=== PATIENT | male | born 1985 | race Caucasian/White ===

== ENCOUNTER 2016-09-05 17:16 | Emergency (ER) | payer BC, OTHER ==
--- NOTE | 2016-09-05 17:22 | EDM.PDOC ---
ED HISTORY OF PRESENT ILLNESS - General Chief Complaint: Chest Pain Stated Complaint: CHEST PAIN Time Seen by Provider: 09/05/16 17:22 - History of Present Illness INITIAL COMMENTS - FREE TEXT/NARRATIVE: 30-year-old male presents emergency room with chest pain and abdominal pain. Patient is highly intoxicated at this point he admits to drinking a sixpack of beer. Patient used to have a lot of problems with heartburn and dyspepsia symptoms he' s no longer taking any medication for this. The patient is a habitual alcohol user. He denies any other illicit drugs at this point. The patient dates his discomfort back about 3 weeks when he had a right tooth pulled. He states he still taken an antibiotic for this but he has not been using the ibuprofen, Aleve or naproxen. Patient has significant abdominal discomfort often times is goes into his chest in the substernal area he has a hard time describing this pain. The patient has not been using any of his gastrointestinal medications for several months. - Related Data Allergies/ADRs: Allergies Allergy/AdvReac Type Severity Reaction Status Date / Time No Known Allergies Allergy Verified 09/05/16 17:29 Home Meds: Home Meds Calcium Carbonate [Tums] 0 mg PO ASDIRECTED PRN 08/16/13 [History] Omeprazole 40 mg PO BEDTIME #30 cap.sr 08/16/13 [Rx] Omeprazole [priLOSEC OTC] 20 mg PO DAILY 08/16/13 [History] Ondansetron [Zofran ODT] 4 mg PO Q6H PRN #10 tab.dis 08/16/13 [Rx] Pantoprazole Sodium [Protonix] 40 mg PO Q24H #30 tablet. 09/05/16 [Rx] Sucralfate [Carafate] 0.1 gm PO ONETIME #1 ml #1 Samples 09/05/16 [Rx] Sucralfate [Carafate] 1 gm PO QIDACANDBED #28 tablet 09/05/16 [Rx] Social & Family History - Tobacco Use Years of Tobacco use: 9 - Alcohol Use Days Per Week of Alcohol Use: 2 Number of Drinks Per Day: 2 Total Drinks Per Week: 4 - Recreational Drug Use Recreational Drug Use: No ED ROS GENERAL - Review of Systems Review Of Systems: See Below Constitutional: Reports: no symptoms, weight gain Respiratory: Reports: Pleuritic Chest Pain. Denies: Shortness of Breath, Cough , Sputum Cardiovascular: Reports: Chest pain. Denies: Dyspnea on exertion, Palpitations Endocrine: Reports: no symptoms GI/Abdominal: Reports: Abdominal pain. Denies: Black stool, Bloody stool, Constipation, Diarrhea, Difficulty swallowing, Hematemesis, Hematochezia, Melena , Nausea, Vomiting : Reports: no symptoms Musculoskeletal: Reports: no symptoms Neurological: Reports: No Symptoms ED EXAM, GENERAL - Physical Exam Exam: See Below Exam Limited By: Intoxication General Appearance: alert, no apparent distress Eye Exam: bilateral eye: conjunctival injection, EOMI, normal inspection, PERRL Ears: normal external exam, normal canal, hearing grossly normal, normal TMs Nose: normal inspection, normal mucosa, no blood Throat/Mouth: Normal inspection, Normal lips, Normal gums, Normal oropharynx, Normal voice, No airway compromise, Other (Socket examined right lower jaw rear tooth prior molar site no significant erythema.) Head: atraumatic, normocephalic Neck: normal inspection, supple, non-tender, full range of motion. No: lymphadenopathy (L), lymphadenopathy (R) Respiratory/Chest: no respiratory distress, lungs clear, normal breath sounds Cardiovascular: normal peripheral pulses, regular rate, rhythm, no edema GI/Abdominal: normal bowel sounds, soft, other (Significant epigastric discomfort no rebound or guarding noted no rigidity) Back Exam: normal inspection. No: CVA tenderness (L), CVA tenderness (R) Neurological: CN II-XII intact, no motor/sensory deficits Psychiatric: other (Intoxicated) Course - Vital Signs Last Recorded V/S: Last Vital Signs Temp 36.5 C 09/05/16 17:20 Pulse 126 H 09/05/16 17:20 Resp 22 H 09/05/16 17:20 BP 162/106 H 09/05/16 17:20 Pulse Ox 96 09/05/16 17:20 - Orders/Labs/Meds Orders: Active Orders 24 hr Category Date Time Status EKG 12 Lead [EKG Documentation Completion] [RC] STAT Care 09/05/16 17:15 Active Chest 1V Frontal [CR] Stat Exams 09/05/16 17:31 Taken Labs: Laboratory Tests 09/05/16 09/05/16 09/05/16 Range/Units 17:20 17:20 17:20 WBC 11.98 H (4.23-9.07) K/mm3 RBC 5.45 (4.63-6.08) M/mm3 Hgb 16.6 (13.7-17.5) gm/L Hct 48.5 (40.1-51.0) % MCV 89.0 (79.0-92.2) fl MCH 30.5 (25.7-32.2) pg MCHC 34.2 (32.2-35.5) g/dl RDW Std Deviation 51.4 H (35.1-43.9) fL Plt Count 292 (163-337) K/mm3 MPV 10.6 (9.4-12.3) fl Neutrophils % (Manual) 61 H (40-60) % Band Neutrophils % 0 (0-10) % Lymphocytes % (Manual) 21 (20-40) % Atypical Lymphs % 6 % Monocytes % (Manual) 10 (2-10) % Eosinophils % (Manual) 2 (0.8-7.0) % Basophils % (Manual) 0 L (0.2-1.2) Platelet Estimate Adequate Plt Morphology Comment See note RBC Morph Comment Normal Sodium 149 H (136-145) mEq/L Potassium 3.7 (3.5-5.1) mEq/L Chloride 110 H (98-107) mEq/L Carbon Dioxide 24 (21-32) mEq/L Anion Gap 18.7 H (5-15) BUN 7 (7-18) mg/dL Creatinine 1.0 (0.7-1.3) mg/dL Est Cr Clr Drug Dosing 103.00 mL/min Estimated GFR (MDRD) > 60 (>60) mL/min BUN/Creatinine Ratio 7.0 L (14-18) Glucose 137 H (74-106) mg/dL Calcium 8.5 (8.5-10.1) mg/dL Total Bilirubin 0.5 (0.2-1.0) mg/dL AST 31 (15-37) U/L ALT 27 (16-63) U/L Alkaline Phosphatase 68 (46-116) U/L Troponin I < 0.017 (0.00-0.056) ng/mL Total Protein 7.4 (6.4-8.2) g/dl Albumin 4.3 (3.4-5.0) g/dl Globulin 3.1 gm/dL Albumin/Globulin Ratio 1.4 (1-2) Lipase 352 (73-393) U/L Ethyl Alcohol 0.38 (0.00) gm% Meds: Medications Discontinued Medications Generic Name Dose Route Start Last Admin Trade Name Erica PRN Reason Stop Dose Admin Al Hydroxide/Mg Hydroxide 30 0 ml 09/05/16 17:34 09/05/16 17:48 ml/ Lidocaine HCl 15 ml PO 09/05/16 17:35 45 ml ONETIME ONE Administration Lactated Ringer's 1,000 mls @ 999 mls/hr 09/05/16 17:33 09/05/16 17:47 Ringers, Lactated IV 09/05/16 18:33 999 mls/hr .BOLUS ONE Administration Ondansetron HCl 4 mg 09/05/16 17:34 09/05/16 17:47 Zofran IVPUSH 09/05/16 17:35 4 mg ONETIME ONE Administration Pantoprazole Sodium 40 mg 09/05/16 18:42 09/05/16 18:58 Protonix Iv IVPUSH 09/05/16 18:43 40 mg ONETIME ONE Administration Sucralfate 1 gm 09/05/16 18:41 09/05/16 18:58 Carafate PO 09/05/16 18:42 1 gm ONETIME ONE Administration - Re-Assessments/Exams Free Text/Narrative Re-Assessment/Exam: 09/05/16 18:45 As his labs came back lipase is at the upper normal but still normal block all 0.38 the patient is resting more comfortable he says he still has pain getting him to quantify this is somewhat difficult. We will give him Carafate and start PPI therapy with IV Protonix anticipate discharge on Carafate and oral PPI therapy. 09/05/16 19:24 The patient's brother has arrived and is willing to care for the patient this evening the patient's brother is sober and seems responsible. He understands the patient's discharge instructions. The patient will be given a dose of Carafate to take between 10:00 and midnight this evening. Patient's brother gives a history the patient drinking heavily for the last month and a half, patient said he was drinking for last week and a half. The brother also agrees the patient has not been taking any medication for her stomach lately. Departure - Departure Time of Disposition: 19:38 Disposition: Home, Self-Care 01 Clinical Impression: Gastritis, Alcoholic gastritis, Dyspepsia Prescriptions: Pantoprazole Sodium [Protonix] 40 mg PO Q24H #30 tablet. Sucralfate [Carafate] 0.1 gm PO ONETIME #1 ml #1 Samples Sucralfate [Carafate] 1 gm PO QIDACANDBED #28 tablet Forms: ED Department Discharge Additional Instructions: Return to the emergency room with any questions or problems. Followup in the clinic this next week for recheck. [phone]. He then started on 2 new medications the first was Protonix take this one daily. Take this 60 minutes before your evening meal. And take this 60 minutes before your Carafate while you're taking the Carafate. You will be started on Carafate one tablet 4 times daily. Take this just before breakfast lunch and supper and at bed time. Stop or decrease your alcohol intake. - My Orders Last 24 Hours: My Active Orders 09/05/16 17:15 EKG 12 Lead [EKG Documentation Completion] [RC] STAT 09/05/16 17:31 Chest 1V Frontal [CR] Stat - Assessment/Plan Last 24 Hours: My Active Orders 09/05/16 17:15 EKG 12 Lead [EKG Documentation Completion] [RC] STAT 09/05/16 17:31 Chest 1V Frontal [CR] Stat
[2016-09-05] MEDS ORDERED: Lactated Ringers 1,000 ML IV ONE (17:33)
[2016-09-05] MEDS ORDERED: Alum Hydrox/Mag Hydrox/Simeth 30 ML, Lidocaine 2% 15 ML PO ONE ×2 (17:34)
[2016-09-05] MEDS ORDERED: Ondansetron 4 MG/2 ML SDV IVPUSH ONE (17:34)
[2016-09-05] MEDS ORDERED: Sucralfate Suspension 1 GM/10 ML Cup PO ONE (18:41)
[2016-09-05] MEDS ORDERED: Pantoprazole 40 MG Vial IVPUSH ONE (18:42)
[2016-09-05] MEDS ORDERED: Sucralfate Suspension 1 GM/10 ML Cup ONE (20:06)
[2016-09-05 20:22] VITALS: BP 129/88
--- NOTE | 2016-09-06 10:34 | CR ---
Chest: Frontal view of the chest was obtained utilizing portable technique. Comparison: Previous chest x-ray of 11/12/12. Heart size and mediastinum are within normal limits for portable technique. Lungs are clear. Bony structures are grossly intact. Impression: 1. Nothing acute is identified on portable chest x-ray. Diagnostic code #1
== END 2016-09-05 20:20 | disposition home or self-care (01) ==
LOC: JD.ED 17:16
DX: K29.20 Alcoholic gastritis without bleeding (principal); Z79.899 Other long term (current) drug therapy
CPT/HCPCS: 36415; 71010; 80053; 83690; 84484; 85025; 93005; 96361; 96374; 96375; 99285; A9270; C9113; G0480; J2405; J7120; 99284

== ENCOUNTER 2016-09-23 21:46 | Emergency (ER) | payer BC, OTHER ==
[2016-09-23 21:52] VITALS: BP 152/90
[2016-09-23] MEDS ORDERED: Sodium Chloride 0.9% 1,000 ML IV SCH (23:00)
[2016-09-23 23:44] LABS: ACETAMINOPHEN 0 ug/mL (10-30)
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
--- NOTE | 2016-09-24 07:09 | CR ---
Chest: Portable view of the chest was obtained. Comparison: Previous chest x-ray of 09/05/16. Heart size and mediastinum are normal. Lungs are clear. Bony structures are grossly intact. Impression: 1. Nothing acute is identified on portable chest x-ray. Diagnostic code #1
== END 2016-09-24 06:02 | disposition home or self-care (01) ==
LOC: JD.ED 21:46
DX: R07.89 Other chest pain (principal); F10.129 Alcohol abuse with intoxication, unspecified; F17.210 Nicotine dependence, cigarettes, uncomplicated
CPT/HCPCS: 36415; 71010; 80053; 83605; 83690; 83735; 84484; 85025; 85379; 85610; 85730; 93005; 96360; 96361; 99285; G0480; J7040; 99283

== ENCOUNTER 2016-09-25 14:46 | Emergency (ER) | payer BC, OTHER ==
[2016-09-25] MEDS ORDERED: Promethazine 25 MG/ML SDV IM ONE (15:42)
[2016-09-25] MEDS ORDERED: Sodium Chloride 0.9% 10 ML Syringe FLUSH PRN (15:42)
[2016-09-25] MEDS ORDERED: Ketorolac 15 MG/ML SDV IVPUSH ONE (15:42)
[2016-09-25] MEDS ORDERED: Sodium Chloride 0.9% 1,000 ML IV ONE (15:43)
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
[2016-09-25 20:57] VITALS: BP 132/70
--- NOTE | 2016-09-26 15:46 | CR ---
Chest: Portable view of the chest was obtained. Comparison: Previous chest x-ray of 09/23/16. Heart size and mediastinum are normal. Lungs are clear. Bony structures are grossly intact. Impression: 1. Nothing acute is identified on portable chest x-ray. No significant change is appreciated from prior chest x-ray. Diagnostic code #1
== END 2016-09-25 19:49 | disposition home or self-care (01) ==
LOC: SUPCPDRO 14:46 → JD.ED 14:46
DX: F10.929 Alcohol use, unspecified with intoxication, unspecified (principal); R10.9 Unspecified abdominal pain; F17.210 Nicotine dependence, cigarettes, uncomplicated; Y90.8 Blood alcohol level of 240 mg/100 ml or more
CPT/HCPCS: 36415; 71010; 80053; 80306; 83690; 84484; 85025; 86140; 93005; 96361; 96372; 96374; 99284; G0480; J1885; J2550; J7040; J7050

== ENCOUNTER 2016-12-07 20:34 | Emergency (ER) | payer BC, MEDICAID, OTHER ==
[2016-12-07] MEDS ORDERED: Famotidine 20 MG/2 ML SDV IVPUSH ONE (20:53)
[2016-12-07] MEDS ORDERED: Sodium Chloride 0.9% 10 ML Syringe FLUSH PRN (20:53)
[2016-12-07] MEDS ORDERED: Sodium Chloride 0.9% 1,000 ML IV SCH (21:00)
[2016-12-07] MEDS ORDERED: Ondansetron 4 MG/2 ML SDV IVPUSH ONE (21:11)
[2016-12-07] MEDS ORDERED: Pantoprazole 40 MG Vial IVPUSH ONE ×2 (21:12→22:21)
--- NOTE | 2016-12-07 21:20 | EDM.PDOC ---
ED HPI GENERAL MEDICAL PROBLEM - General Chief Complaint: Abdominal Pain Stated Complaint: ABDOMINAL PAIN Time Seen by Provider: 12/07/16 20:46 Source of Information: Reports: Patient, RN Notes Reviewed - History of Present Illness INITIAL COMMENTS - FREE TEXT/NARRATIVE: 31-year-old male comes in with abdominal pain, nausea vomiting and also bloody stools. He does have history of quite severe alcohol abuse and dependency. He states he has had previous colonoscopy and endoscopy about 4 yrs ago, . Was on antacid medication for his stomach but apparently ran out about a month ago. He states he did quit drinking for a few weeks and was doing somewhat better but still taking a lot of Tums. Now he reportedly has been drinking quite heavily again for the past 5 days although he claims today he has had only 2 beers today. The friend that is with him indicates that he has had much more than 2 beers. He states he has been vomiting intermittently. States that when he wipes there is blood on the toilet paper. Have known history of hemorrhoids. However he states his stools also have been intermittently somewhat black and tarry and at times gross red blood on the stool. Abdominal Pain Score (Numeric/FACES): 10 - Related Data Allergies Allergy/AdvReac Type Severity Reaction Status Date / Time No Known Allergies Allergy Verified 12/07/16 20:48 Home Meds: Home Meds Omeprazole 40 mg PO DAILY #30 cap.cr 12/07/16 [Rx] Past Medical History HEENT History: Reports: Other (See Below) Other HEENT History: dental procedures Cardiovascular History: Reports: Other (See Below) Other Cardiovascular History: seen for chest pains. Gastrointestinal History: Reports: Gastritis Psychiatric History: Reports: Addiction - Infectious Disease History Infectious Disease History: Reports: Chicken Pox Social & Family History - Family History Family Medical History: Noncontributory - Tobacco Use Smoking Status *Q: Current Every Day Smoker Years of Tobacco use: 15 Packs/Tins Daily: 1 - Caffeine Use Caffeine Use: Reports: Energy Drinks, Soda - Alcohol Use Days Per Week of Alcohol Use: 7 Number of Drinks Per Day: 6 Total Drinks Per Week: 42 - Recreational Drug Use Recreational Drug Use: No - Living Situation & Occupation Living situation: Reports: , Alone 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) ED ROS GENERAL - Review of Systems Review Of Systems: See Below HEENT: Denies: Throat Pain Respiratory: Denies: Shortness of Breath Cardiovascular: Denies: Chest Pain GI/Abdominal: Reports: Abdominal Pain (Upper and midabdominal), Bloody Stool, Nausea, Vomiting Musculoskeletal: Reports: No Symptoms Skin: Reports: No Symptoms Neurological: Reports: No Symptoms ED EXAM, GI/ABD - Physical Exam Exam: See Below General Appearance: Alert, Anxious (Mild) Eyes: Bilateral: Normal Appearance Throat/Mouth: Other (Oral mucosa is quite dry) Head: No: Facial Swelling Neck: Supple, Full Range of Motion Respiratory/Chest: No Respiratory Distress, Lungs Clear, Normal Breath Sounds Cardiovascular: Tachycardia GI/Abdominal Exam: Tender (Moderate diffuse tenderness upper abdomen and periumbilical). No: Guarding Rectal (Males) Exam: Normal Exam, Other (Very small amount of brown stool, heme- negative, no mass palpable, very small external hemorrhoid not inflamed or bleeding at this time) Back Exam: No: CVA Tenderness (L), CVA Tenderness (R) Extremities: Normal Inspection. No: Pedal Edema, Leg Pain Neurological: Alert, No Motor/Sensory Deficits Skin Exam: Warm, Dry, Erythema (Faces quite flushed) Course - Vital Signs Last Recorded V/S: Last Vital Signs Temp 97.5 F 12/07/16 20:41 Pulse 125 H 12/07/16 20:41 Resp 18 12/07/16 20:41 BP 165/106 H 12/07/16 20:41 Pulse Ox 96 12/07/16 20:41 - Orders/Labs/Meds Orders: Active Orders 24 hr Category Date Time Status Peripheral IV Care [RC] . DIRECTED Care 12/07/16 20:53 Active Sodium Chloride 0.9% [Normal Saline] 1,000 ml Med 12/07/16 21:00 Active IV ONETIME Sodium Chloride 0.9% [Saline Flush] Med 12/07/16 20:53 Active 10 ml FLUSH ASDIRECTED PRN Peripheral IV Insertion Adult [OM.PC] Stat Oth 12/07/16 20:53 Ordered Medication Orders Sodium Chloride (Normal Saline) 1,000 mls @ 999 mls/hr IV ONETIME MARCELA Last Admin: 12/07/16 21:33 Dose: 999 mls/hr Sodium Chloride (Saline Flush) 10 ml FLUSH ASDIRECTED PRN PRN Reason: Keep Vein Open Last Admin: 12/07/16 21:21 Dose: 10 ml Labs: Laboratory Tests 12/07/16 12/07/16 12/07/16 Range/Units 21:11 21:11 21:11 WBC 12.71 H (4.23-9.07) K/mm3 RBC 5.56 (4.63-6.08) M/mm3 Hgb 17.2 (13.7-17.5) gm/L Hct 48.6 (40.1-51.0) % MCV 87.4 (79.0-92.2) fl MCH 30.9 (25.7-32.2) pg MCHC 35.4 (32.2-35.5) g/dl RDW Std Deviation 41.5 (35.1-43.9) fL Plt Count 266 (163-337) K/mm3 MPV 10.7 (9.4-12.3) fl Neut % (Auto) 47.2 (34.0-67.9) % Lymph % (Auto) 41.8 (21.8-53.1) % [place] % (Auto) 7.9 (5.3-12.2) % Eos % (Auto) 2.3 (0.8-7.0) Baso % (Auto) 0.6 (0.1-1.2) % Neut # (Auto) 6.00 H (1.78-5.38) K/mm3 Lymph # (Auto) 5.31 H (1.32-3.57) K/mm3 [place] # (Auto) 1.01 H (0.30-0.82) K/mm3 Eos # (Auto) 0.29 (0.04-0.54) K/mm3 Baso # (Auto) 0.07 (0.01-0.08) K/mm3 Manual Slide Review Normal smear Sodium 146 H (136-145) mEq/L Potassium 3.5 (3.5-5.1) mEq/L Chloride 108 H (98-107) mEq/L Carbon Dioxide 26 (21-32) mEq/L Anion Gap 15.5 H (5-15) BUN 12 (7-18) mg/dL Creatinine 1.3 (0.7-1.3) mg/dL Est Cr Clr Drug Dosing TNP Estimated GFR (MDRD) > 60 (>60) mL/min BUN/Creatinine Ratio 9.2 L (14-18) Glucose 87 (74-106) mg/dL Calcium 9.0 (8.5-10.1) mg/dL Total Bilirubin 0.4 (0.2-1.0) mg/dL AST 28 (15-37) U/L ALT 23 (16-63) U/L Alkaline Phosphatase 48 (46-116) U/L Total Protein 7.3 (6.4-8.2) g/dl Albumin 4.4 (3.4-5.0) g/dl Globulin 2.9 gm/dL Albumin/Globulin Ratio 1.5 (1-2) Lipase 259 (73-393) U/L Ethyl Alcohol 0.24 (0.00) gm% Meds: Medications Generic Name Dose Route Start Last Admin Trade Name Freq PRN Reason Stop Dose Admin Sodium Chloride 1,000 mls @ 999 mls/hr 12/07/16 21:00 12/07/16 21:33 Normal Saline IV 999 mls/hr ONETIME MARCELA Administration Sodium Chloride 10 ml 12/07/16 20:53 12/07/16 21:21 Saline Flush FLUSH 10 ml ASDIRECTED PRN Administration Keep Vein Open Discontinued Medications Generic Name Dose Route Start Last Admin Trade Name Freq PRN Reason Stop Dose Admin Famotidine 20 mg 12/07/16 20:53 12/07/16 21:22 Pepcid IVPUSH 12/07/16 20:54 20 mg ONETIME ONE Administration Ondansetron HCl 4 mg 12/07/16 21:11 12/07/16 21:21 Zofran IVPUSH 12/07/16 21:12 4 mg ONETIME ONE Administration Pantoprazole Sodium 40 mg 12/07/16 21:12 12/07/16 21:20 Protonix Iv IVPUSH 12/07/16 21:13 40 mg ONETIME ONE Administration Pantoprazole Sodium 40 mg 12/07/16 22:21 Protonix Iv IVPUSH 12/07/16 22:22 ONETIME ONE Departure - Departure Time of Disposition: 22:22 Disposition: Home, Self-Care 01 Condition: Fair Clinical Impression: Gastritis Qualifiers: Gastritis type: unspecified gastritis Chronicity: chronic Gastritis bleeding: without bleeding Qualified Code(s): K29.50 - Unspecified chronic gastritis without bleeding - Discharge Information Prescriptions: Omeprazole 40 mg PO DAILY #30 cap.cr Referrals: PCP,None [Primary Care Provider] - Forms: ED Department Discharge Additional Instructions: Start back on the omeprazole as prescribed, be sure to take that every day, drink plenty of water to maintain hydration. Avoid alcohol, as you are aware and has been discussed that will increase the difficulty you have with chronic stomach inflammation, there is no evidence for rectal bleeding tonight. Labs are all relatively normal with above normal hemoglobin or blood level. Follow-up with Dr. Tabares, general surgeon with our [facility] as needed. Call [phone] as needed for appointment. - My Orders Last 24 Hours: My Active Orders 12/07/16 20:53 Peripheral IV Care [RC] . DIRECTED Sodium Chloride 0.9% [Saline Flush] 10 ml FLUSH ASDIRECTED PRN Peripheral IV Insertion Adult [OM.PC] Stat 12/07/16 21:00 Sodium Chloride 0.9% [Normal Saline] 1,000 ml IV ONETIME - Assessment/Plan Last 24 Hours: My Active Orders 12/07/16 20:53 Peripheral IV Care [RC] . DIRECTED Sodium Chloride 0.9% [Saline Flush] 10 ml FLUSH ASDIRECTED PRN Peripheral IV Insertion Adult [OM.PC] Stat 12/07/16 21:00 Sodium Chloride 0.9% [Normal Saline] 1,000 ml IV ONETIME
[2016-12-07 22:49] VITALS: BP 106/95
== END 2016-12-07 22:39 | disposition home or self-care (01) ==
LOC: JD.ED 20:34
DX: K29.50 Unspecified chronic gastritis without bleeding (principal); F17.210 Nicotine dependence, cigarettes, uncomplicated; Z79.899 Other long term (current) drug therapy
CPT/HCPCS: 36415; 80053; 83690; 85025; 96361; 96374; 96375; 96376; 99284; C9113; G0480; J2405; J7040; J7050

== ENCOUNTER 2016-12-15 11:44 | Emergency (ER) | payer MEDICAID, OTHER ==
[2016-12-15 11:58] VITALS: BP 123/105
[2016-12-15] MEDS ORDERED: Sodium Chloride 0.9% 2,000 ML IV ONE (12:22)
[2016-12-15] MEDS ORDERED: Sucralfate Suspension 1 GM/10 ML Cup PO ONE (12:22)
[2016-12-15] MEDS ORDERED: Sodium Chloride 0.9% 10 ML Syringe FLUSH PRN (12:22)
[2016-12-15] MEDS ORDERED: Ondansetron 4 MG/2 ML SDV IVPUSH ONE (12:23)
[2016-12-15] MEDS ORDERED: Pantoprazole 40 MG Vial IVPUSH ONE (12:23)
[2016-12-15] MEDS ORDERED: Alum Hydrox/Mag Hydrox/Simeth 30 ML, Lidocaine 2% 15 ML PO ONE ×2 (12:23)
--- NOTE | 2016-12-15 12:30 | EDM.PDOC ---
ED HPI GENERAL MEDICAL PROBLEM - General Chief Complaint: Abdominal Pain Stated Complaint: ABDOMINAL PAIN Time Seen by Provider: 12/15/16 12:20 Source of Information: Reports: Patient History Limitations: Reports: Intoxication - History of Present Illness INITIAL COMMENTS - FREE TEXT/NARRATIVE: Patient is a 31-year-old male with a history of alcoholism and IV drug use presents to the ED complaining of severe epigastric and left upper/lower quadrant abdominal pain. Patient was recently evaluated in the ED for similar complaints. He was supposed to follow-up with Dr. Tabares on-call surgeon for reevaluation. He's been taking Tums with little relief. Continues to drink alcohol. States he drank approximately 4 beers this morning. He is intoxicated. Denies any IV drug use or any other form or recreational drugs. Currently mildly nauseated. Denies any fever/chills, vomiting, diarrhea, blood in stool, constipation, chest pain, shortness of breath, or any additional complaints. Abdominal Pain Score (Numeric/FACES): 10 - Related Data Allergies Allergy/AdvReac Type Severity Reaction Status Date / Time No Known Allergies Allergy Verified 12/15/16 11:53 Home Meds: Home Meds Omeprazole 40 mg PO DAILY #30 cap.cr 12/07/16 [Rx] Past Medical History HEENT History: Reports: Other (See Below) Other HEENT History: dental procedures Cardiovascular History: Reports: Other (See Below) Other Cardiovascular History: seen for chest pains. Gastrointestinal History: Reports: Gastritis Psychiatric History: Reports: Addiction - Infectious Disease History Infectious Disease History: Reports: Chicken Pox Social & Family History - Family History Family Medical History: Noncontributory - Tobacco Use Smoking Status *Q: Current Every Day Smoker Years of Tobacco use: 15 Packs/Tins Daily: 1 - Caffeine Use Caffeine Use: Reports: Energy Drinks, Soda - Alcohol Use Days Per Week of Alcohol Use: 7 Number of Drinks Per Day: 6 Total Drinks Per Week: 42 - Recreational Drug Use Recreational Drug Use: No - Living Situation & Occupation Living situation: Reports: , Alone 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 Denies: Black Stool, Bloody Stool, Constipation, Diarrhea, Decreased Appetite, Difficulty Swallowing, Distension, Flatus, Hematemesis, Hematochezia, Melena, Vomiting : Reports: No Symptoms ED EXAM, GI/ABD - Physical Exam Exam: See Below Exam Limited By: Intoxication General Appearance: Alert, WD/WN, Mild Distress Ears: Hearing Grossly Normal Nose: Normal Inspection Throat/Mouth: Normal Voice, No Airway Compromise Neck: Normal Inspection, Supple Respiratory/Chest: No Respiratory Distress, Lungs Clear, Normal Breath Sounds, No Accessory Muscle Use Cardiovascular: Normal Peripheral Pulses, Regular Rate, Rhythm GI/Abdominal Exam: Normal Bowel Sounds, Soft, No Organomegaly, No Distention, Tender (epigastric region and left upper/lower quadrant. ) (Male) Exam: Deferred Back Exam: Normal Inspection Extremities: Normal Inspection, Normal Range of Motion, No Pedal Edema Neurological: Alert, Oriented, CN II-XII Intact, Normal Cognition, No Motor/ Sensory Deficits Psychiatric: Normal Affect Skin Exam: Warm, Dry, Intact, Normal Color Course - Vital Signs Last Recorded V/S: Last Vital Signs Temp 98.3 F 12/15/16 11:54 Pulse 120 H 12/15/16 11:54 Resp 23 H 12/15/16 11:54 BP 123/105 H 12/15/16 11:54 Pulse Ox 96 12/15/16 11:54 - Orders/Labs/Meds Orders: Active Orders 24 hr Category Date Time Status Peripheral IV Care [RC] . DIRECTED Care 12/15/16 12:22 Active Abdomen 2V AP Flat Upright [CR] Stat Exams 12/15/16 12:22 Taken Abdomen Pelvis w Cont [CT] Stat Exams 12/15/16 13:22 Taken Peripheral IV Insertion Adult [OM.PC] Stat Oth 12/15/16 12:22 Ordered Labs: Laboratory Tests 12/15/16 12/15/16 12/15/16 Range/Units 11:45 11:45 11:45 WBC 12.56 H (4.23-9.07) K/mm3 RBC 5.47 (4.63-6.08) M/mm3 Hgb 16.8 (13.7-17.5) gm/L Hct 46.7 (40.1-51.0) % MCV 85.4 (79.0-92.2) fl MCH 30.7 (25.7-32.2) pg MCHC 36.0 H (32.2-35.5) g/dl RDW Std Deviation 39.7 (35.1-43.9) fL Plt Count 208 (163-337) K/mm3 MPV 10.9 (9.4-12.3) fl Neut % (Auto) 54.5 (34.0-67.9) % Lymph % (Auto) 32.7 (21.8-53.1) % Ogle % (Auto) 10.5 (5.3-12.2) % Eos % (Auto) 1.7 (0.8-7.0) Baso % (Auto) 0.4 (0.1-1.2) % Neut # (Auto) 6.84 H (1.78-5.38) K/mm3 Lymph # (Auto) 4.11 H (1.32-3.57) K/mm3 Ogle # (Auto) 1.32 H (0.30-0.82) K/mm3 Eos # (Auto) 0.21 (0.04-0.54) K/mm3 Baso # (Auto) 0.05 (0.01-0.08) K/mm3 Sodium 142 (136-145) mEq/L Potassium 3.3 L (3.5-5.1) mEq/L Chloride 105 (98-107) mEq/L Carbon Dioxide 26 (21-32) mEq/L Anion Gap 14.3 (5-15) BUN 8 (7-18) mg/dL Creatinine 0.9 (0.7-1.3) mg/dL Est Cr Clr Drug Dosing TNP Estimated GFR (MDRD) > 60 (>60) mL/min BUN/Creatinine Ratio 8.9 L (14-18) Glucose 85 (74-106) mg/dL Calcium 8.8 (8.5-10.1) mg/dL Magnesium 2.0 (1.8-2.4) mg/dl Total Bilirubin 0.9 (0.2-1.0) mg/dL AST 47 H (15-37) U/L ALT 25 (16-63) U/L Alkaline Phosphatase 45 L (46-116) U/L C-Reactive Protein < 0.2 (<1.0) mg/dL Total Protein 7.1 (6.4-8.2) g/dl Albumin 4.2 (3.4-5.0) g/dl Globulin 2.9 gm/dL Albumin/Globulin Ratio 1.5 (1-2) Lipase 330 (73-393) U/L Urine Color (Yellow) Urine Appearance (Clear) Urine pH (5.0-8.0) Ur Specific Lockhart (1.005-1.030) Urine Protein (Negative) Urine Glucose (UA) (Negative) Urine Ketones (Negative) Urine Occult Blood (Negative) Urine Nitrite (Negative) Urine Bilirubin (Negative) Urine Urobilinogen (0.2-1.0) Ur Leukocyte Esterase (Negative) Urine RBC (0-5) /hpf Urine WBC (0-5) /hpf Ur Epithelial Cells (0-5) /hpf Urine Bacteria (FEW) /hpf Urine Mucus (FEW) /hpf Urine Opiates Screen (NEGATIVE) Ur Buprenorphine Scrn (NEGATIVE) Ur Oxycodone Screen (NEGATIVE) Urine Methadone Screen (NEGATIVE) Ur Propoxyphene Screen (NEGATIVE) Ur Barbiturates Screen (NEGATIVE) Ur Tricyclics Screen (NEGATIVE) Ur Phencyclidine Scrn (NEGATIVE) Ur Amphetamine Screen (NEGATIVE) U Methamphetamines Scrn (NEGATIVE) U Benzodiazepines Scrn (NEGATIVE) U Cocaine Metab Screen (NEGATIVE) U Marijuana (THC) Screen (NEGATIVE) Ethyl Alcohol 0.40 (0.00) gm% 12/15/16 12/15/16 Range/Units 15:14 15:14 WBC (4.23-9.07) K/mm3 RBC (4.63-6.08) M/mm3 Hgb (13.7-17.5) gm/L Hct (40.1-51.0) % MCV (79.0-92.2) fl MCH (25.7-32.2) pg MCHC (32.2-35.5) g/dl RDW Std Deviation (35.1-43.9) fL Plt Count (163-337) K/mm3 MPV (9.4-12.3) fl Neut % (Auto) (34.0-67.9) % Lymph % (Auto) (21.8-53.1) % Ogle % (Auto) (5.3-12.2) % Eos % (Auto) (0.8-7.0) Baso % (Auto) (0.1-1.2) % Neut # (Auto) (1.78-5.38) K/mm3 Lymph # (Auto) (1.32-3.57) K/mm3 Ogle # (Auto) (0.30-0.82) K/mm3 Eos # (Auto) (0.04-0.54) K/mm3 Baso # (Auto) (0.01-0.08) K/mm3 Sodium (136-145) mEq/L Potassium (3.5-5.1) mEq/L Chloride (98-107) mEq/L Carbon Dioxide (21-32) mEq/L Anion Gap (5-15) BUN (7-18) mg/dL Creatinine (0.7-1.3) mg/dL Est Cr Clr Drug Dosing Estimated GFR (MDRD) (>60) mL/min BUN/Creatinine Ratio (14-18) Glucose (74-106) mg/dL Calcium (8.5-10.1) mg/dL Magnesium (1.8-2.4) mg/dl Total Bilirubin (0.2-1.0) mg/dL AST (15-37) U/L ALT (16-63) U/L Alkaline Phosphatase (46-116) U/L C-Reactive Protein (<1.0) mg/dL Total Protein (6.4-8.2) g/dl Albumin (3.4-5.0) g/dl Globulin gm/dL Albumin/Globulin Ratio (1-2) Lipase (73-393) U/L Urine Color Yellow (Yellow) Urine Appearance Clear (Clear) Urine pH 6.5 (5.0-8.0) Ur Specific Lockhart 1.010 (1.005-1.030) Urine Protein Negative (Negative) Urine Glucose (UA) Negative (Negative) Urine Ketones Negative (Negative) Urine Occult Blood Trace-intact H (Negative) Urine Nitrite Negative (Negative) Urine Bilirubin Negative (Negative) Urine Urobilinogen 0.2 (0.2-1.0) Ur Leukocyte Esterase Negative (Negative) Urine RBC 0-5 (0-5) /hpf Urine WBC 0-5 (0-5) /hpf Ur Epithelial Cells 0-5 (0-5) /hpf Urine Bacteria Rare (FEW) /hpf Urine Mucus Not seen (FEW) /hpf Urine Opiates Screen Negative (NEGATIVE) Ur Buprenorphine Scrn Negative (NEGATIVE) Ur Oxycodone Screen Negative (NEGATIVE) Urine Methadone Screen Negative (NEGATIVE) Ur Propoxyphene Screen Negative (NEGATIVE) Ur Barbiturates Screen Negative (NEGATIVE) Ur Tricyclics Screen Negative (NEGATIVE) Ur Phencyclidine Scrn Negative (NEGATIVE) Ur Amphetamine Screen Presumptive positive H (NEGATIVE) U Methamphetamines Scrn Presumptive positive H (NEGATIVE) U Benzodiazepines Scrn Negative (NEGATIVE) U Cocaine Metab Screen Negative (NEGATIVE) U Marijuana (THC) Screen Negative (NEGATIVE) Ethyl Alcohol (0.00) gm% Meds: Medications Discontinued Medications Generic Name Dose Route Start Last Admin Trade Name Freq PRN Reason Stop Dose Admin Al Hydroxide/Mg Hydroxide 30 0 ml 12/15/16 12:23 12/15/16 12:56 ml/ Lidocaine HCl 15 ml PO 12/15/16 12:24 45 ml ONETIME ONE Administration Diatrizoate Meglum/Diatrizoate Sod 90 ml 12/15/16 14:33 12/15/16 14:46 Gastrografin 37% PO 12/15/16 14:34 90 ml ONETIME ONE Administration Sodium Chloride 2,000 mls @ 999 mls/hr 12/15/16 12:22 12/15/16 12:56 Normal Saline IV 12/15/16 14:22 999 mls/hr ONETIME ONE Administration Sodium Chloride Confirm 12/15/16 13:10 12/15/16 16:37 Normal Saline Administered 12/15/16 13:11 Not Given Dose 1,000 mls @ as directed .ROUTE .STK-MED ONE Iopamidol 125 ml 12/15/16 14:33 12/15/16 14:46 Isovue-300 (61%) IVPUSH 12/15/16 14:34 125 ml ONETIME ONE Administration Ondansetron HCl 4 mg 12/15/16 12:23 12/15/16 12:58 Zofran IVPUSH 12/15/16 12:24 4 mg ONETIME ONE Administration Pantoprazole Sodium 40 mg 12/15/16 12:23 12/15/16 13:00 Protonix Iv IVPUSH 12/15/16 12:24 40 mg ONETIME ONE Administration Sodium Chloride 10 ml 12/15/16 12:22 08/16/17 12:58 Saline Flush FLUSH 10 ml ASDIRECTED PRN Administration Keep Vein Open Sodium Chloride 10 ml 12/15/16 14:33 12/15/16 14:46 Saline Flush FLUSH 12/15/16 14:34 10 ml ONETIME ONE Administration Sucralfate 1 gm 12/15/16 12:22 12/15/16 12:59 Carafate PO 12/15/16 12:23 1 gm ONETIME ONE Administration - Re-Assessments/Exams Free Text/Narrative Re-Assessment/Exam: Patient is intoxicated from alcohol. He has a history of IV drug use. Denies any IV drug use as of today. Has pain to his epigastric region that has progressively worsened over the course of the past few days. Pain is also located to his left side of his abdomen. He's been taking Tums with no relief. Continues to drink alcohol. Ordered peripheral IV with normal saline 2000 mL, GI cocktail, Protonix 40 mg Ivp, Zofran 4 mg IVP, Carafate 1 g by mouth. Initial labs and studies include CBC, chem 14, 6 CRP, lipase, EtOH, urine drug tox, UA, and 2 view of the abdomen. 12/15/16 13:23 Labs reviewed: White blood cell count 12.56, hemoglobin 16.8, platelet count 208, neutrophil #6.84, lymphocyte #4.11, monocyte numbers 1.32, sodium 142, potassium 3.3, creatinine 0.9, glucose 85, AST 47, AST 25, alk phosphatase 45, CRP less than 0.2, lipase 3:30, and serum EtOH 0.40. No urine sample provided yet. Patient was urinated in the garbage can in the room. Awaiting UA and urine drug tox test Abdominal x-ray reviewed: nonspecific air and stool patterns. Final interpretation pending. Mg levels ordered. Ordered CT of the abdomen and pelvis ordered with IV and oral contrast. 12/15/16 15:53 UA negative for infectious concerns. Trace occult blood present. Urine drug tox positive for amphetamines and methamphetamines. Serum EtOH is 0.40. Mg WNL. 1553 CT the abdomen and pelvis with IV contrast impression: Nonobstructive left urolithiasis, mild hepatic steatosis, small hiatal hernia. 12/15/16 15:59 Discussed results with patient. Vital signs are stable. He is unaware how drug test was positive. He is ready to be discharged home. Will arrange a ride. Discharge instructions as documented. Departure - Departure Time of Disposition: 16:00 Disposition: Home, Self-Care 01 Condition: Fair Clinical Impression: Dyspepsia Abdominal pain Qualifiers: Abdominal location: epigastric Qualified Code(s): R10.13 - Epigastric pain Alcohol intoxication Qualifiers: Complication of substance-induced condition: uncomplicated Qualified Code(s): F10.920 - Alcohol use, unspecified with intoxication, uncomplicated Alcoholic gastritis Qualifiers: Chronicity: acute Gastritis bleeding: presence of bleeding unspecified Qualified Code(s): K29.20 - Alcoholic gastritis without bleeding Urolithiasis Qualifiers: Urinary calculus location: kidney Qualified Code(s): N20.0 - Calculus of kidney Hematuria Qualifiers: Hematuria type: unspecified type Qualified Code(s): R31.9 - Hematuria, unspecified - Discharge Information Instructions: Gastritis, Adult, [id number], Alcohol Intoxication, Easy-to- Read, Abdominal Pain, Adult, [id number] Referrals: PCP,None [Primary Care Provider] - Forms: ED Department Discharge Additional Instructions: As discussed this most likely related to alcohol-induced gastritis. Take omeprazole 40 mg half hour prior to eating the morning for next 2 weeks. Thereafter take 1 tab every day. Can also utilize Maalox for discomfort as well. Avoid alcohol or recreational drug use. Chronic alcohol use causes stomach inflammation and increases your risk of developing peptic ulcer and GI bleed. In addition CT of the abdomen and pelvis do show kidney stone to the left kidney. No signs of hydronephrosis or stone that has passed. He did have some blood in her urine most likely related to this.Follow-up with Dr. Tabares general surgeon at [facility] as needed for EGD. Call [phone] as needed for appointment. Follow-up with her PCP in the next week for reevaluation. If you determine alcohol treatment is desired please see your PCP. - My Orders Last 24 Hours: My Active Orders 12/15/16 12:22 Peripheral IV Care [RC] . DIRECTED Abdomen 2V AP Flat Upright [CR] Stat Peripheral IV Insertion Adult [OM.PC] Stat 12/15/16 13:22 Abdomen Pelvis w Cont [CT] Stat - Assessment/Plan Last 24 Hours: My Active Orders 12/15/16 12:22 Peripheral IV Care [RC] . DIRECTED Abdomen 2V AP Flat Upright [CR] Stat Peripheral IV Insertion Adult [OM.PC] Stat 12/15/16 13:22 Abdomen Pelvis w Cont [CT] Stat
[2016-12-15] MEDS ORDERED: Sodium Chloride 0.9% 1,000 ML ONE (13:10)
[2016-12-15] MEDS ORDERED: Iopamidol 612 MG/ML 150 ML Bottle IVPUSH ONE (14:33)
[2016-12-15] MEDS ORDERED: Sodium Chloride 0.9% 10 ML Syringe FLUSH ONE (14:33)
[2016-12-15] MEDS ORDERED: Diatrizoate Meglumine/Diatrizoate Sodium 37% 120 ML Bottle PO ONE (14:33)
--- NOTE | 2016-12-16 09:31 | CR ---
Abdomen: Supine and upright views of the abdomen were obtained. Comparison: Previous abdominal series of 05/01/10. Slight scoliosis present within the spine felt to be positional. Bowel gas pattern is normal. Small calcification is seen overlying the lower pole of left kidney compatible with nonobstructing calculus. No free air is seen. Impression: 1. Small nonobstructing stone felt to be present within the lower pole of left kidney. 2. Two-view abdominal study is otherwise unremarkable. Diagnostic code #2
--- NOTE | 2016-12-16 12:17 | CT ---
CT abdomen and pelvis Technique: Multiple axial sections were obtained from above the dome of the diaphragm inferiorly through the pubic symphysis. Intravenous and oral contrast was utilized. Delayed images were obtained through the bladder. Comparison: No previous CT abdomen or pelvis exam. Findings: Visualized lung bases show nothing acute. Diffuse fatty infiltration noted throughout the liver. Spleen appears normal. Adrenal glands show no nodule. Very small calcification noted within the left kidney compatible with nonobstructing calculus. Kidneys otherwise appear within normal limits. Pancreas appears within normal limits. Aorta shows no aneurysmal dilatation. Gallbladder shows no calcified gallstones. Minimal hiatal hernia is noted. No retroperitoneal adenopathy or mesenteric abnormalities are seen. No pelvic mass or adenopathy is seen. Delayed images show contrast within the distal ureters and within the bladder. Appendix is seen which appears normal. No inflammatory change or free fluid is seen. No bowel dilatation is identified. 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 Impression: 1. Fatty infiltration within the liver. 2. Other incidental findings as noted above. Diagnostic code #2 Agree with preliminary report issued by [email or web address] ([facility] preliminary report dictated on 12/15/16, 4:01 PM Central Time)
== END 2016-12-15 16:25 | disposition home or self-care (01) ==
LOC: JD.ED 11:44
DX: K29.20 Alcoholic gastritis without bleeding (principal); N20.0 Calculus of kidney; F10.920 Alcohol use, unspecified with intoxication, uncomplicated; F17.210 Nicotine dependence, cigarettes, uncomplicated; Z79.899 Other long term (current) drug therapy; Y90.2 Blood alcohol level of 40-59 mg/100 ml
CPT/HCPCS: 36415; 74020; 74177; 80053; 80306; 81001; 83690; 83735; 85025; 86140; 96361; 96374; 96375; 99285; A9270; C9113; G0480; J2405; J7040; J7050; Q9963; Q9967; 99284

== ENCOUNTER 2016-12-17 20:47 | Emergency (ER) | payer BC, MEDICAID, OTHER ==
[2016-12-17 21:00] VITALS: BP 121/67
--- NOTE | 2016-12-17 21:18 | EDM.PDOC ---
ED HPI GENERAL MEDICAL PROBLEM - General Chief Complaint: Chest Pain Stated Complaint: [facility] Time Seen by Provider: 12/17/16 21:17 Source of Information: Reports: Patient History Limitations: Reports: No Limitations - History of Present Illness INITIAL COMMENTS - FREE TEXT/NARRATIVE: 31-year-old male arrives in the ED with complaints of severe retrosternal chest pain and epigastric abdominal pain. Reports recurrent vomiting over the last 20 hours with blood in the emesis. Stools have noted been black in color unclear if this is blood. Patient is severely intoxicated by alcohol and very uncooperative with nursing staff in terms of enhancing questions. He prefers to lie only in the left lateral decubitus position the position and this is aware had to examination. Onset: Today Onset Date: 12/17/16 Onset Time: 00:00 Duration: Hour(s): Location: Reports: Chest, Abdomen (See above.) Quality: Reports: Other (Intractable nausea and vomiting severe epigastric and retrosternal chest pain.) Severity: Severe Improves with: Reports: None (Rates his pain as 10 out of 10.) Worsens with: Reports: None Context: Denies: Activity, Exercise, Lifting, Sick Contact, Trauma, Other Associated Symptoms: Reports: Chest Pain (Central retrosternal chest pain radiating up into his throat. Worsened by vomiting.), Loss of Appetite, Malaise (K keep anything down), Nausea/Vomiting (Intractable for over 20 hours.), Other Treatments [employer]: Reports: Other (see below) Chest Pain Score (Numeric/FACES): 10 - Related Data Allergies Allergy/AdvReac Type Severity Reaction Status Date / Time No Known Allergies Allergy Verified 12/17/16 21:00 Home Meds: Home Meds Omeprazole 40 mg PO DAILY #30 cap.cr 12/07/16 [Rx] Past Medical History HEENT History: Reports: Other (See Below) Other HEENT History: dental procedures Cardiovascular History: Reports: Other (See Below) Other Cardiovascular History: seen for chest pains. Gastrointestinal History: Reports: Gastritis, GERD Psychiatric History: Reports: Addiction - Infectious Disease History Infectious Disease History: Reports: Chicken Pox Social & Family History - Family History Family Medical History: Noncontributory - Tobacco Use Smoking Status *Q: Current Every Day Smoker Years of Tobacco use: 15 Packs/Tins Daily: 1 - Caffeine Use Caffeine Use: Reports: Energy Drinks, Soda - Alcohol Use Days Per Week of Alcohol Use: 7 Number of Drinks Per Day: 6 Total Drinks Per Week: 42 - Recreational Drug Use Recreational Drug Use: No Drug Use in Last 12 Months: No - Living Situation & Occupation Living situation: Reports: , Alone 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 Denies: Fever HEENT: Reports: Throat Pain Respiratory: Reports: Shortness of Breath (From vomiting.). Denies: Wheezing, Pleuritic Chest Pain, Cough, Sputum, Hemoptysis Cardiovascular: Reports: Chest Pain (Central retrosternal chest pain which he rates 10 out of 10.), Lightheadedness. Denies: Blood Pressure Problem, Claudication, Dyspnea on Exertion, Edema, Orthopnea, Palpitations Endocrine: Reports: Fatigue GI/Abdominal: Reports: Abdominal Pain (Epigastric and left upper quadrant abdominal pain. Pain is constant. Worsens), Black Stool, Decreased Appetite ( before vomiting but feels a bit better after vomiting.), Hematemesis, Nausea, Vomiting. Denies: Difficulty Swallowing, Distension, Flatus, Hematochezia (He states he's noticed some flecks of blood in his emesis.), Melena, Stool Incontinence, Other : Reports: No Symptoms, Other (Not sure how may times she is going to the bathroom today.) Musculoskeletal: Reports: Back Pain Skin: Reports: No Symptoms Neurological: Reports: Dizziness, Difficulty Walking (Moderately intoxicated mildly ataxic), Other Psychiatric: Reports: Anxiety Hematologic/Lymphatic: Reports: No Symptoms Immunologic: Reports: No Symptoms ED EXAM, GENERAL - Physical Exam Exam: See Below Exam Limited By: Other (This smell of ketones on his breath slightly as well.) General Appearance: Moderate Distress, Other (Lakshmi signs are stable other than a mild tachypnea 25/m.) Eye Exam: Bilateral Eye: Normal Inspection Throat/Mouth: Other (Tongue is mildly dry and coated.) Head: Atraumatic ( Oropharynx is mildly erythematous.), Normocephalic Neck: Normal Inspection, Supple, Non-Tender, Full Range of Motion. No: Lymphadenopathy (L), Lymphadenopathy (R) Respiratory/Chest: Lungs Clear ( Can smell ketones on his breath.), Respiratory Distress (Mild tachypnea at rest.), Decreased Breath Sounds (Shallow breaths. Decreased breath sounds to both bases by 25%.), Splinting. No: No Accessory Muscle Use Cardiovascular: Normal Peripheral Pulses, Regular Rate, Rhythm, No Edema, No Gallop, No Murmur, No Rub Peripheral Pulses: 2+: Posterior Tibial (L), Posterior Tibial (R), Dorsalis Pedis (L), Dorsalis Pedis (R) GI/Abdominal: No Organomegaly, No Distention, Tender, Abnormal Bowel Sounds ( Normal bowel sounds). No: Rigid (Epigastrium and left upper quadrant of the abdomen with some guarding present.), Rebound (Male) Exam: No Hernia Back Exam: Normal Inspection, Full Range of Motion. No: CVA Tenderness (L), CVA Tenderness (R) Extremities: Normal Inspection, Normal Range of Motion, Non-Tender, No Pedal Edema Neurological: Alert, Oriented, CN II-XII Intact, Normal Cognition, No Motor/ Sensory Deficits. No: Normal Gait (Ataxic gait) Psychiatric: Anxious, Other Skin Exam: Dry, Intact, Normal Color, No Rash, Cool EKG INTERPRETATION EKG Date: 12/17/16 Time: 21:45 Rhythm: NSR Rate (Beats/Min): 98 [place]: Normal P-Wave: Present QRS: Other (Left ventricular hypertrophy pattern. Diffuse early repolarization pattern. Near Q-wave in aVL which is nonspecific.) ST-T: Other (Diffuse early repolarization pattern) QT: Normal EKG Interpretation Comments: Normal ECG Course - Vital Signs Last Recorded V/S: Last Vital Signs Temp 36.4 C 12/17/16 20:54 Pulse 97 12/17/16 20:54 Resp 25 H 12/17/16 20:54 BP 121/67 12/17/16 20:54 Pulse Ox 96 12/17/16 20:54 - Orders/Labs/Meds Labs: Laboratory Tests 12/17/16 12/17/16 12/17/16 Range/Units 21:50 21:50 21:50 WBC 7.93 (4.23-9.07) K/mm3 RBC 5.01 (4.63-6.08) M/mm3 Hgb 15.6 (13.7-17.5) gm/L Hct 43.6 (40.1-51.0) % MCV 87.0 (79.0-92.2) fl MCH 31.1 (25.7-32.2) pg MCHC 35.8 H (32.2-35.5) g/dl RDW Std Deviation 40.2 (35.1-43.9) fL Plt Count 151 L (163-337) K/mm3 MPV 10.7 (9.4-12.3) fl Neutrophils % (Manual) 50 (40-60) % Band Neutrophils % 0 (0-10) % Lymphocytes % (Manual) 37 (20-40) % Atypical Lymphs % 3 % Monocytes % (Manual) 6 (2-10) % Eosinophils % (Manual) 4 (0.8-7.0) % Basophils % (Manual) 0 L (0.2-1.2) Platelet Estimate Adequate Plt Morphology Comment Normal RBC Morph Comment Normal PT 10.3 (8.0-13.0) SECONDS INR 0.95 Sodium 145 (136-145) mEq/L Potassium 3.7 (3.5-5.1) mEq/L Chloride 108 H (98-107) mEq/L Carbon Dioxide 29 (21-32) mEq/L Anion Gap 11.7 (5-15) BUN 8 (7-18) mg/dL Creatinine 0.9 (0.7-1.3) mg/dL Est Cr Clr Drug Dosing TNP Estimated GFR (MDRD) > 60 (>60) mL/min BUN/Creatinine Ratio 8.9 L (14-18) Glucose 94 (74-106) mg/dL Calcium 8.3 L (8.5-10.1) mg/dL Magnesium 1.7 L (1.8-2.4) mg/dl Total Bilirubin 0.9 (0.2-1.0) mg/dL AST 73 H (15-37) U/L ALT 39 (16-63) U/L Alkaline Phosphatase 41 L (46-116) U/L CK-MB (CK-2) < 0.5 (0-3.6) ng/ml Troponin I < 0.017 (0.00-0.056) ng/mL Total Protein 6.4 (6.4-8.2) g/dl Albumin 3.8 (3.4-5.0) g/dl Globulin 2.6 gm/dL Albumin/Globulin Ratio 1.5 (1-2) Lipase 223 (73-393) U/L Ethyl Alcohol 0.33 (0.00) gm% Meds: Medications Discontinued Medications Generic Name Dose Route Start Last Admin Trade Name Freq PRN Reason Stop Dose Admin Hydromorphone HCl 1 mg 12/17/16 21:26 12/17/16 21:49 Dilaudid IVPUSH 12/17/16 21:27 1 mg ONETIME ONE Administration Sodium Chloride 1,000 mls @ 999 mls/hr 12/17/16 21:25 12/17/16 21:48 Normal Saline IV 12/17/16 22:25 999 mls/hr ONETIME ONE Administration Pantoprazole Sodium 40 mg/ 100 mls @ 200 mls/hr 12/17/16 21:30 12/17/16 21:49 Sodium Chloride IV 12/17/16 21:59 Not Given ONETIME ONE Metoclopramide HCl 10 mg 12/17/16 21:26 12/17/16 21:49 Reglan IVPUSH 12/17/16 21:27 10 mg ONETIME ONE Administration Pantoprazole Sodium 40 mg 12/17/16 21:38 12/17/16 21:49 Protonix Iv IVPUSH 12/17/16 21:39 40 mg ONETIME ONE Administration Pantoprazole Sodium Confirm 12/17/16 21:47 12/17/16 21:49 Protonix Iv Administered 12/17/16 21:48 Not Given Dose 40 mg .ROUTE .[facility] ONE - Radiology Interpretation Free Text/Narrative:: 31-year-old male presents to the ED per ambulance complaining of severe upper abdominal pain primarily epigastrium left upper quadrant radiating up into his mid retrosternal chest. It's hurts to breathe. Pain has been present for approximately 20 hours. He reports recurrent vomiting and states there was blood in his emesis. History is difficult to obtain and is taken with a "grain of salt "as the patient is severely intoxicated by alcohol. Lungs were clear with normal heart sounds. The abdomen was tender to palpation particularly in the epigastrium and the left upper quadrant. Difficult examination as he likes to lie in the position on the left side. He also states his stools are blackish in color. Patient has a history of chronic alcohol use .Usually drinks beer and not much for hard liquor. He is a smoker of a pack of cigarettes per day. Denies any other street drug use. Plan IV normal saline at 500 mils per hour. Given Protonix 40 mg IV bolus. Dilaudid 1 mg IV with Reglan 10 mg IV for pain relief. Routine labs to include serum lipase and magnesium and PT. One view chest x-ray one view abdomen to be done. - Re-Assessments/Exams Free Text/Narrative Re-Assessment/Exam: 12/17/16 22:50: Chest x-ray is normal. Abdominal film or KUB is also normal with no free air or signs of obstruction. Patient has been able to fall asleep after IV analgesia. 12/17/16 23:20: He is feeling improved with relief of his abdominal and chest pains. Labs reveal a normal white count at 7.93 with 50% neutral neutrophils and no bands. Hemoglobin is 15.6 hematocrit is 43.6 platelets on her and 51, 000. Coags are normal. Chemistry shows a sodium of 145 potassium 3.7 chloride 108 bicarbonate 29. Glucose was 94 magnesium is slightly low at 1.7. CK-MB fraction is less than 0.5 troponin was less than 0.017 lipase was 223. Blood alcohol was 0.33 gm percent--markedly intoxicated which accounts for his somewhat bizarre and uncooperative behavior.. Patient appears to be experiencing an acute alcohol-induced gastritis as a cause of his pain. He has received Protonix IV in the ED and is now feeling improved. He is requesting to go home. He's not had a bowel movement while here and he said no further emesis to suggest that he is actually having a GI bleed. Hemoglobin is stable at 15.6. He will be discharged home and advised to take Zantac 150 mg twice daily to protect his stomach lining from continued alcohol abuse. Departure - Departure Time of Disposition: 23:53 Disposition: Home, Self-Care 01 Condition: Fair Clinical Impression: Non-cardiac chest pain, Esophagitis, Acute alcohol intoxication Gastritis due to alcohol without hemorrhage Qualifiers: Chronicity: unspecified Qualified Code(s): K29.20 - Alcoholic gastritis without bleeding Instructions: Esophagitis Referrals: PCP,None [Primary Care Provider] - Forms: ED Department Discharge Additional Instructions: Evaluation in the emergency room today in regards to severe upper abdominal pain radiating up into the central chest. History of chronic alcohol use. All of the investigations done in the emergency room revealed no sign of heart related illness. Also no findings of pancreatitis. Pain appears to be due to's alcohol-induced inflammation of the food pipe or esophagus which we call esophagitis and similarly acute severe alcohol-induced gastritis. You're treated with pain medication and tonics IV to protect the stomach lining. Blood alcohol was found to be markedly elevated at 0.33 g percent with the legal limit to draw operate a motor vehicle it's 0.08 g percent. Strongly urge you to use Zantac 150 mg every night at bedtime or ideally twice daily to protect her stomach lining from the effects of alcohol. May use Maalox or Mylanta 30 mils up to 4 times daily if needed to relieve pain and the esophagus. Once her on the Zantac for proximally a week then the food pipe and stomach lining will have a chance to start to heal which usually takes 10-14 days. Strongly urge you to abstain or at least cut back on your alcohol use as it is continuing to cause problems with her stomach food pipe pancreas and liver.
[2016-12-17] MEDS ORDERED: Sodium Chloride 0.9% 1,000 ML IV ONE (21:25)
[2016-12-17] MEDS ORDERED: Metoclopramide 10 MG/2 ML SDV IVPUSH ONE (21:26)
[2016-12-17] MEDS ORDERED: HYDROmorphone 1 MG/ML Syringe IVPUSH ONE (21:26)
[2016-12-17] MEDS ORDERED: Pantoprazole 40 MG in Sodium Chloride 0.9% 100 ML IV ONE (21:30)
[2016-12-17] MEDS ORDERED: Pantoprazole 40 MG Vial IVPUSH ONE (21:38)
[2016-12-17] MEDS ORDERED: Pantoprazole 40 MG Vial ONE (21:47)
--- NOTE | 2016-12-21 10:32 | CR ---
Chest: Frontal view of the chest was obtained. Comparison: Previous chest x-ray of 09/25/16. Heart size and mediastinum are normal. Lungs are clear. Bony structures are grossly intact. Impression: 1. Nothing acute is identified on frontal chest x-ray. Diagnostic code #1
--- NOTE | 2016-12-21 10:32 | CR ---
Abdomen: Supine view of the abdomen was obtained. Comparison: Previous abdominal x-ray of 12/15/16. Findings: Slight scoliosis is noted. Bowel gas pattern appears normal. No abnormal calcifications or soft tissue abnormality is seen. Impression: 1. Unremarkable supine abdominal x-ray. Diagnostic code #2
== END 2016-12-18 00:12 | disposition home or self-care (01) ==
LOC: JD.ED 20:47
DX: R07.89 Other chest pain (principal); K20.9 Esophagitis, unspecified; K29.20 Alcoholic gastritis without bleeding; F10.129 Alcohol abuse with intoxication, unspecified; F17.210 Nicotine dependence, cigarettes, uncomplicated; Y90.8 Blood alcohol level of 240 mg/100 ml or more; Z79.899 Other long term (current) drug therapy
CPT/HCPCS: 36415; 71010; 74000; 80053; 82553; 83690; 83735; 84484; 85025; 85610; 93005; 96361; 96374; 96375; 99285; C9113; G0480; J1170; J2765; J7040; 99284

== ENCOUNTER 2016-12-29 13:05 | Emergency (ER) | payer MEDICAID, OTHER ==
[2016-12-29] MEDS ORDERED: Sodium Chloride 0.9% 1,000 ML IV ONE ×2 (13:40→15:13)
[2016-12-29] MEDS ORDERED: Pantoprazole 40 MG Vial IVPUSH ONE (13:44)
[2016-12-29] MEDS ORDERED: Ondansetron 4 MG/2 ML SDV IVPUSH ONE (13:44)
[2016-12-29] MEDS ORDERED: Ketorolac 30 MG/ML SDV IVPUSH ONE (13:44)
--- NOTE | 2016-12-29 14:43 | CR ---
Chest: Portable view of the chest was obtained. Comparison: Previous chest x-ray of 12/17/16. Heart size and mediastinum are normal. Lungs are clear. Bony structures are grossly intact. Impression: 1. Nothing acute is appreciated on portable chest x-ray. Diagnostic code #1
--- NOTE | 2016-12-29 15:41 | EDM.PDOC ---
ED HPI GENERAL MEDICAL PROBLEM - General Chief Complaint: Drug or Alcohol Abuse Stated Complaint: CHEST PAIN Time Seen by Provider: 12/29/16 13:30 Source of Information: Reports: Patient, Old Records History Limitations: Reports: No Limitations - History of Present Illness INITIAL COMMENTS - FREE TEXT/NARRATIVE: 31-year-old male presents for evaluation and treatment of abdominal pain and chest pain. Patient reports that he has been experiencing abdominal pain and chest pain for several years. Describes as a constant pain. Is complaining of pain to the left lower quadrant of the abdomen. Reports that eating makes the pain worse. Her sports associated symptoms of nausea vomiting. Patient is obviously intoxicated. He smells of alcohol and is slurring his speech. He states that he has only had one [place] and 2 shots of fireball today. Patient has been seen in the ER on multiple occasions for chest pain and abdominal pain. No etiology has been identified other than alcohol as of yet. He has been encouraged to follow-up but he has not done so. Today the patient was found kneeling in the waiting room of the hospital. He was brought over by hospital staff. Chest Pain Score (Numeric/FACES): 10 - Related Data Allergies Allergy/AdvReac Type Severity Reaction Status Date / Time No Known Allergies Allergy Verified 12/30/16 13:09 Home Meds: Home Meds Omeprazole 40 mg PO DAILY #30 cap.cr 12/07/16 [Rx] Past Medical History HEENT History: Reports: Other (See Below) Other HEENT History: dental procedures Cardiovascular History: Reports: Other (See Below) Other Cardiovascular History: seen for chest pains. Gastrointestinal History: Reports: Gastritis, GERD Psychiatric History: Reports: Addiction - Infectious Disease History Infectious Disease History: Reports: Chicken Pox Social & Family History - Family History Family Medical History: Noncontributory - Tobacco Use Smoking Status *Q: Current Every Day Smoker Years of Tobacco use: 12 Packs/Tins Daily: 1 - Caffeine Use Caffeine Use: Reports: Energy Drinks, Soda - Alcohol Use Days Per Week of Alcohol Use: 7 Number of Drinks Per Day: 2 Total Drinks Per Week: 14 - Recreational Drug Use Recreational Drug Use: No Drug Use in Last 12 Months: No - Living Situation & Occupation Living situation: Reports: , Alone 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) ED ROS GENERAL - Review of Systems Review Of Systems: See Below Cardiovascular: Reports: Chest Pain GI/Abdominal: Reports: Abdominal Pain (left lower quadrant), Nausea, Vomiting ED EXAM, GENERAL - Physical Exam Exam: See Below Exam Limited By: Intoxication General Appearance: Alert, WD/WN, No Apparent Distress, Other (smells of alcohol ; slurred speech) Ears: Normal External Exam Nose: Normal Inspection Throat/Mouth: Normal Inspection, No Airway Compromise, Other (slurred speech; dry mucus membranes) Neck: Normal Inspection Respiratory/Chest: No Respiratory Distress, Lungs Clear, Normal Breath Sounds, Other (reports pain to palpation of the entire chest) Cardiovascular: Normal Peripheral Pulses, Regular Rate, Rhythm, No Murmur GI/Abdominal: Normal Bowel Sounds, Soft, No Distention, Other (reports pain to palpation of the entire abdomen) Neurological: Alert Skin Exam: Warm, Dry, Normal Color EKG INTERPRETATION EKG Date: 12/29/16 Time: 13:20 Rhythm: NSR Rate (Beats/Min): 119 [place]: Normal P-Wave: Present QRS: Normal ST-T: Normal QT: Normal EKG Interpretation Comments: Sinus tachycardia at 119 bpm. RSR' in V1 and V2. T wave flattening in AVL. Likely LVH. Reviewed by myself and Dr. Aguilera. Course - Vital Signs Last Recorded V/S: Last Vital Signs Temp Pulse 107 H 12/29/16 18:00 Resp 22 H 12/29/16 18:00 BP 121/83 12/29/16 18:00 Pulse Ox 94 L 12/29/16 18:00 - Orders/Labs/Meds Labs: Laboratory Tests 12/29/16 12/29/16 12/29/16 Range/Units 13:15 13:15 13:15 WBC 16.90 H (4.23-9.07) K/mm3 RBC 5.09 (4.63-6.08) M/mm3 Hgb 15.5 (13.7-17.5) gm/L Hct 45.9 (40.1-51.0) % MCV 90.2 (79.0-92.2) fl MCH 30.5 (25.7-32.2) pg MCHC 33.8 (32.2-35.5) g/dl RDW Std Deviation 44.7 H (35.1-43.9) fL Plt Count 447 H (163-337) K/mm3 MPV 9.7 (9.4-12.3) fl Neutrophils % (Manual) 65 H (40-60) % Band Neutrophils % 0 (0-10) % Lymphocytes % (Manual) 25 (20-40) % Atypical Lymphs % 0 % Monocytes % (Manual) 5 (2-10) % Eosinophils % (Manual) 4 (0.8-7.0) % Basophils % (Manual) 1 (0.2-1.2) Platelet Estimate Adequate RBC Morph Comment Normal Sodium 148 H (136-145) mEq/L Potassium 3.9 (3.5-5.1) mEq/L Chloride 110 H (98-107) mEq/L Carbon Dioxide 27 (21-32) mEq/L Anion Gap 14.9 (5-15) BUN 10 (7-18) mg/dL Creatinine 0.9 (0.7-1.3) mg/dL Est Cr Clr Drug Dosing TNP Estimated GFR (MDRD) > 60 (>60) mL/min BUN/Creatinine Ratio 11.1 L (14-18) Glucose 98 (74-106) mg/dL Calcium 9.1 (8.5-10.1) mg/dL Total Bilirubin 0.3 (0.2-1.0) mg/dL AST 29 (15-37) U/L ALT 24 (16-63) U/L Alkaline Phosphatase 76 (46-116) U/L Troponin I (0.00-0.056) ng/mL C-Reactive Protein 2.7 H* (<1.0) mg/dL Total Protein 7.5 (6.4-8.2) g/dl Albumin 3.5 (3.4-5.0) g/dl Globulin 4.0 gm/dL Albumin/Globulin Ratio 0.9 L (1-2) Lipase 239 (73-393) U/L Urine Color (Yellow) Urine Appearance (Clear) Urine pH (5.0-8.0) Ur Specific [place] (1.005-1.030) Urine Protein (Negative) Urine Glucose (UA) (Negative) Urine Ketones (Negative) Urine Occult Blood (Negative) Urine Nitrite (Negative) Urine Bilirubin (Negative) Urine Urobilinogen (0.2-1.0) Ur Leukocyte Esterase (Negative) Urine RBC (0-5) /hpf Urine WBC (0-5) /hpf Ur Epithelial Cells (0-5) /hpf Urine Bacteria (FEW) /hpf Urine Mucus (FEW) /hpf Urine Opiates Screen Negative (NEGATIVE) Ur Buprenorphine Scrn Negative (NEGATIVE) Ur Oxycodone Screen Negative (NEGATIVE) Urine Methadone Screen Negative (NEGATIVE) Ur Propoxyphene Screen Negative (NEGATIVE) Ur Barbiturates Screen Negative (NEGATIVE) Ur Tricyclics Screen Negative (NEGATIVE) Ur Phencyclidine Scrn Negative (NEGATIVE) Ur Amphetamine Screen Negative (NEGATIVE) U Methamphetamines Scrn Negative (NEGATIVE) U Benzodiazepines Scrn Negative (NEGATIVE) U Cocaine Metab Screen Negative (NEGATIVE) U Marijuana (THC) Screen Negative (NEGATIVE) Ethyl Alcohol 0.40 (0.00) gm% 12/29/16 12/29/16 Range/Units 13:15 13:15 WBC (4.23-9.07) K/mm3 RBC (4.63-6.08) M/mm3 Hgb (13.7-17.5) gm/L Hct (40.1-51.0) % MCV (79.0-92.2) fl MCH (25.7-32.2) pg MCHC (32.2-35.5) g/dl RDW Std Deviation (35.1-43.9) fL Plt Count (163-337) K/mm3 MPV (9.4-12.3) fl Neutrophils % (Manual) (40-60) % Band Neutrophils % (0-10) % Lymphocytes % (Manual) (20-40) % Atypical Lymphs % % Monocytes % (Manual) (2-10) % Eosinophils % (Manual) (0.8-7.0) % Basophils % (Manual) (0.2-1.2) Platelet Estimate RBC Morph Comment Sodium (136-145) mEq/L Potassium (3.5-5.1) mEq/L Chloride (98-107) mEq/L Carbon Dioxide (21-32) mEq/L Anion Gap (5-15) BUN (7-18) mg/dL Creatinine (0.7-1.3) mg/dL Est Cr Clr Drug Dosing Estimated GFR (MDRD) (>60) mL/min BUN/Creatinine Ratio (14-18) Glucose (74-106) mg/dL Calcium (8.5-10.1) mg/dL Total Bilirubin (0.2-1.0) mg/dL AST (15-37) U/L ALT (16-63) U/L Alkaline Phosphatase (46-116) U/L Troponin I < 0.017 (0.00-0.056) ng/mL C-Reactive Protein (<1.0) mg/dL Total Protein (6.4-8.2) g/dl Albumin (3.4-5.0) g/dl Globulin gm/dL Albumin/Globulin Ratio (1-2) Lipase (73-393) U/L Urine Color Yellow (Yellow) Urine Appearance Clear (Clear) Urine pH 6.0 (5.0-8.0) Ur Specific [place] 1.010 (1.005-1.030) Urine Protein Negative (Negative) Urine Glucose (UA) Negative (Negative) Urine Ketones Negative (Negative) Urine Occult Blood Negative (Negative) Urine Nitrite Negative (Negative) Urine Bilirubin Negative (Negative) Urine Urobilinogen 0.2 (0.2-1.0) Ur Leukocyte Esterase Negative (Negative) Urine RBC Not seen (0-5) /hpf Urine WBC 0-5 (0-5) /hpf Ur Epithelial Cells Not seen (0-5) /hpf Urine Bacteria Not seen (FEW) /hpf Urine Mucus Not seen (FEW) /hpf Urine Opiates Screen (NEGATIVE) Ur Buprenorphine Scrn (NEGATIVE) Ur Oxycodone Screen (NEGATIVE) Urine Methadone Screen (NEGATIVE) Ur Propoxyphene Screen (NEGATIVE) Ur Barbiturates Screen (NEGATIVE) Ur Tricyclics Screen (NEGATIVE) Ur Phencyclidine Scrn (NEGATIVE) Ur Amphetamine Screen (NEGATIVE) U Methamphetamines Scrn (NEGATIVE) U Benzodiazepines Scrn (NEGATIVE) U Cocaine Metab Screen (NEGATIVE) U Marijuana (THC) Screen (NEGATIVE) Ethyl Alcohol (0.00) gm% Meds: Medications Discontinued Medications Generic Name Dose Route Start Last Admin Trade Name Freq PRN Reason Stop Dose Admin Sodium Chloride 1,000 mls @ 999 mls/hr 12/29/16 13:40 12/29/16 13:54 Normal Saline IV 12/29/16 14:40 999 mls/hr ONETIME ONE Administration Sodium Chloride 1,000 mls @ 999 mls/hr 12/29/16 15:13 12/29/16 15:21 Normal Saline IV 12/29/16 16:13 999 mls/hr ONETIME ONE Administration Ketorolac Tromethamine 30 mg 12/29/16 13:44 12/29/16 14:06 Toradol IVPUSH 12/29/16 13:45 30 mg ONETIME ONE Administration Ondansetron HCl 4 mg 12/29/16 13:44 12/29/16 14:04 Zofran IVPUSH 12/29/16 13:45 4 mg ONETIME ONE Administration Pantoprazole Sodium 40 mg 12/29/16 13:44 12/29/16 14:03 Protonix Iv IVPUSH 12/29/16 13:45 40 mg ONETIME ONE Administration - Radiology Interpretation Free Text/Narrative:: Chest xray [address] Phelps : 1. Nothing acute is appreciated on portable chest xray - Re-Assessments/Exams Free Text/Narrative Re-Assessment/Exam: 12/29/16 16:04 Patient is sleeping at this time. 12/29/16 17:55 Patient is now awake. He reports his pain has resolved. I Asked him how much he had to drink today. He states he only had 2 beers. I informed him that his alcohol was 0.4. He'd knowledge is that his chest pain and abdominal pain is likely from his alcohol consumption. He vows to stop drinking. Given that his symptoms have resolved we will discharge him home once he has a responsible alliance party to come and be with him. He will likely take 24-26 hours for him to become sober. 12/29/16 18:47 Patient was unable to find a responsible alliance party to take him home. He told nursing staff he would like to leave. I had him sign out AMA as it is my recommendation he be with someone who can monitor him and keep him safe. Departure - Departure Time of Disposition: 18:25 Disposition: DC/Tfer to Acute Hospital 02 Condition: Good Clinical Impression: Acute alcohol intoxication Alcoholic gastritis Qualifiers: Chronicity: acute Gastritis bleeding: presence of bleeding unspecified Qualified Code(s): K29.20 - Alcoholic gastritis without bleeding - Discharge Information Referrals: Vinay Feliz Jr, MD [Primary Care Provider] - Additional Instructions: I recommend you continue with your [id number] Prilosec. Follow up with your primary care provider in 1-2 weeks. I Recommend you stop drinking. Follow-up with [facility]. Please call [phone] to see them about you alcohol consumption. please return to the ER if your symptoms change or worsen.
[2016-12-29 18:10] VITALS: BP 121/83
== END 2016-12-29 18:04 ==
LOC: JD.ED 13:05
DX: K29.20 Alcoholic gastritis without bleeding (principal); F10.129 Alcohol abuse with intoxication, unspecified; K21.9 Gastro-esophageal reflux disease without esophagitis; F17.210 Nicotine dependence, cigarettes, uncomplicated; Z79.899 Other long term (current) drug therapy
CPT/HCPCS: 36415; 71010; 80053; 80306; 81001; 83690; 84484; 85025; 86140; 93005; 96361; 96374; 96375; 99285; C9113; G0480; J1885; J2405; J7040; 99284

== ENCOUNTER 2016-12-30 12:58 | Emergency (ER) | payer MEDICAID, OTHER ==
[2016-12-30 13:13] VITALS: BP 143/82
[2016-12-30] MEDS ORDERED: Famotidine 20 MG Tab PO ONE (13:45)
[2016-12-30] MEDS ORDERED: Ketorolac 60 MG/2 ML SDV IM ONE (13:45)
--- NOTE | 2016-12-30 14:17 | EDM.PDOC ---
ED HPI GENERAL MEDICAL PROBLEM - General Chief Complaint: Abdominal Pain Stated Complaint: Abdominal pain Time Seen by Provider: 12/30/16 13:35 Source of Information: Reports: Patient, RN Notes Reviewed History Limitations: Reports: Intoxication - History of Present Illness INITIAL COMMENTS - FREE TEXT/NARRATIVE: 31 year old male presents to the ED today for complaints of epigastric abdominal pain. This is a chronic problem for him. He was evaluated in the ED yesterday for this same complaint. He has an EGD scheduled for 01/05/17. He reports nausea, vomiting and diarrhea. He reports drinking 2 beers today. He denies fever or chills. He was brought in by law enforcement. He is not under arrest. This is the first time I've met Marilyn. He is intoxicated and smells of ETOH. I reviewed his chart. He has been to the ER several times with complaints of chest pain and abdominal pain. He's had several normal workups. He's generally treated with Pepcid and Toradol and has complete resolution of symptoms according to his chart. Symptoms have been attributed to his chronic alcohol use with no acute etiology identified during any previous visit. He had a full cardiac and GI workup yesterday. His WBC and CRP were elevated yesterday. No identifiable cause found during yesterday's workup. He also has a history of IV drug use and has had previous UDS screens positive for meth. Abdominal Pain Score (Numeric/FACES): 10 - Related Data Allergies Allergy/AdvReac Type Severity Reaction Status Date / Time No Known Allergies Allergy Verified 12/30/16 13:09 Home Meds: Home Meds Omeprazole 40 mg PO DAILY #30 cap.cr 12/07/16 [Rx] Past Medical History HEENT History: Reports: Other (See Below) Other HEENT History: dental procedures Cardiovascular History: Reports: Other (See Below) Other Cardiovascular History: seen for chest pains. Gastrointestinal History: Reports: Gastritis, GERD Psychiatric History: Reports: Addiction - Infectious Disease History Infectious Disease History: Reports: Chicken Pox Social & Family History - Family History Family Medical History: Noncontributory - Tobacco Use Smoking Status *Q: Current Every Day Smoker Years of Tobacco use: 15 Packs/Tins Daily: 1 - Caffeine Use Caffeine Use: Reports: Energy Drinks, Soda - Alcohol Use Days Per Week of Alcohol Use: 7 Number of Drinks Per Day: 2 Total Drinks Per Week: 14 - Recreational Drug Use Recreational Drug Use: Yes Drug Use in Last 12 Months: No - Living Situation & Occupation Living situation: Reports: , Alone 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 Denies: Fever, Chills Respiratory: Reports: No Symptoms. Denies: Shortness of Breath Cardiovascular: Reports: No Symptoms. Denies: Chest Pain GI/Abdominal: Reports: Abdominal Pain, Diarrhea, Nausea, Vomiting Neurological: Reports: No Symptoms. Denies: Headache ED EXAM, GENERAL - Physical Exam Exam: See Below Exam Limited By: Intoxication General Appearance: Alert, WD/WN, No Apparent Distress, Other (sleeping at time of exam. easily awakened ) Eye Exam: Bilateral Eye: EOMI, PERRL Respiratory/Chest: No Respiratory Distress, Lungs Clear, Normal Breath Sounds Cardiovascular: No Edema, Tachycardia GI/Abdominal: Normal Bowel Sounds, Soft, Non-Tender, No Distention Neurological: Alert, Normal Cognition, Normal Gait, No Motor/Sensory Deficits Skin Exam: Warm, Dry, Intact Course - Vital Signs Last Recorded V/S: Last Vital Signs Temp 98.4 F 12/30/16 13:10 Pulse 110 H 12/30/16 13:10 Resp BP 143/82 H 12/30/16 13:10 Pulse Ox 97 12/30/16 13:10 - Orders/Labs/Meds Orders: Active Orders 24 hr Category Date Time Status DRUG SCREEN, URINE [URCHEM] Stat Lab 12/30/16 13:45 Uncollected Labs: Laboratory Tests 12/30/16 12/30/16 Range/Units 14:05 14:05 WBC 11.01 H (4.23-9.07) K/mm3 RBC 4.49 L (4.63-6.08) M/mm3 Hgb 13.8 (13.7-17.5) gm/L Hct 40.7 (40.1-51.0) % MCV 90.6 (79.0-92.2) fl MCH 30.7 (25.7-32.2) pg MCHC 33.9 (32.2-35.5) g/dl RDW Std Deviation 43.6 (35.1-43.9) fL Plt Count 364 H (163-337) K/mm3 MPV 9.5 (9.4-12.3) fl Neutrophils % (Manual) 70 H (40-60) % Band Neutrophils % 1 (0-10) % Lymphocytes % (Manual) 14 L (20-40) % Atypical Lymphs % 4 % Monocytes % (Manual) 11 H (2-10) % Eosinophils % (Manual) 0 L (0.8-7.0) % Basophils % (Manual) 0 L (0.2-1.2) Platelet Estimate Adequate Plt Morphology Comment Normal RBC Morph Comment Normal Sodium 149 H (136-145) mEq/L Potassium 3.5 (3.5-5.1) mEq/L Chloride 109 H (98-107) mEq/L Carbon Dioxide 27 (21-32) mEq/L Anion Gap 16.5 H (5-15) BUN 7 (7-18) mg/dL Creatinine 0.7 (0.7-1.3) mg/dL Est Cr Clr Drug Dosing 151.50 mL/min Estimated GFR (MDRD) > 60 (>60) mL/min BUN/Creatinine Ratio 10.0 L (14-18) Glucose 110 H (74-106) mg/dL Calcium 8.3 L (8.5-10.1) mg/dL Total Bilirubin 0.3 (0.2-1.0) mg/dL AST 20 (15-37) U/L ALT 20 (16-63) U/L Alkaline Phosphatase 75 (46-116) U/L Total Protein 6.6 (6.4-8.2) g/dl Albumin 3.2 L (3.4-5.0) g/dl Globulin 3.4 gm/dL Albumin/Globulin Ratio 0.9 L (1-2) Ethyl Alcohol 0.37 (0.00) gm% Meds: Medications Discontinued Medications Generic Name Dose Route Start Last Admin Trade Name Freq PRN Reason Stop Dose Admin Famotidine 20 mg 12/30/16 13:45 12/30/16 14:04 Pepcid PO 12/30/16 13:46 20 mg ONETIME ONE Administration Ketorolac Tromethamine 60 mg 12/30/16 13:45 12/30/16 13:59 Toradol IM 12/30/16 13:46 60 mg ONETIME ONE Administration - Re-Assessments/Exams Free Text/Narrative Re-Assessment/Exam: 1445 Nursing staff notified me that the patient left the ED. He did not tell anyone he was leaving. They are unsure when he departed. His last vital signs per the vital signs monitor were at 1400. Labs today: CBC reveals a WBC of 11,000 with no bandemia. This has improved from yesterdays visit. CMP reveals sodium of 149, K 3.5, creatinine 0.7, BUN 7, anion gap of 16. ETOH 0.37. UDS was not obtained. Departure - Departure Time of Disposition: 14:54 Disposition: [facility] 07 Condition: Good Clinical Impression: Alcohol intoxication Qualifiers: Complication of substance-induced condition: uncomplicated Qualified Code(s): F10.920 - Alcohol use, unspecified with intoxication, uncomplicated Alcoholic gastritis Qualifiers: Chronicity: acute Gastritis bleeding: presence of bleeding unspecified Qualified Code(s): K29.20 - Alcoholic gastritis without bleeding - Discharge Information Forms: ED Department Discharge - My Orders Last 24 Hours: My Active Orders 12/30/16 13:45 DRUG SCREEN, URINE [URCHEM] Stat - Assessment/Plan Last 24 Hours: My Active Orders 12/30/16 13:45 DRUG SCREEN, URINE [URCHEM] Stat
== END 2016-12-30 14:40 | disposition left against medical advice (07) ==
LOC: JD.ED 12:58
DX: K29.20 Alcoholic gastritis without bleeding (principal); F10.120 Alcohol abuse with intoxication, uncomplicated; K21.9 Gastro-esophageal reflux disease without esophagitis; F17.210 Nicotine dependence, cigarettes, uncomplicated
CPT/HCPCS: 36415; 80053; 85025; 96372; 99285; A9270; G0480; J1885; 99284

== ENCOUNTER 2017-01-01 09:52 | Emergency (ER) | payer MEDICAID, OTHER ==
[2017-01-01 10:07] VITALS: BP 156/88
[2017-01-01] MEDS ORDERED: Sodium Chloride 0.9% 1,000 ML IV SCH (11:00)
--- NOTE | 2017-01-01 11:37 | EDM.PDOC ---
ED HPI GENERAL MEDICAL PROBLEM - General Chief Complaint: Abdominal Pain Stated Complaint: ABDOMINAL PAIN Time Seen by Provider: 01/01/17 10:06 Source of Information: Reports: Patient, Old Records, RN Notes Reviewed, Other ( Family friend) History Limitations: Reports: Intoxication - History of Present Illness INITIAL COMMENTS - FREE TEXT/NARRATIVE: The patient states that he has had abdominal pain for the past 5 years that he attempts to numb with alcohol and ibuprofen. He states that he takes acetaminophen 1000 mg BID and ibuprofen 600 mg TID to treat his abdominal pain. He also reports bright red blood per rectum for the past several months, along with nausea and vomiting that he is not sure is bloody. He denies recent fever. Medical records indicate that the patient was seen for the same complaint on , 12/07/2016, 12/15/2016, 12/17/2016, 12/29/2016, and 12/30/2016. This is now the patient's 7th visit for the same complaint. All prior workups have been negative, with the exception that he has been intoxicated on all prior visits. The patient is currently scheduled for an EGD with Dr. Tabares this coming 01/05/2017. The patient appears to be clinically intoxicated, and admits that he is currently drunk. He admits that he is an alcoholic and states that he does not want to stop drinking. He states that he has had 3 beers today, but that he ordinarily drinks about a fifth of a gallon of alcohol per day. The patient's friend states that he was scheduled to be admitted to [facility], an inpatient alcohol treatment facility in [place], and that they went there this past , 12/30/2016. The patient's friend states that the patient was sober at the time, however, the paperwork was not in order, therefore they did not admit him. They suggested that they may be able to admit him this coming 01/04/2017, however, in the meantime, the patient has resumed drinking. The patient's friend states that she spoke to Elsa at [facility], who recommended that he come here for medical clearance, and that once cleared, Elsa can come to the ED to evaluate the patient for placement there. Abdomen Pain Score (Numeric/FACES): 10 - Related Data Allergies Allergy/AdvReac Type Severity Reaction Status Date / Time No Known Allergies Allergy Verified 01/01/17 10:04 Home Meds: Home Meds Omeprazole 40 mg PO DAILY #30 cap.cr 12/07/16 [Rx] Past Medical History Gastrointestinal History: Reports: Gastritis (presumed) Psychiatric History: Reports: Addiction (alcohol) - Infectious Disease History Infectious Disease History: Reports: Chicken Pox - Past Surgical History Head Surgeries/Procedures: Reports: Other (See Below) (Maxillofacial surgery to repair right socket fracture) HEENT Surgical History: Reports: Tonsillectomy GI Surgical History: Reports: Hernia Repair/Other (umbilical) Social & Family History - Family History Family Medical History: Noncontributory - Tobacco Use Smoking Status *Q: Current Every Day Smoker Years of Tobacco use: 16 Packs/Tins Daily: 1 - Caffeine Use Caffeine Use: Reports: Energy Drinks, Soda - Alcohol Use Alcohol Use History: Yes Days Per Week of Alcohol Use: 7 Number of Drinks Per Day: 17 Total Drinks Per Week: 119 Alcohol Use Frequency: Daily - Recreational Drug Use Recreational Drug Use: Yes Drug Use in Last 12 Months: No - Living Situation & Occupation Living situation: Reports: , Alone Occupation: Unemployed ED ROS GENERAL - Review of Systems Review Of Systems: See Below Constitutional: Reports: No Symptoms HEENT: Reports: No Symptoms Respiratory: Reports: No Symptoms Cardiovascular: Reports: No Symptoms Endocrine: Reports: No Symptoms GI/Abdominal: Reports: Abdominal Pain (as per the HPI), Bloody Stool (as per the HPI), Nausea (as per the HPI), Vomiting (as per the HPI) : Reports: No Symptoms Musculoskeletal: Reports: No Symptoms Skin: Reports: No Symptoms Neurological: Reports: No Symptoms Psychiatric: Reports: No Symptoms Hematologic/Lymphatic: Reports: No Symptoms Immunologic: Reports: No Symptoms ED EXAM, GI/ABD - Physical Exam Exam: See Below Exam Limited By: Intoxication General Appearance: Alert, WD/WN, No Apparent Distress, Other (Strong smell of alcohol) Eyes: Bilateral: Normal Appearance, EOMI Ears: Normal External Exam, Hearing Grossly Normal Nose: Normal Inspection, No Blood Throat/Mouth: Normal Inspection, Normal Lips, Normal Voice, No Airway Compromise Head: Atraumatic, Normocephalic Neck: Normal Inspection, Full Range of Motion Respiratory/Chest: No Respiratory Distress, Lungs Clear, Normal Breath Sounds, No Accessory Muscle Use Cardiovascular: Normal Peripheral Pulses, Regular Rate, Rhythm, No Gallop, No JVD, No Murmur, No Rub GI/Abdominal Exam: Normal Bowel Sounds, Soft, No Organomegaly, No Distention, No Abnormal Bruit, No Mass, Tender (Generalized, non-focal) (Male) Exam: Deferred Rectal (Males) Exam: Deferred Back Exam: Normal Inspection, Full Range of Motion. No: CVA Tenderness (L), CVA Tenderness (R) Extremities: Normal Inspection, Normal Range of Motion, No Pedal Edema, Normal Capillary Refill Neurological: Alert, Oriented, Normal Gait, No Motor/Sensory Deficits, Other ( Slurred speech, difficulty paying attention) Psychiatric: Other (Unable to assess) Skin Exam: Warm, Dry, Intact, Normal Color, No Rash Lymphatic: No Adenopathy Course - Vital Signs Last Recorded V/S: Last Vital Signs Temp 35.9 C 01/01/17 10:05 Pulse 82 01/01/17 10:05 Resp 18 01/01/17 10:05 BP 156/88 H 01/01/17 10:05 Pulse Ox 99 01/01/17 10:05 - Orders/Labs/Meds Orders: Active Orders 24 hr Category Date Time Status Sodium Chloride 0.9% [Normal Saline] 1,000 ml Med 01/01/17 11:00 Active IV ASDIRECTED Medication Orders Sodium Chloride (Normal Saline) 1,000 mls @ 150 mls/hr IV ASDIRECTED MARCELA Last Admin: 01/01/17 11:14 Dose: 150 mls/hr Labs: Laboratory Tests 01/01/17 01/01/17 01/01/17 Range/Units 11:09 11:09 12:56 WBC 10.50 H (4.23-9.07) K/mm3 RBC 4.90 (4.63-6.08) M/mm3 Hgb 15.1 (13.7-17.5) gm/L Hct 43.9 (40.1-51.0) % MCV 89.6 (79.0-92.2) fl MCH 30.8 (25.7-32.2) pg MCHC 34.4 (32.2-35.5) g/dl RDW Std Deviation 45.1 H (35.1-43.9) fL Plt Count 422 H (163-337) K/mm3 MPV 9.7 (9.4-12.3) fl Neutrophils % (Manual) 61 H (40-60) % Band Neutrophils % 0 (0-10) % Lymphocytes % (Manual) 28 (20-40) % Atypical Lymphs % 0 % Monocytes % (Manual) 9 (2-10) % Eosinophils % (Manual) 1 (0.8-7.0) % Basophils % (Manual) 1 (0.2-1.2) Platelet Estimate Adequate RBC Morph Comment Normal Sodium 147 H (136-145) mEq/L Potassium 3.9 (3.5-5.1) mEq/L Chloride 109 H (98-107) mEq/L Carbon Dioxide 30 (21-32) mEq/L Anion Gap 11.9 (5-15) BUN 5 L (7-18) mg/dL Creatinine 0.9 (0.7-1.3) mg/dL Est Cr Clr Drug Dosing TNP Estimated GFR (MDRD) > 60 (>60) mL/min BUN/Creatinine Ratio 5.6 L (14-18) Glucose 92 (74-106) mg/dL Calcium 9.1 (8.5-10.1) mg/dL Total Bilirubin 0.4 (0.2-1.0) mg/dL AST 30 (15-37) U/L ALT 25 (16-63) U/L Alkaline Phosphatase 84 (46-116) U/L Total Protein 6.9 (6.4-8.2) g/dl Albumin 3.4 (3.4-5.0) g/dl Globulin 3.5 gm/dL Albumin/Globulin Ratio 1.0 (1-2) Lipase 209 (73-393) U/L Urine Color (Yellow) Urine Appearance (Clear) Urine pH (5.0-8.0) Ur Specific [place] (1.005-1.030) Urine Protein (Negative) Urine Glucose (UA) (Negative) Urine Ketones (Negative) Urine Occult Blood (Negative) Urine Nitrite (Negative) Urine Bilirubin (Negative) Urine Urobilinogen (0.2-1.0) Ur Leukocyte Esterase (Negative) Urine RBC (0-5) /hpf Urine WBC (0-5) /hpf Ur Epithelial Cells (0-5) /hpf Urine Bacteria (FEW) /hpf Urine Mucus (FEW) /hpf Urine Opiates Screen Negative (NEGATIVE) Ur Buprenorphine Scrn Negative (NEGATIVE) Ur Oxycodone Screen Negative (NEGATIVE) Urine Methadone Screen Negative (NEGATIVE) Ur Propoxyphene Screen Negative (NEGATIVE) Ur Barbiturates Screen Negative (NEGATIVE) Ur Tricyclics Screen Negative (NEGATIVE) Ur Phencyclidine Scrn Negative (NEGATIVE) Ur Amphetamine Screen Negative (NEGATIVE) U Methamphetamines Scrn Negative (NEGATIVE) U Benzodiazepines Scrn Negative (NEGATIVE) U Cocaine Metab Screen Negative (NEGATIVE) U Marijuana (THC) Screen Negative (NEGATIVE) Ethyl Alcohol 0.30 (0.00) gm% 01/01/17 Range/Units 12:56 WBC (4.23-9.07) K/mm3 RBC (4.63-6.08) M/mm3 Hgb (13.7-17.5) gm/L Hct (40.1-51.0) % MCV (79.0-92.2) fl MCH (25.7-32.2) pg MCHC (32.2-35.5) g/dl RDW Std Deviation (35.1-43.9) fL Plt Count (163-337) K/mm3 MPV (9.4-12.3) fl Neutrophils % (Manual) (40-60) % Band Neutrophils % (0-10) % Lymphocytes % (Manual) (20-40) % Atypical Lymphs % % Monocytes % (Manual) (2-10) % Eosinophils % (Manual) (0.8-7.0) % Basophils % (Manual) (0.2-1.2) Platelet Estimate RBC Morph Comment Sodium (136-145) mEq/L Potassium (3.5-5.1) mEq/L Chloride (98-107) mEq/L Carbon Dioxide (21-32) mEq/L Anion Gap (5-15) BUN (7-18) mg/dL Creatinine (0.7-1.3) mg/dL Est Cr Clr Drug Dosing Estimated GFR (MDRD) (>60) mL/min BUN/Creatinine Ratio (14-18) Glucose (74-106) mg/dL Calcium (8.5-10.1) mg/dL Total Bilirubin (0.2-1.0) mg/dL AST (15-37) U/L ALT (16-63) U/L Alkaline Phosphatase (46-116) U/L Total Protein (6.4-8.2) g/dl Albumin (3.4-5.0) g/dl Globulin gm/dL Albumin/Globulin Ratio (1-2) Lipase (73-393) U/L Urine Color Light yellow (Yellow) Urine Appearance Clear (Clear) Urine pH 7.0 (5.0-8.0) Ur Specific [place] 1.015 (1.005-1.030) Urine Protein Negative (Negative) Urine Glucose (UA) Negative (Negative) Urine Ketones Negative (Negative) Urine Occult Blood Negative (Negative) Urine Nitrite Negative (Negative) Urine Bilirubin Negative (Negative) Urine Urobilinogen 0.2 (0.2-1.0) Ur Leukocyte Esterase Negative (Negative) Urine RBC 0-5 (0-5) /hpf Urine WBC 0-5 (0-5) /hpf Ur Epithelial Cells 0-5 (0-5) /hpf Urine Bacteria Few (FEW) /hpf Urine Mucus Not seen (FEW) /hpf Urine Opiates Screen (NEGATIVE) Ur Buprenorphine Scrn (NEGATIVE) Ur Oxycodone Screen (NEGATIVE) Urine Methadone Screen (NEGATIVE) Ur Propoxyphene Screen (NEGATIVE) Ur Barbiturates Screen (NEGATIVE) Ur Tricyclics Screen (NEGATIVE) Ur Phencyclidine Scrn (NEGATIVE) Ur Amphetamine Screen (NEGATIVE) U Methamphetamines Scrn (NEGATIVE) U Benzodiazepines Scrn (NEGATIVE) U Cocaine Metab Screen (NEGATIVE) U Marijuana (THC) Screen (NEGATIVE) Ethyl Alcohol (0.00) gm% Meds: Medications Generic Name Dose Route Start Last Admin Trade Name Freq PRN Reason Stop Dose Admin Sodium Chloride 1,000 mls @ 150 mls/hr 01/01/17 11:00 01/01/17 11:14 Normal Saline IV 150 mls/hr ASDIRECTED [facility] Administration - Re-Assessments/Exams Free Text/Narrative Re-Assessment/Exam: 01/01/17 11:00 During the initial history, the patient decided that he did not want to be evaluated, got up, removed his ID badge, and left the ED. His friend went to retrieve him, and I told her that we would leave the chart open in case he returned. After about 15-20 minutes, he did return, and allowed examination. 01/01/17 13:57 When I evaluated the patient the second time, I explained to him that he cannot leave the ED, and if he did, that his chart would be closed. Despite this morning, about 15-20 minutes ago, the patient left the ED, ostensibly to smoke. He has not returned, and none of his belongings are in his room. I went outside to find him, and he is not within site of the ED. I will close his chart. Departure - Departure Time of Disposition: 13:58 Disposition: Eloped 07 Condition: Fair Clinical Impression: Alcoholism, Abdominal pain of unknown etiology Alcohol intoxication Qualifiers: Complication of substance-induced condition: uncomplicated Qualified Code(s): F10.920 - Alcohol use, unspecified with intoxication, uncomplicated - Discharge Information - My Orders Last 24 Hours: My Active Orders 01/01/17 11:00 Sodium Chloride 0.9% [Normal Saline] 1,000 ml IV ASDIRECTED - Assessment/Plan Last 24 Hours: My Active Orders 01/01/17 11:00 Sodium Chloride 0.9% [Normal Saline] 1,000 ml IV ASDIRECTED
== END 2017-01-01 14:00 | disposition left against medical advice (07) ==
LOC: JD.ED 09:52
DX: R10.9 Unspecified abdominal pain (principal); F10.229 Alcohol dependence with intoxication, unspecified; F17.210 Nicotine dependence, cigarettes, uncomplicated; Z98.890 Other specified postprocedural states; Z79.899 Other long term (current) drug therapy
CPT/HCPCS: 36415; 80053; 80306; 81001; 83690; 85025; 96360; 96361; 99285; G0480; J7040; 99284

== ENCOUNTER 2017-01-01 23:47 | Emergency (ER) | payer MEDICAID, OTHER ==
--- NOTE | 2017-01-02 00:32 | EDM.PDOC ---
ED HPI GENERAL MEDICAL PROBLEM - General Chief Complaint: Drug or Alcohol Abuse Stated Complaint: detox Time Seen by Provider: 01/01/17 23:58 Source of Information: Reports: Patient History Limitations: Reports: Intoxication - History of Present Illness INITIAL COMMENTS - FREE TEXT/NARRATIVE: This is a 31-year-old male. He is fairly well known to the ER. He is a self-proclaimed alcoholic and he has been drinking prior to coming to the ER. He was seen here at 10 AM yesterday on 01 January and he was being worked up for his abdominal pain and he was supposed to be admitted to the [facility] which is inpatient alcohol treatment facility in [place] this was on 30 December but due to paperwork problems they did not admit him and plan to admit him this coming January 04. Apparently [facility] was going to come to the ER once the patient was cleared medically and evaluate the patient for placement. However before this could be done the patient left without telling anyone. He did come back momentarily but then he left again around 2 PM and never came back. He comes back now complaining of abdominal pain mostly along the left side and left lower quadrant. He apparently has a history of chronic abdominal pain of unknown etiology he also has a history of gastritis and esophagitis. The patient states that for the last 5 months this belly pain is much worse even though he's been having belly pain for the last 5 years. He states he drinks the alcohol to numb the pain. He is scheduled to have an EGD by Dr. Tabares on 05 January. When I try to find out what this belly pain feels like and how it is different over the last 5 months the patient is not willing to describe it or explain to me. He wants me to take care of his pain but he is not willing to help me discover what maybe causing it. I would invite you to read and look at the H&P, lab work that he had yesterday when he was here in the ER Left Lower Abdominal Pain Score (Numeric/FACES): 8 - Related Data Allergies Allergy/AdvReac Type Severity Reaction Status Date / Time No Known Allergies Allergy Verified 01/01/17 23:58 Home Meds: Home Meds Omeprazole 40 mg PO DAILY #30 cap.cr 12/07/16 [Rx] Past Medical History HEENT History: Reports: Other (See Below) Other HEENT History: dental procedures Cardiovascular History: Reports: Other (See Below) Other Cardiovascular History: seen for chest pains. Gastrointestinal History: Reports: Gastritis Psychiatric History: Reports: Addiction - Infectious Disease History Infectious Disease History: Reports: Chicken Pox - Past Surgical History Head Surgeries/Procedures: Reports: Other (See Below) HEENT Surgical History: Reports: Tonsillectomy GI Surgical History: Reports: Hernia Repair/Other Social & Family History - Family History Family Medical History: Noncontributory - Tobacco Use Smoking Status *Q: Current Every Day Smoker Years of Tobacco use: 16 Packs/Tins Daily: 1 - Caffeine Use Caffeine Use: Reports: Energy Drinks, Soda - Alcohol Use Days Per Week of Alcohol Use: 7 Number of Drinks Per Day: 8 Total Drinks Per Week: 56 - Recreational Drug Use Recreational Drug Use: No Drug Use in Last 12 Months: No - Living Situation & Occupation Living situation: Reports: , Alone Occupation: Unemployed ED ROS GENERAL - Review of Systems Review Of Systems: See Below Constitutional: Denies: Fever, Chills HEENT: Reports: No Symptoms Respiratory: Reports: No Symptoms Cardiovascular: Reports: No Symptoms Endocrine: Reports: No Symptoms GI/Abdominal: Reports: Abdominal Pain, Bloody Stool, Nausea. Denies: Diarrhea, Vomiting : Reports: No Symptoms Musculoskeletal: Reports: No Symptoms Skin: Reports: No Symptoms Neurological: Reports: No Symptoms Psychiatric: Reports: Agitation, Other (The patient is a self proclaimed alcoholic) Hematologic/Lymphatic: Reports: No Symptoms ED EXAM, GI/ABD - Physical Exam Exam: See Below Exam Limited By: Intoxication General Appearance: Alert, WD/WN, Mild Distress Eyes: Bilateral: Normal Appearance Ears: Normal External Exam Nose: Normal Inspection Throat/Mouth: Normal Inspection Head: Normocephalic Neck: Supple Respiratory/Chest: No Respiratory Distress, Lungs Clear, Normal Breath Sounds Cardiovascular: Regular Rate, Rhythm, No Murmur GI/Abdominal Exam: Other (When I attempt to examine his abdomen appears to be soft and yet he will not allow me to push very deeply in his left abdomen and left lower quadrant, he does not appear to have rigidity and he is not distended , I don't believe he has rebound but I can't determine that due to his demeanor and not wanting me to push on his belly, the right side appears to be less tender, bowel sounds are present but they are decreased) Back Exam: Full Range of Motion Extremities: Normal Inspection, Normal Range of Motion Neurological: Alert Psychiatric: Anxious Skin Exam: Warm, Dry Course - Vital Signs Last Recorded V/S: Last Vital Signs Temp 96.7 F 01/01/17 23:54 Pulse 101 H 01/01/17 23:54 Resp 16 01/01/17 23:54 BP 157/97 H 01/01/17 23:54 Pulse Ox 95 01/01/17 23:54 - Orders/Labs/Meds Orders: Active Orders 24 hr Category Date Time Status Abdomen Pelvis w Cont [CT] Stat Exams 01/02/17 00:14 Taken Sodium Chloride 0.9% [Saline Flush] Med 01/02/17 01:04 Active 10 ml FLUSH ONETIME PRN Medication Orders Sodium Chloride (Saline Flush) 10 ml FLUSH ONETIME PRN PRN Reason: IV FLUSH Last Admin: 01/02/17 02:58 Dose: 10 ml Labs: Laboratory Tests 01/02/17 01/02/17 01/02/17 Range/Units 00:05 00:05 00:10 WBC 11.60 H (4.23-9.07) K/mm3 RBC 4.65 (4.63-6.08) M/mm3 Hgb 14.5 (13.7-17.5) gm/L Hct 42.0 (40.1-51.0) % MCV 90.3 (79.0-92.2) fl MCH 31.2 (25.7-32.2) pg MCHC 34.5 (32.2-35.5) g/dl RDW Std Deviation 45.5 H (35.1-43.9) fL Plt Count 435 H (163-337) K/mm3 MPV 9.4 (9.4-12.3) fl Neut % (Auto) 49.8 (34.0-67.9) % Lymph % (Auto) 32.9 (21.8-53.1) % [place] % (Auto) 14.3 H (5.3-12.2) % Eos % (Auto) 1.5 (0.8-7.0) Baso % (Auto) 0.5 (0.1-1.2) % Neut # (Auto) 5.77 H (1.78-5.38) K/mm3 Lymph # (Auto) 3.82 H (1.32-3.57) K/mm3 [place] # (Auto) 1.66 H (0.30-0.82) K/mm3 Eos # (Auto) 0.17 (0.04-0.54) K/mm3 Baso # (Auto) 0.06 (0.01-0.08) K/mm3 Manual Slide Review Normal smear Sodium (136-145) mEq/L Potassium (3.5-5.1) mEq/L Chloride (98-107) mEq/L Carbon Dioxide (21-32) mEq/L Anion Gap (5-15) BUN (7-18) mg/dL Creatinine (0.7-1.3) mg/dL Est Cr Clr Drug Dosing Estimated GFR (MDRD) (>60) mL/min BUN/Creatinine Ratio (14-18) Glucose (74-106) mg/dL Calcium (8.5-10.1) mg/dL Total Bilirubin (0.2-1.0) mg/dL AST (15-37) U/L ALT (16-63) U/L Alkaline Phosphatase (46-116) U/L Total Protein (6.4-8.2) g/dl Albumin (3.4-5.0) g/dl Globulin gm/dL Albumin/Globulin Ratio (1-2) Lipase (73-393) U/L Urine Color Light yellow (Yellow) Urine Appearance Clear (Clear) Urine pH 7.0 (5.0-8.0) Ur Specific [place] 1.010 (1.005-1.030) Urine Protein Negative (Negative) Urine Glucose (UA) Negative (Negative) Urine Ketones Negative (Negative) Urine Occult Blood Negative (Negative) Urine Nitrite Negative (Negative) Urine Bilirubin Negative (Negative) Urine Urobilinogen 0.2 (0.2-1.0) Ur Leukocyte Esterase Negative (Negative) Urine RBC Not seen (0-5) /hpf Urine WBC 0-5 (0-5) /hpf Ur Epithelial Cells 0-5 (0-5) /hpf Urine Bacteria Not seen (FEW) /hpf Urine Mucus Not seen (FEW) /hpf Urine Opiates Screen Negative (NEGATIVE) Ur Buprenorphine Scrn Negative (NEGATIVE) Ur Oxycodone Screen Negative (NEGATIVE) Urine Methadone Screen Negative (NEGATIVE) Ur Propoxyphene Screen Negative (NEGATIVE) Ur Barbiturates Screen Negative (NEGATIVE) Ur Tricyclics Screen Negative (NEGATIVE) Ur Phencyclidine Scrn Negative (NEGATIVE) Ur Amphetamine Screen Negative (NEGATIVE) U Methamphetamines Scrn Negative (NEGATIVE) U Benzodiazepines Scrn Negative (NEGATIVE) U Cocaine Metab Screen Negative (NEGATIVE) U Marijuana (THC) Screen Negative (NEGATIVE) 01/02/17 Range/Units 00:10 WBC (4.23-9.07) K/mm3 RBC (4.63-6.08) M/mm3 Hgb (13.7-17.5) gm/L Hct (40.1-51.0) % MCV (79.0-92.2) fl MCH (25.7-32.2) pg MCHC (32.2-35.5) g/dl RDW Std Deviation (35.1-43.9) fL Plt Count (163-337) K/mm3 MPV (9.4-12.3) fl Neut % (Auto) (34.0-67.9) % Lymph % (Auto) (21.8-53.1) % [place] % (Auto) (5.3-12.2) % Eos % (Auto) (0.8-7.0) Baso % (Auto) (0.1-1.2) % Neut # (Auto) (1.78-5.38) K/mm3 Lymph # (Auto) (1.32-3.57) K/mm3 [place] # (Auto) (0.30-0.82) K/mm3 Eos # (Auto) (0.04-0.54) K/mm3 Baso # (Auto) (0.01-0.08) K/mm3 Manual Slide Review Sodium 147 H (136-145) mEq/L Potassium 3.4 L (3.5-5.1) mEq/L Chloride 109 H (98-107) mEq/L Carbon Dioxide 28 (21-32) mEq/L Anion Gap 13.4 (5-15) BUN 6 L (7-18) mg/dL Creatinine 0.9 (0.7-1.3) mg/dL Est Cr Clr Drug Dosing TNP Estimated GFR (MDRD) > 60 (>60) mL/min BUN/Creatinine Ratio 6.7 L (14-18) Glucose 112 H (74-106) mg/dL Calcium 9.4 (8.5-10.1) mg/dL Total Bilirubin 0.3 (0.2-1.0) mg/dL AST 30 (15-37) U/L ALT 25 (16-63) U/L Alkaline Phosphatase 84 (46-116) U/L Total Protein 6.8 (6.4-8.2) g/dl Albumin 3.3 L (3.4-5.0) g/dl Globulin 3.5 gm/dL Albumin/Globulin Ratio 0.9 L (1-2) Lipase 278 (73-393) U/L Urine Color (Yellow) Urine Appearance (Clear) Urine pH (5.0-8.0) Ur Specific [place] (1.005-1.030) Urine Protein (Negative) Urine Glucose (UA) (Negative) Urine Ketones (Negative) Urine Occult Blood (Negative) Urine Nitrite (Negative) Urine Bilirubin (Negative) Urine Urobilinogen (0.2-1.0) Ur Leukocyte Esterase (Negative) Urine RBC (0-5) /hpf Urine WBC (0-5) /hpf Ur Epithelial Cells (0-5) /hpf Urine Bacteria (FEW) /hpf Urine Mucus (FEW) /hpf Urine Opiates Screen (NEGATIVE) Ur Buprenorphine Scrn (NEGATIVE) Ur Oxycodone Screen (NEGATIVE) Urine Methadone Screen (NEGATIVE) Ur Propoxyphene Screen (NEGATIVE) Ur Barbiturates Screen (NEGATIVE) Ur Tricyclics Screen (NEGATIVE) Ur Phencyclidine Scrn (NEGATIVE) Ur Amphetamine Screen (NEGATIVE) U Methamphetamines Scrn (NEGATIVE) U Benzodiazepines Scrn (NEGATIVE) U Cocaine Metab Screen (NEGATIVE) U Marijuana (THC) Screen (NEGATIVE) Meds: Medications Generic Name Dose Route Start Last Admin Trade Name Freq PRN Reason Stop Dose Admin Sodium Chloride 10 ml 01/02/17 01:04 01/02/17 02:58 Saline Flush FLUSH 10 ml ONETIME PRN Administration IV FLUSH Discontinued Medications Generic Name Dose Route Start Last Admin Trade Name Freq PRN Reason Stop Dose Admin Diatrizoate Meglum/Diatrizoate Sod 90 ml 01/02/17 01:04 01/02/17 02:58 Gastrografin 37% PO 01/02/17 01:05 90 ml ONETIME ONE Administration Iopamidol 125 ml 01/02/17 01:04 01/02/17 02:58 Isovue-300 (61%) IVPUSH 01/02/17 01:05 110 ml ONETIME ONE Administration - Radiology Interpretation Free Text/Narrative:: CT of the abdomen with contrast did not show any acute findings - Re-Assessments/Exams Free Text/Narrative Re-Assessment/Exam: 01/02/17 06:41 I spoke to the patient regarding his CT scan results. I encouraged him to be [facility] in [place] on Tuesday as scheduled so he can be admitted for detox Departure - Departure Time of Disposition: 06:41 Disposition: Home, Self-Care 01 Condition: Fair Clinical Impression: Alcohol abuse Abdominal pain Qualifiers: Abdominal location: epigastric Qualified Code(s): R10.13 - Epigastric pain - Discharge Information Referrals: Vinay Feliz Jr, MD [Primary Care Provider] - Forms: ED Department Discharge Additional Instructions: Please realize the vicious cycle that you have when you drink because it causes damage to your bowel and when the numbing of alcohol goes away it causes your bowel to hurt which in turn makes you want to drink which in turn injures your bowel and makes it hurt even more, the only way to stop the cycle is to be at the [facility] in [place] on Tuesday as scheduled and go through detox and stop drinking, return to the ER if needed - My Orders Last 24 Hours: My Active Orders 01/02/17 00:14 Abdomen Pelvis w Cont [CT] Stat 01/02/17 01:04 Sodium Chloride 0.9% [Saline Flush] 10 ml FLUSH ONETIME PRN - Assessment/Plan Last 24 Hours: My Active Orders 01/02/17 00:14 Abdomen Pelvis w Cont [CT] Stat 01/02/17 01:04 Sodium Chloride 0.9% [Saline Flush] 10 ml FLUSH ONETIME PRN
[2017-01-02] MEDS ORDERED: Diatrizoate Meglumine/Diatrizoate Sodium 37% 120 ML Bottle PO ONE (01:04)
[2017-01-02] MEDS ORDERED: Iopamidol 612 MG/ML 150 ML Bottle IVPUSH ONE (01:04)
[2017-01-02] MEDS ORDERED: Sodium Chloride 0.9% 10 ML Syringe FLUSH PRN (01:04)
[2017-01-02 06:58] VITALS: BP 145/97
--- NOTE | 2017-01-03 17:59 | CT ---
CT abdomen and pelvis Technique: Multiple axial sections were obtained from above the dome of the diaphragm inferiorly through the pubic symphysis. Intravenous and oral contrast has been given. Comparison: Previous CT abdomen and pelvis exam of 12/15/16. Findings: Small left-sided pleural effusion is seen. Mild amount of parenchymal density is seen most likely due to atelectasis. This is an interval change from prior exam. Liver shows no focal parenchymal abnormality. Spleen appears within normal limits. Adrenal glands show no nodule. Pancreas is normal. Kidneys show symmetric contrast enhancement without hydronephrosis or mass. Aorta shows no aneurysmal dilatation. No retroperitoneal adenopathy or mesenteric abnormalities are seen. Appendix is seen which appears normal. No pelvic mass or adenopathy is seen. Delayed images show contrast within the distal ureters and within the bladder. Bone window settings were reviewed which show spondylolytic defects at L5-S1. Minimal spondylolisthesis is also seen at L5-S1. Impression: 1. Small left-sided pleural effusion and slight adjacent parenchymal density most likely due to atelectasis. 2. 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 3. No acute intra-abdominal abnormality is identified. Diagnostic code #3 Agree with preliminary report issued by [employer] ([employer] preliminary report dictated on 01/02/17, 4:18 AM Central Time)
== END 2017-01-02 06:55 | disposition home or self-care (01) ==
LOC: JD.ED 23:47
DX: F10.120 Alcohol abuse with intoxication, uncomplicated (principal); R10.13 Epigastric pain; F17.210 Nicotine dependence, cigarettes, uncomplicated; Z79.899 Other long term (current) drug therapy; Z98.890 Other specified postprocedural states
CPT/HCPCS: 36415; 74177; 80053; 80306; 81001; 83690; 85025; 99284; J7050; Q9963; Q9967

== ENCOUNTER 2017-01-05 08:35 | Day surgery (SDC) | payer MEDICAID, OTHER ==
[~2017-01-05 08:35] MED LIST: Lactated Ringers 1,000 ML IV SCH; Lidocaine 1%/Sod Bicarbonate in NS 8.4% 1 ML Syringe PRN; Sodium Chloride 0.9% 10 ML Syringe FLUSH PRN
[2017-01-05] MEDS ORDERED: Propofol 200 MG/20 ML SDV ONE ×2 (10:12→10:48)
--- NOTE | 2017-01-05 10:15 | PCM.PREANE ---
Preanesthetic Assessment - Anesthesia/Transfusion/Family Hx Anesthesia History: Prior Anesthesia Without Reaction Family History of Anesthesia Reaction: No Transfusion History: No Prior Transfusion(s) Intubation History: Unknown - Physical Assessment NPO Status Date: 11/20/83 NPO Status Time: 21:00 Pulse: 92 O2 Sat by Pulse Oximetry: 94 Respiratory Rate: 16 Blood Pressure: 149/89 Temperature: 98.7 C Vital Signs: Last Vital Signs Temp 37.1 C 01/05/17 08:45 Pulse 92 01/05/17 08:45 Resp 16 01/05/17 08:45 BP 149/89 H 01/05/17 08:45 Pulse Ox 94 L 01/05/17 08:45 Height: 1.83 m Weight: 73.482 kg ASA Class: 2 Mental Status: Alert & Oriented x3 Airway Class: Mallampati = 1 Dentition: Reports: Normal Dentition Thyro-Mental Finger Breadths: 3 Mouth Opening Finger Breadths: 3 ROM/Head Extension: Full Lungs: Clear to Auscultation (coarse lung sounds but clears with coughing), Normal Respiratory Effort Cardiovascular: Regular Rate, Regular Rhythm - Allergies Allergies/Adverse Reactions: Allergies Allergy/AdvReac Type Severity Reaction Status Date / Time No Known Allergies Allergy Verified 01/01/17 23:58 - Acknowledgements Anesthesia Type Planned: MAC Pt an Appropriate Candidate for the Planned Anesthesia: Yes Alternatives and Risks of Anesthesia Discussed w Pt/Guardian: Yes Pt/Guardian Understands and Agrees with Anesthesia Plan: Yes PreAnesthesia Questionnaire HEENT History: Reports: Other (See Below) Other HEENT History: dental procedures Cardiovascular History: Reports: None, Other (See Below) Other Cardiovascular History: seen for chest pains Respiratory History: Reports: Sleep Apnea (pt denies sleep apnea) Gastrointestinal History: Reports: Gastritis, GERD, Other (See Below) (pt c/o left sided pain, 10 at times, 8 most of the time) Other Gastrointestinal History: stomach ulcer Genitourinary History: Reports: Prostate Disorder, Other (See Below) Other Genitourinary History: prostate disease CASTING ASSISTANT History: Reports: None Musculoskeletal History: Reports: None Neurological History: Reports: None Psychiatric History: Reports: Addiction (ETOH, past drug use, denies at this time), Anxiety Endocrine/Metabolic History: Reports: None Hematologic History: Reports: None Immunologic History: Reports: None Oncologic (Cancer) History: Reports: None Dermatologic History: Reports: None - Infectious Disease History Infectious Disease History: Reports: Chicken Pox - Past Surgical History HEENT Surgical History: Reports: Other (See Below) (eye-bone fracture under eye) Cardiovascular Surgical History: Reports: None Respiratory Surgical History: Reports: None GI Surgical History: Reports: Hernia Repair/Other Female Surgical History: Reports: None Male Surgical History: Reports: None Endocrine Surgical History: Reports: None Neurological Surgical History: Reports: None Musculoskeletal Surgical History: Reports: None, Other (See Below) ((R) pinky, pin due to fracture) Oncologic Surgical History: Reports: None Dermatological Surgical History: Reports: None - SUBSTANCE USE Smoking Status *Q: Current Every Day Smoker Tobacco Use Within Last Twelve Months: Cigarettes Days Per Week of Alcohol Use: 7 Number of Drinks Per Day: 2 Total Drinks Per Week: 14 Recreational Drug Use History: Yes - HOME MEDS Home Medications: Home Meds Omeprazole 40 mg PO DAILY #30 cap.cr 12/07/16 [Rx] - CURRENT (IN HOUSE) MEDS Current Meds: Current Medications Lactated Ringer's (Ringers, Lactated) 1,000 mls @ 125 mls/hr IV ASDIRECTED MARCELA Stop: 01/05/17 23:00 Last Admin: 01/05/17 09:32 Dose: 125 mls/hr Lidocaine/Sodium Bicarbonate (Buffered Lidocaine 1% In Ns 8.4%) 0.25 ml .XX ONETIME PRN PRN Reason: Prior to IV Start Stop: 01/05/17 18:00 Last Admin: 01/05/17 09:32 Dose: 0.25 ml Sodium Chloride (Saline Flush) 10 ml FLUSH ASDIRECTED PRN PRN Reason: Keep Vein Open Stop: 01/05/17 18:00 Discontinued Medications Propofol (Diprivan 20 Ml) Confirm Administered Dose 200 mg .ROUTE .STK-MED ONE Stop: 01/05/17 10:13
--- NOTE | 2017-01-05 10:42 | PCM48HPAN ---
Post Anesthesia Note - EVALUATION WITHIN 48HRS OF ANESTHETIC Vital Signs in Normal Range: Yes Patient Participated in Evaluation: Yes Respiratory Function Stable: Yes Airway Patent: Yes Cardiovascular Function Stable: Yes Hydration Status Stable: Yes Pain Control Satisfactory: Yes Nausea and Vomiting Control Satisfactory: Yes Mental Status Recovered: Yes
--- NOTE | 2017-01-05 10:43 | PCM.OPNOTE ---
- General Post-Op/Procedure Note Date of Surgery/Procedure: 01/05/17 Operative Procedure(s): Esophagogastroduodenoscopy with antral gastric and GE junction biopsy 2 each using cold forceps Findings: 1. Mild esophagitis with no stricturing and no ulcers seen, no endoscopic Pretty's change 2. Sliding hiatal hernia type I Pre Op Diagnosis: Epigastric pain and difficulty swallowing Post-Op Diagnosis: 1. Mild esophagitis with a sliding hiatal hernia Anesthesia Technique: MAC, Moderate Sedation Primary Surgeon: Noah Tabares Pathology: Esophageal, gastric and antral biopsies EBL in mLs: 0 Complications: None Condition: Good Free Text/Narrative:: After adequate IV sedation and analgesia with monitoring was obtained the patient was placed on his left side. Through a bite-block a lubricated upper endoscope was inserted into the esophagus and advanced under direct vision to the stomach. Additional air was given here. The antrum was identified followed by entry into the pylorus to the second part of the duodenum. The second and first parts were endoscopically normal with no inflammatory changes or ulcers seen in these areas. The antral region was unremarkable as well. In the retroflexed view the fundus and cardiac areas of the exam were grossly normal. There was a sliding hiatal hernia seen. The rugal folds were grossly normal. Given his history biopsies randomly were taken of the antrum and body of the stomach. The scope was then withdrawn to the area of the GE junction. This area was sharp with no stenoses or stricturing. 2 random biopsies were taken for histologic review. The body of the esophagus was endoscopically normal. The vocal cords were briefly visualized and they were normal as well. Air was removed as I finished the procedure which he tolerated well. Machine Clipper photographs were taken for the patient and for the record. There were no procedural complications.
[2017-01-05 10:57] VITALS: BP 130/89
== END 2017-01-05 11:17 | disposition home or self-care (01) ==
LOC: JD.SDS 08:35
PROVIDERS: ATTEND Surgery
DX: K20.8 Other esophagitis (principal); K44.9 Diaphragmatic hernia without obstruction or gangrene; F10.10 Alcohol abuse, uncomplicated; F41.9 Anxiety disorder, unspecified; G47.30 Sleep apnea, unspecified; N42.9 Disorder of prostate, unspecified; K21.9 Gastro-esophageal reflux disease without esophagitis; F17.210 Nicotine dependence, cigarettes, uncomplicated; Z87.442 Personal history of urinary calculi; Z98.890 Other specified postprocedural states; Z79.899 Other long term (current) drug therapy
CPT/HCPCS: 43239; J7120; 00740; J2704

== ENCOUNTER 2017-01-17 01:26 | Emergency (ER) | payer MEDICAID, OTHER ==
[2017-01-17 01:36] VITALS: BP 148/93
[2017-01-17] MEDS ORDERED: Ondansetron 4 MG/2 ML SDV IVPUSH ONE (02:16)
[2017-01-17] MEDS ORDERED: Sodium Chloride 0.9% 1,000 ML IV SCH (02:30)
[2017-01-17] MEDS ORDERED: Potassium Chloride 20 MEQ Tab.ER PO ONE (03:38)
--- NOTE | 2017-01-17 03:50 | EDM.PDOC ---
ED HPI GENERAL MEDICAL PROBLEM - General Chief Complaint: Drug or Alcohol Abuse Stated Complaint: DETOX Time Seen by Provider: 01/17/17 01:56 Source of Information: Reports: Patient, Old Records, RN Notes Reviewed History Limitations: Reports: Intoxication - History of Present Illness INITIAL COMMENTS - FREE TEXT/NARRATIVE: The patient states that he is here for "detox". He is well-known to me and to this ED. He is a self-proclaimed chronic daily alcoholic who ordinarily presents to the ED intoxicated, complaining of abdominal pain. This is the patient's 9th visit this ED. All workups have been negative, with the exception that he has been intoxicated on all prior visits. The patient was last seen by me on 01/01/2017. At that time, he had gone to [facility] inpatient treatment facility in [place] on 12/30/2016, however, was not able to be admitted due to a problem with paperwork. The patient eloped from that ED visit, only to return that same night for the same complaint. He was intoxicated both times. [facility] have recommended that the patient return on , however, states tonight that he did not return. Additionally, the patient had been in contact with [facility], but did not follow-up there, either. The patient underwent an EGD per Dr. Tabares on 01/05/2017, which found mild esophagitis with a sliding hiatal hernia. The remainder of the evaluation was negative. Abdomen Pain Score (Numeric/FACES): 7 - Related Data Allergies Allergy/AdvReac Type Severity Reaction Status Date / Time No Known Allergies Allergy Verified 01/17/17 01:36 Home Meds: Home Meds Omeprazole 40 mg PO DAILY #30 cap.cr 12/07/16 [Rx] Past Medical History Gastrointestinal History: Reports: Other (See Below) (Espohagitis) Psychiatric History: Reports: Addiction - Infectious Disease History Infectious Disease History: Reports: Chicken Pox - Past Surgical History HEENT Surgical History: Reports: Tonsillectomy, Other (See Below) ( Maxillofacial surgery to repair right orbital floor fracture) GI Surgical History: Reports: Hernia, Abdominal (umbilical) Social & Family History - Family History Family Medical History: Noncontributory - Tobacco Use Smoking Status *Q: Current Every Day Smoker Years of Tobacco use: 16 Packs/Tins Daily: 1 - Caffeine Use Caffeine Use: Reports: Coffee - Alcohol Use Alcohol Use History: Yes Days Per Week of Alcohol Use: 7 Number of Drinks Per Day: 10 Total Drinks Per Week: 70 Date of Last Drink: 01/17/17 Time of Last Drink: 00:00 Alcohol Use Frequency: Daily - Recreational Drug Use Recreational Drug Use: Yes Drug Use in Last 12 Months: No - Living Situation & Occupation Living situation: Reports: , Alone Occupation: Unemployed ED ROS GENERAL - Review of Systems Review Of Systems: See Below Constitutional: Reports: No Symptoms HEENT: Reports: No Symptoms Respiratory: Reports: No Symptoms Cardiovascular: Reports: No Symptoms Endocrine: Reports: No Symptoms GI/Abdominal: Reports: Abdominal Pain (chronic) : Reports: No Symptoms Musculoskeletal: Reports: No Symptoms Skin: Reports: No Symptoms Neurological: Reports: No Symptoms Psychiatric: Reports: No Symptoms Hematologic/Lymphatic: Reports: No Symptoms Immunologic: Reports: No Symptoms ED EXAM, GENERAL - Physical Exam Exam: See Below Exam Limited By: No Limitations General Appearance: Alert, WD/WN, No Apparent Distress, Other (Clinically intoxicated. Strong smell of alcohol.) Eye Exam: Bilateral Eye: Normal Inspection Ears: Normal External Exam, Hearing Grossly Normal Nose: Normal Inspection, No Blood Throat/Mouth: Normal Inspection, Normal Lips, Normal Voice, No Airway Compromise Head: Atraumatic, Normocephalic Neck: Normal Inspection, Full Range of Motion Respiratory/Chest: No Respiratory Distress, Lungs Clear, Normal Breath Sounds, No Accessory Muscle Use Cardiovascular: Normal Peripheral Pulses, Regular Rate, Rhythm, No Gallop, No JVD, No Murmur, No Rub Peripheral Pulses: 4+: Radial (L), Radial (R) GI/Abdominal: Normal Bowel Sounds, Soft, Non-Tender, No Organomegaly, No Distention, No Abnormal Bruit, No Mass (Male) Exam: Deferred Rectal (Males) Exam: Deferred Back Exam: Normal Inspection, Full Range of Motion, NT Extremities: Normal Inspection, Normal Range of Motion, No Pedal Edema, Normal Capillary Refill Neurological: Alert, Oriented, Normal Cognition, No Motor/Sensory Deficits, Slow to Respond, Other (Slured speech) Psychiatric: Other (Unable to assess) Skin Exam: Warm, Dry, Intact, Normal Color, No Rash Lymphatic: No Adenopathy Course - Vital Signs Last Recorded V/S: Last Vital Signs Temp 36.1 C 01/17/17 01:32 Pulse 93 01/17/17 01:32 Resp 18 01/17/17 01:32 BP 148/93 H 01/17/17 01:32 Pulse Ox 95 01/17/17 01:32 - Orders/Labs/Meds Orders: Active Orders 24 hr Category Date Time Status Sodium Chloride 0.9% [Normal Saline] 1,000 ml Med 01/17/17 02:30 Active IV ASDIRECTED Medication Orders Sodium Chloride (Normal Saline) 1,000 mls @ 150 mls/hr IV ASDIRECTED MARCELA Last Admin: 01/17/17 02:29 Dose: 150 mls/hr Labs: Laboratory Tests 01/17/17 01/17/17 01/17/17 Range/Units 02:33 02:33 02:44 WBC 7.97 (4.23-9.07) K/mm3 RBC 5.14 (4.63-6.08) M/mm3 Hgb 16.1 (13.7-17.5) gm/L Hct 46.5 (40.1-51.0) % MCV 90.5 (79.0-92.2) fl MCH 31.3 (25.7-32.2) pg MCHC 34.6 (32.2-35.5) g/dl RDW Std Deviation 47.5 H (35.1-43.9) fL Plt Count 192 (163-337) K/mm3 MPV 10.8 (9.4-12.3) fl Neutrophils % (Manual) 51 (40-60) % Band Neutrophils % 0 (0-10) % Lymphocytes % (Manual) 37 (20-40) % Atypical Lymphs % 4 % Monocytes % (Manual) 5 (2-10) % Eosinophils % (Manual) 2 (0.8-7.0) % Basophils % (Manual) 1 (0.2-1.2) Platelet Estimate Adequate Plt Morphology Comment Normal RBC Morph Comment Normal Sodium 144 (136-145) mEq/L Potassium 3.2 L (3.5-5.1) mEq/L Chloride 106 (98-107) mEq/L Carbon Dioxide 27 (21-32) mEq/L Anion Gap 14.2 (5-15) BUN 8 (7-18) mg/dL Creatinine 0.9 (0.7-1.3) mg/dL Est Cr Clr Drug Dosing 126.25 mL/min Estimated GFR (MDRD) > 60 (>60) mL/min BUN/Creatinine Ratio 8.9 L (14-18) Glucose 101 (74-106) mg/dL Calcium 8.6 (8.5-10.1) mg/dL Total Bilirubin 1.1 H (0.2-1.0) mg/dL AST 103 H (15-37) U/L ALT 66 H (16-63) U/L Alkaline Phosphatase 69 (46-116) U/L Total Protein 7.3 (6.4-8.2) g/dl Albumin 3.9 (3.4-5.0) g/dl Globulin 3.4 gm/dL Albumin/Globulin Ratio 1.2 (1-2) Lipase 288 (73-393) U/L Urine Color Yellow (Yellow) Urine Appearance Clear (Clear) Urine pH 6.0 (5.0-8.0) Ur Specific [place] 1.020 (1.005-1.030) Urine Protein 1+ H (Negative) Urine Glucose (UA) Negative (Negative) Urine Ketones Negative (Negative) Urine Occult Blood Negative (Negative) Urine Nitrite Negative (Negative) Urine Bilirubin Negative (Negative) Urine Urobilinogen 0.2 (0.2-1.0) Ur Leukocyte Esterase Negative (Negative) Urine RBC Not seen (0-5) /hpf Urine WBC 0-5 (0-5) /hpf Ur Epithelial Cells 0-5 (0-5) /hpf Urine Bacteria Rare (FEW) /hpf Urine Mucus Not seen (FEW) /hpf Urine Opiates Screen (NEGATIVE) Ur Buprenorphine Scrn (NEGATIVE) Ur Oxycodone Screen (NEGATIVE) Urine Methadone Screen (NEGATIVE) Ur Propoxyphene Screen (NEGATIVE) Ur Barbiturates Screen (NEGATIVE) Ur Tricyclics Screen (NEGATIVE) Ur Phencyclidine Scrn (NEGATIVE) Ur Amphetamine Screen (NEGATIVE) U Methamphetamines Scrn (NEGATIVE) U Benzodiazepines Scrn (NEGATIVE) U Cocaine Metab Screen (NEGATIVE) U Marijuana (THC) Screen (NEGATIVE) Ethyl Alcohol 0.29 (0.00) gm% 01/17/17 Range/Units 02:44 WBC (4.23-9.07) K/mm3 RBC (4.63-6.08) M/mm3 Hgb (13.7-17.5) gm/L Hct (40.1-51.0) % MCV (79.0-92.2) fl MCH (25.7-32.2) pg MCHC (32.2-35.5) g/dl RDW Std Deviation (35.1-43.9) fL Plt Count (163-337) K/mm3 MPV (9.4-12.3) fl Neutrophils % (Manual) (40-60) % Band Neutrophils % (0-10) % Lymphocytes % (Manual) (20-40) % Atypical Lymphs % % Monocytes % (Manual) (2-10) % Eosinophils % (Manual) (0.8-7.0) % Basophils % (Manual) (0.2-1.2) Platelet Estimate Plt Morphology Comment RBC Morph Comment Sodium (136-145) mEq/L Potassium (3.5-5.1) mEq/L Chloride (98-107) mEq/L Carbon Dioxide (21-32) mEq/L Anion Gap (5-15) BUN (7-18) mg/dL Creatinine (0.7-1.3) mg/dL Est Cr Clr Drug Dosing mL/min Estimated GFR (MDRD) (>60) mL/min BUN/Creatinine Ratio (14-18) Glucose (74-106) mg/dL Calcium (8.5-10.1) mg/dL Total Bilirubin (0.2-1.0) mg/dL AST (15-37) U/L ALT (16-63) U/L Alkaline Phosphatase (46-116) U/L Total Protein (6.4-8.2) g/dl Albumin (3.4-5.0) g/dl Globulin gm/dL Albumin/Globulin Ratio (1-2) Lipase (73-393) U/L Urine Color (Yellow) Urine Appearance (Clear) Urine pH (5.0-8.0) Ur Specific [place] (1.005-1.030) Urine Protein (Negative) Urine Glucose (UA) (Negative) Urine Ketones (Negative) Urine Occult Blood (Negative) Urine Nitrite (Negative) Urine Bilirubin (Negative) Urine Urobilinogen (0.2-1.0) Ur Leukocyte Esterase (Negative) Urine RBC (0-5) /hpf Urine WBC (0-5) /hpf Ur Epithelial Cells (0-5) /hpf Urine Bacteria (FEW) /hpf Urine Mucus (FEW) /hpf Urine Opiates Screen Negative (NEGATIVE) Ur Buprenorphine Scrn Negative (NEGATIVE) Ur Oxycodone Screen Negative (NEGATIVE) Urine Methadone Screen Negative (NEGATIVE) Ur Propoxyphene Screen Negative (NEGATIVE) Ur Barbiturates Screen Negative (NEGATIVE) Ur Tricyclics Screen Negative (NEGATIVE) Ur Phencyclidine Scrn Negative (NEGATIVE) Ur Amphetamine Screen Negative (NEGATIVE) U Methamphetamines Scrn Negative (NEGATIVE) U Benzodiazepines Scrn Negative (NEGATIVE) U Cocaine Metab Screen Negative (NEGATIVE) U Marijuana (THC) Screen Negative (NEGATIVE) Ethyl Alcohol (0.00) gm% Meds: Medications Generic Name Dose Route Start Last Admin Trade Name Freq PRN Reason Stop Dose Admin Sodium Chloride 1,000 mls @ 150 mls/hr 01/17/17 02:30 01/17/17 02:29 Normal Saline IV 150 mls/hr ASDIRECTED MARCELA Administration Discontinued Medications Generic Name Dose Route Start Last Admin Trade Name Freq PRN Reason Stop Dose Admin Ondansetron HCl 4 mg 01/17/17 02:16 01/17/17 02:30 Zofran IVPUSH 01/17/17 02:17 4 mg ONETIME ONE Administration Potassium Chloride 40 meq 01/17/17 03:38 01/17/17 03:45 Klor-Con M20 PO 01/17/17 03:39 40 meq ONETIME ONE Administration - Re-Assessments/Exams Free Text/Narrative Re-Assessment/Exam: 01/17/17 03:45 The patient's potassium has returned depressed at 3.2. I have ordered 40 mEq oral potassium. His alcohol level is significantly elevated at 0.29. The remainder of his workup is unremarkable. I discussed the patient's case with Christina, on the [facility] 24- hour emergency line. She stated that she does not believe that an RCC bed is available, but that even if one were, the patient would not be a candidate until his alcohol level were <0.1. She is recommending that the patient go to their facility at 8:00 this morning, and that they can then evaluate him. From a medical standpoint, the patient can be discharged home with a responsible adult. 01/17/17 03:49 The above was discussed with the patient. He states that he can arrange to get a responsible adult to come and pick him up. Departure - Departure Time of Disposition: 03:50 Disposition: Home, Self-Care 01 Condition: Fair Clinical Impression: Alcoholism, Hypokalemia Alcohol intoxication Qualifiers: Complication of substance-induced condition: uncomplicated Qualified Code(s): F10.920 - Alcohol use, unspecified with intoxication, uncomplicated - Discharge Information Instructions: Alcohol Use Disorder, Alcohol Intoxication, [id number] Referrals: Vinay Feliz Jr, MD [Primary Care Provider] - Additional Instructions: You were seen in the emergency room requesting "detox". Workup in the ER included blood work, a urinalysis, and a urine drug screen. Your workup was remarkable for your potassium being low at 3.2, and your alcohol level being elevated at 0.29. For reference, this is about 3 and a half times the legal limit for driving. We STRONGLY recommend that you stop drinking alcohol. Your case was discussed with [facility] human services. They recommend that you go to their facility at 8:00 this morning for evaluation. They are located at: [address] [place], [place] [address]Darrel Toure [phone] If any other problems, please do not hesitate to return to the ER. - My Orders Last 24 Hours: My Active Orders 01/17/17 02:30 Sodium Chloride 0.9% [Normal Saline] 1,000 ml IV ASDIRECTED - Assessment/Plan Last 24 Hours: My Active Orders 01/17/17 02:30 Sodium Chloride 0.9% [Normal Saline] 1,000 ml IV ASDIRECTED
== END 2017-01-17 04:04 | disposition home or self-care (01) ==
LOC: JD.ED 01:26
DX: F10.220 Alcohol dependence with intoxication, uncomplicated (principal); E87.6 Hypokalemia; F17.210 Nicotine dependence, cigarettes, uncomplicated; Z98.890 Other specified postprocedural states
CPT/HCPCS: 36415; 80053; 80306; 81001; 83690; 85025; 96361; 96374; 99283; A9270; G0480; J2405; J7040; 99284

== ENCOUNTER 2017-06-02 13:34 | Emergency (ER) | payer BC, MEDICAID ==
[2017-06-02 13:45] VITALS: BP 157/105
--- NOTE | 2017-06-02 15:19 | EDM.PDOC ---
ED HPI GENERAL MEDICAL PROBLEM - General Chief Complaint: Respiratory Problem Stated Complaint: COUGH/FEVER Time Seen by Provider: 06/02/17 13:44 Source of Information: Reports: Patient History Limitations: Reports: No Limitations - History of Present Illness INITIAL COMMENTS - FREE TEXT/NARRATIVE: The patient presents with flu like symptoms. This has been going on for a few weeks. He has a cough, congestion and sore throat. He also says that now that he came in he has left sided numbness. He will get that some times when he is laying on his left side. He does admit to drinking today. He has fever, chills but no chest pain or shortness of breath. He has no abdominal pain, nausea or vomiting. Onset: Gradual Duration: Week(s): (2) Severity: Moderate Improves with: Reports: None Worsens with: Reports: None Associated Symptoms: Reports: Cough, Fever/Chills, Shortness of Breath. Denies : Chest Pain, Nausea/Vomiting Generalized Pain Score (Numeric/FACES): 10 - Related Data Allergies Allergy/AdvReac Type Severity Reaction Status Date / Time No Known Allergies Allergy Verified 01/17/17 01:36 Past Medical History HEENT History: Reports: Other (See Below) Other HEENT History: Maxofacial surgery to repair right socket Cardiovascular History: Reports: None, Other (See Below) Other Cardiovascular History: seen for chest pains Respiratory History: Reports: Sleep Apnea Gastrointestinal History: Reports: Other (See Below) Other Gastrointestinal History: stomach ulcer Genitourinary History: Reports: Prostate Disorder, Other (See Below) Other Genitourinary History: prostate disease CAR WASH MANAGER History: Reports: 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 Musculoskeletal History: Reports: Fracture Other Musculoskeletal History: ankle Neurological History: Reports: Migraines Psychiatric History: Reports: Addiction Endocrine/Metabolic History: Reports: None Hematologic History: Reports: None Immunologic History: Reports: None Oncologic (Cancer) History: Reports: None Dermatologic History: Reports: None - Infectious Disease History Infectious Disease History: Reports: Chicken Pox - Past Surgical History Head Surgeries/Procedures: Reports: None HEENT Surgical History: Reports: Tonsillectomy, Other (See Below) Cardiovascular Surgical History: Reports: None Respiratory Surgical History: Reports: None GI Surgical History: Reports: Hernia, Abdominal Male Surgical History: Reports: None Endocrine Surgical History: Reports: None Neurological Surgical History: Reports: None Musculoskeletal Surgical History: Reports: None, Other (See Below) Oncologic Surgical History: Reports: None Dermatological Surgical History: Reports: None Social & Family History - Family History Family Medical History: Noncontributory - Tobacco Use Smoking Status *Q: Current Every Day Smoker Years of Tobacco use: 12 Packs/Tins Daily: 1 Used Tobacco, but Quit: No - Caffeine Use Caffeine Use: Reports: None - Alcohol Use Days Per Week of Alcohol Use: 7 Number of Drinks Per Day: 10 Total Drinks Per Week: 70 - Recreational Drug Use Recreational Drug Use: No Drug Use in Last 12 Months: No - Living Situation & Occupation Living situation: Reports: , Alone Occupation: Unemployed ED ROS GENERAL - Review of Systems Review Of Systems: See Below Constitutional: Reports: Fever, Chills, Malaise, Weakness, Fatigue HEENT: Reports: Throat Pain Respiratory: Reports: Shortness of Breath, Cough Cardiovascular: Reports: No Symptoms Endocrine: Reports: No Symptoms GI/Abdominal: Reports: No Symptoms : Reports: No Symptoms ED EXAM, GENERAL - Physical Exam Exam: See Below Exam Limited By: Intoxication General Appearance: Alert, No Apparent Distress Ears: Normal External Exam Nose: Normal Inspection Throat/Mouth: Other (Paryngeal erythema) Head: Atraumatic, Normocephalic Neck: Normal Inspection Respiratory/Chest: No Respiratory Distress, Lungs Clear, Normal Breath Sounds Cardiovascular: Regular Rate, Rhythm, No Edema, No Murmur GI/Abdominal: Soft, Non-Tender, No Organomegaly, No Mass Extremities: Normal Inspection Neurological: Alert, Oriented, No Motor/Sensory Deficits Course - Vital Signs Last Recorded V/S: Last Vital Signs Temp 97.6 F 06/02/17 13:42 Pulse 105 H 06/02/17 13:42 Resp 18 06/02/17 13:42 BP 157/105 H 06/02/17 13:42 Pulse Ox 95 06/02/17 13:42 - Orders/Labs/Meds Orders: Active Orders 24 hr Category Date Time Status Cardiac Monitoring [RC] . DIRECTED Care 06/02/17 13:49 Active CULTURE STREP A CONFIRMATION [RM] Stat Lab 06/02/17 14:00 Results STREP SCRN A RAPID W CULT CONF [RM] Stat Lab 06/02/17 14:00 Results Labs: Laboratory Tests 06/02/17 06/02/17 Range/Units 14:06 14:06 WBC 12.88 H (4.23-9.07) K/mm3 RBC 5.50 (4.63-6.08) M/mm3 Hgb 16.4 (13.7-17.5) gm/L Hct 47.4 (40.1-51.0) % MCV 86.2 (79.0-92.2) fl MCH 29.8 (25.7-32.2) pg MCHC 34.6 (32.2-35.5) g/dl RDW Std Deviation 42.6 (35.1-43.9) fL Plt Count 334 (163-337) K/mm3 MPV 10.6 (9.4-12.3) fl Neut % (Auto) 59.5 (34.0-67.9) % Lymph % (Auto) 30.4 (21.8-53.1) % Hutchinson % (Auto) 8.2 (5.3-12.2) % Eos % (Auto) 1.2 (0.8-7.0) Baso % (Auto) 0.5 (0.1-1.2) % Neut # (Auto) 7.69 H (1.78-5.38) K/mm3 Lymph # (Auto) 3.91 H (1.32-3.57) K/mm3 Hutchinson # (Auto) 1.05 H (0.30-0.82) K/mm3 Eos # (Auto) 0.15 (0.04-0.54) K/mm3 Baso # (Auto) 0.06 (0.01-0.08) K/mm3 Sodium 150 H (136-145) mEq/L Potassium 3.7 (3.5-5.1) mEq/L Chloride 109 H (98-107) mEq/L Carbon Dioxide 26 (21-32) mEq/L Anion Gap 18.7 H (5-15) BUN 11 (7-18) mg/dL Creatinine 0.9 (0.7-1.3) mg/dL Est Cr Clr Drug Dosing 129.33 mL/min Estimated GFR (MDRD) > 60 (>60) mL/min BUN/Creatinine Ratio 12.2 L (14-18) Glucose 103 (74-106) mg/dL Calcium 8.3 L (8.5-10.1) mg/dL Total Bilirubin 0.7 (0.2-1.0) mg/dL AST 28 (15-37) U/L ALT 31 (16-63) U/L Alkaline Phosphatase 54 (46-116) U/L Total Protein 7.2 (6.4-8.2) g/dl Albumin 4.2 (3.4-5.0) g/dl Globulin 3.0 gm/dL Albumin/Globulin Ratio 1.4 (1-2) Ethyl Alcohol 0.36 (0.00) gm% - Re-Assessments/Exams Free Text/Narrative Re-Assessment/Exam: 06/02/17 15:20 His strep and influenza are negative. 06/02/17 15:21 His WBC was elevated at 12.88. His Na was a little elevated at 150. His ETOH was elevated at 0.36. He has a viral upper respiratory infection. I will discharge him home. Departure - Departure Time of Disposition: 15:25 Disposition: Home, Self-Care 01 Condition: Good Clinical Impression: Viral upper respiratory infection Alcohol intoxication Qualifiers: Complication of substance-induced condition: uncomplicated Qualified Code(s): F10.920 - Alcohol use, unspecified with intoxication, uncomplicated - Discharge Information Referrals: Vinay Feliz Jr, MD [Primary Care Provider] - 1 Week Additional Instructions: Drink plenty of fluids. Take an over the counter cold medicine like dayquil or nyquil. Follow up with your doctor. - My Orders Last 24 Hours: My Active Orders 06/02/17 13:49 Cardiac Monitoring [RC] . DIRECTED 06/02/17 14:00 CULTURE STREP A CONFIRMATION [RM] Stat STREP SCRN A RAPID W CULT CONF [RM] Stat - Assessment/Plan Last 24 Hours: My Active Orders 06/02/17 13:49 Cardiac Monitoring [RC] . DIRECTED 06/02/17 14:00 CULTURE STREP A CONFIRMATION [RM] Stat STREP SCRN A RAPID W CULT CONF [RM] Stat
== END 2017-06-02 15:55 | disposition home or self-care (01) ==
LOC: JD.ED 13:34
DX: J06.9 Acute upper respiratory infection, unspecified (principal); F10.920 Alcohol use, unspecified with intoxication, uncomplicated; F17.210 Nicotine dependence, cigarettes, uncomplicated; Y90.1 Blood alcohol level of 20-39 mg/100 ml
CPT/HCPCS: 36415; 80053; 85025; 87081; 87430; 87804; 99283; G0480

== ENCOUNTER 2017-06-02 17:25 | Emergency (ER) | payer BC ==
--- NOTE | 2017-06-02 17:57 | EDM.PDOCBH ---
ED HPI GENERAL MEDICAL PROBLEM - General Chief Complaint: Behavioral/Psych Stated Complaint: BRANDEN AMB Time Seen by Provider: 06/02/17 17:40 Source of Information: Reports: Patient, Family (ex ), Old Records History Limitations: Reports: No Limitations - History of Present Illness INITIAL COMMENTS - FREE TEXT/NARRATIVE: 31-year-old male arrived via [facility] ambulance service. He is complaining that his "whole body is shutting down". States that his liver is and kidneys are not working. He is seen in the ER earlier and have labs, rapid flu and rapid strep. He is found to be intoxicated with alcohol of 0.36. Patient was discharged 1 hour ago. Reportedly after leaving the hospital he went home. He is with his girlfriend. His girlfriend called the ambulance. His ex- now present in the ER. - Related Data Allergies Allergy/AdvReac Type Severity Reaction Status Date / Time No Known Allergies Allergy Verified 01/17/17 01:36 Home Meds: Home Meds . 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 Musculoskeletal History: Reports: Fracture Other Musculoskeletal History: ankle Neurological History: Reports: Migraines Psychiatric History: Reports: Addiction Endocrine/Metabolic History: Reports: None Hematologic History: Reports: None Immunologic History: Reports: None Oncologic (Cancer) History: Reports: None Dermatologic History: Reports: None - Infectious Disease History Infectious Disease History: Reports: Chicken Pox - Past Surgical History Head Surgeries/Procedures: Reports: None HEENT Surgical History: Reports: Tonsillectomy, Other (See Below) Cardiovascular Surgical History: Reports: None Respiratory Surgical History: Reports: None GI Surgical History: Reports: Hernia, Abdominal Male Surgical History: Reports: None Endocrine Surgical History: Reports: None Neurological Surgical History: Reports: None Musculoskeletal Surgical History: Reports: None, Other (See Below) Oncologic Surgical History: Reports: None Dermatological Surgical History: Reports: None Social & Family History - Family History Family Medical History: Noncontributory - Tobacco Use Smoking Status *Q: Current Every Day Smoker Years of Tobacco use: 20 Packs/Tins Daily: 1 Used Tobacco, but Quit: No - Caffeine Use Caffeine Use: Reports: None - Alcohol Use Days Per Week of Alcohol Use: 7 Number of Drinks Per Day: 10 Total Drinks Per Week: 70 - Recreational Drug Use Recreational Drug Use: No Drug Use in Last 12 Months: No - Living Situation & Occupation Living situation: Reports: , Alone Occupation: Unemployed ED ROS GENERAL - Review of Systems Review Of Systems: Unable To Obtain ED EXAM, BEHAVIORAL HEALTH - Physical Exam Exam: Not Obtained Exam Limited By: Intoxication General Appearance: Alert COURSE, BEHAVIORAL HEALTH COMP - Course Vital Signs: Last Vital Signs Temp 36.4 C 06/02/17 17:27 Pulse 84 06/02/17 17:27 Resp 18 06/02/17 17:27 BP Pulse Ox 95 06/02/17 17:27 Departure - Departure Time of Disposition: 17:54 Disposition: Eloped 07 Condition: Undetermined Clinical Impression: Alcohol intoxication Qualifiers: Complication of substance-induced condition: uncomplicated Qualified Code(s): F10.920 - Alcohol use, unspecified with intoxication, uncomplicated - Discharge Information Referrals: PCP,None [Primary Care Provider] - Forms: ED Department Discharge Additional Instructions: Patient eloped.
== END 2017-06-02 17:45 | disposition left against medical advice (07) ==
LOC: JD.ED 17:25
DX: Z53.9 Procedure and treatment not carried out, unspecified reason (principal); F10.920 Alcohol use, unspecified with intoxication, uncomplicated

== ENCOUNTER 2017-06-02 18:14 | Emergency (ER) | payer BC ==
[2017-06-02 18:20] VITALS: BP 130/76
[2017-06-02] MEDS ORDERED: Diphtheria,Pertussis(Acell),Tetanus Vaccine 0.5 ML SDV IM ONE (18:23)
[2017-06-02] MEDS ORDERED: Sodium Chloride 0.9% 10 ML Syringe FLUSH PRN (19:02)
[2017-06-02] MEDS ORDERED: Sodium Chloride 0.9% 1,000 ML IV ONE ×2 (19:02→19:29)
[2017-06-02] MEDS ORDERED: Ondansetron 4 MG/2 ML SDV IVPUSH ONE (19:03)
[2017-06-02] MEDS ORDERED: Famotidine 20 MG/2 ML SDV IVPUSH ONE (19:03)
--- NOTE | 2017-06-02 20:56 | EDM.PDOC ---
ED HPI GENERAL MEDICAL PROBLEM - General Chief Complaint: Laceration Stated Complaint: BRANDEN AMB Time Seen by Provider: 06/02/17 18:20 Source of Information: Reports: Patient, EMS, Old Records History Limitations: Reports: Intoxication - History of Present Illness INITIAL COMMENTS - FREE TEXT/NARRATIVE: 31 year old male presents via [facility] ambulance service for evaluation treatment of lacerations. This is the patient's third visit to the ER today. He was seen earlier by Dr. Alejandre for upper respiratory symptoms. He was seen by myself not even an hour ago. He was brought in by ambulance. He eloped. Reportedly patient ran back to his apartment. he could not enter so therefore he busted the window. He now has a lacerations to his hands. No active bleeding. Unsure of last tetanus. Police presented to the ER. There is no committal paperwork and place. Patient has agreed to stay for fluids. He is welcome stay in the ER to sober up. Police state they will come and give him a safe ride home if he does attempt to elope again. Patient is obviously intoxicated. He states he has not had any thing to drink since earlier today, prior to his first ER visit. - Related Data Allergies Allergy/AdvReac Type Severity Reaction Status Date / Time No Known Allergies Allergy Verified 06/03/17 11:22 Home Meds: Home Meds . 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 Musculoskeletal History: Reports: Fracture Other Musculoskeletal History: ankle Neurological History: Reports: Migraines Psychiatric History: Reports: Addiction Endocrine/Metabolic History: Reports: None Hematologic History: Reports: None Immunologic History: Reports: None Oncologic (Cancer) History: Reports: None Dermatologic History: Reports: None - Infectious Disease History Infectious Disease History: Reports: Chicken Pox - Past Surgical History Head Surgeries/Procedures: Reports: None HEENT Surgical History: Reports: Tonsillectomy, Other (See Below) Cardiovascular Surgical History: Reports: None Respiratory Surgical History: Reports: None GI Surgical History: Reports: Hernia, Abdominal Male Surgical History: Reports: None Endocrine Surgical History: Reports: None Neurological Surgical History: Reports: None Musculoskeletal Surgical History: Reports: None, Other (See Below) Oncologic Surgical History: Reports: None Dermatological Surgical History: Reports: None Social & Family History - Family History Family Medical History: Noncontributory - Tobacco Use Smoking Status *Q: Current Every Day Smoker Years of Tobacco use: 20 Packs/Tins Daily: 1 Used Tobacco, but Quit: No - Caffeine Use Caffeine Use: Reports: None - Alcohol Use Days Per Week of Alcohol Use: 7 Number of Drinks Per Day: 10 Total Drinks Per Week: 70 - Recreational Drug Use Recreational Drug Use: No Drug Use in Last 12 Months: No - Living Situation & Occupation Living situation: Reports: , Alone Occupation: Unemployed ED ROS GENERAL - Review of Systems Review Of Systems: Unable To Obtain ED EXAM, SKIN/RASH Exam: See Below Exam Limited By: Intoxication General Appearance: Alert, WD/WN, No Apparent Distress Eye Exam: Bilateral Eye: Normal Inspection Ears: Normal External Exam Nose: Normal Inspection Throat/Mouth: Normal Inspection, Normal Voice, No Airway Compromise Respiratory/Chest: No Respiratory Distress, Lungs Clear, Normal Breath Sounds Cardiovascular: Normal Peripheral Pulses, Regular Rate, Rhythm, No Murmur GI/Abdominal: Soft, Non-Tender Extremities: Normal Inspection Neurological: Alert, Oriented, Normal Cognition Psychiatric: Normal Affect, Normal Mood Skin: Warm, Dry, Normal Color Location, Skin: Upper Extremity, Right, Upper Extremity, Left Characteristics: Linear (several superficial cuts to the bilateral hands) Course - Vital Signs Last Recorded V/S: Last Vital Signs Temp 37.6 C 06/02/17 18:16 Pulse 113 H 06/02/17 18:16 Resp 18 06/02/17 18:16 BP 130/76 06/02/17 18:16 Pulse Ox 97 06/02/17 18:16 - Orders/Labs/Meds Labs: Laboratory Tests 06/02/17 Range/Units 18:40 Ethyl Alcohol 0.27 (0.00) gm% Meds: Medications Discontinued Medications Generic Name Dose Route Start Last Admin Trade Name Freq PRN Reason Stop Dose Admin Diphtheria/Tetanus/Acell Pertussis 0.5 ml 06/02/17 18:23 06/02/17 18:38 Adacel IM 06/02/17 18:24 0.5 ml .ONCE ONE Administration Famotidine 20 mg 06/02/17 19:03 06/02/17 19:09 Pepcid IVPUSH 06/02/17 19:04 20 mg ONETIME ONE Administration Sodium Chloride 1,000 mls @ 999 mls/hr 06/02/17 19:02 06/02/17 19:07 Normal Saline IV 06/02/17 20:02 999 mls/hr ONETIME ONE Administration Sodium Chloride 1,000 mls @ 999 mls/hr 06/02/17 19:29 06/02/17 19:34 Normal Saline IV 06/02/17 20:29 999 mls/hr ONETIME ONE Administration Ondansetron HCl 4 mg 06/02/17 19:03 06/02/17 19:09 Zofran IVPUSH 06/02/17 19:04 4 mg ONETIME ONE Administration Sodium Chloride 10 ml 06/02/17 19:02 06/02/17 19:09 Saline Flush FLUSH 10 ml ASDIRECTED PRN Administration Keep Vein Open - Radiology Interpretation Free Text/Narrative:: chest xray shows no acute intrathoraic process. - Re-Assessments/Exams Free Text/Narrative Re-Assessment/Exam: 06/02/17 20:06 Patient reluctantly stayed for the second bad of IV fluid. He is wanting to leave at this time. Will have him sign out AGAINST MEDICAL ADVICE. Police have been called and will give him a safe ride home. Departure - Departure Time of Disposition: 20:05 Disposition: Against Medical Advice 07 Condition: Undetermined Clinical Impression: Abrasion Alcohol intoxication Qualifiers: Complication of substance-induced condition: uncomplicated Qualified Code(s): F10.920 - Alcohol use, unspecified with intoxication, uncomplicated - Discharge Information Referrals: PCP,None [Primary Care Provider] - Forms: ED Department Discharge
--- NOTE | 2017-06-03 14:15 | CR ---
Chest: Portable view of the chest was obtained. Comparison: Prior chest x-ray of 12/29/16. Heart size and mediastinum are normal. Lungs are clear. Bony structures are grossly intact. Impression: 1. Nothing acute is identified on portable chest x-ray. Diagnostic code #1
== END 2017-06-02 20:05 | disposition left against medical advice (07) ==
LOC: JD.ED 18:14
DX: S61.411A Laceration without foreign body of right hand, initial encounter (principal); S61.412A Laceration without foreign body of left hand, initial encounter; T14.8XXA Other injury of unspecified body region, initial encounter; F10.920 Alcohol use, unspecified with intoxication, uncomplicated; F17.210 Nicotine dependence, cigarettes, uncomplicated; Y90.1 Blood alcohol level of 20-39 mg/100 ml; Z23 Encounter for immunization; X58.XXXA Exposure to other specified factors, initial encounter
CPT/HCPCS: 36415; 71045; 71045-26; 90471; 90715; 96361; 96374; 96375; 99284-25; G0480; J2405; J7040; J7050

== ENCOUNTER 2017-06-03 11:15 | Emergency (ER) | payer BC, MEDICAID ==
[2017-06-03 11:22] VITALS: BP 153/81
--- NOTE | 2017-06-03 11:50 | EDM.PDOCBH ---
ED HPI GENERAL MEDICAL PROBLEM - General Chief Complaint: Drug or Alcohol Abuse Stated Complaint: ALCOHOL DETOX Time Seen by Provider: 06/03/17 11:48 Source of Information: Reports: Patient History Limitations: Reports: Intoxication - History of Present Illness INITIAL COMMENTS - FREE TEXT/NARRATIVE: Patient was not seen. He eloped while we're trying to determine if there was any committal paperwork in place. We talked to the engineer process, Pardeep Don. He reports there is no committal paperwork in place. While we're talking to Pardeep Don, Marilyn walked by and stated he was "going to [place] ". - Related Data Allergies Allergy/AdvReac Type Severity Reaction Status Date / Time No Known Allergies Allergy Verified 06/03/17 11:22 Home Meds: Home Meds . 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 Musculoskeletal History: Reports: Fracture Other Musculoskeletal History: ankle Neurological History: Reports: Migraines Psychiatric History: Reports: Addiction Endocrine/Metabolic History: Reports: None Hematologic History: Reports: None Immunologic History: Reports: None Oncologic (Cancer) History: Reports: None Dermatologic History: Reports: None - Infectious Disease History Infectious Disease History: Reports: Chicken Pox - Past Surgical History Head Surgeries/Procedures: Reports: None HEENT Surgical History: Reports: Tonsillectomy, Other (See Below) Cardiovascular Surgical History: Reports: None Respiratory Surgical History: Reports: None GI Surgical History: Reports: Hernia, Abdominal Male Surgical History: Reports: None Endocrine Surgical History: Reports: None Neurological Surgical History: Reports: None Musculoskeletal Surgical History: Reports: None, Other (See Below) Oncologic Surgical History: Reports: None Dermatological Surgical History: Reports: None Social & Family History - Family History Family Medical History: Noncontributory - Tobacco Use Smoking Status *Q: Current Every Day Smoker Years of Tobacco use: 14 Packs/Tins Daily: 0.8 Used Tobacco, but Quit: No - Caffeine Use Caffeine Use: Reports: None - Alcohol Use Days Per Week of Alcohol Use: 7 Number of Drinks Per Day: 10 Total Drinks Per Week: 70 - Recreational Drug Use Recreational Drug Use: No Drug Use in Last 12 Months: No - Living Situation & Occupation Living situation: Reports: , Alone Occupation: Unemployed ED ROS GENERAL - Review of Systems Review Of Systems: Unable To Obtain ED EXAM, BEHAVIORAL HEALTH - Physical Exam Exam: Not Obtained COURSE, BEHAVIORAL HEALTH COMP - Course Vital Signs: Last Vital Signs Temp 36.4 C 06/03/17 11:19 Pulse 105 H 06/03/17 11:19 Resp 18 06/03/17 11:19 BP 153/81 H 06/03/17 11:19 Pulse Ox 96 06/03/17 11:19 Departure - Departure Time of Disposition: 11:50 Disposition: Eloped 07 Condition: Undetermined Clinical Impression: Alcohol abuse - Discharge Information Referrals: Vinay Feliz Jr, MD [Primary Care Provider] - Additional Instructions: Patient eloped.
== END 2017-06-03 11:49 | disposition left against medical advice (07) ==
LOC: JD.ED 11:15
DX: Z53.21 Procedure and treatment not carried out due to patient leaving prior to being seen by health care provider (principal)
CPT/HCPCS: 99284-25

== ENCOUNTER 2017-06-13 11:48 | Emergency (ER) | payer BC, MEDICAID, OTHER ==
[2017-06-13] MEDS ORDERED: Sodium Chloride 0.9% 10 ML Syringe FLUSH PRN ×2 (12:40→14:27)
[2017-06-13] MEDS ORDERED: Sodium Chloride 0.9% 2,000 ML IV ONE (12:41)
[2017-06-13] MEDS ORDERED: LORazepam 2 MG/ML SDV IVPUSH ONE (12:41)
[2017-06-13] MEDS ORDERED: Metoclopramide 10 MG/2 ML SDV IVPUSH ONE (12:41)
[2017-06-13] MEDS ORDERED: Pantoprazole 40 MG Vial IVPUSH ONE (12:53)
--- NOTE | 2017-06-13 12:57 | EDM.PDOC ---
ED HPI GENERAL MEDICAL PROBLEM - General Chief Complaint: Drug or Alcohol Abuse Stated Complaint: ALCOHOL DETOX Time Seen by Provider: 06/13/17 12:26 Source of Information: Reports: Patient, Other (Ex wifes boyfriend) History Limitations: Reports: Intoxication - History of Present Illness INITIAL COMMENTS - FREE TEXT/NARRATIVE: Patient is a 31-year-old male with a long history of alcohol abuse who presents to the ED with his ex-'s boyfriend wanting inpatient alcohol detox. Patient complains of generalized abdominal pain with nausea and vomiting. States normally drinks approximately 6 beers daily with shots of liquor as well. He's been doing this for 14 years every day. Last drink was approximately 4 hours ago consisting of a few beers and 1 shot. Patient wants help for alcohol dependency. Per patient with detox he's never had a seizures. He's undergone inpatient treatment for alcohol abuse on 2 separate occasions. Patient does not have any hallucinations currently, suicidal ideations, homicidal thoughts, or any additional complaints. Patient does state he wants to get sober for his kids. He was sent here from [facility] for medical clearance. Ex- has placed a petition for the patient to undergo evaluation at [facility] today. Petition for involuntary commitment was placed June 09, 2017 to ensure this takes place. Abdominal Pain Score (Numeric/FACES): 10 - Related Data Allergies Allergy/AdvReac Type Severity Reaction Status Date / Time No Known Allergies Allergy Verified 06/13/17 11:57 Home Meds: Home Meds . [No Known Home Meds] 06/02/17 [History] Past Medical History HEENT History: Reports: Other (See Below) Other HEENT History: Maxofacial surgery to repair right socket Cardiovascular History: Reports: None, Other (See Below) Other Cardiovascular History: seen for chest pains Respiratory History: Reports: Sleep Apnea Gastrointestinal History: Reports: Other (See Below) Other Gastrointestinal History: stomach ulcer Genitourinary History: Reports: Prostate Disorder, Other (See Below) Other Genitourinary History: prostate disease PODIATRY TEACHER History: Reports: None Musculoskeletal History: Reports: Fracture Other Musculoskeletal History: ankle Neurological History: Reports: Migraines Psychiatric History: Reports: Addiction Endocrine/Metabolic History: Reports: None Hematologic History: Reports: None Immunologic History: Reports: None Oncologic (Cancer) History: Reports: None Dermatologic History: Reports: None - Infectious Disease History Infectious Disease History: Reports: Chicken Pox - Past Surgical History Head Surgeries/Procedures: Reports: None HEENT Surgical History: Reports: Tonsillectomy, Other (See Below) Cardiovascular Surgical History: Reports: None Respiratory Surgical History: Reports: None GI Surgical History: Reports: Hernia, Abdominal Male Surgical History: Reports: None Endocrine Surgical History: Reports: None Neurological Surgical History: Reports: None Musculoskeletal Surgical History: Reports: None, Other (See Below) Oncologic Surgical History: Reports: None Dermatological Surgical History: Reports: None Social & Family History - Family History Family Medical History: Noncontributory - Tobacco Use Smoking Status *Q: Current Every Day Smoker Years of Tobacco use: 13 Packs/Tins Daily: 0.5 Used Tobacco, but Quit: No - Caffeine Use Caffeine Use: Reports: Coffee - Alcohol Use Days Per Week of Alcohol Use: 7 Number of Drinks Per Day: 10 Total Drinks Per Week: 70 - Recreational Drug Use Recreational Drug Use: Yes Drug Use in Last 12 Months: No Recreational Drug Type: Reports: Methamphetamine Recreational Drug Use Frequency: Weekly - Living Situation & Occupation Living situation: Reports: , Alone Occupation: Unemployed ED ROS GENERAL - Review of Systems Review Of Systems: See Below Constitutional: Reports: Fever, Chills, Decreased Appetite HEENT: Reports: No Symptoms Respiratory: Reports: Shortness of Breath. Denies: Cough, Sputum Cardiovascular: Denies: Chest Pain GI/Abdominal: Reports: Abdominal Pain, Bloody Stool, Diarrhea, Decreased Appetite, Nausea, Vomiting. Denies: Constipation Musculoskeletal: Reports: No Symptoms Neurological: Reports: No Symptoms Psychiatric: Reports: Anxiety, Cravings ED EXAM, GI/ABD - Physical Exam Exam: See Below Exam Limited By: Intoxication General Appearance: Alert, Mild Distress Eyes: Bilateral: Normal Appearance, EOMI, Nystagmus (horizontal) Ears: Hearing Grossly Normal Nose: Normal Inspection Throat/Mouth: No Airway Compromise, Other (dry oral mucosa) Neck: Normal Inspection, Supple Respiratory/Chest: No Respiratory Distress, Lungs Clear, Normal Breath Sounds, Chest Non-Tender Cardiovascular: Normal Peripheral Pulses, Regular Rate, Rhythm, No Murmur GI/Abdominal Exam: Normal Bowel Sounds, Soft, Guarding, Tender (throughout) Neurological: Alert, CN II-XII Intact, No Motor/Sensory Deficits Psychiatric: Anxious Skin Exam: Warm, Dry, Intact, Normal Color Course - Vital Signs Last Recorded V/S: Last Vital Signs Temp 97.9 F 06/13/17 11:58 Pulse 96 06/13/17 11:58 Resp 23 H 06/13/17 17:00 BP 125/74 06/13/17 17:00 Pulse Ox 95 06/13/17 17:00 - Orders/Labs/Meds Orders: Active Orders 24 hr Category Date Time Status CIWAA Assessment [RC] ASDIRECTED Care 06/13/17 12:53 Active EKG Documentation Completion [RC] STAT Care 06/13/17 12:40 Active Peripheral IV Care [RC] . DIRECTED Care 06/13/17 12:40 Active Peripheral IV Insertion Adult [OM.PC] Stat Oth 06/13/17 12:40 Ordered Labs: Laboratory Tests 06/13/17 06/13/17 06/13/17 Range/Units 12:40 12:40 12:40 WBC 9.19 H (4.23-9.07) K/mm3 RBC 5.41 (4.63-6.08) M/mm3 Hgb 16.2 (13.7-17.5) gm/L Hct 46.5 (40.1-51.0) % MCV 86.0 (79.0-92.2) fl MCH 29.9 (25.7-32.2) pg MCHC 34.8 (32.2-35.5) g/dl RDW Std Deviation 43.0 (35.1-43.9) fL Plt Count 196 (163-337) K/mm3 MPV 10.7 (9.4-12.3) fl Neut % (Auto) 56.5 (34.0-67.9) % Lymph % (Auto) 31.7 (21.8-53.1) % [place] % (Auto) 10.2 (5.3-12.2) % Eos % (Auto) 0.9 (0.8-7.0) Baso % (Auto) 0.5 (0.1-1.2) % Neut # (Auto) 5.19 (1.78-5.38) K/mm3 Lymph # (Auto) 2.91 (1.32-3.57) K/mm3 [place] # (Auto) 0.94 H (0.30-0.82) K/mm3 Eos # (Auto) 0.08 (0.04-0.54) K/mm3 Baso # (Auto) 0.05 (0.01-0.08) K/mm3 PT 10.3 (8.0-13.0) SECONDS INR 0.95 APTT (22-36) SECONDS Sodium 148 H (136-145) mEq/L Potassium 3.4 L (3.5-5.1) mEq/L Chloride 106 (98-107) mEq/L Carbon Dioxide 27 (21-32) mEq/L Anion Gap 18.4 H (5-15) BUN 7 (7-18) mg/dL Creatinine 0.8 (0.7-1.3) mg/dL Est Cr Clr Drug Dosing 144.58 mL/min Estimated GFR (MDRD) > 60 (>60) mL/min BUN/Creatinine Ratio 8.8 L (14-18) Glucose 92 (74-106) mg/dL Calcium 8.9 (8.5-10.1) mg/dL Magnesium (1.8-2.4) mg/dl Total Bilirubin 0.8 (0.2-1.0) mg/dL AST 62 H (15-37) U/L ALT 62 (16-63) U/L Alkaline Phosphatase 68 (46-116) U/L C-Reactive Protein < 0.2 (<1.0) mg/dL Total Protein 7.2 (6.4-8.2) g/dl Albumin 4.2 (3.4-5.0) g/dl Globulin 3.0 gm/dL Albumin/Globulin Ratio 1.4 (1-2) Lipase 236 (73-393) U/L Urine Color (Yellow) Urine Appearance (Clear) Urine pH (5.0-8.0) Ur Specific [place] (1.005-1.030) Urine Protein (Negative) Urine Glucose (UA) (Negative) Urine Ketones (Negative) Urine Occult Blood (Negative) Urine Nitrite (Negative) Urine Bilirubin (Negative) Urine Urobilinogen (0.2-1.0) Ur Leukocyte Esterase (Negative) Urine RBC (0-5) /hpf Urine WBC (0-5) /hpf Ur Epithelial Cells (0-5) /hpf Urine Bacteria (FEW) /hpf Urine Mucus (FEW) /hpf Urine Opiates Screen (NEGATIVE) Ur Buprenorphine Scrn (NEGATIVE) Ur Oxycodone Screen (NEGATIVE) Urine Methadone Screen (NEGATIVE) Ur Propoxyphene Screen (NEGATIVE) Ur Barbiturates Screen (NEGATIVE) Ur Tricyclics Screen (NEGATIVE) Ur Phencyclidine Scrn (NEGATIVE) Ur Amphetamine Screen (NEGATIVE) U Methamphetamines Scrn (NEGATIVE) U Benzodiazepines Scrn (NEGATIVE) U Cocaine Metab Screen (NEGATIVE) U Marijuana (THC) Screen (NEGATIVE) Ethyl Alcohol 0.33 (0.00) gm% 06/13/17 06/13/17 06/13/17 Range/Units 12:40 12:40 12:48 WBC (4.23-9.07) K/mm3 RBC (4.63-6.08) M/mm3 Hgb (13.7-17.5) gm/L Hct (40.1-51.0) % MCV (79.0-92.2) fl MCH (25.7-32.2) pg MCHC (32.2-35.5) g/dl RDW Std Deviation (35.1-43.9) fL Plt Count (163-337) K/mm3 MPV (9.4-12.3) fl Neut % (Auto) (34.0-67.9) % Lymph % (Auto) (21.8-53.1) % [place] % (Auto) (5.3-12.2) % Eos % (Auto) (0.8-7.0) Baso % (Auto) (0.1-1.2) % Neut # (Auto) (1.78-5.38) K/mm3 Lymph # (Auto) (1.32-3.57) K/mm3 [place] # (Auto) (0.30-0.82) K/mm3 Eos # (Auto) (0.04-0.54) K/mm3 Baso # (Auto) (0.01-0.08) K/mm3 PT (8.0-13.0) SECONDS INR APTT 24 (22-36) SECONDS Sodium (136-145) mEq/L Potassium (3.5-5.1) mEq/L Chloride (98-107) mEq/L Carbon Dioxide (21-32) mEq/L Anion Gap (5-15) BUN (7-18) mg/dL Creatinine (0.7-1.3) mg/dL Est Cr Clr Drug Dosing mL/min Estimated GFR (MDRD) (>60) mL/min BUN/Creatinine Ratio (14-18) Glucose (74-106) mg/dL Calcium (8.5-10.1) mg/dL Magnesium 1.7 L (1.8-2.4) mg/dl Total Bilirubin (0.2-1.0) mg/dL AST (15-37) U/L ALT (16-63) U/L Alkaline Phosphatase (46-116) U/L C-Reactive Protein (<1.0) mg/dL Total Protein (6.4-8.2) g/dl Albumin (3.4-5.0) g/dl Globulin gm/dL Albumin/Globulin Ratio (1-2) Lipase (73-393) U/L Urine Color (Yellow) Urine Appearance (Clear) Urine pH (5.0-8.0) Ur Specific [place] (1.005-1.030) Urine Protein (Negative) Urine Glucose (UA) (Negative) Urine Ketones (Negative) Urine Occult Blood (Negative) Urine Nitrite (Negative) Urine Bilirubin (Negative) Urine Urobilinogen (0.2-1.0) Ur Leukocyte Esterase (Negative) Urine RBC (0-5) /hpf Urine WBC (0-5) /hpf Ur Epithelial Cells (0-5) /hpf Urine Bacteria (FEW) /hpf Urine Mucus (FEW) /hpf Urine Opiates Screen Negative (NEGATIVE) Ur Buprenorphine Scrn Negative (NEGATIVE) Ur Oxycodone Screen Negative (NEGATIVE) Urine Methadone Screen Negative (NEGATIVE) Ur Propoxyphene Screen Negative (NEGATIVE) Ur Barbiturates Screen Negative (NEGATIVE) Ur Tricyclics Screen Negative (NEGATIVE) Ur Phencyclidine Scrn Negative (NEGATIVE) Ur Amphetamine Screen Negative (NEGATIVE) U Methamphetamines Scrn Negative (NEGATIVE) U Benzodiazepines Scrn Negative (NEGATIVE) U Cocaine Metab Screen Negative (NEGATIVE) U Marijuana (THC) Screen Negative (NEGATIVE) Ethyl Alcohol (0.00) gm% 06/13/17 Range/Units 12:48 WBC (4.23-9.07) K/mm3 RBC (4.63-6.08) M/mm3 Hgb (13.7-17.5) gm/L Hct (40.1-51.0) % MCV (79.0-92.2) fl MCH (25.7-32.2) pg MCHC (32.2-35.5) g/dl RDW Std Deviation (35.1-43.9) fL Plt Count (163-337) K/mm3 MPV (9.4-12.3) fl Neut % (Auto) (34.0-67.9) % Lymph % (Auto) (21.8-53.1) % [place] % (Auto) (5.3-12.2) % Eos % (Auto) (0.8-7.0) Baso % (Auto) (0.1-1.2) % Neut # (Auto) (1.78-5.38) K/mm3 Lymph # (Auto) (1.32-3.57) K/mm3 [place] # (Auto) (0.30-0.82) K/mm3 Eos # (Auto) (0.04-0.54) K/mm3 Baso # (Auto) (0.01-0.08) K/mm3 PT (8.0-13.0) SECONDS INR APTT (22-36) SECONDS Sodium (136-145) mEq/L Potassium (3.5-5.1) mEq/L Chloride (98-107) mEq/L Carbon Dioxide (21-32) mEq/L Anion Gap (5-15) BUN (7-18) mg/dL Creatinine (0.7-1.3) mg/dL Est Cr Clr Drug Dosing mL/min Estimated GFR (MDRD) (>60) mL/min BUN/Creatinine Ratio (14-18) Glucose (74-106) mg/dL Calcium (8.5-10.1) mg/dL Magnesium (1.8-2.4) mg/dl Total Bilirubin (0.2-1.0) mg/dL AST (15-37) U/L ALT (16-63) U/L Alkaline Phosphatase (46-116) U/L C-Reactive Protein (<1.0) mg/dL Total Protein (6.4-8.2) g/dl Albumin (3.4-5.0) g/dl Globulin gm/dL Albumin/Globulin Ratio (1-2) Lipase (73-393) U/L Urine Color Yellow (Yellow) Urine Appearance Clear (Clear) Urine pH 7.0 (5.0-8.0) Ur Specific [place] 1.015 (1.005-1.030) Urine Protein 1+ H (Negative) Urine Glucose (UA) Negative (Negative) Urine Ketones Negative (Negative) Urine Occult Blood Negative (Negative) Urine Nitrite Negative (Negative) Urine Bilirubin Negative (Negative) Urine Urobilinogen 1.0 (0.2-1.0) Ur Leukocyte Esterase Negative (Negative) Urine RBC Not seen (0-5) /hpf Urine WBC 0-5 (0-5) /hpf Ur Epithelial Cells Not seen (0-5) /hpf Urine Bacteria Many H (FEW) /hpf Urine Mucus Few (FEW) /hpf Urine Opiates Screen (NEGATIVE) Ur Buprenorphine Scrn (NEGATIVE) Ur Oxycodone Screen (NEGATIVE) Urine Methadone Screen (NEGATIVE) Ur Propoxyphene Screen (NEGATIVE) Ur Barbiturates Screen (NEGATIVE) Ur Tricyclics Screen (NEGATIVE) Ur Phencyclidine Scrn (NEGATIVE) Ur Amphetamine Screen (NEGATIVE) U Methamphetamines Scrn (NEGATIVE) U Benzodiazepines Scrn (NEGATIVE) U Cocaine Metab Screen (NEGATIVE) U Marijuana (THC) Screen (NEGATIVE) Ethyl Alcohol (0.00) gm% Meds: Medications Discontinued Medications Generic Name Dose Route Start Last Admin Trade Name Freq PRN Reason Stop Dose Admin Folic Acid 1 mg 06/13/17 13:29 06/13/17 17:20 Folic Acid PO 06/13/17 13:30 1 mg ONETIME ONE Administration Sodium Chloride 2,000 mls @ 999 mls/hr 06/13/17 12:41 06/13/17 12:57 Normal Saline IV 06/13/17 14:41 999 mls/hr ONETIME ONE Administration Magnesium Sulfate 2 gm/ Premix 50 mls @ 25 mls/hr 06/13/17 13:29 06/13/17 13: 55 IV 06/13/17 15:28 25 mls/hr ONETIME ONE Administration Thiamine HCl 100 mg/ Sodium 101 mls @ 202 mls/hr 06/13/17 13:29 06/13/17 14: 05 Chloride IV 06/13/17 13:30 202 mls/hr ONETIME ONE Administration Sodium Chloride Confirm 06/13/17 13:57 06/13/17 14:05 Normal Saline Administered 06/13/17 13:58 Not Given Dose 1,000 mls @ as directed .ROUTE .STK-MED ONE Iopamidol 150 ml 06/13/17 14:27 06/13/17 14:34 Isovue-300 (61%) IVPUSH 06/13/17 14:28 125 ml ONETIME ONE Administration Lorazepam 1 mg 06/13/17 12:41 06/13/17 13:02 Ativan IVPUSH 06/13/17 12:42 1 mg ONETIME ONE Administration Metoclopramide HCl 10 mg 06/13/17 12:41 06/13/17 12:57 Reglan IVPUSH 06/13/17 12:42 10 mg ONETIME ONE Administration Nicotine 21 mg 06/13/17 17:30 06/13/17 17:37 Habitrol TRDERM 21 mg DAILY MARCELA Administration Pantoprazole Sodium 80 mg 06/13/17 12:53 06/13/17 13:32 Protonix Iv IVPUSH 06/13/17 12:54 80 mg .BOLUS ONE Administration Sodium Chloride 10 ml 06/13/17 12:40 06/13/17 12:58 Saline Flush FLUSH 10 ml ASDIRECTED PRN Administration Keep Vein Open Sodium Chloride 10 ml 06/13/17 14:27 06/13/17 14:34 Saline Flush FLUSH 10 ml ONETIME PRN Administration IV FLUSH - Re-Assessments/Exams Free Text/Narrative Re-Assessment/Exam: IV established with normal saline, Protonix 80 mg IVP, Reglan 10 mg IVP, and lorazepam 1 mg IVP. Initial labs and studies include: CBC, chem 14, CRP, urine drug tox, serum EtOH , coag studies, lipase, magnesium, UA, EKG, and also abdominal series with chest. Labs reviewed: Hemoglobin 16.2, platelet count 196. Coag studies within normal limits. Chemistry panel revealed sodium 148, potassium 3.4, AG 18.4, creatinine 0.8, magnesium is 1.7, AST 62, AST 62, CRP less than 0.2, lipase 236. UA 1+ protein, bacteria many. Urine drug tox negative. Serum EtOH 0.33. Ordered folic acid 1 mg by mouth, thiamine 100 mg IVP, and magnesium 2 g IV. EKG sinus rhythm rate of [address] changes noted. A petition has been filed with the Court alleging the respondent is chemically dependent requiring treatment with prescribed medication. Respondent was ordered for examination by addiction counselor at [facility] services today to which the patient did. Examination must be completed on or before the dates listed. Expert examiner may consult with a request participation patient in the examination by qualified mental health professional and may include with the written examination report any findings or observations that mental health professional. If the respondent fails to appear for the examination the Court may issue an order to take the respondent into custody. The relative or friend May acCompany respondent to examination. The results of the examination will assist in the Court in determining whether the respondent is a person requiring treatment. Viji BLAND has been in contact with Janey at [facility] multiple times. See her notes. They request patient undergo detox and then will be placed into [facility] crisis bed for alcohol treatment. At this point patient will not be medically cleared to be discharged to the [facility] bed. CT the abdomen and pelvis with IV contrast ordered. Patient unable to drink oral contrast due to heavy sedation at this point and also recent history of nausea/vomiting. I did discuss case with Dr. Reeves transmission maintenance supervisor hospitalist. She reviewed the Court documents. She has accepted patient for alcohol detox unless CT of the abdomen and pelvis comes back with additional findings that require transfer to [place]. CT abdomen and pelvis impression: Incidental findings as noted above. Nothing acute is appreciated on CT study of the abdomen and pelvis. 06/13/17 15:[address] Reeves transmission maintenance supervisor hospitalists. She will see patient in the E.D. Patient is awake wishing to go home. Patient is alert and oriented x3. Has no complaints at this time. Vital signs are stable. 06/13/17 2625 I did have [place] with Group Program Manager review the State Petition. It appears this was only for Order for appointment of expert examiner and examination. It is not a petition for involuntary commitment. It does not indicate course of treatment. We did attempt to call Pardeep Saa[employer]ssurance Atty. with message left. [place] was social research assistant and myself spoke with the patient. He agrees to be placed into [facility] crisis bed for alcohol treatment if available. [facility] staff was contacted. Melvi was in contact with nurse who saw the patient this morning. Patient was not evaluated by [facility] Staff. He was vomiting and looked rough. He was instructed to go to the E.D. this was not shared with me with admission to the ED. In addition no documentation from [facility] was provided upon admission. Melvi will be up to the E.D. to discuss patients case. Melvi with [facility] presented to the E.D. and reviewed court documents. Difficult to interpret. Suggested contacting [employer]. [address]57 Spoke with the [employer] Pardeep. He stated the petition is to ensure patient would be evaluated by [facility] addiction counselor. After the evaluation patient would go to court and treatment course thereafter would be determined. He states the only way patient lawfully be placed into alcohol detox would be placing a 24-hour hold. I advised them I do not see the reason to place the patient on a 24-hour hold since he is alert and oriented. I cannot place a 24-hour hold because the patient wants to consume alcohol. He agreed. He states since the patient was late for his appointment today he had placed a warrant of attachment. This is a warrant since the patient did not follow- through with requirements on the petition. Unclear if this was placed by his field secretary or not. [address] Suresh about discharge the patient to halfway for detox. This is to ensure patient is evaluated by [facility] addiction counselor in the morning. Patient does not have a warrant of attachment present. He will speak with the states Atty. to determine feasibility to incarcerate the patient for detox. 1928 Per nursing staff patient has eloped. 1936 [address] Suresh has called back and states the states Atty. will only allow patient to be placed in halfway if a 24-hour hold is placed. 06/13/17 22:42 Departure - Departure Time of Disposition: 17:29 Disposition: Eloped 07 Condition: Fair Clinical Impression: Acute alcohol intoxication Qualifiers: Complication of substance-induced condition: uncomplicated Qualified Code(s): F10.929 - Alcohol use, unspecified with intoxication, unspecified Alcoholic gastritis Qualifiers: Chronicity: acute Gastritis bleeding: presence of bleeding unspecified Qualified Code(s): K29.20 - Alcoholic gastritis without bleeding - Discharge Information - My Orders Last 24 Hours: My Active Orders 06/13/17 12:40 EKG Documentation Completion [RC] STAT Peripheral IV Care [RC] . DIRECTED Peripheral IV Insertion Adult [OM.PC] Stat 06/13/17 12:53 CIWAA Assessment [RC] ASDIRECTED - Assessment/Plan Last 24 Hours: My Active Orders 06/13/17 12:40 EKG Documentation Completion [RC] STAT Peripheral IV Care [RC] . DIRECTED Peripheral IV Insertion Adult [OM.PC] Stat 06/13/17 12:53 CIWAA Assessment [RC] ASDIRECTED
[2017-06-13] MEDS ORDERED: Magnesium Sulfate/Water 2 GM in Premix Bag 1 BAG IV ONE (13:29)
[2017-06-13] MEDS ORDERED: Folic Acid 1 MG Tab PO ONE (13:29)
[2017-06-13] MEDS ORDERED: Thiamine 100 MG in Sodium Chloride 0.9% 100 ML IV ONE (13:29)
--- NOTE | 2017-06-13 13:50 | CR ---
Abdominal series: Supine and upright views of the abdomen were obtained as well as frontal view of the chest. Comparison: Prior chest x-ray of 06/02/17 and prior abdominal x-ray of 12/17/16. Heart size and mediastinum are normal. Lungs are clear. Bowel gas pattern appears normal. No abnormal calcifications or soft tissue abnormality is seen. Bony structures are unremarkable. Impression: 1. Nothing acute is identified on abdominal series. Diagnostic code #1
[2017-06-13] MEDS ORDERED: Sodium Chloride 0.9% 1,000 ML ONE (13:57)
[2017-06-13] MEDS ORDERED: Iopamidol 612 MG/ML 150 ML Bottle IVPUSH ONE (14:27)
--- NOTE | 2017-06-13 15:08 | CT ---
CT abdomen and pelvis Technique: Multiple axial sections were obtained from above the dome of the diaphragm inferiorly through the pubic symphysis. Intravenous contrast was utilized. No oral contrast was given which limits evaluation of bowel and processes around the bowel. Comparison: Prior CT abdomen and pelvis exam of 01/02/17. Findings: Small portion of the visualized lung bases shows nothing acute. Liver shows no focal parenchymal abnormality. Spleen appears within normal limits. Adrenal glands show no nodule. Pancreas is within normal limits. Kidneys show symmetric contrast enhancement without hydronephrosis or mass. Small nonobstructing calculus is noted within the inferior left kidney measuring less than 2 mm. Aorta shows no aneurysmal dilatation. No retroperitoneal adenopathy is seen. Gallbladder contains no calcified gallstones. No mesenteric abnormalities are seen. Appendix is seen which appears normal in size. No pelvic mass or adenopathy is seen. Contrast is seen within both distal ureters and within the bladder on delayed images. 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 Minimal spondylolisthesis also noted at L5-S1. Impression: 1. Incidental findings as noted above. Nothing acute is appreciated on CT study of the abdomen and pelvis. Diagnostic code #2
--- NOTE | 2017-06-13 16:17 | PCM.HP ---
H&P History of Present Illness - General Date of Service: 06/13/17 - History of Present Illness Initial Comments - Free Text/Narative: Patient eloped from the ED, assessment and plan was never completed. Abdominal Pain Score (Numeric/FACES): 10 - Related Data Allergies/Adverse Reactions: Allergies Allergy/AdvReac Type Severity Reaction Status Date / Time No Known Allergies Allergy Verified 06/13/17 11:57 Home Medications: Home Meds . [No Known Home Meds] 06/02/17 [History] Past Medical History HEENT History: Reports: Other (See Below) Other HEENT History: Maxofacial surgery to repair right socket Cardiovascular History: Reports: None, Other (See Below) Other Cardiovascular History: seen for chest pains Respiratory History: Reports: Sleep Apnea Gastrointestinal History: Reports: Other (See Below) Other Gastrointestinal History: stomach ulcer Genitourinary History: Reports: Prostate Disorder, Other (See Below) Other Genitourinary History: prostate disease ROVING CARRIER History: Reports: None Musculoskeletal History: Reports: Fracture Other Musculoskeletal History: ankle Neurological History: Reports: Migraines Psychiatric History: Reports: Addiction Endocrine/Metabolic History: Reports: None Hematologic History: Reports: None Immunologic History: Reports: None Oncologic (Cancer) History: Reports: None Dermatologic History: Reports: None - Infectious Disease History Infectious Disease History: Reports: Chicken Pox - Past Surgical History Head Surgeries/Procedures: Reports: None HEENT Surgical History: Reports: Tonsillectomy, Other (See Below) Cardiovascular Surgical History: Reports: None Respiratory Surgical History: Reports: None GI Surgical History: Reports: Hernia, Abdominal Male Surgical History: Reports: None Endocrine Surgical History: Reports: None Neurological Surgical History: Reports: None Musculoskeletal Surgical History: Reports: None, Other (See Below) Oncologic Surgical History: Reports: None Dermatological Surgical History: Reports: None Social & Family History - Family History Family Medical History: Noncontributory - Tobacco Use Smoking Status *Q: Current Every Day Smoker Years of Tobacco use: 13 Packs/Tins Daily: 0.5 Used Tobacco, but Quit: No - Caffeine Use Caffeine Use: Reports: Coffee - Alcohol Use Days Per Week of Alcohol Use: 7 Number of Drinks Per Day: 10 Total Drinks Per Week: 70 - Recreational Drug Use Recreational Drug Use: Yes Drug Use in Last 12 Months: No Recreational Drug Type: Reports: Methamphetamine Recreational Drug Use Frequency: Weekly - Living Situation & Occupation Living situation: Reports: , Alone Occupation: Unemployed H&P Review of Systems - Review of Systems: Review Of Systems: Unable To Obtain Exam - Exam Exam: Not Obtained - Vital Signs Vital Signs: Last Vital Signs Temp 36.6 C 06/13/17 11:58 Pulse 96 06/13/17 11:58 Resp 19 06/13/17 16:05 BP 130/77 06/13/17 16:05 Pulse Ox 96 06/13/17 16:05 Weight: 77.111 kg - Patient Data Result Diagrams: 06/13/17 12:40 06/13/17 12:40 *Q Meaningful Use (ADM) - VTE *Q VTE Criteria *Q: - Stroke *Q Stroke Criteria *Q: - AMI *Q AMI Criteria *Q: Problem List Initiated/Reviewed/Updated: Yes Orders Last 24hrs: Medication Orders Sodium Chloride (Saline Flush) 10 ml FLUSH ASDIRECTED PRN PRN Reason: Keep Vein Open Last Admin: 06/13/17 12:58 Dose: 10 ml Sodium Chloride (Saline Flush) 10 ml FLUSH ONETIME PRN PRN Reason: IV FLUSH Last Admin: 06/13/17 14:34 Dose: 10 ml Assessment/Plan Comment:: Patient eloped, assessment and plan was never completed.
[2017-06-13 17:04] VITALS: BP 125/74
[2017-06-13] MEDS ORDERED: Nicotine 21 MG/24 Hr Patch TRDERM SCH (17:30)
[2017-06-13] MEDS ORDERED: oxyCODONE 5 MG Tab PO ONE (22:24)
--- NOTE | 2017-06-14 14:34 | PCM.DCSUM1 ---
Discharge Summary - Hospital Course Free Text/Narrative:: Patient eloped, was never physically in the hospital side. He left room eleven without notifying the staff. - Discharge Data Discharge Date: 06/13/17 Discharge Disposition: Against Medical Advice 07 Condition: Good - Discharge Plan Home Medications: Home Meds . [No Known Home Meds] 06/02/17 [History] Referrals: Vinay Feliz Jr, MD [Primary Care Provider] - - Discharge Summary/Plan Comment DC Time >30 min.: No - General Info Date of Service: 06/13/17 - Patient Data Vitals - Most Recent: Last Vital Signs Temp 36.6 C 06/13/17 11:58 Pulse 96 06/13/17 11:58 Resp 23 H 06/13/17 17:00 BP 125/74 06/13/17 17:00 Pulse Ox 95 06/13/17 17:00 Weight - Most Recent: 77.111 kg Med Orders - Current: Current Medications Discontinued Medications Folic Acid (Folic Acid) 1 mg PO ONETIME ONE Stop: 06/13/17 13:30 Last Admin: 06/13/17 17:20 Dose: 1 mg Sodium Chloride (Normal Saline) 2,000 mls @ 999 mls/hr IV ONETIME ONE Stop: 06/13/17 14:41 Last Admin: 06/13/17 12:57 Dose: 999 mls/hr Magnesium Sulfate 2 gm/ Premix 50 mls @ 25 mls/hr IV ONETIME ONE Stop: 06/13/17 15:28 Last Admin: 06/13/17 13:55 Dose: 25 mls/hr Thiamine HCl 100 mg/ Sodium (Chloride) 101 mls @ 202 mls/hr IV ONETIME ONE Stop: 06/13/17 13:30 Last Admin: 06/13/17 14:05 Dose: 202 mls/hr Sodium Chloride (Normal Saline) Confirm Administered Dose 1,000 mls @ as directed .ROUTE .STK-MED ONE Stop: 06/13/17 13:58 Last Admin: 06/13/17 14:05 Dose: Not Given Iopamidol (Isovue-300 (61%)) 150 ml IVPUSH ONETIME ONE Stop: 06/13/17 14:28 Last Admin: 06/13/17 14:34 Dose: 125 ml Lorazepam (Ativan) 1 mg IVPUSH ONETIME ONE Stop: 06/13/17 12:42 Last Admin: 06/13/17 13:02 Dose: 1 mg Metoclopramide HCl (Reglan) 10 mg IVPUSH ONETIME ONE Stop: 06/13/17 12:42 Last Admin: 06/13/17 12:57 Dose: 10 mg Nicotine (Habitrol) 21 mg TRDERM DAILY MARCELA Last Admin: 06/13/17 17:37 Dose: 21 mg Pantoprazole Sodium (Protonix Iv) 80 mg IVPUSH .BOLUS ONE Stop: 06/13/17 12:54 Last Admin: 06/13/17 13:32 Dose: 80 mg Sodium Chloride (Saline Flush) 10 ml FLUSH ASDIRECTED PRN PRN Reason: Keep Vein Open Last Admin: 06/13/17 12:58 Dose: 10 ml Sodium Chloride (Saline Flush) 10 ml FLUSH ONETIME PRN PRN Reason: IV FLUSH Last Admin: 06/13/17 14:34 Dose: 10 ml *Q Meaningful Use (DIS) - VTE *Q VTE Criteria *Q: - Stroke *Q Stroke Criteria *Q: - AMI *Q AMI Criteria *Q:
== END 2017-06-13 18:40 | disposition left against medical advice (07) ==
LOC: JD.ED 11:48 → UNDOADMIN 16:14 → JD.ICU 16:14 → JD.ED 18:40 → UNDODISIN 19:30
DX: F10.229 Alcohol dependence with intoxication, unspecified (principal); F17.210 Nicotine dependence, cigarettes, uncomplicated; K29.20 Alcoholic gastritis without bleeding; Y90.1 Blood alcohol level of 20-39 mg/100 ml; G47.30 Sleep apnea, unspecified; N42.9 Disorder of prostate, unspecified
CPT/HCPCS: 36415; 74022; 74177; 80053; 80306; 81001; 83690; 83735; 85025; 85610; 85730; 86140; 93005; 96361; 96365; 96366; 96368; 96375; 99285; A9270; C9113; G0480; J2060; J2765; J3411; J7030; J7040; J7050; Q9967; J3475

== ENCOUNTER 2017-06-25 19:22 | Emergency (ER) | payer SELFPAY ==
[2017-06-25 19:31] VITALS: BP 152/97
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
== END 2017-06-25 20:08 ==
LOC: JD.ED 19:22
DX: F10.120 Alcohol abuse with intoxication, uncomplicated (principal); F17.210 Nicotine dependence, cigarettes, uncomplicated
CPT/HCPCS: 99283

== ENCOUNTER 2017-07-19 16:59 | Emergency (ER) | payer MEDICAID ==
[2017-07-19 17:09] VITALS: BP 138/91
--- NOTE | 2017-07-19 18:09 | EDM.PDOC ---
ED HPI GENERAL MEDICAL PROBLEM - General Chief Complaint: Upper Extremity Injury/Pain Stated Complaint: CHEST PAIN Time Seen by Provider: 07/19/17 17:53 Source of Information: Reports: Patient History Limitations: Reports: Intoxication - History of Present Illness INITIAL COMMENTS - FREE TEXT/NARRATIVE: 31-year-old male presents for evaluation treatment of right arm pain. Patient is intoxicated is unable to provide a reliable history. Unsure exactly what happened. States that he has had right arm pain since today. No known falls. States he is unable to move his arm. Reports numbness and tingling to the right arm. Onset: Today Location: Reports: Upper Extremity, Right Right Arm Pain Score (Numeric/FACES): 10 - Related Data Allergies Allergy/AdvReac Type Severity Reaction Status Date / Time No Known Allergies Allergy Verified 07/19/17 17:09 Home Meds: Home Meds . 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 Musculoskeletal History: Reports: Fracture Other Musculoskeletal History: ankle Neurological History: Reports: Migraines Psychiatric History: Reports: Addiction Endocrine/Metabolic History: Reports: None Hematologic History: Reports: None Immunologic History: Reports: None Oncologic (Cancer) History: Reports: None Dermatologic History: Reports: None - Infectious Disease History Infectious Disease History: Reports: Chicken Pox - Past Surgical History Head Surgeries/Procedures: Reports: None HEENT Surgical History: Reports: Tonsillectomy Cardiovascular Surgical History: Reports: None Respiratory Surgical History: Reports: None GI Surgical History: Reports: EGD, Hernia, Abdominal Male Surgical History: Reports: None Endocrine Surgical History: Reports: None Neurological Surgical History: Reports: None Musculoskeletal Surgical History: Reports: None Oncologic Surgical History: Reports: None Dermatological Surgical History: Reports: None Social & Family History - Family History Family Medical History: Noncontributory - Tobacco Use Smoking Status *Q: Current Every Day Smoker Years of Tobacco use: 10 Packs/Tins Daily: 1 Used Tobacco, but Quit: No - Caffeine Use Caffeine Use: Reports: None - Alcohol Use Days Per Week of Alcohol Use: 7 Number of Drinks Per Day: 10 Total Drinks Per Week: 70 - Recreational Drug Use Recreational Drug Use: No Drug Use in Last 12 Months: No Recreational Drug Type: Reports: Methamphetamine Recreational Drug Use Frequency: Weekly - Living Situation & Occupation Living situation: Reports: , Alone Occupation: Unemployed Review of Systems - Review of Systems Review Of Systems: Unable To Obtain ED EXAM, GENERAL - Physical Exam Exam: See Below Exam Limited By: Intoxication General Appearance: Alert, WD/WN, Moderate Distress Respiratory/Chest: No Respiratory Distress Cardiovascular: Normal Peripheral Pulses Peripheral Pulses: 2+: Radial (R) Extremities: Normal Inspection, Normal Capillary Refill, Other (No obvious deformity; reports significant pain to palpation to the right shoulder, right humerus, right elbow; patient exaggerates the pain.) Neurological: Alert, Oriented, Normal Cognition Psychiatric: Normal Affect, Normal Mood Skin Exam: Warm, Dry, Normal Color Course - Vital Signs Last Recorded V/S: Last Vital Signs Temp 36.6 C 07/19/17 17:06 Pulse 98 07/19/17 17:06 Resp 20 07/19/17 17:06 BP 138/91 H 07/19/17 17:06 Pulse Ox 100 07/19/17 17:06 - Orders/Labs/Meds Orders: Active Orders 24 hr Category Date Time Status Elbow Min 3V Rt [CR] Stat Exams 07/19/17 17:50 Ordered Shoulder Comp Rt [CR] Stat Exams 07/19/17 17:50 Ordered - Radiology Interpretation Free Text/Narrative:: X-rays of the right elbow and shoulder show no acute fractures or dislocations. - Re-Assessments/Exams Free Text/Narrative Re-Assessment/Exam: 07/19/17 18:34 X-rays returned. eloped prior to reviewing the results with him. While he was leaving I did see him walk out of the ER using his right arm told cell phone up. Departure - Departure Time of Disposition: 18:35 Disposition: Eloped 07 Condition: Good Clinical Impression: Arm pain Acute alcohol intoxication Qualifiers: Complication of substance-induced condition: uncomplicated Qualified Code(s): F10.929 - Alcohol use, unspecified with intoxication, unspecified - Discharge Information Referrals: PCP,None [Primary Care Provider] - Forms: ED Department Discharge Additional Instructions: Patient eloped prior to discharge instructions. - My Orders Last 24 Hours: My Active Orders 07/19/17 17:50 Elbow Min 3V Rt [CR] Stat Shoulder Comp Rt [CR] Stat - Assessment/Plan Last 24 Hours: My Active Orders 07/19/17 17:50 Elbow Min 3V Rt [CR] Stat Shoulder Comp Rt [CR] Stat
--- NOTE | 2017-07-20 06:45 | CR ---
Right shoulder: Two views of the right shoulder were obtained. Comparison: No prior shoulder exam. Acromioclavicular and glenohumeral joints appear within normal limits. No fracture, dislocation or other bony abnormality is seen. Impression: 1. No abnormality is seen on two-view right shoulder study. Diagnostic code #1
--- NOTE | 2017-07-20 06:52 | CR ---
Right elbow: Four views of the right elbow were obtained. Comparison: No prior elbow study. Joint spaces are preserved. No joint effusion is seen. No fracture, dislocation or other bony abnormality is seen. Impression: 1. No abnormality is identified on right elbow study. Diagnostic code #1
== END 2017-07-19 18:40 | disposition left against medical advice (07) ==
LOC: JD.ED 16:59
DX: M79.601 Pain in right arm (principal); F10.929 Alcohol use, unspecified with intoxication, unspecified; F17.210 Nicotine dependence, cigarettes, uncomplicated
CPT/HCPCS: 73030-26-RT; 73030-RT; 73080-26-RT; 73080-RT; 99283; 99284

== ENCOUNTER 2017-07-22 11:27 | Emergency (ER) | payer MEDICAID ==
[2017-07-22 11:37] VITALS: BP 150/76
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
--- NOTE | 2017-07-22 13:27 | CR ---
Right hand: Two views of the right hand were obtained. Comparison: Previous right hand study of 04/28/11.. Findings: Fingers held in flexion which slightly limits the study. Slight deformity compatible with old healed fracture is noted within the corner base of the proximal phalanx of the thumb. Old healed fracture also noted at the base of the fifth metatarsal. Joint spaces are preserved. Incidental bone island is noted at the base of the second metacarpal. No fracture or other bony abnormality is seen. Impression: 1. Findings which are felt to be incidental as noted above. Nothing acute is definitely appreciated on limited two-view right hand study. Diagnostic code #2
== END 2017-07-22 12:35 | disposition home or self-care (01) ==
LOC: JD.ED 11:27
DX: M25.511 Pain in right shoulder (principal); M79.641 Pain in right hand; F10.920 Alcohol use, unspecified with intoxication, uncomplicated; F17.210 Nicotine dependence, cigarettes, uncomplicated; V89.2XXA Person injured in unspecified motor-vehicle accident, traffic, initial encounter
CPT/HCPCS: 73120-26-RT; 73120-RT; 80306; 81003; 99283; 99284

== ENCOUNTER 2017-07-25 00:06 | Emergency (ER) | payer SELFPAY ==
[2017-07-25 00:18] VITALS: BP 149/95
== END 2017-07-25 00:37 | disposition left against medical advice (07) ==
LOC: JD.ED 00:06
DX: Z53.21 Procedure and treatment not carried out due to patient leaving prior to being seen by health care provider (principal)

== ENCOUNTER 2017-09-23 11:18 | Emergency (ER) | payer MEDICAID, OTHER ==
[2017-09-23 11:42] VITALS: BP 136/94
== END 2017-09-23 11:40 | disposition left against medical advice (07) ==
LOC: JD.ED 11:18
DX: Z53.21 Procedure and treatment not carried out due to patient leaving prior to being seen by health care provider (principal)

== ENCOUNTER 2017-11-08 05:18 | Emergency (ER) | payer SELFPAY ==
[2017-11-08 05:23] VITALS: BP 169/113
--- NOTE | 2017-11-08 06:25 | EDM.PDOC ---
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 Patient denies any problems at this time. The deputy here did phone the group home and there is been change of shift but they state they are concerned about alcohol withdrawals as his vitals were elevated. At this time the patient's vitals are normal with the exception of some moderate hypertension. The patient does not feel anxious or jittery feels pretty comfortable. He did have an episode earlier where he felt a little jittery and his blood pressure was noted to be elevated. The patient is had alcohol withdrawal symptoms in the past never requiring ventilation no history of seizures. He's had skin sensation issues and anxiety. - Related Data Allergies Allergy/AdvReac Type Severity Reaction Status Date / Time No Known Allergies Allergy Verified 11/08/17 05:24 Home Meds: Home Meds #92/Iron/FA #8/Ps-Dha [Enbrace Hr Softgel] 1 each PO Q24H #10 cap.ir. 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 Musculoskeletal History: Reports: Fracture Other Musculoskeletal History: ankle Neurological History: Reports: Migraines Psychiatric History: Reports: Addiction Endocrine/Metabolic History: Reports: None Hematologic History: Reports: None Immunologic History: Reports: None Oncologic (Cancer) History: Reports: None Dermatologic History: Reports: None - Infectious Disease History Infectious Disease History: Reports: Chicken Pox - Past Surgical History Head Surgeries/Procedures: Reports: None HEENT Surgical History: Reports: Tonsillectomy Cardiovascular Surgical History: Reports: None GI Surgical History: Reports: EGD, Hernia, Abdominal Endocrine Surgical History: Reports: None Oncologic Surgical History: Reports: None Dermatological Surgical History: Reports: None Social & Family History - Family History Family Medical History: Noncontributory - Caffeine Use Caffeine Use: Reports: Soda - Alcohol Use Days Per Week of Alcohol Use: 7 Number of Drinks Per Day: 4 Total Drinks Per Week: 28 Date of Last Drink: 11/07/17 Time of Last Drink: 10:00 - Recreational Drug Use Recreational Drug Use: Yes Drug Use in Last 12 Months: No - Living Situation & Occupation Living situation: Reports: , Alone Occupation: Unemployed ED ROS GENERAL - Review of Systems Review Of Systems: See Below Constitutional: Reports: No Symptoms HEENT: Reports: No Symptoms Respiratory: Reports: No Symptoms Cardiovascular: Reports: No Symptoms Endocrine: Reports: No Symptoms GI/Abdominal: Reports: No Symptoms : Reports: No Symptoms Musculoskeletal: Reports: No Symptoms Skin: Reports: No Symptoms Neurological: Reports: No Symptoms Psychiatric: Denies: Anxiety, Confusion, Hallucinations ED EXAM, GENERAL - Physical Exam Exam: See Below Exam Limited By: Other General Appearance: Alert, No Apparent Distress Eye Exam: Bilateral Eye: Normal Inspection Ears: Normal External Exam, Normal Canal, Hearing Grossly Normal, Normal TMs Nose: Normal Inspection Throat/Mouth: Normal Inspection, Normal Lips, Normal Gums, Normal Oropharynx, Normal Voice, No Airway Compromise Head: Atraumatic, Normocephalic Neck: Normal Inspection, Supple, Non-Tender, Full Range of Motion. No: Lymphadenopathy (L), Lymphadenopathy (R) Respiratory/Chest: No Respiratory Distress, Lungs Clear, Normal Breath Sounds Cardiovascular: Regular Rate, Rhythm, No Edema, No Murmur GI/Abdominal: Normal Bowel Sounds, Soft, Non-Tender Back Exam: Normal Inspection. No: CVA Tenderness (L), CVA Tenderness (R) Extremities: Normal Inspection, No Pedal Edema Course - Vital Signs Last Recorded V/S: Last Vital Signs Temp 36.8 C 11/08/17 05:21 Pulse 75 11/08/17 05:21 Resp 16 11/08/17 05:21 BP 169/113 H 11/08/17 05:21 Pulse Ox 99 11/08/17 05:21 - Orders/Labs/Meds Orders: Active Orders 24 hr Category Date Time Status DRUG SCREEN, URINE [URCHEM] Stat Lab 11/08/17 06:18 Ordered chlordiazePOXIDE [Librium] Med 11/08/17 07:20 Once 25 mg PO ONETIME ONE Labs: Laboratory Tests 11/08/17 11/08/17 11/08/17 Range/Units 05:45 05:45 06:18 WBC 8.44 (4.23-9.07) K/mm3 RBC 4.36 L (4.63-6.08) M/mm3 Hgb 13.9 (13.7-17.5) gm/L Hct 40.5 (40.1-51.0) % MCV 92.9 H (79.0-92.2) fl MCH 31.9 (25.7-32.2) pg MCHC 34.3 (32.2-35.5) g/dl RDW Std Deviation 42.4 (35.1-43.9) fL Plt Count 160 L (163-337) K/mm3 MPV 10.6 (9.4-12.3) fl Neutrophils % (Manual) 64 H (40-60) % Band Neutrophils % 0 (0-10) % Lymphocytes % (Manual) 29 (20-40) % Atypical Lymphs % 0 % Monocytes % (Manual) 5 (2-10) % Eosinophils % (Manual) 1 (0.8-7.0) % Basophils % (Manual) 1 (0.2-1.2) Platelet Estimate Adequate RBC Morph Comment Normal Sodium 140 (136-145) mEq/L Potassium 3.7 (3.5-5.1) mEq/L Chloride 104 (98-107) mEq/L Carbon Dioxide 26 (21-32) mEq/L Anion Gap 13.7 (5-15) BUN 11 (7-18) mg/dL Creatinine 0.9 (0.7-1.3) mg/dL Est Cr Clr Drug Dosing 134.82 mL/min Estimated GFR (MDRD) > 60 (>60) mL/min BUN/Creatinine Ratio 12.2 L (14-18) Glucose 106 (74-106) mg/dL Calcium 8.6 (8.5-10.1) mg/dL Magnesium 1.0 L (1.8-2.4) mg/dl Total Bilirubin 0.9 (0.2-1.0) mg/dL AST 109 H (15-37) U/L ALT 89 H (16-63) U/L Alkaline Phosphatase 70 (46-116) U/L Total Protein 6.4 (6.4-8.2) g/dl Albumin 3.5 (3.4-5.0) g/dl Globulin 2.9 gm/dL Albumin/Globulin Ratio 1.2 (1-2) Urine Opiates Screen Negative (NEGATIVE) Ur Buprenorphine Scrn Negative (NEGATIVE) Ur Oxycodone Screen Negative (NEGATIVE) Urine Methadone Screen Negative (NEGATIVE) Ur Propoxyphene Screen Negative (NEGATIVE) Ur Barbiturates Screen Negative (NEGATIVE) Ur Tricyclics Screen Negative (NEGATIVE) Ur Phencyclidine Scrn Negative (NEGATIVE) Ur Amphetamine Screen Negative (NEGATIVE) U Methamphetamines Scrn Negative (NEGATIVE) U Benzodiazepines Scrn Negative (NEGATIVE) U Cocaine Metab Screen Negative (NEGATIVE) U Marijuana (THC) Screen Negative (NEGATIVE) Ethyl Alcohol 0.01 (0.00) gm% Meds: Medications Discontinued Medications Generic Name Dose Route Start Last Admin Trade Name Erica PRN Reason Stop Dose Admin Prenat Multivit/[place]/Iron/Folic Ac 1 each 11/08/17 07:19 Plus Iron PO 11/08/17 07:20 ONETIME ONE - Re-Assessments/Exams Free Text/Narrative Re-Assessment/Exam: 11/08/17 07:23 He has transaminase elevation but alcohol 0.01 we will discharge back to the group home with Librium 25 mg every 8 hours and vitamins with folic acid daily Departure - Departure Time of Disposition: 07:26 Disposition: DC/Tfer W/I Hosp To Swing 61 Clinical Impression: Alcohol abuse - Discharge Information Prescriptions: chlordiazePOXIDE [Librium] 25 mg PO TID #6 cap #92/Iron/FA #8/Ps-Dha [Enbrace Hr Softgel] 1 each PO Q24H #10 cap. Referrals: PCP,None [Ordering Only Provider] - Additional Instructions: Return to the emergency room with any questions or problems Take 1 vitamin with folic acid daily Take the Librium one every 8 hours. His first dose was given in the emergency room at time of discharge. - My Orders Last 24 Hours: My Active Orders 11/08/17 06:18 DRUG SCREEN, URINE [URCHEM] Stat 11/08/17 07:20 chlordiazePOXIDE [Librium] 25 mg PO ONETIME ONE - Assessment/Plan Last 24 Hours: My Active Orders 11/08/17 06:18 DRUG SCREEN, URINE [URCHEM] Stat 11/08/17 07:20 chlordiazePOXIDE [Librium] 25 mg PO ONETIME ONE
[2017-11-08] MEDS ORDERED: Prenatal Multivitamin with Calcium/Folic Acid/Iron Tab PO ONE (07:19)
[2017-11-08] MEDS ORDERED: chlordiazePOXIDE 25 MG Cap PO ONE (07:20)
== END 2017-11-08 07:48 | disposition swing bed (61) ==
LOC: JD.ED 05:18
DX: F10.239 Alcohol dependence with withdrawal, unspecified (principal); Y90.0 Blood alcohol level of less than 20 mg/100 ml; Z79.899 Other long term (current) drug therapy
CPT/HCPCS: 36415; 80053; 80306; 83735; 85007; 85027; 99285; A9270; G0480; 99283

== ENCOUNTER 2017-12-27 14:21 | Emergency (ER) | payer SELFPAY ==
[2017-12-27] MEDS ORDERED: Sodium Chloride 0.9% 10 ML Syringe FLUSH PRN (14:26)
[2017-12-27 14:30] VITALS: BP 152/104
[2017-12-27] MEDS ORDERED: Sodium Chloride 0.9% 1,000 ML IV SCH (14:30)
--- NOTE | 2017-12-27 15:47 | EDM.PDOCBH ---
ED HPI GENERAL MEDICAL PROBLEM - General Chief Complaint: Drug or Alcohol Abuse Stated Complaint: AMBULANCE Time Seen by Provider: 12/27/17 14:25 Source of Information: Reports: Patient History Limitations: Reports: No Limitations - History of Present Illness INITIAL COMMENTS - FREE TEXT/NARRATIVE: The patient presents by [facility] for alcohol intoxication. He was walking and talking when they picked him up. He was slurring his speech. He had an episode of tachycardia into the 160s. That slowed down to the 120s and less. He was complaining of chest pain in the mid chest when he arrived. He really had no other complaints. He is a chronic alcoholic and he has been in here multiple times for alcohol intoxication. I do not see any signs of trauma. He was drinking a peppermint liquor. Onset: Gradual Duration: Hour(s): Location: Reports: Chest Quality: Reports: Sharp Severity: Moderate Improves with: Reports: None Worsens with: Reports: None Associated Symptoms: Reports: Chest Pain. Denies: Confusion, Fever/Chills, Headaches, Nausea/Vomiting, Shortness of Breath Chest Pain Score (Numeric/FACES): 8 - Related Data Allergies Allergy/AdvReac Type Severity Reaction Status Date / Time No Known Allergies Allergy Verified 11/08/17 05:24 Home Meds: Home Meds #92/Iron/FA #8/Ps-Dha [Enbrace Hr Softgel] 1 each PO Q24H #10 cap.ir. 11/08/17 [Rx] chlordiazePOXIDE [Librium] 25 mg PO TID #6 cap 11/08/17 [Rx] Past Medical History HEENT History: Reports: Other (See Below) Other HEENT History: Maxofacial surgery to repair right socket Cardiovascular History: Reports: None, Other (See Below) Other Cardiovascular History: seen for chest pains Respiratory History: Reports: Sleep Apnea Gastrointestinal History: Reports: Other (See Below) Other Gastrointestinal History: stomach ulcer Genitourinary History: Reports: Prostate Disorder, Other (See Below) Other Genitourinary History: prostate disease MEDICAL SUPERVISOR History: Reports: None Musculoskeletal History: Reports: Fracture Other Musculoskeletal History: ankle Neurological History: Reports: Migraines Psychiatric History: Reports: Addiction Endocrine/Metabolic History: Reports: None Hematologic History: Reports: None Immunologic History: Reports: None Oncologic (Cancer) History: Reports: None Dermatologic History: Reports: None - Infectious Disease History Infectious Disease History: Reports: Chicken Pox - Past Surgical History Head Surgeries/Procedures: Reports: None HEENT Surgical History: Reports: Tonsillectomy Cardiovascular Surgical History: Reports: None GI Surgical History: Reports: EGD, Hernia, Abdominal Endocrine Surgical History: Reports: None Oncologic Surgical History: Reports: None Dermatological Surgical History: Reports: None Social & Family History - Family History Family Medical History: Noncontributory - Tobacco Use Smoking Status *Q: Current Status Unknown Packs/Tins Daily: 1 - Caffeine Use Caffeine Use: Reports: Soda - Living Situation & Occupation Living situation: Reports: , Alone Occupation: Unemployed ED ROS GENERAL - Review of Systems Review Of Systems: See Below Constitutional: Reports: No Symptoms HEENT: Reports: No Symptoms Respiratory: Reports: No Symptoms Cardiovascular: Reports: Chest Pain Endocrine: Reports: No Symptoms GI/Abdominal: Reports: No Symptoms : Reports: No Symptoms Musculoskeletal: Reports: No Symptoms ED EXAM, BEHAVIORAL HEALTH - Physical Exam Exam: See Below Exam Limited By: Intoxication General Appearance: Alert, No Apparent Distress Ears: Normal External Exam Nose: Normal Inspection Head: Atraumatic, Normocephalic Neck: Normal Inspection Respiratory/Chest: No Respiratory Distress, Lungs Clear, Normal Breath Sounds Cardiovascular: Regular Rate, Rhythm, No Edema, No Murmur GI/Abdominal: Soft, Non-Tender, No Organomegaly, No Mass Extremities: Normal Inspection Neurological: Other (Slurred speech and drowsy) EKG INTERPRETATION EKG Date: 12/27/17 Time: 14:53 Rhythm: NSR Rate (Beats/Min): 99 [place]: Normal P-Wave: Present QRS: Normal ST-T: Normal QT: Normal COURSE, BEHAVIORAL HEALTH COMP - Course Vital Signs: Last Vital Signs Temp 98.2 F 12/27/17 14:23 Pulse 113 H 12/27/17 14:23 Resp 18 12/27/17 14:23 BP 152/104 H 12/27/17 14:23 Pulse Ox Orders, Labs, Meds: Active Orders 24 hr Category Date Time Status Cardiac Monitoring [RC] . DIRECTED Care 12/27/17 14:26 Active EKG Documentation Completion [RC] STAT Care 12/27/17 14:26 Active Peripheral IV Care [RC] . DIRECTED Care 12/27/17 14:26 Active DRUG SCREEN, URINE [URCHEM] Stat Lab 12/27/17 16:35 Ordered Sodium Chloride 0.9% [Normal Saline] 1,000 ml Med 12/27/17 14:30 Active IV .BOLUS Sodium Chloride 0.9% [Saline Flush] Med 12/27/17 14:26 Active 10 ml FLUSH ASDIRECTED PRN Peripheral IV Insertion Adult [OM.PC] Stat Oth 12/27/17 14:26 Ordered Medication Orders Sodium Chloride (Normal Saline) 1,000 mls @ 1,000 mls/hr IV .BOLUS MARCELA Last Admin: 12/27/17 15:10 Dose: 1,000 mls/hr Sodium Chloride (Saline Flush) 10 ml FLUSH ASDIRECTED PRN PRN Reason: Keep Vein Open Last Admin: 12/27/17 15:14 Dose: 10 ml Laboratory Tests 12/27/17 12/27/17 12/27/17 Range/Units 14:30 14:30 14:30 WBC 6.89 (4.23-9.07) K/mm3 RBC 5.38 (4.63-6.08) M/mm3 Hgb 17.1 (13.7-17.5) gm/L Hct 49.6 (40.1-51.0) % MCV 92.2 (79.0-92.2) fl MCH 31.8 (25.7-32.2) pg MCHC 34.5 (32.2-35.5) g/dl RDW Std Deviation 43.9 (35.1-43.9) fL Plt Count 208 (163-337) K/mm3 MPV 10.3 (9.4-12.3) fl Neut % (Auto) 38.3 (34.0-67.9) % Lymph % (Auto) 43.8 (21.8-53.1) % [place] % (Auto) 14.9 H (5.3-12.2) % Eos % (Auto) 1.9 (0.8-7.0) Baso % (Auto) 1.0 (0.1-1.2) % Neut # (Auto) 2.63 (1.78-5.38) K/mm3 Lymph # (Auto) 3.02 (1.32-3.57) K/mm3 [place] # (Auto) 1.03 H (0.30-0.82) K/mm3 Eos # (Auto) 0.13 (0.04-0.54) K/mm3 Baso # (Auto) 0.07 (0.01-0.08) K/mm3 Sodium 149 H (136-145) mEq/L Potassium 3.5 (3.5-5.1) mEq/L Chloride 108 H (98-107) mEq/L Carbon Dioxide 30 (21-32) mEq/L Anion Gap 14.5 (5-15) BUN 8 (7-18) mg/dL Creatinine 0.9 (0.7-1.3) mg/dL Est Cr Clr Drug Dosing 112.94 mL/min Estimated GFR (MDRD) > 60 (>60) mL/min BUN/Creatinine Ratio 8.9 L (14-18) Glucose 149 H (74-106) mg/dL Calcium 8.5 (8.5-10.1) mg/dL Magnesium 1.7 L (1.8-2.4) mg/dl Total Bilirubin 0.6 (0.2-1.0) mg/dL AST 229 H (15-37) U/L ALT 115 H (16-63) U/L Alkaline Phosphatase 106 (46-116) U/L Total Protein 7.5 (6.4-8.2) g/dl Albumin 3.9 (3.4-5.0) g/dl Globulin 3.6 gm/dL Albumin/Globulin Ratio 1.1 (1-2) Urine Opiates Screen (NEGATIVE) Ur Buprenorphine Scrn (NEGATIVE) Ur Oxycodone Screen (NEGATIVE) Urine Methadone Screen (NEGATIVE) Ur Propoxyphene Screen (NEGATIVE) Ur Barbiturates Screen (NEGATIVE) Ur Tricyclics Screen (NEGATIVE) Ur Phencyclidine Scrn (NEGATIVE) Ur Amphetamine Screen (NEGATIVE) U Methamphetamines Scrn (NEGATIVE) U Benzodiazepines Scrn (NEGATIVE) U Cocaine Metab Screen (NEGATIVE) U Marijuana (THC) Screen (NEGATIVE) Ethyl Alcohol 0.53 (0.00) gm% 12/27/17 Range/Units 16:35 WBC (4.23-9.07) K/mm3 RBC (4.63-6.08) M/mm3 Hgb (13.7-17.5) gm/L Hct (40.1-51.0) % MCV (79.0-92.2) fl MCH (25.7-32.2) pg MCHC (32.2-35.5) g/dl RDW Std Deviation (35.1-43.9) fL Plt Count (163-337) K/mm3 MPV (9.4-12.3) fl Neut % (Auto) (34.0-67.9) % Lymph % (Auto) (21.8-53.1) % [place] % (Auto) (5.3-12.2) % Eos % (Auto) (0.8-7.0) Baso % (Auto) (0.1-1.2) % Neut # (Auto) (1.78-5.38) K/mm3 Lymph # (Auto) (1.32-3.57) K/mm3 [place] # (Auto) (0.30-0.82) K/mm3 Eos # (Auto) (0.04-0.54) K/mm3 Baso # (Auto) (0.01-0.08) K/mm3 Sodium (136-145) mEq/L Potassium (3.5-5.1) mEq/L Chloride (98-107) mEq/L Carbon Dioxide (21-32) mEq/L Anion Gap (5-15) BUN (7-18) mg/dL Creatinine (0.7-1.3) mg/dL Est Cr Clr Drug Dosing mL/min Estimated GFR (MDRD) (>60) mL/min BUN/Creatinine Ratio (14-18) Glucose (74-106) mg/dL Calcium (8.5-10.1) mg/dL Magnesium (1.8-2.4) mg/dl Total Bilirubin (0.2-1.0) mg/dL AST (15-37) U/L ALT (16-63) U/L Alkaline Phosphatase (46-116) U/L Total Protein (6.4-8.2) g/dl Albumin (3.4-5.0) g/dl Globulin gm/dL Albumin/Globulin Ratio (1-2) Urine Opiates Screen Negative (NEGATIVE) Ur Buprenorphine Scrn Negative (NEGATIVE) Ur Oxycodone Screen Negative (NEGATIVE) Urine Methadone Screen Negative (NEGATIVE) Ur Propoxyphene Screen Negative (NEGATIVE) Ur Barbiturates Screen Negative (NEGATIVE) Ur Tricyclics Screen Negative (NEGATIVE) Ur Phencyclidine Scrn Negative (NEGATIVE) Ur Amphetamine Screen Negative (NEGATIVE) U Methamphetamines Scrn Negative (NEGATIVE) U Benzodiazepines Scrn Negative (NEGATIVE) U Cocaine Metab Screen Negative (NEGATIVE) U Marijuana (THC) Screen Presumptive positive H (NEGATIVE) Ethyl Alcohol (0.00) gm% Medications Generic Name Dose Route Start Last Admin Trade Name Freq PRN Reason Stop Dose Admin Sodium Chloride 1,000 mls @ 1,000 mls/hr 12/27/17 14:30 12/27/17 15:10 Normal Saline IV 1,000 mls/hr .BOLUS MARCELA Administration Sodium Chloride 10 ml 12/27/17 14:26 12/27/17 15:14 Saline Flush FLUSH 10 ml ASDIRECTED PRN Administration Keep Vein Open Re-Assessment/Re-Exam: I ordered an IV NS 1L bolus, labs and an EKG. His EKG shows a NSR with no acute changes. His CBC looks good. His Na is elevated at 149. His glucose is elevated at 149. His AST is elevated at 229. His ALT was elevated at 115. His ETOH is 0.53. It has been over 4 and a half hours and he has been sleeping. I was able to wake him up and talk to him. He is okay to go home and sleep this off. His ex is coming to get him. Departure - Departure Time of Disposition: 18:50 Disposition: Home, Self-Care 01 Condition: Good Clinical Impression: Alcohol abuse Alcohol intoxication Qualifiers: Complication of substance-induced condition: uncomplicated Qualified Code(s): F10.920 - Alcohol use, unspecified with intoxication, uncomplicated - Discharge Information *PRESCRIPTION DRUG MONITORING PROGRAM REVIEWED*: No *COPY OF PRESCRIPTION DRUG MONITORING REPORT IN PATIENT MAYURI: No Referrals: PCP,Unknown [Ordering Only Provider] - Additional Instructions: Drink plenty of fluids but avoid alcohol. Please return if you are worse. - My Orders Last 24 Hours: My Active Orders 12/27/17 14:26 Cardiac Monitoring [RC] . DIRECTED EKG Documentation Completion [RC] STAT Peripheral IV Care [RC] . DIRECTED Sodium Chloride 0.9% [Saline Flush] 10 ml FLUSH ASDIRECTED PRN Peripheral IV Insertion Adult [OM.PC] Stat 12/27/17 14:30 Sodium Chloride 0.9% [Normal Saline] 1,000 ml IV .BOLUS 12/27/17 16:35 DRUG SCREEN, URINE [URCHEM] Stat - Assessment/Plan Last 24 Hours: My Active Orders 12/27/17 14:26 Cardiac Monitoring [RC] . DIRECTED EKG Documentation Completion [RC] STAT Peripheral IV Care [RC] . DIRECTED Sodium Chloride 0.9% [Saline Flush] 10 ml FLUSH ASDIRECTED PRN Peripheral IV Insertion Adult [OM.PC] Stat 12/27/17 14:30 Sodium Chloride 0.9% [Normal Saline] 1,000 ml IV .BOLUS 12/27/17 16:35 DRUG SCREEN, URINE [URCHEM] Stat
== END 2017-12-27 19:07 | disposition home or self-care (01) ==
LOC: JD.ED 14:21
DX: F10.120 Alcohol abuse with intoxication, uncomplicated (principal); Y90.8 Blood alcohol level of 240 mg/100 ml or more
CPT/HCPCS: 36415; 80053; 80306; 83735; 85025; 93005; 96360; 99285; G0480; J7040; J7050; 93010; 99284-25

== ENCOUNTER 2017-12-31 13:10 | Emergency (ER) | payer SELFPAY ==
[2017-12-31 13:16] VITALS: BP 142/93
--- NOTE | 2017-12-31 13:41 | EDM.PDOCBH ---
ED HPI GENERAL MEDICAL PROBLEM - General Chief Complaint: Drug or Alcohol Abuse Stated Complaint: [facility] Time Seen by Provider: 12/31/17 13:31 Source of Information: Reports: Patient History Limitations: Reports: No Limitations - History of Present Illness INITIAL COMMENTS - FREE TEXT/NARRATIVE: 32-year-old male arrives via [place] [facility]. Reportedly the call went out for someone having seizures. Reportedly his mother called the ambulance. Patient states he was sleeping when the ambulance arrived. He does not know if he had a seizure. He states he's never had seizures before. He states that he feels very thirsty at this time. He will has been feeling nauseous and vomited one time. He is known to the ER and has been seen on numerous occasions for alcohol abuse. He states his last drink was yesterday evening, states he had a few bug lites. Patient denies Any alcohol today. He is denying any headaches or any abdominal pain. He denies any tongue biting or any urinary incontinence. He denies any recent trauma such as falls. Upon my inspection he is quite shaky and diaphoretic. he patient states she does not want to be in the ED. He does not want any help with his substance abuse. He does not want an IV or to have labs checked. He would like to go home and go back to bed. - Related Data Allergies Allergy/AdvReac Type Severity Reaction Status Date / Time No Known Allergies Allergy Verified 11/08/17 05:24 Home Meds: Home Meds Omeprazole 0 mg PO DAILY 12/31/17 [History] Past Medical History HEENT History: Reports: Other (See Below) Other HEENT History: Maxofacial surgery to repair right socket Cardiovascular History: Reports: None, Other (See Below) Other Cardiovascular History: seen for chest pains Respiratory History: Reports: Sleep Apnea Gastrointestinal History: Reports: Other (See Below) Other Gastrointestinal History: stomach ulcer Genitourinary History: Reports: Prostate Disorder, Other (See Below) Other Genitourinary History: prostate disease RESIDENT DIRECTOR History: Reports: None Musculoskeletal History: Reports: Fracture Other Musculoskeletal History: ankle Neurological History: Reports: Migraines Psychiatric History: Reports: Addiction Endocrine/Metabolic History: Reports: None Hematologic History: Reports: None Immunologic History: Reports: None Oncologic (Cancer) History: Reports: None Dermatologic History: Reports: None - Infectious Disease History Infectious Disease History: Reports: Chicken Pox - Past Surgical History Head Surgeries/Procedures: Reports: None HEENT Surgical History: Reports: Tonsillectomy Cardiovascular Surgical History: Reports: None GI Surgical History: Reports: EGD, Hernia, Abdominal Endocrine Surgical History: Reports: None Oncologic Surgical History: Reports: None Dermatological Surgical History: Reports: None Social & Family History - Family History Family Medical History: Noncontributory - Tobacco Use Smoking Status *Q: Current Every Day Smoker Years of Tobacco use: 17 Packs/Tins Daily: 1 - Caffeine Use Caffeine Use: Reports: Coffee, Energy Drinks, Soda, Tea - Recreational Drug Use Recreational Drug Use: No - Living Situation & Occupation Living situation: Reports: , Alone Occupation: Unemployed ED ROS GENERAL - Review of Systems Review Of Systems: See Below Constitutional: Reports: Other (increased thirst) HEENT: Reports: Other (denies tongue biting) GI/Abdominal: Reports: Nausea, Vomiting. Denies: Abdominal Pain : Denies: Incontinence Neurological: Denies: Headache ED EXAM, BEHAVIORAL HEALTH - Physical Exam Exam: See Below Exam Limited By: No Limitations General Appearance: Alert, WD/WN, Moderate Distress Eye Exam: Bilateral Eye: Nystagmus (resting nystagmus) Ears: Normal External Exam Nose: Normal Inspection Throat/Mouth: Normal Inspection, Normal Voice, No Airway Compromise, Other ( evidence of tongue biting to the right side of his tongue and right bucal mucosa ) Respiratory/Chest: No Respiratory Distress, Lungs Clear, Normal Breath Sounds Cardiovascular: Normal Peripheral Pulses, No Murmur, Tachycardia Neurological: Alert, Normal Cognition Psychiatric: Alert, Normal Affect, Normal Cognition, Normal Mood, Agitated ( fidgiting). No: Uncooperative, Threatening Behavior Skin Exam: Warm, Normal color, Diaphoretic COURSE, BEHAVIORAL HEALTH COMP - Course Vital Signs: Last Vital Signs Temp 96.3 F 12/31/17 13:14 Pulse 145 H 12/31/17 13:14 Resp 20 12/31/17 13:14 BP 142/93 H 12/31/17 13:14 Pulse Ox 93 L 12/31/17 13:14 Re-Assessment/Re-Exam: 13:44 I have offered the patient several times an IV with fluids, medication for anxiety such as Ativan and nausea medication. I would also like to check labs as he is known to have electrolyte abnormalities such as low magnesium in the past. He is declining. He does not want any help with his alcohol withdrawal. He would like to go home and go back to bed. I did inform his tongue and his bucal mucosa do have signs that he did possibly have a seizure. I cannot confirm this but his lab studies would help determine if he did. He states she' s never had any seizures in the past. He does not want any help with alcohol withdrawal. He does not want to be admitted. He does not want to stay in the ER. Given that he is cognizant and answering questions appropriately and is not making any threats or threatening behavior I cannot keep them in the ER and if he chooses to leave I will honor that. Departure - Departure Time of Disposition: 13:45 Disposition: Home, Self-Care 01 Condition: Fair Clinical Impression: Alcohol withdrawal syndrome - Discharge Information *PRESCRIPTION DRUG MONITORING PROGRAM REVIEWED*: No *COPY OF PRESCRIPTION DRUG MONITORING REPORT IN PATIENT MAYURI: No Instructions: Alcohol Withdrawal, [id number] Referrals: Vinay Feliz Jr, MD [Primary Care Provider] - Additional Instructions: We recommend you seek help for alcohol. A brochure has been provided for you for resources in the area. Made sure you're drinking plenty of fluids today. Please return to the ER if your symptoms change or worsen. Recommend following up with your primary care provider.
== END 2017-12-31 14:20 | disposition home or self-care (01) ==
LOC: JD.ED 13:10 → SUPCPDRO 13:10 → JD.ED 14:20
DX: F10.239 Alcohol dependence with withdrawal, unspecified (principal); F17.210 Nicotine dependence, cigarettes, uncomplicated
CPT/HCPCS: 99284

== ENCOUNTER 2018-01-12 13:50 | Inpatient (IN) | payer SELFPAY ==
[2018-01-12] MEDS ORDERED: Sodium Chloride 0.9% 10 ML Syringe FLUSH PRN (14:26)
[2018-01-12] MEDS ORDERED: LORazepam 2 MG/ML SDV IVPUSH ONE ×2 (14:27→15:50)
[2018-01-12] MEDS ORDERED: Ondansetron 4 MG/2 ML SDV IVPUSH ONE (14:28)
[2018-01-12] MEDS ORDERED: Sodium Chloride 0.9% 1,000 ML IV SCH (14:30)
--- NOTE | 2018-01-12 15:04 | EDM.PDOCBH ---
ED HPI GENERAL MEDICAL PROBLEM - General Chief Complaint: Drug or Alcohol Abuse Stated Complaint: [facility] Time Seen by Provider: 01/12/18 13:57 Source of Information: Reports: Patient, EMS, Police History Limitations: Reports: No Limitations - History of Present Illness INITIAL COMMENTS - FREE TEXT/NARRATIVE: The patient presents with possible alcohol withdrawals. He presents by [facility]. He was arrested last night at about 7pm. This afternoon around 1 he had nausea, vomiting, auditory and visual hallucinations, and shaking. The patient is a know heavy drinker. A few weeks ago her blood alcohol was 0.53. He was here for a few hours and he left. He is confused as to the date and time. He has no headache, chest pain, shortness of breath or dysuria. He does not remember the last time he drank. He does not take drugs usually. Onset: Gradual Duration: Hour(s): (1pm) Location: Reports: Generalized Quality: Reports: Other (shaking) Severity: Moderate Improves with: Reports: None Worsens with: Reports: None Associated Symptoms: Reports: Fever/Chills, Nausea/Vomiting. Denies: Chest Pain , Cough, Headaches, Shortness of Breath Abdomen Pain Score (Numeric/FACES): 8 - Related Data Allergies Allergy/AdvReac Type Severity Reaction Status Date / Time No Known Allergies Allergy Verified 01/12/18 14:03 Home Meds: Home Meds Omeprazole 20 mg PO DAILY 12/31/17 [History] Past Medical History HEENT History: Reports: Other (See Below) Other HEENT History: Maxofacial surgery to repair right socket Cardiovascular History: Reports: None, Other (See Below) Other Cardiovascular History: seen for chest pains Respiratory History: Reports: Sleep Apnea Gastrointestinal History: Reports: Other (See Below) Other Gastrointestinal History: stomach ulcer Genitourinary History: Reports: Prostate Disorder, Other (See Below) Other Genitourinary History: prostate disease GUEST RELATIONS COORDINATOR History: Reports: None Musculoskeletal History: Reports: Fracture Other Musculoskeletal History: ankle Neurological History: Reports: Migraines Psychiatric History: Reports: Addiction Endocrine/Metabolic History: Reports: None Hematologic History: Reports: None Immunologic History: Reports: None Oncologic (Cancer) History: Reports: None Dermatologic History: Reports: None - Infectious Disease History Infectious Disease History: Reports: Chicken Pox - Past Surgical History Head Surgeries/Procedures: Reports: None HEENT Surgical History: Reports: Tonsillectomy Cardiovascular Surgical History: Reports: None GI Surgical History: Reports: EGD, Hernia, Abdominal Endocrine Surgical History: Reports: None Oncologic Surgical History: Reports: None Dermatological Surgical History: Reports: None Social & Family History - Family History Family Medical History: Noncontributory - Tobacco Use Smoking Status *Q: Current Every Day Smoker Years of Tobacco use: 10 Packs/Tins Daily: 0.5 - Caffeine Use Caffeine Use: Reports: Energy Drinks, Soda - Alcohol Use Days Per Week of Alcohol Use: 7 Number of Drinks Per Day: 10 Total Drinks Per Week: 70 - Recreational Drug Use Recreational Drug Use: No - Living Situation & Occupation Living situation: Reports: , Alone Occupation: Unemployed ED ROS GENERAL - Review of Systems Review Of Systems: See Below Constitutional: Reports: Chills HEENT: Reports: No Symptoms Respiratory: Reports: No Symptoms Cardiovascular: Reports: No Symptoms Endocrine: Reports: No Symptoms GI/Abdominal: Reports: Nausea, Vomiting. Denies: Abdominal Pain, Diarrhea : Reports: No Symptoms Musculoskeletal: Reports: No Symptoms Skin: Reports: No Symptoms ED EXAM, BEHAVIORAL HEALTH - Physical Exam Exam: See Below Exam Limited By: No Limitations General Appearance: Alert, Anxious, Mild Distress Eye Exam: Bilateral Eye: Nystagmus Ears: Normal External Exam Nose: Nasal Deformity Throat/Mouth: Other (Dry mucus membranes) Neck: Normal Inspection Respiratory/Chest: No Respiratory Distress, Lungs Clear, Normal Breath Sounds Cardiovascular: No Edema, No Murmur, Tachycardia GI/Abdominal: Soft, Non-Tender, No Organomegaly, No Mass Back Exam: Normal Inspection Extremities: Normal Inspection Neurological: No Motor/Sensory Deficits, Other (shaking. He is oriented to person and place but he is confused about the day and time.) Psychiatric: Alert COURSE, BEHAVIORAL HEALTH COMP - Course Vital Signs: Last Vital Signs Temp 98.4 F 01/12/18 13:54 Pulse 115 H 01/12/18 13:54 Resp 13 01/12/18 13:54 BP 148/98 H 01/12/18 13:54 Pulse Ox 99 01/12/18 13:54 Orders, Labs, Meds: Active Orders 24 hr Category Date Time Status Cardiac Monitoring [RC] . DIRECTED Care 01/12/18 14:26 Active Peripheral IV Care [RC] . DIRECTED Care 01/12/18 14:27 Active DRUG SCREEN, URINE [URCHEM] Stat Lab 01/12/18 14:26 Ordered Magnesium Sulfate/D5W [Magnesium 1 GM in D5W 100 ML] 1 Med 01/12/18 16:14 Ordered gm Premix Bag 1 bag IV ONETIME Sodium Chloride 0.9% [Normal Saline] 1,000 ml Med 01/12/18 14:30 Active IV .BOLUS Sodium Chloride 0.9% [Normal Saline] 1,000 ml Med 01/12/18 15:52 Active IV ONETIME Sodium Chloride 0.9% [Saline Flush] Med 01/12/18 14:26 Active 10 ml FLUSH ASDIRECTED PRN Peripheral IV Insertion Adult [OM.PC] Stat Oth 01/12/18 14:26 Ordered Medication Orders Sodium Chloride (Normal Saline) 1,000 mls @ 1,000 mls/hr IV .BOLUS MARCELA Last Admin: 01/12/18 14:51 Dose: 1,000 mls/hr Sodium Chloride (Normal Saline) 1,000 mls @ 1,000 mls/hr IV ONETIME ONE Stop: 01/12/18 16:51 Last Admin: 01/12/18 15:59 Dose: 1,000 mls/hr Sodium Chloride (Saline Flush) 10 ml FLUSH ASDIRECTED PRN PRN Reason: Keep Vein Open Last Admin: 01/12/18 14:53 Dose: 10 ml Laboratory Tests 01/12/18 01/12/18 Range/Units 15:00 15:00 WBC 8.77 (4.23-9.07) K/mm3 RBC 4.71 (4.63-6.08) M/mm3 Hgb 14.8 (13.7-17.5) gm/L Hct 42.9 (40.1-51.0) % MCV 91.1 (79.0-92.2) fl MCH 31.4 (25.7-32.2) pg MCHC 34.5 (32.2-35.5) g/dl RDW Std Deviation 42.6 (35.1-43.9) fL Plt Count 145 L (163-337) K/mm3 MPV 10.6 (9.4-12.3) fl Neut % (Auto) 79.5 H (34.0-67.9) % Lymph % (Auto) 8.1 L (21.8-53.1) % [place] % (Auto) 11.1 (5.3-12.2) % Eos % (Auto) 0.6 L (0.8-7.0) Baso % (Auto) 0.5 (0.1-1.2) % Neut # (Auto) 6.98 H (1.78-5.38) K/mm3 Lymph # (Auto) 0.71 L (1.32-3.57) K/mm3 [place] # (Auto) 0.97 H (0.30-0.82) K/mm3 Eos # (Auto) 0.05 (0.04-0.54) K/mm3 Baso # (Auto) 0.04 (0.01-0.08) K/mm3 Manual Slide Review Normal smear Sodium 140 (136-145) mEq/L Potassium 3.3 L (3.5-5.1) mEq/L Chloride 100 (98-107) mEq/L Carbon Dioxide 27 (21-32) mEq/L Anion Gap 16.3 H (5-15) BUN 9 (7-18) mg/dL Creatinine 0.9 (0.7-1.3) mg/dL Est Cr Clr Drug Dosing 127.33 mL/min Estimated GFR (MDRD) > 60 (>60) mL/min BUN/Creatinine Ratio 10.0 L (14-18) Glucose 111 H (74-106) mg/dL Calcium 9.2 (8.5-10.1) mg/dL Magnesium 0.8 L (1.8-2.4) mg/dl Total Bilirubin 2.0 H (0.2-1.0) mg/dL AST 160 H (15-37) U/L ALT 107 H (16-63) U/L Alkaline Phosphatase 134 H (46-116) U/L Total Protein 7.3 (6.4-8.2) g/dl Albumin 3.9 (3.4-5.0) g/dl Globulin 3.4 gm/dL Albumin/Globulin Ratio 1.2 (1-2) Ethyl Alcohol 0.00 (0.00) gm% Medications Generic Name Dose Route Start Last Admin Trade Name Freq PRN Reason Stop Dose Admin Sodium Chloride 1,000 mls @ 1,000 mls/hr 01/12/18 14:30 01/12/18 14:51 Normal Saline IV 1,000 mls/hr .BOLUS MARCELA Administration Sodium Chloride 1,000 mls @ 1,000 mls/hr 01/12/18 15:52 01/12/18 15:59 Normal Saline IV 01/12/18 16:51 1,000 mls/hr ONETIME ONE Administration Sodium Chloride 10 ml 01/12/18 14:26 01/12/18 14:53 Saline Flush FLUSH 10 ml ASDIRECTED PRN Administration Keep Vein Open Discontinued Medications Generic Name Dose Route Start Last Admin Trade Name Frehina PRN Reason Stop Dose Admin Lorazepam 2 mg 01/12/18 14:27 01/12/18 14:55 Ativan IVPUSH 01/12/18 14:28 2 mg ONETIME ONE Administration Lorazepam 0 mg 01/12/18 15:50 01/12/18 16:00 Ativan IVPUSH 01/12/18 15:51 1 mg ONETIME ONE Administration Protocol Nicotine 21 mg 01/12/18 15:15 01/12/18 15:44 Habitrol TRDERM 01/12/18 15:16 21 mg ONETIME ONE Administration Ondansetron HCl 4 mg 01/12/18 14:28 01/12/18 14:51 Zofran IVPUSH 01/12/18 14:29 4 mg ONETIME ONE Administration Re-Assessment/Re-Exam: I ordered an IV NS 1L bolus, ativan 2mg IV, zofran 4mg IV and labs. His SCIWA score was 28 on arrival. His CBC looks good. His K was a little low at 3.3. His anion gap was elevated at 16.3. His glucose was 111. His magnesium was low at 0.8. I will give him some magnesium IV. His total bili is 2. His AST is elevated at 160. His ALT was elevated at 107. His alk phos is elevated at 134. His ETOH was down to 11. He feels a little better. We will start the SCIWA protocol. I feel he needs to be admitted. I talked to Dr Parada and he agreed to the admission. Departure - Departure Time of Disposition: 16:15 Disposition: Admitted As Inpatient 65 Condition: Fair Clinical Impression: Alcohol withdrawal delirium, Hypomagnesemia - Discharge Information Referrals: Vinay Feliz Jr, MD [Primary Care Provider] - - My Orders Last 24 Hours: My Active Orders 01/12/18 14:26 Cardiac Monitoring [RC] . DIRECTED DRUG SCREEN, URINE [URCHEM] Stat Sodium Chloride 0.9% [Saline Flush] 10 ml FLUSH ASDIRECTED PRN Peripheral IV Insertion Adult [OM.PC] Stat 01/12/18 14:27 Peripheral IV Care [RC] . DIRECTED 01/12/18 14:30 Sodium Chloride 0.9% [Normal Saline] 1,000 ml IV .BOLUS 01/12/18 15:52 Sodium Chloride 0.9% [Normal Saline] 1,000 ml IV ONETIME 01/12/18 16:14 Magnesium Sulfate/D5W [Magnesium 1 GM in D5W 100 ML] 1 gm Premix Bag 1 bag IV ONETIME - Assessment/Plan Last 24 Hours: My Active Orders 01/12/18 14:26 Cardiac Monitoring [RC] . DIRECTED DRUG SCREEN, URINE [URCHEM] Stat Sodium Chloride 0.9% [Saline Flush] 10 ml FLUSH ASDIRECTED PRN Peripheral IV Insertion Adult [OM.PC] Stat 01/12/18 14:27 Peripheral IV Care [RC] . DIRECTED 01/12/18 14:30 Sodium Chloride 0.9% [Normal Saline] 1,000 ml IV .BOLUS 01/12/18 15:52 Sodium Chloride 0.9% [Normal Saline] 1,000 ml IV ONETIME 01/12/18 16:14 Magnesium Sulfate/D5W [Magnesium 1 GM in D5W 100 ML] 1 gm Premix Bag 1 bag IV ONETIME
[2018-01-12] MEDS ORDERED: Nicotine 21 MG/24 Hr Patch TRDERM ONE (15:15)
[2018-01-12] MEDS ORDERED: Sodium Chloride 0.9% 1,000 ML IV ONE (15:52)
[2018-01-12] MEDS ORDERED: Magnesium Sulfate/Water 2 GM in Premix Bag 1 BAG IV ONE (16:19)
--- NOTE | 2018-01-12 16:47 | PCM.HP ---
H&P History of Present Illness - General Date of Service: 01/12/18 Source of Information: Patient, Old Records, Police, Provider, RN Notes Reviewed History Limitations: Reports: Other (Detox) - History of Present Illness Initial Comments - Free Text/Narative: This is a 32 yo white male with past medical hx/o chronic alcohol use who comes in via ambulance for alcohol detoxification. He was arrested last night and spend sometime in [facility] but he started to get sick at about 1300 today. He reports nausea, vomiting, tremors and visual/auditory hallucinations. Patient is , unemployed and a known heavy drinker with both beer and hard liquor. He was initially seen in ED a few weeks ago but left without getting full treatment. Early this year in June, he sought care in ED for detoxification but eloped before was moved to the unit for further treatment. He smokes 1/2 a pack a day but denies illicit drug use. His initial work up in ED shows a CBC remarkable for Platelet count of 145, Neutrophils of 79.5%, Lymphocytes of 8.1%, and Eosinophils of 0.6%. Her chemistry is significant for K of 3.3, AG of 16.3, Glucose of 111, Magnesium of 0.8, Total Bilirubin of 2, AST of 160, ALT of 107 and Alk phos of 134. His LORNE level is pending. Patient is being admitted for acute alcohol withdrawal. He is full code. Abdomen Pain Score (Numeric/FACES): 8 - Related Data Allergies/Adverse Reactions: Allergies Allergy/AdvReac Type Severity Reaction Status Date / Time No Known Allergies Allergy Verified 01/12/18 14:03 Home Medications: Home Meds Omeprazole 20 mg PO DAILY 12/31/17 [History] Past Medical History HEENT History: Reports: Other (See Below) Other HEENT History: Maxofacial surgery to repair right socket Cardiovascular History: Reports: None, Other (See Below) Other Cardiovascular History: seen for chest pains Respiratory History: Reports: Sleep Apnea Gastrointestinal History: Reports: Other (See Below) Other Gastrointestinal History: stomach ulcer Genitourinary History: Reports: Prostate Disorder, Other (See Below) Other Genitourinary History: prostate disease WEIGHER AND CRUSHER History: Reports: None Musculoskeletal History: Reports: Fracture Other Musculoskeletal History: ankle Neurological History: Reports: Migraines Psychiatric History: Reports: Addiction Endocrine/Metabolic History: Reports: None Hematologic History: Reports: None Immunologic History: Reports: None Oncologic (Cancer) History: Reports: None Dermatologic History: Reports: None - Infectious Disease History Infectious Disease History: Reports: Chicken Pox - Past Surgical History Head Surgeries/Procedures: Reports: None HEENT Surgical History: Reports: Tonsillectomy Cardiovascular Surgical History: Reports: None GI Surgical History: Reports: EGD, Hernia, Abdominal Endocrine Surgical History: Reports: None Oncologic Surgical History: Reports: None Dermatological Surgical History: Reports: None Social & Family History - Family History Family Medical History: Noncontributory - Tobacco Use Smoking Status *Q: Current Every Day Smoker Years of Tobacco use: 10 Packs/Tins Daily: 0.5 - Caffeine Use Caffeine Use: Reports: Energy Drinks, Soda - Alcohol Use Days Per Week of Alcohol Use: 7 Number of Drinks Per Day: 10 Total Drinks Per Week: 70 - Recreational Drug Use Recreational Drug Use: No - Living Situation & Occupation Living situation: Reports: , Alone Occupation: Unemployed H&P Review of Systems - Review of Systems: Review Of Systems: ROS reveals no pertinent complaints other than HPI. Exam - Exam Exam: See Below - Vital Signs Vital Signs: Last Vital Signs Temp 36.9 C 01/12/18 13:54 Pulse 115 H 01/12/18 13:54 Resp 13 01/12/18 13:54 BP 148/98 H 01/12/18 13:54 Pulse Ox 99 01/12/18 13:54 Weight: 77.111 kg - Exam General: Alert, Oriented, Cooperative, Mild Distress HEENT: Conjunctiva Clear, Hearing Intact, Nares Patent, Normal Nasal Septum, Posterior Pharynx Clear, Pupils Equal, Pupils Reactive, Other (Nystagmus). No: EOMI, Mucosa Moist & [place] Neck: Supple, Trachea Midline, +2 Carotid Pulse wo Bruit, Full Range of Motion Lungs: Clear to Auscultation, Normal Respiratory Effort Cardiovascular: Regular Rhythm, Tachycardia GI/Abdominal Exam: Normal Bowel Sounds, Soft, Non-Tender, No Organomegaly, No Distention, No Abnormal Bruit, No Mass (Male) Exam: Deferred Rectal (Males) Exam: Deferred Back Exam: Normal Inspection, Full Range of Motion Extremities: Normal Inspection, Normal Range of Motion, Non-Tender, No Pedal Edema, Normal Capillary Refill Peripheral Pulses: 3+: Posterior Tibial (L), Posterior Tibial (R), Dorsalis Pedis (L), Dorsalis Pedis (R) Skin: Warm, Dry, Intact Neuro Extensive - Mental Status: Slow Response to Commands. No: Disorientation to Time Neuro Extensive - Motor, Sensory, Reflexes: CN II-XII Intact (inaproppraite due to confusion and tremors), Abnormal Gait Psychiatric: Alert, Anxious, Hallucinations, Withdrawal Symptoms. No: Agitated , Suicidal Ideation, Homicidal Ideation - Patient Data Lab Results Last 24 hrs: Laboratory Results - last 24 hr 01/12/18 01/12/18 Range/Units 15:00 15:00 WBC 8.77 (4.23-9.07) K/mm3 RBC 4.71 (4.63-6.08) M/mm3 Hgb 14.8 (13.7-17.5) gm/L Hct 42.9 (40.1-51.0) % MCV 91.1 (79.0-92.2) fl MCH 31.4 (25.7-32.2) pg MCHC 34.5 (32.2-35.5) g/dl RDW Std Deviation 42.6 (35.1-43.9) fL Plt Count 145 L (163-337) K/mm3 MPV 10.6 (9.4-12.3) fl Neut % (Auto) 79.5 H (34.0-67.9) % Lymph % (Auto) 8.1 L (21.8-53.1) % [place] % (Auto) 11.1 (5.3-12.2) % Eos % (Auto) 0.6 L (0.8-7.0) Baso % (Auto) 0.5 (0.1-1.2) % Neut # (Auto) 6.98 H (1.78-5.38) K/mm3 Lymph # (Auto) 0.71 L (1.32-3.57) K/mm3 [place] # (Auto) 0.97 H (0.30-0.82) K/mm3 Eos # (Auto) 0.05 (0.04-0.54) K/mm3 Baso # (Auto) 0.04 (0.01-0.08) K/mm3 Manual Slide Review Normal smear Sodium 140 (136-145) mEq/L Potassium 3.3 L (3.5-5.1) mEq/L Chloride 100 (98-107) mEq/L Carbon Dioxide 27 (21-32) mEq/L Anion Gap 16.3 H (5-15) BUN 9 (7-18) mg/dL Creatinine 0.9 (0.7-1.3) mg/dL Est Cr Clr Drug Dosing 127.33 mL/min Estimated GFR (MDRD) > 60 (>60) mL/min BUN/Creatinine Ratio 10.0 L (14-18) Glucose 111 H (74-106) mg/dL Calcium 9.2 (8.5-10.1) mg/dL Magnesium 0.8 L (1.8-2.4) mg/dl Total Bilirubin 2.0 H (0.2-1.0) mg/dL AST 160 H (15-37) U/L ALT 107 H (16-63) U/L Alkaline Phosphatase 134 H (46-116) U/L Total Protein 7.3 (6.4-8.2) g/dl Albumin 3.9 (3.4-5.0) g/dl Globulin 3.4 gm/dL Albumin/Globulin Ratio 1.2 (1-2) Ethyl Alcohol 0.00 (0.00) gm% Result Diagrams: 01/13/18 06:05 01/13/18 06:05 Problem List Initiated/Reviewed/Updated: Yes Orders Last 24hrs: Active Orders 24 hr Category Date Time Status Cardiac Monitoring [RC] . DIRECTED Care 01/12/18 14:26 Active Peripheral IV Care [RC] . DIRECTED Care 01/12/18 14:27 Active DRUG SCREEN, URINE [URCHEM] Stat Lab 01/12/18 14:26 Ordered LORazepam [Ativan] Med 01/12/18 17:00 Active See Protocol IVPUSH ASDIRECTED Magnesium Sulfate/Water [Magnesium Sulfate 2 GM in Med 01/12/18 16:19 Active Water 50 ML] 2 gm Premix Bag 1 bag IV ONETIME Sodium Chloride 0.9% [Normal Saline] 1,000 ml Med 01/12/18 14:30 Active IV .BOLUS Sodium Chloride 0.9% [Normal Saline] 1,000 ml Med 01/12/18 15:52 Active IV ONETIME Sodium Chloride 0.9% [Saline Flush] Med 01/12/18 14:26 Active 10 ml FLUSH ASDIRECTED PRN Peripheral IV Insertion Adult [OM.PC] Stat Oth 01/12/18 14:26 Ordered Medication Orders Sodium Chloride (Normal Saline) 1,000 mls @ 1,000 mls/hr IV .BOLUS MARCELA Last Admin: 01/12/18 14:51 Dose: 1,000 mls/hr Sodium Chloride (Normal Saline) 1,000 mls @ 1,000 mls/hr IV ONETIME ONE Stop: 01/12/18 16:51 Last Admin: 01/12/18 15:59 Dose: 1,000 mls/hr Magnesium Sulfate 2 gm/ Premix 50 mls @ 25 mls/hr IV ONETIME ONE Stop: 01/12/18 18:18 Last Admin: 01/12/18 16:24 Dose: 25 mls/hr Lorazepam (Ativan) 0 mg IVPUSH ASDIRECTED MARCELA; Protocol Sodium Chloride (Saline Flush) 10 ml FLUSH ASDIRECTED PRN PRN Reason: Keep Vein Open Last Admin: 01/12/18 14:53 Dose: 10 ml Assessment/Plan Comment:: Assessment/Plan: Acute: ETOH Withdrawal Symptoms - LORNE is 0 - He drinks heavily both beer and hard liquor - CIWA protocol: CIWA score is markedly elevated - Ativan/Seroquel/Clonidine/Topamax - Hydralazine and IVP BB for HR/BP control - Ativan for Abortive Seizure and Withdrawal Symptoms - He wants to get better Alcoholic Hepatitis/Transaminitis - AST 160 and ALT 107 - Avoid Tylenol - IV fluids Hx/o Poly-Substance Abuse - UDS: pending - Carries a hx/o Marijuana Use; THC pos on UDS 12/27/2017 - Counseled on Substance Abuse - SA/Psych consult Tobacco Dependence - Smokes 1/2 a pack per day - Nicotine patch daily - Counseled on Smoking Cessation Mild Hypokalemia - K 3.2 - 2/2 Inadequate intake - Replete and monitor Moderate Hypomagnesemia - Mg 0.8 - 2/2 Inadequate intake - Replete and monitor Chronic ETOH Abuse - CIWA protocol - Ativan/Topamax Plan: Admit to ICU MVI, Folic Acid and Thiamine CIWA protocol Ativan for Abortive Seizure and Withdrawal Symptoms PRN meds for Withdrawal Symptoms Seizure Precautions DVT and GI: SCDs, PPI x1 then H2B in AM BID SW/CM d/c planning SA/Psych consult Code Status: 1
[2018-01-12] MEDS ORDERED: Metoprolol Tartrate 5 MG/5 ML SDV IVPUSH PRN (16:48)
[2018-01-12] MEDS ORDERED: LORazepam 2 MG/ML SDV IVPUSH PRN (16:48)
[2018-01-12] MEDS ORDERED: Nicotine 21 MG/24 Hr Patch TRDERM PRN (16:48)
[2018-01-12] MEDS ORDERED: Folic Acid 50 MG/10 ML MDV SUBCUT ONE (16:56)
[2018-01-12] MEDS ORDERED: HYDROmorphone 0.5 MG/0.5 ML Syringe IVPUSH PRN (16:56)
[2018-01-12] MEDS ORDERED: cloNIDine 0.1 MG Tab PO PRN (16:56)
[2018-01-12] MEDS ORDERED: oxyCODONE 5 MG Tab PO PRN (16:56)
[2018-01-12] MEDS ORDERED: Ondansetron 4 MG/2 ML SDV IV PRN (16:56)
[2018-01-12] MEDS ORDERED: Polyethylene Glycol 3350 Powder 17 GM Packet PO PRN (16:56)
[2018-01-12] MEDS ORDERED: Pantoprazole 40 MG Vial IVPUSH ONE (16:56)
[2018-01-12] MEDS ORDERED: Haloperidol Lactate 5 MG/ML SDV IM PRN (16:56)
[2018-01-12] MEDS ORDERED: Albuterol/Ipratropium 3.0-0.5 MG/3 ML Neb Soln NEB PRN (16:56)
[2018-01-12] MEDS ORDERED: Ibuprofen 400 MG Tab PO PRN (16:56)
[2018-01-12] MEDS ORDERED: Bisacodyl 5 MG Tab PO PRN (16:56)
[2018-01-12] MEDS ORDERED: Docusate Sodium 100 MG Cap PO PRN (16:56)
[2018-01-12] MEDS ORDERED: Thiamine 100 MG in Sodium Chloride 0.9% 50 ML IV ONE (16:56)
[2018-01-12] MEDS ORDERED: LORazepam 2 MG/ML SDV IVPUSH SCH (17:00)
[2018-01-12] MEDS ORDERED: Topiramate 25 MG Tab PO STA (17:03)
[2018-01-12] MEDS ORDERED: QUEtiapine 25 MG Tab PO ONE (17:04)
[2018-01-12] MEDS ORDERED: diphenhydrAMINE 50 MG/ML SDV IVPUSH ONE (17:05)
[2018-01-12] MEDS: Potassium Chloride 20 MEQ Tab.ER PO SCH ×2 (18:12→21:25)
[2018-01-12] MEDS: Sodium Chloride 0.9% 1,000 ML IV SCH (18:21)
[2018-01-12] MEDS: Magnesium Sulfate/Water 50 ML IV SCH ×2 (18:28→20:36)
[2018-01-12] MEDS: LORazepam 2 MG/ML SDV IVPUSH PRN ×3 (18:36→23:44)
[2018-01-12] MEDS: hydrALAZINE 20 MG/ML SDV IVPUSH PRN (18:37)
[2018-01-13] MEDS: Sodium Chloride 0.9% 1,000 ML IV SCH (02:18)
[2018-01-13] MEDS ORDERED: Pantoprazole 40 MG Tab.CR PO SCH (06:00)
[2018-01-13] MEDS ORDERED: Famotidine 20 MG Tab PO SCH (07:00)
[2018-01-13] MEDS: hydrALAZINE 20 MG/ML SDV IVPUSH PRN (08:09)
--- NOTE | 2018-01-13 08:38 | PCM.PN ---
- General Info Date of Service: 01/13/18 Subjective Update: Follow Up Functional Status: Reports: Pain Controlled, Tolerating Diet, Ambulating, Urinating. Denies: New Symptoms - Patient Data Vitals - Most Recent: Last Vital Signs Temp 36.7 C 01/13/18 08:00 Pulse 115 H 01/12/18 13:54 Resp 17 01/13/18 08:00 BP 142/105 H 01/13/18 08:00 Pulse Ox 100 01/13/18 08:00 Weight - Most Recent: 75.75 kg I&O - Last 24 Hours: Intake & Output 01/12/18 01/13/18 01/13/18 22:59 06:59 14:59 Intake Total 150 1840 Output Total 500 1500 500 Balance -350 340 -500 Lab Results Last 24 Hours: Laboratory Results - last 24 hr 01/12/18 01/12/18 01/12/18 Range/Units 15:00 15:00 18:03 WBC 8.77 (4.23-9.07) K/mm3 RBC 4.71 (4.63-6.08) M/mm3 Hgb 14.8 (13.7-17.5) gm/L Hct 42.9 (40.1-51.0) % MCV 91.1 (79.0-92.2) fl MCH 31.4 (25.7-32.2) pg MCHC 34.5 (32.2-35.5) g/dl RDW Std Deviation 42.6 (35.1-43.9) fL Plt Count 145 L (163-337) K/mm3 MPV 10.6 (9.4-12.3) fl Neut % (Auto) 79.5 H (34.0-67.9) % Lymph % (Auto) 8.1 L (21.8-53.1) % [place] % (Auto) 11.1 (5.3-12.2) % Eos % (Auto) 0.6 L (0.8-7.0) Baso % (Auto) 0.5 (0.1-1.2) % Neut # (Auto) 6.98 H (1.78-5.38) K/mm3 Lymph # (Auto) 0.71 L (1.32-3.57) K/mm3 [place] # (Auto) 0.97 H (0.30-0.82) K/mm3 Eos # (Auto) 0.05 (0.04-0.54) K/mm3 Baso # (Auto) 0.04 (0.01-0.08) K/mm3 Manual Slide Review Normal smear Sodium 140 (136-145) mEq/L Potassium 3.3 L (3.5-5.1) mEq/L Chloride 100 (98-107) mEq/L Carbon Dioxide 27 (21-32) mEq/L Anion Gap 16.3 H (5-15) BUN 9 (7-18) mg/dL Creatinine 0.9 (0.7-1.3) mg/dL Est Cr Clr Drug Dosing 127.33 mL/min Estimated GFR (MDRD) > 60 (>60) mL/min BUN/Creatinine Ratio 10.0 L (14-18) Glucose 111 H (74-106) mg/dL Calcium 9.2 (8.5-10.1) mg/dL Magnesium 0.8 L (1.8-2.4) mg/dl Total Bilirubin 2.0 H (0.2-1.0) mg/dL AST 160 H (15-37) U/L ALT 107 H (16-63) U/L Alkaline Phosphatase 134 H (46-116) U/L Total Protein 7.3 (6.4-8.2) g/dl Albumin 3.9 (3.4-5.0) g/dl Globulin 3.4 gm/dL Albumin/Globulin Ratio 1.2 (1-2) Urine Opiates Screen Negative (NEGATIVE) Ur Buprenorphine Scrn Negative (NEGATIVE) Ur Oxycodone Screen Negative (NEGATIVE) Urine Methadone Screen Negative (NEGATIVE) Ur Propoxyphene Screen Negative (NEGATIVE) Ur Barbiturates Screen Negative (NEGATIVE) Ur Tricyclics Screen Negative (NEGATIVE) Ur Phencyclidine Scrn Negative (NEGATIVE) Ur Amphetamine Screen Presumptive positive H (NEGATIVE) U Methamphetamines Scrn Presumptive positive H (NEGATIVE) U Benzodiazepines Scrn Presumptive positive H (NEGATIVE) U Cocaine Metab Screen Negative (NEGATIVE) U Marijuana (THC) Screen Negative (NEGATIVE) Ethyl Alcohol 0.00 (0.00) gm% 01/12/18 01/13/18 01/13/18 Range/Units 21:10 06:05 06:05 WBC 6.87 (4.23-9.07) K/mm3 RBC 4.35 L (4.63-6.08) M/mm3 Hgb 13.8 (13.7-17.5) gm/L Hct 40.7 (40.1-51.0) % MCV 93.6 H (79.0-92.2) fl MCH 31.7 (25.7-32.2) pg MCHC 33.9 (32.2-35.5) g/dl RDW Std Deviation 44.0 H (35.1-43.9) fL Plt Count 114 L (163-337) K/mm3 MPV 11.4 (9.4-12.3) fl Neut % (Auto) 73.7 H (34.0-67.9) % Lymph % (Auto) 15.0 L (21.8-53.1) % [place] % (Auto) 9.6 (5.3-12.2) % Eos % (Auto) 1.3 (0.8-7.0) Baso % (Auto) 0.3 (0.1-1.2) % Neut # (Auto) 5.06 (1.78-5.38) K/mm3 Lymph # (Auto) 1.03 L (1.32-3.57) K/mm3 [place] # (Auto) 0.66 (0.30-0.82) K/mm3 Eos # (Auto) 0.09 (0.04-0.54) K/mm3 Baso # (Auto) 0.02 (0.01-0.08) K/mm3 Manual Slide Review Sodium 137 139 (136-145) mEq/L Potassium 3.7 3.7 (3.5-5.1) mEq/L Chloride 103 105 (98-107) mEq/L Carbon Dioxide 26 25 (21-32) mEq/L Anion Gap 11.7 12.7 (5-15) BUN 9 7 (7-18) mg/dL Creatinine 0.8 0.8 (0.7-1.3) mg/dL Est Cr Clr Drug Dosing 143.24 140.72 mL/min Estimated GFR (MDRD) > 60 > 60 (>60) mL/min BUN/Creatinine Ratio 11.3 L 8.8 L (14-18) Glucose 91 101 (74-106) mg/dL Calcium 8.5 8.1 L (8.5-10.1) mg/dL Magnesium 1.9 (1.8-2.4) mg/dl Total Bilirubin 1.8 H (0.2-1.0) mg/dL AST 124 H (15-37) U/L ALT 87 H (16-63) U/L Alkaline Phosphatase 118 H (46-116) U/L Total Protein 6.4 (6.4-8.2) g/dl Albumin 3.2 L (3.4-5.0) g/dl Globulin 3.2 gm/dL Albumin/Globulin Ratio 1.0 (1-2) Urine Opiates Screen (NEGATIVE) Ur Buprenorphine Scrn (NEGATIVE) Ur Oxycodone Screen (NEGATIVE) Urine Methadone Screen (NEGATIVE) Ur Propoxyphene Screen (NEGATIVE) Ur Barbiturates Screen (NEGATIVE) Ur Tricyclics Screen (NEGATIVE) Ur Phencyclidine Scrn (NEGATIVE) Ur Amphetamine Screen (NEGATIVE) U Methamphetamines Scrn (NEGATIVE) U Benzodiazepines Scrn (NEGATIVE) U Cocaine Metab Screen (NEGATIVE) U Marijuana (THC) Screen (NEGATIVE) Ethyl Alcohol (0.00) gm% Med Orders - Current: Current Medications Albuterol/Ipratropium (Duoneb 3.0-0.5 Mg/3 Ml) 3 ml NEB Q4H PRN PRN Reason: Shortness Of Breath/wheezing Bisacodyl (Dulcolax) 5 mg PO DAILY PRN PRN Reason: Constipation Clonidine HCl (Catapres) 0.1 mg PO Q4H PRN PRN Reason: Agitation Last Admin: 01/12/18 18:15 Dose: 0.1 mg Docusate Sodium (Colace) 100 mg PO BID PRN PRN Reason: Constipation Famotidine (Pepcid) 20 mg PO Q12H MARCELA Last Admin: 01/13/18 06:10 Dose: 20 mg Folic Acid (Folic Acid) 1 mg PO DAILY MARCELA Stop: 01/15/18 09:01 Last Admin: 01/13/18 08:01 Dose: 1 mg Haloperidol Lactate (Haldol) 2 mg IM Q4H PRN PRN Reason: Agitation Last Admin: 01/12/18 19:10 Dose: 2 mg Hydralazine HCl (Apresoline) 20 mg IVPUSH Q4H PRN PRN Reason: Hypertension Last Admin: 01/13/18 08:09 Dose: 20 mg Hydromorphone HCl (Dilaudid) 0.5 mg IVPUSH Q2H PRN PRN Reason: Pain (severe 7-10) Sodium Chloride (Normal Saline) 1,000 mls @ 125 mls/hr IV ASDIRECTED [facility] Last Admin: 01/13/18 02:18 Dose: 125 mls/hr Ibuprofen (Motrin) 400 mg PO Q6H PRN PRN Reason: Pain (mild 1-3) Lorazepam (Ativan) 2 mg IVPUSH Q4H PRN PRN Reason: Seizures Lorazepam (Ativan) 0 mg IVPUSH Q4H PRN; Protocol PRN Reason: Withdrawal Symptoms Last Admin: 01/12/18 23:44 Dose: 2 mg Magnesium Sulfate (Pharmacy To Dose - Magnesium Replacement) 1 dose .XX ASDIRECTED [facility] Metoprolol Tartrate (Lopressor) 5 mg IVPUSH Q4H PRN PRN Reason: Tachycardia Miscellaneous Information (Remove Patch) 1 ea TRDERM DAILY PRN PRN Reason: patch Multivitamins (Thera) 1 each PO DAILY [facility] Last Admin: 01/13/18 08:01 Dose: 1 each Nicotine (Habitrol) 21 mg TRDERM DAILY PRN PRN Reason: Nicotine Dependence Ondansetron HCl (Zofran) 4 mg IV Q6H PRN PRN Reason: Nausea/Vomiting Oxycodone HCl (Oxycodone) 5 mg PO Q4H PRN PRN Reason: Pain (moderate 4-6) Pantoprazole Sodium (Protonix) 40 mg PO ACBREAKFAST [facility] Last Admin: 01/13/18 06:10 Dose: 40 mg Polyethylene Glycol (Miralax) 17 gm PO DAILY PRN PRN Reason: Constipation Potassium Chloride (Pharmacy To Dose - Potassium Replacement) 1 dose .XX ASDIRECTED [facility] Quetiapine Fumarate (Seroquel) 50 mg PO BEDTIME [facility] Senna/Docusate Sodium (Senna Plus) 1 tab PO BID PRN PRN Reason: Constipation Sodium Chloride (Saline Flush) 10 ml FLUSH ASDIRECTED PRN PRN Reason: Keep Vein Open Last Admin: 01/12/18 14:53 Dose: 10 ml Thiamine HCl (Vitamin B-1) 100 mg PO DAILY [facility] Last Admin: 01/13/18 08:01 Dose: 100 mg Topiramate (Topamax) 25 mg PO BID MARCELA Last Admin: 01/13/18 08:01 Dose: 25 mg Discontinued Medications Diphenhydramine HCl (Benadryl) 25 mg IVPUSH ONETIME ONE Stop: 01/12/18 17:06 Last Admin: 01/12/18 18:13 Dose: 25 mg Folic Acid (Folic Acid) 1 mg SUBCUT ONETIME ONE Stop: 01/12/18 16:57 Last Admin: 01/12/18 18:40 Dose: 1 mg Sodium Chloride (Normal Saline) 1,000 mls @ 1,000 mls/hr IV .BOLUS MARCELA Last Admin: 01/12/18 14:51 Dose: 1,000 mls/hr Sodium Chloride (Normal Saline) 1,000 mls @ 1,000 mls/hr IV ONETIME ONE Stop: 01/12/18 16:51 Last Admin: 01/12/18 15:59 Dose: 1,000 mls/hr Magnesium Sulfate/Dextrose 1 (gm/ Premix) 100 mls @ 100 mls/hr IV ONETIME ONE Stop: 01/12/18 17:13 Last Admin: 01/12/18 16:26 Dose: Not Given Magnesium Sulfate 2 gm/ Premix 50 mls @ 25 mls/hr IV ONETIME ONE Stop: 01/12/18 18:18 Last Admin: 01/12/18 16:24 Dose: 25 mls/hr Magnesium Sulfate (Magnesium Sulfate 2 Gm In Water 50 Ml) 50 mls @ 25 mls/hr IV Q2H MARCELA Stop: 01/12/18 21:14 Last Admin: 01/12/18 20:36 Dose: 25 mls/hr Thiamine HCl 100 mg/ Sodium (Chloride) 51 mls @ 100 mls/hr IV ONETIME ONE Stop: 01/12/18 17:26 Last Admin: 01/12/18 19:09 Dose: 100 mls/hr Lorazepam (Ativan) 2 mg IVPUSH ONETIME ONE Stop: 01/12/18 14:28 Last Admin: 01/12/18 14:55 Dose: 2 mg Lorazepam (Ativan) 0 mg IVPUSH ONETIME ONE; Protocol Stop: 01/12/18 15:51 Last Admin: 01/12/18 16:00 Dose: 1 mg Lorazepam (Ativan) 0 mg IVPUSH ASDIRECTED MARCELA; Protocol Last Admin: 01/12/18 16:47 Dose: 3 mg Nicotine (Habitrol) 21 mg TRDERM ONETIME ONE Stop: 01/12/18 15:16 Last Admin: 01/12/18 15:44 Dose: 21 mg Ondansetron HCl (Zofran) 4 mg IVPUSH ONETIME ONE Stop: 01/12/18 14:29 Last Admin: 01/12/18 14:51 Dose: 4 mg Pantoprazole Sodium (Protonix Iv) 40 mg IVPUSH ONETIME ONE Stop: 01/12/18 16:57 Last Admin: 01/12/18 18:32 Dose: 40 mg Potassium Chloride (Klor-Con M20) 40 meq PO Q4H MARCELA Stop: 01/12/18 21:01 Last Admin: 01/12/18 21:25 Dose: Not Given Quetiapine Fumarate (Seroquel) 50 mg PO ONETIME ONE Stop: 01/12/18 17:05 Last Admin: 01/12/18 18:12 Dose: 50 mg Topiramate (Topamax) 25 mg PO NOW STA Stop: 01/12/18 17:04 Last Admin: 01/12/18 18:12 Dose: 25 mg - My Orders Last 24 Hours: My Active Orders 01/12/18 16:48 LORazepam [Ativan] 2 mg IVPUSH Q4H PRN LORazepam [Ativan] See Protocol IVPUSH Q4H PRN Metoprolol Tartrate [Lopressor] 5 mg IVPUSH Q4H PRN Nicotine [Habitrol] 21 mg TRDERM DAILY PRN hydrALAZINE [Apresoline] 20 mg IVPUSH Q4H PRN 01/12/18 16:56 Height and Weight [RC] 0400 Oxygen Therapy [RC] PRN Up With Assistance [RC] ASDIRECTED Up ad Brandy [RC] ASDIRECTED VTE/DVT Education [RC] PER UNIT ROUTINE Vital Signs [RC] Q4HR Consult to Case Management/Security Operations Center Analyst [CONS] Routine Consult to Physician [CONS] Routine Consult to Spiritual Care [CONS] Routine Albuterol/Ipratropium [DuoNeb 3.0-0.5 MG/3 ML] 3 ml NEB Q4H PRN Bisacodyl [Dulcolax] 5 mg PO DAILY PRN Docusate Sodium [Colace] 100 mg PO BID PRN Docusate Sodium/Sennosides [Senna Plus] 1 tab PO BID PRN HYDROmorphone [Dilaudid] 0.5 mg IVPUSH Q2H PRN Haloperidol Lactate [Haldol] 2 mg IM Q4H PRN Ibuprofen [Motrin] 400 mg PO Q6H PRN Ondansetron [Zofran] 4 mg IV Q6H PRN Polyethylene Glycol 3350 [MiraLAX] 17 gm PO DAILY PRN cloNIDine [Catapres] 0.1 mg PO Q4H PRN oxyCODONE 5 mg PO Q4H PRN Seizure Precautions [OM.PC] Routine Resuscitation Status Routine 01/12/18 16:57 CIWAA Assessment [RC] Q1H Cardiac Monitoring [RC] CONTINUOUS Intake and Output [RC] 04,16 Notify Provider Vital Signs [RC] ASDIRECTED Notify Provider [RC] PRN Sequential Compression Device [OM.PC] Per Unit Routine 01/12/18 16:59 Notify Provider Consults [RC] ASDIRECTED RT Aerosol Therapy [RC] ASDIRECTED 01/12/18 17:00 Magnesium Rep Pharmacy to Dose [Pharmacy to Dose - Magnesium Replacement] 1 dose .XX ASDIRECTED Potassium Rep Pharmacy to Dose [Pharmacy to Dose - Potassium Replacement] 1 dose .XX ASDIRECTED Sodium Chloride 0.9% [Normal Saline] 1,000 ml IV ASDIRECTED 01/12/18 17:23 Consult for Substance Abuse [CONS] Routine 01/12/18 17:29 Remove Patch 1 ea TRDERM DAILY PRN 01/12/18 Dinner Regular Diet [DIET] 01/13/18 06:00 Pantoprazole [ProTONIX] 40 mg PO ACBREAKFAST 01/13/18 07:00 Famotidine [Pepcid] 20 mg PO Q12H 01/13/18 09:00 Folic Acid 1 mg PO DAILY Multivitamins,Therapeutic [Thera] 1 each PO DAILY Thiamine [Vitamin B-1] 100 mg PO DAILY Topiramate [Topamax] 25 mg PO BID 01/13/18 21:00 QUEtiapine [SEROquel] 50 mg PO BEDTIME 01/14/18 05:11 COMPREHENSIVE METABOLIC PN,CMP [CHEM] AM MAGNESIUM [CHEM] AM 01/15/18 05:11 COMPREHENSIVE METABOLIC PN,CMP [CHEM] AM MAGNESIUM [CHEM] AM 01/16/18 05:11 COMPREHENSIVE METABOLIC PN,CMP [CHEM] AM MAGNESIUM [CHEM] AM 01/17/18 05:11 COMPREHENSIVE METABOLIC PN,CMP [CHEM] AM MAGNESIUM [CHEM] AM - Plan Plan:: Assessment/Plan: Acute: ETOH Withdrawal Symptoms - LORNE is 0 - CIWA protocol: CIWA score is markedly elevated - Ativan/Seroquel/Clonidine/Topamax - Hydralazine and IVP BB for HR/BP control - Ativan for Abortive Seizure and Withdrawal Symptoms - He wants to get better Alcoholic Hepatitis/Transaminitis - AST 160 and ALT 107 - Avoid Tylenol - IV fluids Hx/o Poly-Substance Abuse - UDS: pending - Carries a hx/o Marijuana Use; THC pos on UDS 12/27/2017 - Counseled on Substance Abuse - SA/Psych consult Tobacco Dependence - Smokes 1/2 a pack per day - Nicotine patch daily - Counseled on Smoking Cessation Mild Hypokalemia - K 3.2 - 2/2 Inadequate intake - Replete and monitor Moderate Hypomagnesemia - Mg 0.8 - 2/2 Inadequate intake - Replete and monitor Chronic ETOH Abuse - CIWA protocol - Ativan/Topamax Plan: Admit to ICU MVI, Folic Acid and Thiamine CIWA protocol Ativan for Abortive Seizure and Withdrawal Symptoms PRN meds for Withdrawal Symptoms Seizure Precautions DVT and GI: SCDs, PPIx 1 then H2B in AM BID SW/CM d/c planning SA/Psych consult Code Status: 1
[2018-01-13] MEDS ORDERED: Topiramate 25 MG Tab PO SCH (09:00)
[2018-01-13] MEDS ORDERED: Thiamine 100 MG Tab PO SCH (09:00)
[2018-01-13] MEDS ORDERED: Folic Acid 1 MG Tab PO SCH (09:00)
[2018-01-13] MEDS ORDERED: Multivitamins,Therapeutic Tab PO SCH (09:00)
[2018-01-13 09:38] VITALS: BP 149/96
--- NOTE | 2018-01-13 11:35 | PCM.DCSUM1 ---
Discharge Summary - Hospital Course Brief History: This is a 32 yo white male with past medical hx/o chronic alcohol use who comes in via ambulance for alcohol detoxification. He was arrested last night and spend sometime in [facility] but he started to get sick at about 1300 today. He reports nausea, vomiting, tremors and visual/auditory hallucinations. Patient is , unemployed and a known heavy drinker with both beer and hard liquor. He was initially seen in ED a few weeks ago but left without getting full treatment. Early this year in June, he sought care in ED for detoxification but eloped before was moved to the unit for further treatment. He smokes 1/2 a pack a day but denies illicit drug use. His initial work up in ED shows a CBC remarkable for Platelet count of 145, Neutrophils of 79.5%, Lymphocytes of 8.1%, and Eosinophils of 0.6%. Her chemistry is significant for K of 3.3, AG of 16.3, Glucose of 111, Magnesium of 0.8, Total Bilirubin of 2, AST of 160, ALT of 107 and Alk phos of 134. His LORNE level is pending. Patient is being admitted for acute alcohol withdrawal. He is full code. Diagnosis: Stroke: No Modified Grimes Scale: No Symptoms at All Modified Grimes Scale Score: 0 - Discharge Data Discharge Date: 01/13/18 Discharge Disposition: Against Medical Advice 07 Condition: Fair - Discharge Diagnosis/Problem(s) (1) Alcohol abuse SNOMED Code(s): 19340664 ICD Code: F10.10 - ALCOHOL ABUSE, UNCOMPLICATED Status: Acute (2) Alcohol withdrawal delirium SNOMED Code(s): 4767044 ICD Code: F10.231 - ALCOHOL DEPENDENCE WITH WITHDRAWAL DELIRIUM Status: Acute (3) Substance abuse or dependence SNOMED Code(s): 15400116 ICD Code: OTL5674 - Status: Chronic - Patient Summary/Data Operative Procedure(s) Performed: None Complications: Unknown Consults: Consultations 01/12/18 16:56 Consult to Case Management/[employer] Sales Consultant [CONS] Routine Consult to Physician [CONS] Routine Consult to Spiritual Care [CONS] Routine 01/12/18 17:23 Consult for Substance Abuse [CONS] Routine Labs Pending at D/C: None Recommended Follow-up Testing/Procedures: None Planned Operative Procedure(s) after DC: None Hospital Course: Patient was admitted for alcohol detoxification. He was put on [facility] protocol and he responded to the treatment. He had an uneventful night. However, he decided to leave against medical advice even when he was not medically cleared. - Discharge Plan Home Medications: Home Meds Omeprazole 20 mg PO DAILY 12/31/17 [History] Referrals: Vinay Feliz Jr, MD [Primary Care Provider] - - Discharge Summary/Plan Comment Discharge Summary/Plan Comment: Patient left AMA - General Info Date of Service: 01/13/18 Admission Dx/Problem (Free Text: ETOH Detox Subjective Update: Follow Up - Review of Systems Systems Review Comment: ROS unable to obtain. Patient left AMA - Patient Data Vitals - Most Recent: Last Vital Signs Temp 36.7 C 01/13/18 08:00 Pulse 117 H 01/13/18 10:13 Resp 18 01/13/18 10:13 BP 149/96 H 01/13/18 10:13 Pulse Ox 97 01/13/18 10:13 Weight - Most Recent: 75.75 kg I&O - Last 24 hours: Intake & Output 01/12/18 01/13/18 01/13/18 22:59 06:59 14:59 Intake Total 150 1840 776 Output Total 500 1500 500 Balance -350 340 276 Lab Results - Last 24 hrs: Laboratory Results - last 24 hr 01/12/18 01/12/18 01/12/18 Range/Units 15:00 15:00 18:03 WBC 8.77 (4.23-9.07) K/mm3 RBC 4.71 (4.63-6.08) M/mm3 Hgb 14.8 (13.7-17.5) gm/L Hct 42.9 (40.1-51.0) % MCV 91.1 (79.0-92.2) fl MCH 31.4 (25.7-32.2) pg MCHC 34.5 (32.2-35.5) g/dl RDW Std Deviation 42.6 (35.1-43.9) fL Plt Count 145 L (163-337) K/mm3 MPV 10.6 (9.4-12.3) fl Neut % (Auto) 79.5 H (34.0-67.9) % Lymph % (Auto) 8.1 L (21.8-53.1) % [place] % (Auto) 11.1 (5.3-12.2) % Eos % (Auto) 0.6 L (0.8-7.0) Baso % (Auto) 0.5 (0.1-1.2) % Neut # (Auto) 6.98 H (1.78-5.38) K/mm3 Lymph # (Auto) 0.71 L (1.32-3.57) K/mm3 [place] # (Auto) 0.97 H (0.30-0.82) K/mm3 Eos # (Auto) 0.05 (0.04-0.54) K/mm3 Baso # (Auto) 0.04 (0.01-0.08) K/mm3 Manual Slide Review Normal smear Sodium 140 (136-145) mEq/L Potassium 3.3 L (3.5-5.1) mEq/L Chloride 100 (98-107) mEq/L Carbon Dioxide 27 (21-32) mEq/L Anion Gap 16.3 H (5-15) BUN 9 (7-18) mg/dL Creatinine 0.9 (0.7-1.3) mg/dL Est Cr Clr Drug Dosing 127.33 mL/min Estimated GFR (MDRD) > 60 (>60) mL/min BUN/Creatinine Ratio 10.0 L (14-18) Glucose 111 H (74-106) mg/dL Calcium 9.2 (8.5-10.1) mg/dL Magnesium 0.8 L (1.8-2.4) mg/dl Total Bilirubin 2.0 H (0.2-1.0) mg/dL AST 160 H (15-37) U/L ALT 107 H (16-63) U/L Alkaline Phosphatase 134 H (46-116) U/L Total Protein 7.3 (6.4-8.2) g/dl Albumin 3.9 (3.4-5.0) g/dl Globulin 3.4 gm/dL Albumin/Globulin Ratio 1.2 (1-2) Urine Opiates Screen Negative (NEGATIVE) Ur Buprenorphine Scrn Negative (NEGATIVE) Ur Oxycodone Screen Negative (NEGATIVE) Urine Methadone Screen Negative (NEGATIVE) Ur Propoxyphene Screen Negative (NEGATIVE) Ur Barbiturates Screen Negative (NEGATIVE) Ur Tricyclics Screen Negative (NEGATIVE) Ur Phencyclidine Scrn Negative (NEGATIVE) Ur Amphetamine Screen Presumptive positive H (NEGATIVE) U Methamphetamines Scrn Presumptive positive H (NEGATIVE) U Benzodiazepines Scrn Presumptive positive H (NEGATIVE) U Cocaine Metab Screen Negative (NEGATIVE) U Marijuana (THC) Screen Negative (NEGATIVE) Ethyl Alcohol 0.00 (0.00) gm% 01/12/18 01/13/18 01/13/18 Range/Units 21:10 06:05 06:05 WBC 6.87 (4.23-9.07) K/mm3 RBC 4.35 L (4.63-6.08) M/mm3 Hgb 13.8 (13.7-17.5) gm/L Hct 40.7 (40.1-51.0) % MCV 93.6 H (79.0-92.2) fl MCH 31.7 (25.7-32.2) pg MCHC 33.9 (32.2-35.5) g/dl RDW Std Deviation 44.0 H (35.1-43.9) fL Plt Count 114 L (163-337) K/mm3 MPV 11.4 (9.4-12.3) fl Neut % (Auto) 73.7 H (34.0-67.9) % Lymph % (Auto) 15.0 L (21.8-53.1) % [place] % (Auto) 9.6 (5.3-12.2) % Eos % (Auto) 1.3 (0.8-7.0) Baso % (Auto) 0.3 (0.1-1.2) % Neut # (Auto) 5.06 (1.78-5.38) K/mm3 Lymph # (Auto) 1.03 L (1.32-3.57) K/mm3 [place] # (Auto) 0.66 (0.30-0.82) K/mm3 Eos # (Auto) 0.09 (0.04-0.54) K/mm3 Baso # (Auto) 0.02 (0.01-0.08) K/mm3 Manual Slide Review Sodium 137 139 (136-145) mEq/L Potassium 3.7 3.7 (3.5-5.1) mEq/L Chloride 103 105 (98-107) mEq/L Carbon Dioxide 26 25 (21-32) mEq/L Anion Gap 11.7 12.7 (5-15) BUN 9 7 (7-18) mg/dL Creatinine 0.8 0.8 (0.7-1.3) mg/dL Est Cr Clr Drug Dosing 143.24 140.72 mL/min Estimated GFR (MDRD) > 60 > 60 (>60) mL/min BUN/Creatinine Ratio 11.3 L 8.8 L (14-18) Glucose 91 101 (74-106) mg/dL Calcium 8.5 8.1 L (8.5-10.1) mg/dL Magnesium 1.9 (1.8-2.4) mg/dl Total Bilirubin 1.8 H (0.2-1.0) mg/dL AST 124 H (15-37) U/L ALT 87 H (16-63) U/L Alkaline Phosphatase 118 H (46-116) U/L Total Protein 6.4 (6.4-8.2) g/dl Albumin 3.2 L (3.4-5.0) g/dl Globulin 3.2 gm/dL Albumin/Globulin Ratio 1.0 (1-2) Urine Opiates Screen (NEGATIVE) Ur Buprenorphine Scrn (NEGATIVE) Ur Oxycodone Screen (NEGATIVE) Urine Methadone Screen (NEGATIVE) Ur Propoxyphene Screen (NEGATIVE) Ur Barbiturates Screen (NEGATIVE) Ur Tricyclics Screen (NEGATIVE) Ur Phencyclidine Scrn (NEGATIVE) Ur Amphetamine Screen (NEGATIVE) U Methamphetamines Scrn (NEGATIVE) U Benzodiazepines Scrn (NEGATIVE) U Cocaine Metab Screen (NEGATIVE) U Marijuana (THC) Screen (NEGATIVE) Ethyl Alcohol (0.00) gm% Med Orders - Current: Current Medications Discontinued Medications Albuterol/Ipratropium (Duoneb 3.0-0.5 Mg/3 Ml) 3 ml NEB Q4H PRN PRN Reason: Shortness Of Breath/wheezing Bisacodyl (Dulcolax) 5 mg PO DAILY PRN PRN Reason: Constipation Clonidine HCl (Catapres) 0.1 mg PO Q4H PRN PRN Reason: Agitation Last Admin: 01/12/18 18:15 Dose: 0.1 mg Diphenhydramine HCl (Benadryl) 25 mg IVPUSH ONETIME ONE Stop: 01/12/18 17:06 Last Admin: 01/12/18 18:13 Dose: 25 mg Docusate Sodium (Colace) 100 mg PO BID PRN PRN Reason: Constipation Famotidine (Pepcid) 20 mg PO Q12H MARCELA Last Admin: 01/13/18 06:10 Dose: 20 mg Folic Acid (Folic Acid) 1 mg PO DAILY MARCELA Stop: 01/15/18 09:01 Last Admin: 01/13/18 08:01 Dose: 1 mg Folic Acid (Folic Acid) 1 mg SUBCUT ONETIME ONE Stop: 01/12/18 16:57 Last Admin: 01/12/18 18:40 Dose: 1 mg Haloperidol Lactate (Haldol) 2 mg IM Q4H PRN PRN Reason: Agitation Last Admin: 01/12/18 19:10 Dose: 2 mg Hydralazine HCl (Apresoline) 20 mg IVPUSH Q4H PRN PRN Reason: Hypertension Last Admin: 01/13/18 08:09 Dose: 20 mg Hydromorphone HCl (Dilaudid) 0.5 mg IVPUSH Q2H PRN PRN Reason: Pain (severe 7-10) Sodium Chloride (Normal Saline) 1,000 mls @ 1,000 mls/hr IV .BOLUS [facility] Last Admin: 01/12/18 14:51 Dose: 1,000 mls/hr Sodium Chloride (Normal Saline) 1,000 mls @ 1,000 mls/hr IV ONETIME ONE Stop: 01/12/18 16:51 Last Admin: 01/12/18 15:59 Dose: 1,000 mls/hr Magnesium Sulfate/Dextrose 1 (gm/ Premix) 100 mls @ 100 mls/hr IV ONETIME ONE Stop: 01/12/18 17:13 Last Admin: 01/12/18 16:26 Dose: Not Given Magnesium Sulfate 2 gm/ Premix 50 mls @ 25 mls/hr IV ONETIME ONE Stop: 01/12/18 18:18 Last Admin: 01/12/18 16:24 Dose: 25 mls/hr Magnesium Sulfate (Magnesium Sulfate 2 Gm In Water 50 Ml) 50 mls @ 25 mls/hr IV Q2H MARCELA Stop: 01/12/18 21:14 Last Admin: 01/12/18 20:36 Dose: 25 mls/hr Sodium Chloride (Normal Saline) 1,000 mls @ 125 mls/hr IV ASDIRECTED [facility] Last Admin: 01/13/18 02:18 Dose: 125 mls/hr Thiamine HCl 100 mg/ Sodium (Chloride) 51 mls @ 100 mls/hr IV ONETIME ONE Stop: 01/12/18 17:26 Last Admin: 01/12/18 19:09 Dose: 100 mls/hr Ibuprofen (Motrin) 400 mg PO Q6H PRN PRN Reason: Pain (mild 1-3) Lorazepam (Ativan) 2 mg IVPUSH ONETIME ONE Stop: 01/12/18 14:28 Last Admin: 01/12/18 14:55 Dose: 2 mg Lorazepam (Ativan) 0 mg IVPUSH ONETIME ONE; Protocol Stop: 01/12/18 15:51 Last Admin: 01/12/18 16:00 Dose: 1 mg Lorazepam (Ativan) 0 mg IVPUSH ASDIRECTED [facility]; Protocol Last Admin: 01/12/18 16:47 Dose: 3 mg Lorazepam (Ativan) 2 mg IVPUSH Q4H PRN PRN Reason: Seizures Lorazepam (Ativan) 0 mg IVPUSH Q4H PRN; Protocol PRN Reason: Withdrawal Symptoms Last Admin: 01/12/18 23:44 Dose: 2 mg Magnesium Sulfate (Pharmacy To Dose - Magnesium Replacement) 1 dose .XX ASDIRECTED [facility] Metoprolol Tartrate (Lopressor) 5 mg IVPUSH Q4H PRN PRN Reason: Tachycardia Last Admin: 01/13/18 09:35 Dose: 5 mg Miscellaneous Information (Remove Patch) 1 ea TRDERM DAILY PRN PRN Reason: patch Multivitamins (Thera) 1 each PO DAILY [facility] Last Admin: 01/13/18 08:01 Dose: 1 each Nicotine (Habitrol) 21 mg TRDERM ONETIME ONE Stop: 01/12/18 15:16 Last Admin: 01/12/18 15:44 Dose: 21 mg Nicotine (Habitrol) 21 mg TRDERM DAILY PRN PRN Reason: Nicotine Dependence Ondansetron HCl (Zofran) 4 mg IVPUSH ONETIME ONE Stop: 01/12/18 14:29 Last Admin: 01/12/18 14:51 Dose: 4 mg Ondansetron HCl (Zofran) 4 mg IV Q6H PRN PRN Reason: Nausea/Vomiting Oxycodone HCl (Oxycodone) 5 mg PO Q4H PRN PRN Reason: Pain (moderate 4-6) Pantoprazole Sodium (Protonix) 40 mg PO ACBREAKFAST [facility] Last Admin: 01/13/18 06:10 Dose: 40 mg Pantoprazole Sodium (Protonix Iv) 40 mg IVPUSH ONETIME ONE Stop: 01/12/18 16:57 Last Admin: 01/12/18 18:32 Dose: 40 mg Polyethylene Glycol (Miralax) 17 gm PO DAILY PRN PRN Reason: Constipation Potassium Chloride (Pharmacy To Dose - Potassium Replacement) 1 dose .XX ASDIRECTED [facility] Potassium Chloride (Klor-Con M20) 40 meq PO Q4H [facility] Stop: 01/12/18 21:01 Last Admin: 01/12/18 21:25 Dose: Not Given Quetiapine Fumarate (Seroquel) 50 mg PO ONETIME ONE Stop: 01/12/18 17:05 Last Admin: 01/12/18 18:12 Dose: 50 mg Quetiapine Fumarate (Seroquel) 50 mg PO BEDTIME [facility] Senna/Docusate Sodium (Senna Plus) 1 tab PO BID PRN PRN Reason: Constipation Sodium Chloride (Saline Flush) 10 ml FLUSH ASDIRECTED PRN PRN Reason: Keep Vein Open Last Admin: 01/12/18 14:53 Dose: 10 ml Thiamine HCl (Vitamin B-1) 100 mg PO DAILY [facility] Last Admin: 01/13/18 08:01 Dose: 100 mg Topiramate (Topamax) 25 mg PO BID [facility] Last Admin: 01/13/18 08:01 Dose: 25 mg Topiramate (Topamax) 25 mg PO NOW STA Stop: 01/12/18 17:04 Last Admin: 01/12/18 18:12 Dose: 25 mg - Exam Physical Findings Comments:: Physical exam unable to perform. Patient left AMA.
[2018-01-13] MEDS ORDERED: QUEtiapine 25 MG Tab PO SCH (21:00)
== END 2018-01-13 10:05 | disposition left against medical advice (07) | DRG 894 ==
LOC: SUPCPDRO 13:50 → JD.ED 13:50 → JD.ICU 16:53
PROVIDERS: ADMIT Internal Medicine; ATTEND Internal Medicine
DX: F10.231 Alcohol dependence with withdrawal delirium (principal); F17.200 Nicotine dependence, unspecified, uncomplicated; Z91.19 Patient's noncompliance with other medical treatment and regimen; K70.10 Alcoholic hepatitis without ascites; E87.6 Hypokalemia; E83.42 Hypomagnesemia; G47.30 Sleep apnea, unspecified; N42.9 Disorder of prostate, unspecified; G43.909 Migraine, unspecified, not intractable, without status migrainosus; Z87.11 Personal history of peptic ulcer disease; Z79.899 Other long term (current) drug therapy
CPT/HCPCS: 36415; 80048; 80053; 80306; 83735; 85025; 96361; 96365; 96375; 96376; 99285-25; A9270-GY; C9113; G0480; J0360; J1200; J1630; J2060; J2405; J3411; J3475; J3490; J7030; J7040; J7050

== ENCOUNTER 2018-08-30 22:47 | Emergency (ER) | payer MEDICAID, OTHER ==
[2018-08-30 22:56] VITALS: BP 162/89
[2018-08-30] MEDS ORDERED: Sodium Chloride 0.9% 10 ML Syringe FLUSH PRN (23:28)
[2018-08-30] MEDS ORDERED: Sodium Chloride 0.9% 1,000 ML IV STA (23:28)
[2018-08-30] MEDS ORDERED: Ondansetron 4 MG/2 ML SDV IVPUSH ONE (23:28)
[2018-08-30] MEDS ORDERED: Ketorolac 30 MG/ML SDV IVPUSH ONE (23:29)
--- NOTE | 2018-08-31 00:15 | EDM.PDOC ---
ED HPI GENERAL MEDICAL PROBLEM - General Chief Complaint: Abdominal Pain Stated Complaint: LEFT SIDE PAIN Time Seen by Provider: 08/30/18 23:07 Source of Information: Reports: Patient History Limitations: Reports: Intoxication - History of Present Illness INITIAL COMMENTS - FREE TEXT/NARRATIVE: The patient presents with generalized abdominal pain, nausea and vomiting. The patient says this started today. He says he is supposed to get his gallbladder and kidney stones removed on September 05 in [place]. He is an alcoholic and has been here multiple times and had elevated blood alcohol levels about 0.4. He does admit to drinking today. He has no fever, chills, cough, chest pain or shortness of breath. Onset: Gradual Duration: Hour(s): Location: Reports: Abdomen Quality: Reports: Sharp Severity: Moderate Improves with: Reports: None Worsens with: Reports: None Associated Symptoms: Reports: Nausea/Vomiting. Denies: Chest Pain, Cough, Fever /Chills, Headaches, Shortness of Breath Abdomen Pain Score (Numeric/FACES): 10 - Related Data Allergies Allergy/AdvReac Type Severity Reaction Status Date / Time No Known Allergies Allergy Verified 04/18/18 13:51 Home Meds: Home Meds Omeprazole 20 mg PO DAILY 04/18/18 [History] Ranitidine HCl [Zantac] 1 tab PO DAILY 08/30/18 [History] Past Medical History HEENT History: Reports: Other (See Below) Other HEENT History: Maxofacial surgery to repair right socket Cardiovascular History: Reports: None, Other (See Below) Other Cardiovascular History: seen for chest pains Respiratory History: Reports: Sleep Apnea Gastrointestinal History: Reports: Gastritis, GERD, PUD Other Gastrointestinal History: stomach ulcer Genitourinary History: Reports: Prostate Disorder, Other (See Below) Other Genitourinary History: prostate disease [employer]DER History: Reports: None Musculoskeletal History: Reports: Fracture Other Musculoskeletal History: ankle Neurological History: Reports: Migraines Psychiatric History: Reports: Addiction Endocrine/Metabolic History: Reports: None Hematologic History: Reports: None Immunologic History: Reports: None Oncologic (Cancer) History: Reports: None Dermatologic History: Reports: None - Infectious Disease History Infectious Disease History: Reports: Chicken Pox - Past Surgical History Head Surgeries/Procedures: Reports: None HEENT Surgical History: Reports: Tonsillectomy, Other (See Below) Cardiovascular Surgical History: Reports: None GI Surgical History: Reports: EGD, Hernia, Abdominal Endocrine Surgical History: Reports: None Oncologic Surgical History: Reports: None Dermatological Surgical History: Reports: None Social & Family History - Family History Family Medical History: Noncontributory - Tobacco Use Smoking Status *Q: Current Every Day Smoker Years of Tobacco use: 15 Packs/Tins Daily: 1 - Caffeine Use Caffeine Use: Reports: Coffee, Energy Drinks, Soda, Tea - Recreational Drug Use Recreational Drug Type: Reports: Marijuana/Hashish - Living Situation & Occupation Living situation: Reports: , Alone Occupation: Unemployed ED ROS GENERAL - Review of Systems Review Of Systems: See Below Constitutional: Reports: No Symptoms HEENT: Reports: No Symptoms Respiratory: Reports: No Symptoms Cardiovascular: Reports: No Symptoms Endocrine: Reports: No Symptoms GI/Abdominal: Reports: Abdominal Pain, Nausea, Vomiting. Denies: Diarrhea : Reports: No Symptoms Musculoskeletal: Reports: No Symptoms ED EXAM, GI/ABD - Physical Exam Exam: See Below Exam Limited By: Intoxication General Appearance: Alert, No Apparent Distress Ears: Normal External Exam Nose: Normal Inspection Head: Atraumatic, Normocephalic Neck: Normal Inspection Respiratory/Chest: No Respiratory Distress, Lungs Clear, Normal Breath Sounds Cardiovascular: Regular Rate, Rhythm, No Edema, No Murmur GI/Abdominal Exam: Soft, No Organomegaly, No Mass, Tender (Moderate generalized tenderness) Extremities: Normal Inspection Course - Vital Signs Last Recorded V/S: Last Vital Signs Temp 97.3 F 08/30/18 22:54 Pulse 106 H 08/30/18 22:54 Resp 20 08/30/18 22:54 BP 162/89 H 08/30/18 22:54 Pulse Ox 97 08/30/18 22:54 - Orders/Labs/Meds Orders: Active Orders 24 hr Category Date Time Status Peripheral IV Care [RC] . DIRECTED Care 08/30/18 23:29 Active Sodium Chloride 0.9% [Saline Flush] Med 08/30/18 23:28 Active 10 ml FLUSH ASDIRECTED PRN ED Antiemetic Medication Reflex [OM.PC] Stat Oth 08/30/18 23:29 Ordered Peripheral IV Insertion Adult [OM.PC] Stat Oth 08/30/18 23:28 Ordered Medication Orders Sodium Chloride (Saline Flush) 10 ml FLUSH ASDIRECTED PRN PRN Reason: Keep Vein Open Last Admin: 08/30/18 23:43 Dose: 10 ml Labs: Laboratory Tests 08/30/18 08/30/18 Range/Units 23:40 23:40 WBC 10.13 H (4.23-9.07) K/mm3 RBC 5.43 (4.63-6.08) M/mm3 Hgb 16.2 (13.7-17.5) gm/L Hct 47.2 (40.1-51.0) % MCV 86.9 (79.0-92.2) fl MCH 29.8 (25.7-32.2) pg MCHC 34.3 (32.2-35.5) g/dl RDW Std Deviation 41.8 (35.1-43.9) fL Plt Count 297 (163-337) K/mm3 MPV 10.4 (9.4-12.3) fl Neut % (Auto) 54.2 (34.0-67.9) % Lymph % (Auto) 34.6 (21.8-53.1) % [place] % (Auto) 8.5 (5.3-12.2) % Eos % (Auto) 1.9 (0.8-7.0) Baso % (Auto) 0.6 (0.1-1.2) % Neut # (Auto) 5.50 H (1.78-5.38) K/mm3 Lymph # (Auto) 3.50 (1.32-3.57) K/mm3 [place] # (Auto) 0.86 H (0.30-0.82) K/mm3 Eos # (Auto) 0.19 (0.04-0.54) K/mm3 Baso # (Auto) 0.06 (0.01-0.08) K/mm3 Sodium 150 H (136-145) mEq/L Potassium 3.6 (3.5-5.1) mEq/L Chloride 109 H (98-107) mEq/L Carbon Dioxide 28 (21-32) mEq/L Anion Gap 16.6 H (5-15) BUN 11 (7-18) mg/dL Creatinine 0.9 (0.7-1.3) mg/dL Est Cr Clr Drug Dosing 128.14 mL/min Estimated GFR (MDRD) > 60 (>60) mL/min BUN/Creatinine Ratio 12.2 L (14-18) Glucose 94 (74-106) mg/dL Calcium 8.8 (8.5-10.1) mg/dL Magnesium 1.8 (1.8-2.4) mg/dl Total Bilirubin 1.1 H (0.2-1.0) mg/dL AST 32 (15-37) U/L ALT 35 (16-63) U/L Alkaline Phosphatase 62 (46-116) U/L Total Protein 7.2 (6.4-8.2) g/dl Albumin 4.2 (3.4-5.0) g/dl Globulin 3.0 gm/dL Albumin/Globulin Ratio 1.4 (1-2) Ethyl Alcohol 0.35 (0.00) gm% Meds: Medications Generic Name Dose Route Start Last Admin Trade Name Freq PRN Reason Stop Dose Admin Sodium Chloride 10 ml 08/30/18 23:28 08/30/18 23:43 Saline Flush FLUSH 10 ml ASDIRECTED PRN Administration Keep Vein Open Discontinued Medications Generic Name Dose Route Start Last Admin Trade Name Freq PRN Reason Stop Dose Admin Sodium Chloride 1,000 mls @ 1,000 mls/hr 08/30/18 23:28 08/30/18 23:42 Normal Saline IV 08/31/18 00:27 1,000 mls/hr .BOLUS STA Administration Ketorolac Tromethamine 30 mg 08/30/18 23:29 08/30/18 23:44 Toradol IVPUSH 08/30/18 23:30 30 mg ONETIME ONE Administration Ondansetron HCl 4 mg 08/30/18 23:28 08/30/18 23:43 Zofran IVPUSH 08/30/18 23:29 4 mg ONETIME ONE Administration - Re-Assessments/Exams Free Text/Narrative Re-Assessment/Exam: 08/31/18 00:29 I ordered an IV NS 1L bolus, labs, zofran 4mg IV and toradol 30mg IV. His WBC was slightly elevated at 10.13. His Na was low at 150. His anion gap was elevated at 16.6. His blood alcohol was elevated at 0.35. I will discharge him home when he can get a ride. Departure - Departure Time of Disposition: 00:35 Disposition: Home, Self-Care 01 Condition: Good Clinical Impression: Abdominal pain, Alcohol abuse Alcohol intoxication Qualifiers: Complication of substance-induced condition: uncomplicated Qualified Code(s): F10.920 - Alcohol use, unspecified with intoxication, uncomplicated - Discharge Information *PRESCRIPTION DRUG MONITORING PROGRAM REVIEWED*: Not Applicable *COPY OF PRESCRIPTION DRUG MONITORING REPORT IN PATIENT MAYURI: Not Applicable Referrals: PCP,None [Primary Care Provider] - Forms: ED Department Discharge Additional Instructions: Go home and rest. Take tylenol or motrin for pain. Do not drink alcohol. If you need help stopping call [facility] at [phone] for help. - My Orders Last 24 Hours: My Active Orders 08/30/18 23:28 Sodium Chloride 0.9% [Saline Flush] 10 ml FLUSH ASDIRECTED PRN Peripheral IV Insertion Adult [OM.PC] Stat 08/30/18 23:29 Peripheral IV Care [RC] . DIRECTED ED Antiemetic Medication Reflex [OM.PC] Stat - Assessment/Plan Last 24 Hours: My Active Orders 08/30/18 23:28 Sodium Chloride 0.9% [Saline Flush] 10 ml FLUSH ASDIRECTED PRN Peripheral IV Insertion Adult [OM.PC] Stat 08/30/18 23:29 Peripheral IV Care [RC] . DIRECTED ED Antiemetic Medication Reflex [OM.PC] Stat
== END 2018-08-31 04:48 | disposition home or self-care (01) ==
LOC: JD.ED 22:47
DX: F10.920 Alcohol use, unspecified with intoxication, uncomplicated (principal); F17.210 Nicotine dependence, cigarettes, uncomplicated; Y90.8 Blood alcohol level of 240 mg/100 ml or more; Z79.899 Other long term (current) drug therapy
CPT/HCPCS: 36415; 80053; 83735; 85025; 96361; 96374; 96375; 99284; G0480; J1885; J2405; J7040

== ENCOUNTER 2018-09-11 16:05 | Emergency (ER) | payer MEDICAID ==
[2018-09-11 16:42] VITALS: BP 160/96
[2018-09-11] MEDS ORDERED: Sodium Chloride 0.9% 10 ML Syringe FLUSH PRN (17:02)
[2018-09-11] MEDS ORDERED: Ondansetron 4 MG/2 ML SDV IVPUSH ONE (17:02)
[2018-09-11] MEDS ORDERED: Ketorolac 30 MG/ML SDV IVPUSH ONE (17:02)
--- NOTE | 2018-09-11 17:07 | EDM.PDOC ---
ED HPI GENERAL MEDICAL PROBLEM - General Chief Complaint: Gastrointestinal Problem Stated Complaint: ABDOMINAL PAIN Time Seen by Provider: 09/11/18 16:33 Source of Information: Reports: Patient, RN Notes Reviewed History Limitations: Reports: No Limitations - History of Present Illness INITIAL COMMENTS - FREE TEXT/NARRATIVE: Patient is a 32-year-old male who presents to the ED for the evaluation of abdominal pain. This patient is well-known to the ER for alcohol abuse. The patient states he was supposed to have his gallbladder taken out on September 05, and he went to [facility] September 02 to have his preop workup done, after the workup was done he decided not to go through with the gallbladder removal. He states that Dr. Tatum did the preop workup, and that he was to have an appointment with Dr. Alexia Vila for follow-up, or that she was his surgeon. He states that he got a call back this last weekend from [place] in regards to his blood work and CT done on the , and he states he was diagnosed with pancreatic cancer. So he started drinking again. He states that he enjoyed a 97 days sobriety, prior to this. He notes his abdominal pain to be 10 out of 10 today, he notes this pain to be in his entire left abdomen. 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 He states that he only drank a total of 3 shooters of 99 bananas today. The patient states he has been vomiting all day and all night, he's been trying to drink fluids other than alcohol, but these are not staying down. He denies any diarrhea at this time. He states he had a bowel movement this morning, however it was hard. He further notes he is a smoker, uses alcohol, but denies any further drug use. Abdominal Pain Score (Numeric/FACES): 10 - Related Data Allergies Allergy/AdvReac Type Severity Reaction Status Date / Time No Known Allergies Allergy Verified 09/11/18 16:35 Home Meds: Home Meds Omeprazole 20 mg PO DAILY 04/18/18 [History] Ranitidine HCl [Zantac] 1 tab PO DAILY 08/30/18 [History] Past Medical History HEENT History: Reports: Other (See Below) Other HEENT History: Maxofacial surgery to repair right socket Cardiovascular History: Reports: None, Other (See Below) Other Cardiovascular History: seen for chest pains Respiratory History: Reports: Sleep Apnea Gastrointestinal History: Reports: Gastritis, GERD, PUD Other Gastrointestinal History: stomach ulcer Genitourinary History: Reports: Prostate Disorder, Other (See Below) Other Genitourinary History: prostate disease RETAIL FINANCIAL 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 Musculoskeletal History: Reports: Fracture Other Musculoskeletal History: ankle Neurological History: Reports: Migraines Psychiatric History: Reports: Addiction Endocrine/Metabolic History: Reports: None Hematologic History: Reports: None Immunologic History: Reports: None Oncologic (Cancer) History: Reports: None Dermatologic History: Reports: None - Infectious Disease History Infectious Disease History: Reports: Chicken Pox - Past Surgical History Head Surgeries/Procedures: Reports: None HEENT Surgical History: Reports: Tonsillectomy, Other (See Below) Cardiovascular Surgical History: Reports: None GI Surgical History: Reports: EGD, Hernia, Abdominal Endocrine Surgical History: Reports: None Oncologic Surgical History: Reports: None Dermatological Surgical History: Reports: None Social & Family History - Family History Family Medical History: Noncontributory - Tobacco Use Smoking Status *Q: Current Every Day Smoker Years of Tobacco use: 14 Packs/Tins Daily: 0.4 - Caffeine Use Caffeine Use: Reports: None - Alcohol Use Date of Last Drink: 09/11/18 Time of Last Drink: 16:00 - Recreational Drug Use Recreational Drug Use: No - Living Situation & Occupation Living situation: Reports: , Alone Occupation: Unemployed ED ROS GENERAL - Review of Systems Review Of Systems: See Below Constitutional: Denies: Fever, Chills HEENT: Reports: No Symptoms Respiratory: Reports: No Symptoms Cardiovascular: Reports: No Symptoms Endocrine: Reports: No Symptoms GI/Abdominal: Reports: Abdominal Pain (left sided, generalized) : Reports: No Symptoms Musculoskeletal: Reports: No Symptoms Skin: Reports: No Symptoms Neurological: Reports: No Symptoms Psychiatric: Reports: No Symptoms Hematologic/Lymphatic: Reports: No Symptoms Immunologic: Reports: No Symptoms ED EXAM, GI/ABD - Physical Exam Exam: See Below Exam Limited By: Intoxication General Appearance: Alert, WD/WN, No Apparent Distress Eyes: Bilateral: Normal Appearance Ears: Normal External Exam Nose: Normal Inspection Throat/Mouth: Normal Inspection, Normal Lips, Normal Teeth, Normal Gums, Normal Oropharynx, Normal Voice, No Airway Compromise Head: Atraumatic, Normocephalic Neck: Normal Inspection Respiratory/Chest: No Respiratory Distress, Lungs Clear, Normal Breath Sounds, No Accessory Muscle Use, Chest Non-Tender Cardiovascular: Normal Peripheral Pulses, Regular Rate, Rhythm, No Murmur GI/Abdominal Exam: Normal Bowel Sounds, Soft, Tender (generalized left sided) Extremities: Normal Inspection, Normal Range of Motion, Normal Capillary Refill Neurological: Alert, Oriented, Normal Gait, No Motor/Sensory Deficits Psychiatric: Normal Affect, Normal Mood Skin Exam: Warm, Dry, Intact, Normal Color, No Rash Course - Vital Signs Last Recorded V/S: Last Vital Signs Temp 99.5 F 09/11/18 16:35 Pulse 134 H 09/11/18 16:35 Resp 20 09/11/18 16:35 BP 160/96 H 09/11/18 16:35 Pulse Ox 93 L 09/11/18 16:35 - Orders/Labs/Meds Orders: Active Orders 24 hr Category Date Time Status Peripheral IV Care [RC] . DIRECTED Care 09/11/18 17:02 Ordered Sodium Chloride 0.9% [Normal Saline] 1,000 ml Med 09/11/18 17:15 Ordered IV ASDIRECTED Sodium Chloride 0.9% [Saline Flush] Med 09/11/18 17:02 Ordered 10 ml FLUSH ASDIRECTED PRN Peripheral IV Insertion Adult [OM.PC] Routine Oth 09/11/18 17:02 Ordered Medication Orders Sodium Chloride (Normal Saline) 1,000 mls @ 500 mls/hr IV ASDIRECTED MARCELA Last Admin: 09/11/18 17:51 Dose: 500 mls/hr Sodium Chloride (Saline Flush) 10 ml FLUSH ASDIRECTED PRN PRN Reason: Keep Vein Open Last Admin: 09/11/18 17:51 Dose: 10 ml Labs: Laboratory Tests 09/11/18 09/11/18 Range/Units 17:45 17:45 WBC 10.82 H (4.23-9.07) K/mm3 RBC 5.30 (4.63-6.08) M/mm3 Hgb 15.7 (13.7-17.5) gm/L Hct 44.6 (40.1-51.0) % MCV 84.2 (79.0-92.2) fl MCH 29.6 (25.7-32.2) pg MCHC 35.2 (32.2-35.5) g/dl RDW Std Deviation 41.8 (35.1-43.9) fL Plt Count 98 L (163-337) K/mm3 MPV 11.3 (9.4-12.3) fl Neutrophils % (Manual) 62 H (40-60) % Band Neutrophils % 0 (0-10) % Lymphocytes % (Manual) 26 (20-40) % Atypical Lymphs % 0 % Monocytes % (Manual) 11 H (2-10) % Eosinophils % (Manual) 0 L (0.8-7.0) % Basophils % (Manual) 1 (0.2-1.2) Platelet Estimate Decreased Plt Morphology Comment See note RBC Morph Comment Normal Sodium 143 (136-145) mEq/L Potassium 3.1 L (3.5-5.1) mEq/L Chloride 100 (98-107) mEq/L Carbon Dioxide 27 (21-32) mEq/L Anion Gap 19.1 H (5-15) BUN 12 (7-18) mg/dL Creatinine 1.0 (0.7-1.3) mg/dL Est Cr Clr Drug Dosing 114.60 mL/min Estimated GFR (MDRD) > 60 (>60) mL/min BUN/Creatinine Ratio 12.0 L (14-18) Glucose 122 H (74-106) mg/dL Calcium 8.6 (8.5-10.1) mg/dL Total Bilirubin 1.1 H (0.2-1.0) mg/dL AST 113 H (15-37) U/L ALT 105 H (16-63) U/L Alkaline Phosphatase 102 (46-116) U/L Total Protein 7.0 (6.4-8.2) g/dl Albumin 4.0 (3.4-5.0) g/dl Globulin 3.0 gm/dL Albumin/Globulin Ratio 1.3 (1-2) Lipase 340 (73-393) U/L Ethyl Alcohol 0.37 (0.00) gm% Meds: Medications Generic Name Dose Route Start Last Admin Trade Name Freq PRN Reason Stop Dose Admin Sodium Chloride 1,000 mls @ 500 mls/hr 09/11/18 17:15 09/11/18 17:51 Normal Saline IV 500 mls/hr ASDIRECTED MARCELA Administration Sodium Chloride 10 ml 09/11/18 17:02 09/11/18 17:51 Saline Flush FLUSH 10 ml ASDIRECTED PRN Administration Keep Vein Open Discontinued Medications Generic Name Dose Route Start Last Admin Trade Name Erica PRN Reason Stop Dose Admin Ketorolac Tromethamine 30 mg 09/11/18 17:02 09/11/18 17:50 Toradol IVPUSH 09/11/18 17:03 30 mg ONETIME ONE Administration Ondansetron HCl 4 mg 09/11/18 17:02 09/11/18 17:49 Zofran IVPUSH 09/11/18 17:03 4 mg ONETIME ONE Administration - Re-Assessments/Exams Free Text/Narrative Re-Assessment/Exam: 09/11/18 17:16 Patient presents to the ED for the evaluation of abdominal pain. He does state that he was diagnosed with pancreatic cancer, however he told admitting that he was diagnosed with stage II, and told the triage nurse stage III. I have asked the award clerk to try to obtain records from [facility] so we can understand better what his diagnosis may be. I have ordered a CBC, CMP, lipase , blood alcohol level, IV fluids, 30 mg IV Toradol, and 4 mg Zofran for management. 09/11/18 17:53 Our award clerk was unable to obtain records from [facility] as they are and central time, and were already closed for the day. 09/11/18 18:45 Patient's labs are done, and do not demonstrate any acute abnormalities other than the fact that his blood alcohol level is 0.37. The RN informs me that if we are not going to take his gallbladder out the patient requests that he leave. At this point in time I do not have anything that would need to keep him in the hospital any longer. I will try to make sure that he receives this liter of fluids, and then he will be discharged home with his friend. Departure - Departure Time of Disposition: 18:47 Disposition: Home, Self-Care 01 Condition: Fair Clinical Impression: Alcohol abuse Abdominal pain Qualifiers: Abdominal location: epigastric Qualified Code(s): R10.13 - Epigastric pain - Discharge Information *PRESCRIPTION DRUG MONITORING PROGRAM REVIEWED*: No *COPY OF PRESCRIPTION DRUG MONITORING REPORT IN PATIENT MAYURI: No Instructions: Abdominal Pain, Adult, Alcohol Use Disorder, Alcohol Abuse and Nutrition Forms: ED Department Discharge Additional Instructions: You have been evaluated in the ED today for abdominal pain. Your labs were essentially within normal limits, you were slightly dehydrated. You have received some IV fluids in the ER for this. Recommend that you increase your oral fluid intake, such as water, or Gatorade over the next 24-48 hours. Also recommend that you refrain from drinking alcohol as this will not help your dehydration. Please return to the ED if your symptoms should change or worsen. - My Orders Last 24 Hours: My Active Orders 09/11/18 17:02 Peripheral IV Care [RC] . DIRECTED Sodium Chloride 0.9% [Saline Flush] 10 ml FLUSH ASDIRECTED PRN Peripheral IV Insertion Adult [OM.PC] Routine 09/11/18 17:15 Sodium Chloride 0.9% [Normal Saline] 1,000 ml IV ASDIRECTED - Assessment/Plan Last 24 Hours: My Active Orders 09/11/18 17:02 Peripheral IV Care [RC] . DIRECTED Sodium Chloride 0.9% [Saline Flush] 10 ml FLUSH ASDIRECTED PRN Peripheral IV Insertion Adult [OM.PC] Routine 09/11/18 17:15 Sodium Chloride 0.9% [Normal Saline] 1,000 ml IV ASDIRECTED
[2018-09-11] MEDS ORDERED: Sodium Chloride 0.9% 1,000 ML IV SCH (17:15)
== END 2018-09-11 18:51 | disposition home or self-care (01) ==
LOC: JD.ED 16:05
DX: R10.13 Epigastric pain (principal); F10.229 Alcohol dependence with intoxication, unspecified; K21.9 Gastro-esophageal reflux disease without esophagitis; Y90.8 Blood alcohol level of 240 mg/100 ml or more; Z98.890 Other specified postprocedural states; Z79.899 Other long term (current) drug therapy
CPT/HCPCS: 36415; 80053; 83690; 85007; 85027; 96361; 96374; 96375; 99284; G0480; J1885; J2405; J7040

== ENCOUNTER 2018-09-18 11:33 | Emergency (ER) | payer MEDICAID ==
[2018-09-18 11:46] VITALS: BP 152/100
[2018-09-18] MEDS ORDERED: Rivaroxaban 10 MG Tab PO ONE (12:02)
--- NOTE | 2018-09-18 12:17 | EDM.PDOC ---
ED HPI GENERAL MEDICAL PROBLEM - General Chief Complaint: Cardiovascular Problem Stated Complaint: LEG SWOLLEN SENT BY CLINIC Time Seen by Provider: 09/18/18 11:43 Source of Information: Reports: Patient History Limitations: Reports: No Limitations - History of Present Illness INITIAL COMMENTS - FREE TEXT/NARRATIVE: 32 y/o male presents to ER with cc left lower leg pain for the past 3 days. He states his lower calf started swelling and has become more painful over the past 3 days. He went to the [facility] today had a ultrasound that revealed a DVT. He was sent to ER for further evaluation and treatment. He denies chest pain or SOB. He denies any recent travel, no family history of DVT. He admits to being a smoker and a drinker. Onset Date: 09/15/18 Onset Time: 09:00 Duration: Getting Worse Location: Reports: Lower Extremity, Left Quality: Reports: Ache Severity: Mild Improves with: Reports: None Worsens with: Reports: None Associated Symptoms: Denies: Chest Pain, Cough, Nausea/Vomiting, Shortness of Breath Right Lower Leg Pain Score (Numeric/FACES): 10 - Related Data Allergies Allergy/AdvReac Type Severity Reaction Status Date / Time No Known Allergies Allergy Verified 09/18/18 11:42 Home Meds: Home Meds Omeprazole 20 mg PO DAILY 04/18/18 [History] Ranitidine HCl [Zantac] 1 tab PO DAILY 08/30/18 [History] Past Medical History HEENT History: Reports: Other (See Below) Other HEENT History: Maxofacial surgery to repair right socket Cardiovascular History: Reports: None, Other (See Below) Other Cardiovascular History: seen for chest pains Respiratory History: Reports: Sleep Apnea Gastrointestinal History: Reports: Gastritis, GERD, PUD Other Gastrointestinal History: stomach ulcer Genitourinary History: Reports: Prostate Disorder, Other (See Below) Other Genitourinary History: prostate disease 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 Musculoskeletal History: Reports: Fracture Other Musculoskeletal History: ankle Neurological History: Reports: Migraines Psychiatric History: Reports: Addiction Endocrine/Metabolic History: Reports: None Hematologic History: Reports: None Immunologic History: Reports: None Oncologic (Cancer) History: Reports: None Dermatologic History: Reports: None - Infectious Disease History Infectious Disease History: Reports: Chicken Pox - Past Surgical History Head Surgeries/Procedures: Reports: None HEENT Surgical History: Reports: Tonsillectomy, Other (See Below) Cardiovascular Surgical History: Reports: None GI Surgical History: Reports: EGD, Hernia, Abdominal Endocrine Surgical History: Reports: None Oncologic Surgical History: Reports: None Dermatological Surgical History: Reports: None Social & Family History - Family History Family Medical History: Noncontributory - Tobacco Use Smoking Status *Q: Current Every Day Smoker Years of Tobacco use: 15 Packs/Tins Daily: 1 - Caffeine Use Caffeine Use: Reports: Coffee, Energy Drinks - Alcohol Use Date of Last Drink: 09/17/18 - Recreational Drug Use Recreational Drug Use: No - Living Situation & Occupation Living situation: Reports: , Alone Occupation: Unemployed ED ROS GENERAL - Review of Systems Review Of Systems: See Below Constitutional: Denies: Fever, Chills HEENT: Reports: No Symptoms Respiratory: Denies: Shortness of Breath Cardiovascular: Denies: Chest Pain Endocrine: Reports: No Symptoms GI/Abdominal: Reports: Abdominal Pain (history of pancreatitis ) : Reports: No Symptoms Musculoskeletal: Reports: Leg Pain (left calf pain and swelling) Skin: Reports: No Symptoms Neurological: Reports: No Symptoms Psychiatric: Reports: No Symptoms Hematologic/Lymphatic: Reports: No Symptoms Immunologic: Reports: No Symptoms ED EXAM, GENERAL - Physical Exam Exam: See Below Exam Limited By: No Limitations General Appearance: Alert, WD/WN, No Apparent Distress Respiratory/Chest: No Respiratory Distress, Lungs Clear, Normal Breath Sounds, No Accessory Muscle Use, Chest Non-Tender Cardiovascular: Normal Peripheral Pulses, Regular Rate, Rhythm, No Gallop, No JVD, No Murmur, No Rub Peripheral Pulses: 4+: Popliteal (L), Popliteal (R), Dorsalis Pedis (L), Dorsalis Pedis (R) Back Exam: Normal Inspection, Full Range of Motion Extremities: Normal Inspection, Normal Range of Motion, Normal Capillary Refill , Other (left inner calf moderate swelling, tender to touch, neurvascularly intact.) Neurological: Alert, Oriented, CN II-XII Intact, Normal Cognition, Normal Gait Psychiatric: Normal Affect, Normal Mood Course - Vital Signs Last Recorded V/S: Last Vital Signs Temp 98.7 F 09/18/18 11:43 Pulse 84 09/18/18 11:43 Resp 20 09/18/18 11:43 BP 152/100 H 09/18/18 11:43 Pulse Ox 99 05/20/19 11:43 - Orders/Labs/Meds Labs: Laboratory Tests 09/18/18 Range/Units 13:00 PT 14.7 H D (9.5-12.1) SECONDS INR 1.36 Meds: Medications Discontinued Medications Generic Name Dose Route Start Last Admin Trade Name Erica PRN Reason Stop Dose Admin Hydrocodone Bitart/Acetaminophen 1 tab 09/18/18 12:34 09/18/18 12:42 Manter 325-5 Mg PO 09/18/18 12:35 1 tab ONETIME ONE Administration Rivaroxaban 15 mg 09/18/18 12:02 09/18/18 12:25 Xarelto PO 09/18/18 12:03 15 mg ONETIME ONE Administration - Re-Assessments/Exams Free Text/Narrative Re-Assessment/Exam: 09/18/18 12:27 32 y/o male presented to ER with cc left lower calf pain for the past 3 days. His ultrasound revealed left superficial femoral vein is occluded from its distal region into the calf veins. Acute DVT would have this appearance. I offered a choice of Coumadin Lovenox or Xarelto. He states he can't do shot and doesn't want to have to watch what he eats and doesn't want to do frequent blood test. I will discharge home with Xarelto 15 mg BID for 21 days then 20 mg daily. I instructed him no alcohol or NSAIDS while taking this medication. I educated him to use a soft tooth brush and electric razor. I informed him of bleeding precautions and suggested he wear a medical alert bracelet while taking this medication. Patient denies any form of cancer or pancreatic cancer. Apparently during a recent visit he told the staff he had pancreatic cancer. He states "he was drunk and stupid when he made this comment." I instructed him to follow up with his PCP. Instructed to return to the ER for any new or acute worsening symptoms. Patient verbalized understanding and is comfortable with plan for discharge. 09/18/18 13:36 INR 1.36 I will discharge with above instructions. Patient verbalized understanding and is comfortable with plan. Departure - Departure Time of Disposition: 13:36 Disposition: Home, Self-Care 01 Condition: Good Clinical Impression: Deep vein thrombophlebitis of lower leg Qualifiers: Laterality: left Qualified Code(s): I80.202 - Phlebitis and thrombophlebitis of unspecified deep vessels of left lower extremity Instructions: Bleeding Precautions When on Anticoagulant Therapy, Adult, Deep Vein Thrombosis Referrals: PCP,None [Primary Care Provider] - Nancy Lindo PA-C [Physician Electronic Prepress Technician] - Forms: ED Department Discharge Additional Instructions: You have been diagnosis with left lower leg deep vein thrombosis. You are to take Xarelto as prescribed. Do not drink alcohol, take any form of NSAIDS including Ibuprofen, Motrin, Aleve, Naprosyn etc. You should use a soft toothbrush and electric razor. This medication with result in bruising easily. You should consider wearing a med-alert bracelet stating you are on this medication. Follow up with your PCP. Return to the ER for any new or acute worsening symptoms.
[2018-09-18] MEDS ORDERED: Acetaminophen/HYDROcodone 325-5 MG Tab PO ONE (12:34)
== END 2018-09-18 13:50 | disposition home or self-care (01) ==
LOC: JD.ED 11:33
DX: I82.4Z2 Acute embolism and thrombosis of unspecified deep veins of left distal lower extremity (principal); K21.9 Gastro-esophageal reflux disease without esophagitis; F17.210 Nicotine dependence, cigarettes, uncomplicated; Z79.899 Other long term (current) drug therapy; Z98.890 Other specified postprocedural states
CPT/HCPCS: 36415; 85610; 99284; A9270

== ENCOUNTER 2018-09-25 16:36 | Emergency (ER) | payer MEDICAID ==
[2018-09-25 16:52] VITALS: BP 156/93
--- NOTE | 2018-09-25 17:10 | EDM.PDOC ---
ED HPI GENERAL MEDICAL PROBLEM - General Chief Complaint: Lower Extremity Injury/Pain Stated Complaint: L LEG SWELLING Time Seen by Provider: 09/25/18 17:05 Source of Information: Reports: Family (friend) History Limitations: Reports: No Limitations - History of Present Illness INITIAL COMMENTS - FREE TEXT/NARRATIVE: 32-year-old male presents to the ED for review of left leg pain. He was diagnosed on Tuesday, September 18 with a DVT in his left superficial femoral vein that extends down to the calf veins compatible with a DVT. He was started on Zarelto 15 mg twice a day which she will take for the first 3 weeks and then 20 mg once daily. He has diffuse lower abdominal pain. 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 He was sober for 97 days but after he started developing problems with his gallbladder right upper quadrant he drank heavily for about a week. He has not drank at all since diagnosis of DVT. He was told that if he drinks with the Zaralto that it may make him very prone to a GI bleed and . Left leg pain with standing particularly in the workplace. He has found that he can ambulate but has to put his leg up quite often due to the pain in the calf and swelling. Also diffuse left sided abdominal pain is concerned that the clot is spreading. Patient reassured that if he's been taking the Xarelto as directed this will not occur. Especially since diagnosis was a week ago. Patient has been recently diagnosed with gallstones and surgeon wants to remove his gallbladder and perform a biopsy on his pancreas as they could see that there was an inflammation or mass on CT exam. This is now going to be have to be placed on hold since he is on blood thinners for DVT for the next 6 weeks. Of note vital signs show respiratory to 16 and sats of 90% on room air. Onset: Gradual Onset Date: 09/18/18 (Diagnosed with DVT left superficial femoral vein extending down to the calf veins week ago. No known injury or reason for development of DVT. Of note with history of possible mass in his pancreas DVT may be related to pancreatic carcinoma.) Duration: Day(s):, Other (Pain in his leg is slowly getting better. 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 ) Worsens with: Reports: Other (Prolonged standing.) Context: Denies: Activity, Exercise, Lifting, Sick Contact, Trauma Associated Symptoms: Reports: Cough, Nausea/Vomiting (Intermittent nausea. Vomiting). 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 ) Left Lower Leg Pain Score (Numeric/FACES): 8 - Related Data Allergies Allergy/AdvReac Type Severity Reaction Status Date / Time No Known Allergies Allergy Verified 09/25/18 16:49 Home Meds: Home Meds Omeprazole 20 mg PO DAILY 04/18/18 [History] Ranitidine HCl [Zantac] 1 tab PO DAILY 08/30/18 [History] Rivaroxaban [Xarelto] 15 mg PO BID 09/25/18 [History] Past Medical History HEENT History: Reports: Other (See Below) Other HEENT History: Maxofacial surgery to repair right socket Cardiovascular History: Reports: None, Other (See Below) Other Cardiovascular History: seen for chest pains Respiratory History: Reports: Sleep Apnea Gastrointestinal History: Reports: Gastritis, GERD, PUD, Other (See Below) ( Fairly recently diagnosed with gallbladder stones. 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 He is under the care of Dr. Vila surgeon and Dr. Alarcon--therapy manager. 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 Musculoskeletal History: Reports: Fracture Other Musculoskeletal History: ankle Neurological History: Reports: Migraines Psychiatric History: Reports: Addiction Endocrine/Metabolic History: Reports: None Hematologic History: Reports: None Immunologic History: Reports: None Oncologic (Cancer) History: Reports: None Dermatologic History: Reports: None - Infectious Disease History Infectious Disease History: Reports: Chicken Pox - Past Surgical History Head Surgeries/Procedures: Reports: None HEENT Surgical History: Reports: Tonsillectomy, Other (See Below) Cardiovascular Surgical History: Reports: None GI Surgical History: Reports: EGD, Hernia, Abdominal Endocrine Surgical History: Reports: None Oncologic Surgical History: Reports: None Dermatological Surgical History: Reports: None Social & Family History - Family History Family Medical History: Noncontributory - Tobacco Use Smoking Status *Q: Current Every Day Smoker Tobacco Use Within Last Twelve Months: Cigarettes (1 pack a day) Years of Tobacco use: 12 Packs/Tins Daily: 1 - Caffeine Use Caffeine Use: Reports: Coffee, Energy Drinks - Recreational Drug Use Recreational Drug Use: No - Living Situation & Occupation Living situation: Reports: , Alone Occupation: Unemployed Review of Systems - Review of Systems Review Of Systems: See Below Constitutional: Denies: Chills, Diaphoresis, Fever, Weakness, Other Eyes: Reports: No Symptoms Ears: Reports: No Symptoms Nose: Reports: No Symptoms Mouth/Throat: Reports: No Symptoms Respiratory: Reports: Cough Cardiovascular: Reports: No Symptoms GI/Abdominal: Reports: Abdominal Pain Genitourinary: Reports: No Symptoms (Diffuse left vero-abdominal discomfort.) Musculoskeletal: Reports: No Symptoms Skin: Reports: No Symptoms Neurological: Reports: No Symptoms Psychiatric: Reports: No Symptoms ED EXAM, GENERAL - Physical Exam Exam: See Below Exam Limited By: No Limitations General Appearance: WD/WN, Anxious Eye Exam: Bilateral Eye: Normal Inspection (No scleral icterus.) Throat/Mouth: Normal Inspection, Normal Lips, Normal Oropharynx Head: Atraumatic, Normocephalic Neck: Normal Inspection, Supple, Non-Tender, Full Range of Motion. No: Lymphadenopathy (L), Lymphadenopathy (R) Respiratory/Chest: No Respiratory Distress, Lungs Clear, Normal Breath Sounds, No Accessory Muscle Use, Chest Non-Tender Cardiovascular: Normal Peripheral Pulses, Regular Rate, Rhythm, No Edema, No Gallop, No Murmur, No Rub Peripheral Pulses: 3+: Posterior Tibial (L), Posterior Tibial (R), Dorsalis Pedis (L), Dorsalis Pedis (R) GI/Abdominal: Normal Bowel Sounds, Soft, Tender, Other (Negative Huffman sign at this time.). No: Guarding, Rigid (Tenderness throughout the left hemiabdomen and left lower quadrant without guarding or rebound.), Rebound Back Exam: Normal Inspection, Full Range of Motion, Other (No enlarged artery stenosis clinically.). No: CVA Tenderness (L), CVA Tenderness (R) Extremities: Other (Examination of his left lower extremity reveals pain along the superficial femoral artery with minimal swelling of the thigh. The calf itself is slightly edematous. However it is easily compressed with minimal tenderness. It is normal in color. Normal pulses to both feet) Psychiatric: Anxious Skin Exam: Warm, Dry, Intact, Normal Color, No Rash Course - Vital Signs Last Recorded V/S: Last Vital Signs Temp 36.6 C 09/25/18 16:46 Pulse 94 09/25/18 16:46 Resp 16 09/25/18 16:46 BP 156/93 H 09/25/18 16:46 Pulse Ox 100 09/25/18 16:46 - Orders/Labs/Meds Orders: Active Orders 24 hr Category Date Time Status Abdomen 1V Flat [CR] Stat Exams 09/25/18 17:02 Taken - Radiology Interpretation Free Text/Narrative:: 32-year-old male presents to the ED for review of left leg discomfort and pain after being diagnosed with a DVT involving the left superficial femoral vein extending down to the calf veins a week ago. He is currently on Xarelto 15mg twice daily for the first 3 weeks and then is to be transition to 20 mg daily to complete a normal 6 week therapy. Question is why he developed a DVT. There is some suggestion recent CT scans done in [place] diagnosing him with gallstones in need of cholecystectomy that he may have also had a mass in his pancreas. 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 If the pancreatic mass is in terms cancer this may be the cause of his DVT. Likely that he will not be able to have a cholecystectomy or pancreatic biopsy is planned until he is off the Xarelto. Risk of bleeding even on bridge therapy with Lovenox is pretty high. Plan at this time is a KUB to be done. - Re-Assessments/Exams Free Text/Narrative Re-Assessment/Exam: 09/25/18 17:55: KUB reveals no obvious other maladies. There is some increased stool throughout the colon particularly cecum and the splenic flexure of the colon and mildly in the descending colon. Patient reassured of the findings. Advised 60 g of MiraLAX powder mixed with 20 ounces of Gatorade or Powerade by mouth once which will provide bowel cleanse. 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 reassured that his DVT will reabsorb and resolve over the next week or 10 days. It will unfortunately delay any cholecystectomy or pancreatic biopsy was proposed by the surgeon in [place] until he is off blood thinners completely. Departure - Departure Time of Disposition: 17:49 Disposition: Home, Self-Care 01 Condition: Fair Clinical Impression: Constipation by delayed colonic transit Deep vein thrombosis (DVT) of left lower extremity Qualifiers: Affected thrombotic vein of extremity: femoral Chronicity: unspecified Qualified Code(s): I82.412 - Acute embolism and thrombosis of left femoral vein - Discharge Information *PRESCRIPTION DRUG MONITORING PROGRAM REVIEWED*: Not Applicable *COPY OF PRESCRIPTION DRUG MONITORING REPORT IN PATIENT MAYURI: Not Applicable Instructions: Constipation, Adult, Deep Vein Thrombosis Referrals: Nancy Lindo PA-C [Primary Care Provider] - Forms: ED Department Discharge, ED Return to Work/School Form Additional Instructions: Evaluation the emergency room today in regards to deep vein thrombosis left lower extremity diagnosed a week ago. You're currently being treated appropriately with xarelto 15 mg twice daily for the first 3 weeks and then be 20 mg tablet once weekly to complete at least 6 weeks of therapy. The leg itself is not showing any signs of severe venous obstruction at this time. It will certainly swelling start throbbing with prolonged standing which unfortunately your job involves. It is my suggestion therefore that you take the next week off to allow the clot to resolve a good deal this next 5 days and then go to work starting next Tuesday. X-ray of the abdomen shows no sign of his any abnormalities other than mild constipation with increased stool in the right lower quadrant and left upper quadrant abdomen. It would be my suggestions take 4 scoops of MiraLAX powder mixed in 20 ounces of Gatorade or Powerade once which will make her bowels move 2 or 3 times and clear up abdominal discomfort. As discussed you will have to follow-up with a primary care physician over at [facility] so that further studies can be done in organized as your gallbladder removal and proposed pancreatic biopsy will be canceled until you're off the blood clotting medications - My Orders Last 24 Hours: My Active Orders 09/25/18 17:02 Abdomen 1V Flat [CR] Stat - Assessment/Plan Last 24 Hours: My Active Orders 09/25/18 17:02 Abdomen 1V Flat [CR] Stat
--- NOTE | 2018-09-26 10:51 | CR ---
Abdomen: Supine view of the abdomen was obtained. Comparison: Prior abdominal x-ray of 02/10/09. Bowel gas pattern is normal. Bony structures are within normal limits for the patient's age. No abnormal calcifications or soft tissue abnormality is seen. Impression: 1. Nothing acute is seen on supine abdominal x-ray. Diagnostic code #1
== END 2018-09-25 18:01 | disposition home or self-care (01) ==
LOC: JD.ED 16:36
DX: I82.412 Acute embolism and thrombosis of left femoral vein (principal); K59.01 Slow transit constipation; F17.210 Nicotine dependence, cigarettes, uncomplicated; K21.9 Gastro-esophageal reflux disease without esophagitis; Z79.899 Other long term (current) drug therapy
CPT/HCPCS: 74018; 74018-26; 99283; 99283-25

== ENCOUNTER 2018-10-03 13:35 | Emergency (ER) | payer MEDICAID ==
[2018-10-03 13:52] VITALS: BP 157/90
--- NOTE | 2018-10-03 18:09 | US ---
Left lower extremity deep venous ultrasound: Duplex and color flow imaging was obtained of the left common femoral, proximal greater saphenous, superficial femoral, popliteal, posterior tibial and peroneal veins. Right common femoral vein was also evaluated. Comparison: Prior outside venous ultrasound of 09/18/18. Findings: Clot is identified within the distal superficial femoral vein, popliteal, posterior tibial and peroneal veins. This appears fairly stable from previous study. Impression: 1. Deep venous thrombosis as noted above. Diagnostic code #3
--- NOTE | 2018-10-03 18:49 | EDM.PDOC ---
ED HPI GENERAL MEDICAL PROBLEM - General Chief Complaint: Lower Extremity Injury/Pain Stated Complaint: LEFT LEG WILL NOT HEAL FROM BLOOD CLOT Time Seen by Provider: 10/03/18 14:05 - History of Present Illness INITIAL COMMENTS - FREE TEXT/NARRATIVE: 31-year-old male presents emergency room with continued pain in his left leg. Patient was diagnosed with a blood clot 10-12 days ago and his leg he started on the anticoagulant Zaralto taking 15 mg twice a day. He is also not drinking. Last week he tried the ascending work and yesterday hit pretty hard last night he noticed increased swelling and discomfort in the area. Patient has not experienced any worsening breathing difficulties no shortness of breath. Left Lower Leg Pain Score (Numeric/FACES): 8 - Related Data Allergies Allergy/AdvReac Type Severity Reaction Status Date / Time No Known Allergies Allergy Verified 10/03/18 13:52 Home Meds: Home Meds Omeprazole 20 mg PO DAILY 04/18/18 [History] Ranitidine HCl [Zantac] 1 tab PO DAILY 08/30/18 [History] Rivaroxaban [Xarelto] 15 mg PO BID 09/25/18 [History] Past Medical History HEENT History: Reports: Other (See Below) Other HEENT History: Maxofacial surgery to repair right socket Cardiovascular History: Reports: None, Other (See Below) Other Cardiovascular History: seen for chest pains Respiratory History: Reports: Sleep Apnea Gastrointestinal History: Reports: Gastritis, GERD, PUD, Other (See Below) Other Gastrointestinal History: stomach ulcer Genitourinary History: Reports: Prostate Disorder, Other (See Below) Other Genitourinary History: prostate disease CLAIMS 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 History: Reports: None Musculoskeletal History: Reports: Fracture Other Musculoskeletal History: ankle Neurological History: Reports: Migraines Psychiatric History: Reports: Addiction Endocrine/Metabolic History: Reports: None Hematologic History: Reports: None Immunologic History: Reports: None Oncologic (Cancer) History: Reports: None Dermatologic History: Reports: None - Infectious Disease History Infectious Disease History: Reports: Chicken Pox - Past Surgical History Head Surgeries/Procedures: Reports: None HEENT Surgical History: Reports: Tonsillectomy, Other (See Below) Cardiovascular Surgical History: Reports: None GI Surgical History: Reports: EGD, Hernia, Abdominal Endocrine Surgical History: Reports: None Oncologic Surgical History: Reports: None Dermatological Surgical History: Reports: None Social & Family History - Family History Family Medical History: Noncontributory - Caffeine Use Caffeine Use: Reports: Coffee, Energy Drinks - Recreational Drug Use Recreational Drug Use: No - Living Situation & Occupation Living situation: Reports: , Alone Occupation: Unemployed Review of Systems - Review of Systems Review Of Systems: See Below Constitutional: Reports: No Symptoms, Chills, Fever Eyes: Reports: No Symptoms Ears: Reports: No Symptoms Nose: Reports: No Symptoms Mouth/Throat: Reports: No Symptoms, Difficulty Swallowing Respiratory: Reports: No Symptoms. Denies: Shortness of Breath Cardiovascular: Reports: No Symptoms. Denies: Chest Pain GI/Abdominal: Reports: Abdominal Pain (Physical chronic condition for him) Genitourinary: Reports: No Symptoms Neurological: Reports: No Symptoms. Denies: Dizziness, Headache ED EXAM, GENERAL - Physical Exam Exam: See Below Exam Limited By: No Limitations General Appearance: Alert, No Apparent Distress Ears: Normal External Exam, Normal Canal, Hearing Grossly Normal, Normal TMs Nose: Normal Inspection, Normal Mucosa, No Blood Throat/Mouth: Normal Inspection, Normal Lips, Normal Teeth, Normal Gums, Normal Oropharynx, Normal Voice, No Airway Compromise Head: Atraumatic, Normocephalic Neck: Normal Inspection, Supple, Non-Tender, Full Range of Motion Respiratory/Chest: No Respiratory Distress, Lungs Clear, Normal Breath Sounds, No Accessory Muscle Use, Chest Non-Tender Cardiovascular: Normal Peripheral Pulses, Regular Rate, Rhythm, No Edema GI/Abdominal: Normal Bowel Sounds, Soft, No Distention, No Abnormal Bruit, No Mass, Other (He has some vague upper quadrant discomfort against this is normal for him he has cholecystitis and they don't do anything with him while he is on blood thinners) Course - Vital Signs Last Recorded V/S: Last Vital Signs Temp 37.1 C 10/03/18 13:49 Pulse 87 10/03/18 13:49 Resp 16 10/03/18 13:49 BP 157/90 H 10/03/18 13:49 Pulse Ox 97 10/03/18 13:49 - Orders/Labs/Meds Labs: Laboratory Tests 10/03/18 10/03/18 Range/Units 16:20 16:20 WBC 12.20 H (4.23-9.07) K/mm3 RBC 4.59 L (4.63-6.08) M/mm3 Hgb 13.8 D (13.7-17.5) gm/L Hct 41.7 (40.1-51.0) % MCV 90.8 D (79.0-92.2) fl MCH 30.1 (25.7-32.2) pg MCHC 33.1 (32.2-35.5) g/dl RDW Std Deviation 46.6 H (35.1-43.9) fL Plt Count 428 H D (163-337) K/mm3 MPV 10.3 (9.4-12.3) fl Neutrophils % (Manual) 66 H (40-60) % Band Neutrophils % 0 (0-10) % Lymphocytes % (Manual) 18 L (20-40) % Atypical Lymphs % 0 % Monocytes % (Manual) 9 (2-10) % Eosinophils % (Manual) 2 (0.8-7.0) % Basophils % (Manual) 5 H (0.2-1.2) Platelet Estimate Increased Plt Morphology Comment Normal RBC Morph Comment Normal Sodium 142 (136-145) mEq/L Potassium 3.9 (3.5-5.1) mEq/L Chloride 107 (98-107) mEq/L Carbon Dioxide 26 (21-32) mEq/L Anion Gap 12.9 (5-15) BUN 12 (7-18) mg/dL Creatinine 1.0 (0.7-1.3) mg/dL Est Cr Clr Drug Dosing TNP Estimated GFR (MDRD) > 60 (>60) mL/min BUN/Creatinine Ratio 12.0 L (14-18) Glucose 106 (74-106) mg/dL Calcium 9.5 (8.5-10.1) mg/dL Total Bilirubin 0.3 (0.2-1.0) mg/dL AST 15 (15-37) U/L ALT 24 (16-63) U/L Alkaline Phosphatase 59 (46-116) U/L Total Protein 6.6 (6.4-8.2) g/dl Albumin 3.8 (3.4-5.0) g/dl Globulin 2.8 gm/dL Albumin/Globulin Ratio 1.4 (1-2) Lipase 309 (73-393) U/L Departure - Departure Time of Disposition: 18:46 Disposition: Home, Self-Care 01 Clinical Impression: DVT of axillary vein, acute left - Discharge Information Instructions: Deep Vein Thrombosis Referrals: Nancy Lindo PA-C [Primary Care Provider] - Forms: ED Department Discharge, ED Return to Work/School Form Additional Instructions: Return to the emergency room with any questions problems worsening symptoms. Follow-up in the clinic on or Tuesday for recheck. Stay off your leg keep it elevated. Recheck in the clinic on Tuesday so they can help determine what safe for you to go back to work.
== END 2018-10-03 18:56 | disposition home or self-care (01) ==
LOC: JD.ED 13:35
DX: I82.A12 Acute embolism and thrombosis of left axillary vein (principal); Z79.899 Other long term (current) drug therapy; Z79.01 Long term (current) use of anticoagulants
CPT/HCPCS: 36415; 80053; 83690; 85007; 85027; 93971-26-LT; 93971-LT; 99284-25

== ENCOUNTER 2018-10-31 13:53 | Emergency (ER) | payer MEDICAID ==
[2018-10-31] MEDS ORDERED: Sodium Chloride 0.9% 1,000 ML IV SCH ×2 (15:00→16:30)
[2018-10-31 17:29] VITALS: BP 134/98
--- NOTE | 2018-11-01 09:12 | CR ---
Chest: Portable view of the chest was obtained. Comparison: Prior chest x-ray of 06/02/17. Heart size and mediastinum are normal. Lungs are clear. Bony structures are grossly intact. Impression: 1. Nothing acute is seen on portable chest x-ray. Diagnostic code #1
--- NOTE | 2018-11-01 15:58 | EDM.PDOC ---
ED HPI GENERAL MEDICAL PROBLEM - General Chief Complaint: Cardiovascular Problem Stated Complaint: [facility] Time Seen by Provider: 10/31/18 14:36 Source of Information: Reports: Patient, EMS, RN Notes Reviewed - History of Present Illness INITIAL COMMENTS - FREE TEXT/NARRATIVE: 32 year old male with hx of recent DVT LLE brought in by ambulance because of discomfort and discoloration fingers of right hand. At time of my evaluation about 30 minutes after arrival to ED the pain is gone and the discoloration is also gone. He states he is on xarelto and is currently taking 20 mg per day as prescribed. No chest pain or diffculty breathing at this time. He has been drinking alcohol. Left Lower Leg Pain Score (Numeric/FACES): 10 - Related Data Allergies Allergy/AdvReac Type Severity Reaction Status Date / Time No Known Allergies Allergy Verified 10/03/18 13:52 Home Meds: Home Meds Omeprazole 20 mg PO DAILY 04/18/18 [History] raNITIdine HCl [Zantac] 300 mg PO DAILY 08/30/18 [History] Rivaroxaban [Xarelto] 15 mg PO BID 09/25/18 [History] Past Medical History HEENT History: Reports: Other (See Below) Other HEENT History: Maxofacial surgery to repair right socket Cardiovascular History: Reports: None, Blood Clots/VTE/DVT, Other (See Below) Other Cardiovascular History: seen for chest pains Respiratory History: Reports: Sleep Apnea Gastrointestinal History: Reports: Gastritis, GERD, PUD, Other (See Below) Other Gastrointestinal History: stomach ulcer Genitourinary History: Reports: Prostate Disorder, Other (See Below) Other Genitourinary History: prostate disease 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 Musculoskeletal History: Reports: Fracture Other Musculoskeletal History: ankle Neurological History: Reports: Migraines Psychiatric History: Reports: Addiction Endocrine/Metabolic History: Reports: None Hematologic History: Reports: None Immunologic History: Reports: None Oncologic (Cancer) History: Reports: None Dermatologic History: Reports: None - Infectious Disease History Infectious Disease History: Reports: Chicken Pox - Past Surgical History Head Surgeries/Procedures: Reports: None HEENT Surgical History: Reports: Tonsillectomy, Other (See Below) Cardiovascular Surgical History: Reports: None GI Surgical History: Reports: EGD, Hernia, Abdominal Endocrine Surgical History: Reports: None Oncologic Surgical History: Reports: None Dermatological Surgical History: Reports: None Social & Family History - Family History Family Medical History: Noncontributory - Tobacco Use Smoking Status *Q: Never Smoker - Caffeine Use Caffeine Use: Reports: Coffee, Energy Drinks, Soda, Tea - Alcohol Use Number of Drinks Per Day: 2 - Recreational Drug Use Recreational Drug Use: No - Living Situation & Occupation Living situation: Reports: , Alone Occupation: Unemployed ED ROS GENERAL - Review of Systems Review Of Systems: See Below Constitutional: Denies: Fever, Chills, Diaphoresis HEENT: Reports: No Symptoms Respiratory: Denies: Shortness of Breath, Pleuritic Chest Pain Cardiovascular: Denies: Chest Pain GI/Abdominal: Denies: Abdominal Pain, Vomiting Musculoskeletal: Reports: Other (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 Denies: Leg Pain (no leg pain at this time) Skin: Reports: Other (he states there was darkness of distal index and middle fingers at home, now gone) ED EXAM, GENERAL - Physical Exam Exam: See Below General Appearance: Alert, Other (very intoxicated) Eye Exam: Bilateral Eye: PERRL Nose: Normal Inspection Throat/Mouth: Normal Inspection Head: Atraumatic. No: Facial Swelling Neck: Supple Respiratory/Chest: No Respiratory Distress, Lungs Clear, Normal Breath Sounds Cardiovascular: Regular Rate, Rhythm GI/Abdominal: Soft, Non-Tender Extremities: Normal Inspection, Normal Range of Motion, No Pedal Edema. No: Leg Pain, Redness Neurological: Alert, No Motor/Sensory Deficits Skin Exam: Warm, Dry, Normal Color, No Rash. No: Cyanosis, Jaundice Course - Vital Signs Last Recorded V/S: Last Vital Signs Temp 98.7 F 10/31/18 16:50 Pulse 84 10/31/18 16:50 Resp 18 10/31/18 16:50 BP 134/98 H 10/31/18 16:50 Pulse Ox 94 L 10/31/18 16:50 - Orders/Labs/Meds Orders: Active Orders 24 hr Category Date Time Status EKG 12 Lead [EKG Documentation Completion] [RC] STAT Care 10/31/18 14:56 Active Labs: Laboratory Tests 10/31/18 10/31/18 Range/Units 15:15 15:15 WBC 15.15 H (4.23-9.07) K/mm3 RBC 5.68 (4.63-6.08) M/mm3 Hgb 17.0 D (13.7-17.5) gm/L Hct 49.0 (40.1-51.0) % MCV 86.3 D (79.0-92.2) fl MCH 29.9 (25.7-32.2) pg MCHC 34.7 (32.2-35.5) g/dl RDW Std Deviation 43.4 (35.1-43.9) fL Plt Count 322 D (163-337) K/mm3 MPV 10.3 (9.4-12.3) fl Neut % (Auto) 62.2 (34.0-67.9) % Lymph % (Auto) 27.4 (21.8-53.1) % [place] % (Auto) 8.7 (5.3-12.2) % Eos % (Auto) 0.9 (0.8-7.0) Baso % (Auto) 0.5 (0.1-1.2) % Neut # (Auto) 9.43 H (1.78-5.38) K/mm3 Lymph # (Auto) 4.15 H (1.32-3.57) K/mm3 [place] # (Auto) 1.32 H (0.30-0.82) K/mm3 Eos # (Auto) 0.13 (0.04-0.54) K/mm3 Baso # (Auto) 0.08 (0.01-0.08) K/mm3 Sodium 147 H (136-145) mEq/L Potassium 3.5 (3.5-5.1) mEq/L Chloride 104 (98-107) mEq/L Carbon Dioxide 29 (21-32) mEq/L Anion Gap 17.5 H (5-15) BUN 9 (7-18) mg/dL Creatinine 1.1 (0.7-1.3) mg/dL Est Cr Clr Drug Dosing 104.84 mL/min Estimated GFR (MDRD) > 60 (>60) mL/min BUN/Creatinine Ratio 8.2 L (14-18) Glucose 96 (74-106) mg/dL Calcium 9.5 (8.5-10.1) mg/dL Total Bilirubin 0.9 (0.2-1.0) mg/dL AST 25 (15-37) U/L ALT 28 (16-63) U/L Alkaline Phosphatase 62 (46-116) U/L Total Protein 7.5 (6.4-8.2) g/dl Albumin 4.5 (3.4-5.0) g/dl Globulin 3.0 gm/dL Albumin/Globulin Ratio 1.5 (1-2) Ethyl Alcohol 0.31 (0.00) gm% Meds: Medications Discontinued Medications Generic Name Dose Route Start Last Admin Trade Name Erica PRN Reason Stop Dose Admin Sodium Chloride 1,000 mls @ 999 mls/hr 10/31/18 15:00 10/31/18 15:25 Normal Saline IV 999 mls/hr ONETIME MARCELA Administration Sodium Chloride 1,000 mls @ 999 mls/hr 10/31/18 16:30 10/31/18 16:25 Normal Saline IV 999 mls/hr ONETIME MARCELA Administration - Re-Assessments/Exams Free Text/Narrative Re-Assessment/Exam: 11/01/18 15:58 ETOH 0.31, WBC mildly elevated, labs otherwise mostly normal, anion gap 17.5. We did give 1 liter [address] and part way into the next when he requested to go home. Pt was allowed to sign out AMA, ambulatory without difficulty at that time. Departure - Departure Time of Disposition: 17:00 Disposition: Home, Self-Care 01 Clinical Impression: Alcohol intoxication Qualifiers: Complication of substance-induced condition: uncomplicated Qualified Code(s): F10.920 - Alcohol use, unspecified with intoxication, uncomplicated Referrals: Nancy Lindo PA-C [Primary Care Provider] - Forms: ED Department Discharge - My Orders Last 24 Hours: My Active Orders 10/31/18 14:56 EKG 12 Lead [EKG Documentation Completion] [RC] STAT - Assessment/Plan Last 24 Hours: My Active Orders 10/31/18 14:56 EKG 12 Lead [EKG Documentation Completion] [RC] STAT
== END 2018-10-31 16:50 | disposition home or self-care (01) ==
LOC: JD.ED 13:53 → SUPCPDRO 13:53 → JD.ED 16:50
DX: F10.220 Alcohol dependence with intoxication, uncomplicated (principal); K21.9 Gastro-esophageal reflux disease without esophagitis; Z79.899 Other long term (current) drug therapy; Z86.718 Personal history of other venous thrombosis and embolism; Z87.11 Personal history of peptic ulcer disease; Z98.890 Other specified postprocedural states; Y90.8 Blood alcohol level of 240 mg/100 ml or more
CPT/HCPCS: 36415; 71045; 80053; 85025; 93005; 96360; 99284; G0480; J7040

== ENCOUNTER 2018-12-23 14:25 | Emergency (ER) | payer MEDICAID ==
[2018-12-23 14:39] VITALS: BP 147/100
[2018-12-23] MEDS ORDERED: Sodium Chloride 0.9% 1,000 ML IV ONE (14:52)
[2018-12-23] MEDS ORDERED: Ondansetron 4 MG/2 ML SDV IVPUSH ONE (14:52)
[2018-12-23] MEDS ORDERED: Sodium Chloride 0.9% 10 ML Syringe FLUSH PRN (14:52)
[2018-12-23] MEDS ORDERED: Thiamine 100 MG Tab PO ONE (14:53)
--- NOTE | 2018-12-23 15:23 | EDM.PDOC ---
ED HPI GENERAL MEDICAL PROBLEM - General Chief Complaint: Drug or Alcohol Abuse Stated Complaint: [facility] Time Seen by Provider: 12/23/18 14:50 Source of Information: Reports: Patient, EMS Notes Reviewed, Old Records, RN Notes Reviewed History Limitations: Reports: Intoxication - History of Present Illness INITIAL COMMENTS - FREE TEXT/NARRATIVE: Patient is a 33-year-old male who is brought by [place] ambulance service for the evaluation of alcohol intoxication. At the time of exam the patient is sleeping, so much so that he is snoring loudly and will not awaken for me. It weighs made aware to me that shortly after his prior to arrival by ambulance service that he was requesting to leave, but has subsequently fallen asleep. The patient has had a history of alcohol sobriety that was short-lived. He states that he started drinking 45 days ago to the triage nurse. The patient noted that he has been drinking 10 shooters of 99 bananas and did have a stent sugars of this this morning as well. Last drink was just minutes before the ambulance retrieved him. His only complaint to the triage nurse was a mild headache at that time. Headache Pain Score (Numeric/FACES): 10 - Related Data Allergies Allergy/AdvReac Type Severity Reaction Status Date / Time No Known Allergies Allergy Verified 12/23/18 14:38 Home Meds: Home Meds Omeprazole 20 mg PO DAILY 04/18/18 [History] raNITIdine HCl [Zantac] 300 mg PO DAILY 08/30/18 [History] Rivaroxaban [Xarelto] 15 mg PO BID 09/25/18 [History] Past Medical History HEENT History: Reports: Other (See Below) Other HEENT History: Maxofacial surgery to repair right socket Cardiovascular History: Reports: None, Blood Clots/VTE/DVT, Other (See Below) Other Cardiovascular History: seen for chest pains Respiratory History: Reports: Sleep Apnea Gastrointestinal History: Reports: Gastritis, GERD, PUD, Other (See Below) Other Gastrointestinal History: stomach ulcer Genitourinary History: Reports: Prostate Disorder, Other (See Below) Other Genitourinary History: prostate disease 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 Musculoskeletal History: Reports: Fracture Other Musculoskeletal History: ankle Neurological History: Reports: Migraines Psychiatric History: Reports: Addiction Endocrine/Metabolic History: Reports: None Hematologic History: Reports: None Immunologic History: Reports: None Oncologic (Cancer) History: Reports: None Dermatologic History: Reports: None - Infectious Disease History Infectious Disease History: Reports: Chicken Pox - Past Surgical History Head Surgeries/Procedures: Reports: None HEENT Surgical History: Reports: Tonsillectomy, Other (See Below) Cardiovascular Surgical History: Reports: None GI Surgical History: Reports: EGD, Hernia, Abdominal Endocrine Surgical History: Reports: None Oncologic Surgical History: Reports: None Dermatological Surgical History: Reports: None Social & Family History - Family History Family Medical History: Noncontributory - Tobacco Use Smoking Status *Q: Current Every Day Smoker Years of Tobacco use: 16 Packs/Tins Daily: 0.5 - Caffeine Use Caffeine Use: Reports: Coffee - Recreational Drug Use Recreational Drug Use: No - Living Situation & Occupation Living situation: Reports: , Alone Occupation: Unemployed ED ROS GENERAL - Review of Systems Review Of Systems: ROS reveals no pertinent complaints other than HPI. ED EXAM, GENERAL - Physical Exam Exam: See Below Exam Limited By: Intoxication General Appearance: Other (pt is sleeping) Respiratory/Chest: No Respiratory Distress, Lungs Clear, Normal Breath Sounds, No Accessory Muscle Use, Chest Non-Tender Cardiovascular: Normal Peripheral Pulses, Regular Rate, Rhythm, No Murmur GI/Abdominal: Normal Bowel Sounds, Soft, No Distention, No Mass Skin Exam: Warm, Dry, Intact, Normal Color, No Rash Course - Vital Signs Last Recorded V/S: Last Vital Signs Temp 98.0 F 12/23/18 14:27 Pulse 115 H 12/23/18 14:27 Resp 18 12/23/18 14:27 BP 147/100 H 12/23/18 14:27 Pulse Ox 92 L 12/23/18 14:27 - Orders/Labs/Meds Orders: Active Orders 24 hr Category Date Time Status Peripheral IV Care [RC] . DIRECTED Care 12/23/18 14:52 Ordered Sodium Chloride 0.9% [Normal Saline] 1,000 ml Med 12/23/18 14:52 Ordered IV ONETIME Sodium Chloride 0.9% [Saline Flush] Med 12/23/18 14:52 Ordered 10 ml FLUSH ASDIRECTED PRN Peripheral IV Insertion Adult [OM.PC] Routine Oth 12/23/18 14:52 Ordered Medication Orders Sodium Chloride (Normal Saline) 1,000 mls @ 500 mls/hr IV ONETIME ONE Stop: 12/23/18 16:51 Last Admin: 12/23/18 15:21 Dose: 500 mls/hr Sodium Chloride (Saline Flush) 10 ml FLUSH ASDIRECTED PRN PRN Reason: Keep Vein Open Last Admin: 12/23/18 15:22 Dose: 10 ml Labs: Laboratory Tests 12/23/18 12/23/18 Range/Units 14:43 15:09 Urine Opiates Screen Negative (EYWTDH=460) Ur Buprenorphine Scrn Negative (CUTOFF=10) Ur Oxycodone Screen Negative (CDQ6EA=960) Urine Methadone Screen Negative (CCU5UU=785) Ur Propoxyphene Screen Negative (UJOYFT=590) Ur Barbiturates Screen Negative (GZNJTI=146) Ur Tricyclics Screen Negative (XOBKZS=950) Ur Phencyclidine Scrn Negative (CUTOFF=25) Ur Amphetamine Screen Negative (AGZERK=728) U Methamphetamines Scrn Negative (XEIDHJ=850) U Benzodiazepines Scrn Presumptive positive H (MLQLSR=062) U Cocaine Metab Screen Negative (DFYTHC=168) U Marijuana (THC) Screen Negative (CUTOFF=50) Ethyl Alcohol 0.48 (0.00) gm% Meds: Medications Generic Name Dose Route Start Last Admin Trade Name Freq PRN Reason Stop Dose Admin Sodium Chloride 1,000 mls @ 500 mls/hr 12/23/18 14:52 12/23/18 15:21 Normal Saline IV 12/23/18 16:51 500 mls/hr ONETIME ONE Administration Sodium Chloride 10 ml 12/23/18 14:52 12/23/18 15:22 Saline Flush FLUSH 10 ml ASDIRECTED PRN Administration Keep Vein Open Discontinued Medications Generic Name Dose Route Start Last Admin Trade Name Freq PRN Reason Stop Dose Admin Ondansetron HCl 4 mg 12/23/18 14:52 12/23/18 15:21 Zofran IVPUSH 12/23/18 14:53 4 mg ONETIME ONE Administration Thiamine HCl 100 mg 12/23/18 14:53 12/23/18 15:22 Vitamin B-1 PO 12/23/18 14:54 100 mg ONETIME ONE Administration - Re-Assessments/Exams Free Text/Narrative Re-Assessment/Exam: 12/23/18 15:22 Patient presents to the ED for the evaluation of acute alcohol intoxication. I did order some IV fluids, 4 mg Zofran, 100 mg PO thiamine, and a blood alcohol level to be obtained. Due to the patient's high history of elopement from the ER, we will let him sleep for a while, I will have her start the IV fluids and give the Zofran while he is sleeping. 12/23/18 16:01 Patient was able to provide a urine sample before he fell asleep in the ER today , his urine drug screen is presumptive positive for benzodiazepine use, and his blood alcohol is 0.48 this time. Departure - Departure Time of Disposition: 16:36 Disposition: Home, Self-Care 01 Condition: Fair Clinical Impression: Acute alcohol intoxication Qualifiers: Complication of substance-induced condition: uncomplicated Qualified Code(s): F10.920 - Alcohol use, unspecified with intoxication, uncomplicated - Discharge Information *PRESCRIPTION DRUG MONITORING PROGRAM REVIEWED*: No *COPY OF PRESCRIPTION DRUG MONITORING REPORT IN PATIENT MAYURI: No Instructions: Alcohol Intoxication, [id number] Additional Instructions: You were evaluated in the ED today for your acute alcohol intoxication. Your blood alcohol level at today's ER visit was 0.48 which is 6 times the legal limit. You were given some IV fluids for management in the ER today. Recommend that you refrain from drinking any more alcohol today, and you should follow up with [facility] on Tuesday for alcohol detox program. Their number is [phone]. Their emergency crisis number is [phone] if you should need services before Tuesday morning. Again we recommend that you refrain from any sort of alcohol use. Please return to the ED if your symptoms should change or worsen. - My Orders Last 24 Hours: My Active Orders 12/23/18 14:52 Peripheral IV Care [RC] . DIRECTED Sodium Chloride 0.9% [Normal Saline] 1,000 ml IV ONETIME Sodium Chloride 0.9% [Saline Flush] 10 ml FLUSH ASDIRECTED PRN Peripheral IV Insertion Adult [OM.PC] Routine - Assessment/Plan Last 24 Hours: My Active Orders 12/23/18 14:52 Peripheral IV Care [RC] . DIRECTED Sodium Chloride 0.9% [Normal Saline] 1,000 ml IV ONETIME Sodium Chloride 0.9% [Saline Flush] 10 ml FLUSH ASDIRECTED PRN Peripheral IV Insertion Adult [OM.PC] Routine
== END 2018-12-23 16:45 | disposition home or self-care (01) ==
LOC: JD.ED 14:25
DX: F10.220 Alcohol dependence with intoxication, uncomplicated (principal); K21.9 Gastro-esophageal reflux disease without esophagitis; F17.210 Nicotine dependence, cigarettes, uncomplicated; Z86.718 Personal history of other venous thrombosis and embolism; Z98.890 Other specified postprocedural states; Z79.899 Other long term (current) drug therapy; Y90.8 Blood alcohol level of 240 mg/100 ml or more
CPT/HCPCS: 36415; 80306; 96361; 96374; 99284; A9270; G0480; J2405; J7040

== ENCOUNTER 2019-01-15 23:06 | Emergency (ER) | payer MEDICAID ==
[2019-01-15 23:10] VITALS: BP 137/98; PULSE 117
--- NOTE | 2019-01-16 00:33 | EDM.PDOCBH ---
<Noah Enamorado - Last Filed: 01/16/19 03:46> ED HPI GENERAL MEDICAL PROBLEM - General Chief Complaint: Drug or Alcohol Abuse Stated Complaint: [facility] Time Seen by Provider: 01/16/19 00:32 - History of Present Illness INITIAL COMMENTS - FREE TEXT/NARRATIVE: 33-year-old intoxicated male known well to this emergency room presents with some abdominal discomfort. He cannot elaborate on how long it's been there it's not associated with any nausea vomiting constipation or diarrhea. He can tell me how much he said to drink today. We talked about how long he's been drinking. We'll move the went back to discuss his abdominal pain even more he forgot it was hurting and now denies any problems. - Related Data Allergies Allergy/AdvReac Type Severity Reaction Status Date / Time No Known Allergies Allergy Verified 01/15/19 23:09 Home Meds: Home Meds Omeprazole 20 mg PO DAILY 04/18/18 [History] raNITIdine HCl [Zantac] 300 mg PO DAILY 08/30/18 [History] Rivaroxaban [Xarelto] 15 mg PO BID 09/25/18 [History] Past Medical History HEENT History: Reports: Other (See Below) Other HEENT History: Maxofacial surgery to repair right socket Cardiovascular History: Reports: None, Blood Clots/VTE/DVT, Other (See Below) Other Cardiovascular History: seen for chest pains Respiratory History: Reports: Sleep Apnea Gastrointestinal History: Reports: Gastritis, GERD, PUD, Other (See Below) Other Gastrointestinal History: stomach ulcer Genitourinary History: Reports: Prostate Disorder, Other (See Below) Other Genitourinary History: prostate disease 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 Musculoskeletal History: Reports: Fracture Other Musculoskeletal History: ankle Neurological History: Reports: Migraines Psychiatric History: Reports: Addiction Endocrine/Metabolic History: Reports: None Hematologic History: Reports: None Immunologic History: Reports: None Oncologic (Cancer) History: Reports: None Dermatologic History: Reports: None - Infectious Disease History Infectious Disease History: Reports: Chicken Pox - Past Surgical History Head Surgeries/Procedures: Reports: None HEENT Surgical History: Reports: Tonsillectomy, Other (See Below) Cardiovascular Surgical History: Reports: None GI Surgical History: Reports: EGD, Hernia, Abdominal Endocrine Surgical History: Reports: None Oncologic Surgical History: Reports: None Dermatological Surgical History: Reports: None Social & Family History - Family History Family Medical History: Noncontributory - Tobacco Use Smoking Status *Q: Current Every Day Smoker Years of Tobacco use: 15 Packs/Tins Daily: 1 - Caffeine Use Caffeine Use: Reports: Coffee - Recreational Drug Use Recreational Drug Use: No - Living Situation & Occupation Living situation: Reports: , Alone Occupation: Unemployed ED ROS GENERAL - Review of Systems Review Of Systems: See Below Constitutional: Reports: No Symptoms HEENT: Reports: No Symptoms Respiratory: Reports: No Symptoms Cardiovascular: Reports: No Symptoms Endocrine: Reports: No Symptoms GI/Abdominal: Reports: Abdominal Pain (Possible) : Reports: No Symptoms Musculoskeletal: Reports: No Symptoms Skin: Reports: No Symptoms Neurological: Reports: No Symptoms Psychiatric: Reports: Other (Heavily intoxicated) ED EXAM, BEHAVIORAL HEALTH - Physical Exam Exam: See Below Exam Limited By: Intoxication General Appearance: No Apparent Distress, Other (Intoxicated) Head: Atraumatic, Normocephalic Neck: Normal Inspection, Supple, Non-Tender, Full Range of Motion Respiratory/Chest: No Respiratory Distress, Lungs Clear, Normal Breath Sounds Cardiovascular: Regular Rate, Rhythm, No Edema, No Murmur GI/Abdominal: Normal Bowel Sounds, Soft, Non-Tender (No apparent tenderness with palpation). No: Guarding, Rigid, Rebound (Male) Exam: No Hernia, Normal Inspection. No: Hernia, Inguinal Lymphadenopathy, Rash, Scrotal Swelling, Scrotum Tenderness (L), Scrotum Tenderness (R), Testicular Tenderness (L), Testicular Tenderness (R) Back Exam: Normal Inspection. No: CVA Tenderness (L), CVA Tenderness (R) Extremities: Normal Inspection, Normal Range of Motion COURSE, BEHAVIORAL HEALTH COMP - Course Vital Signs: Last Vital Signs Temp 37.4 C 01/15/19 23:07 Pulse 117 H 01/15/19 23:07 Resp 16 01/15/19 23:07 BP 137/98 H 01/15/19 23:07 Pulse Ox 97 01/15/19 23:07 Orders, Labs, Meds: Active Orders 24 hr Category Date Time Status DRUG SCREEN, URINE [URCHEM] Stat Lab 01/16/19 00:46 Ordered URINALYSIS W/MICROSCOPIC [UA W/MICROSCOPIC] [URIN] Stat Lab 01/16/19 00:46 Ordered Lactated Ringers [Ringers, Lactated] 1,000 ml Med 01/16/19 01:00 Active IV ASDIRECTED Medication Orders Lactated Ringer's (Ringers, Lactated) 1,000 mls @ 150 mls/hr IV ASDIRECTED MARCELA Last Admin: 01/16/19 01:59 Dose: 150 mls/hr Laboratory Tests 01/16/19 01/16/19 01/16/19 Range/Units 01:03 01:03 01:03 WBC 7.04 (4.23-9.07) K/mm3 RBC 4.67 (4.63-6.08) M/mm3 Hgb 14.7 D (13.7-17.5) gm/dl Hct 43.5 (40.1-51.0) % MCV 93.1 H D (79.0-92.2) fl MCH 31.5 (25.7-32.2) pg MCHC 33.8 (32.2-35.5) g/dl RDW Std Deviation 48.2 H (35.1-43.9) fL Plt Count 199 D (163-337) K/mm3 MPV 9.8 (9.4-12.3) fl Neutrophils % (Manual) 46 (40-60) % Band Neutrophils % 1 (0-10) % Lymphocytes % (Manual) 38 (20-40) % Atypical Lymphs % 0 % Monocytes % (Manual) 12 H (2-10) % Eosinophils % (Manual) 0 L (0.8-7.0) % Basophils % (Manual) 2 H (0.2-1.2) Myelocytes % 1 Platelet Estimate Adequate Plt Morphology Comment Normal RBC Morph Comment Normal PT 11.2 (9.7-12.0) SECONDS INR 1.03 Sodium 146 H (136-145) mEq/L Potassium 3.5 (3.5-5.1) mEq/L Chloride 110 H (98-107) mEq/L Carbon Dioxide 26 (21-32) mEq/L Anion Gap 13.5 (5-15) BUN 10 (7-18) mg/dL Creatinine 0.8 (0.7-1.3) mg/dL Est Cr Clr Drug Dosing 142.81 mL/min Estimated GFR (MDRD) > 60 (>60) mL/min BUN/Creatinine Ratio 12.5 L (14-18) Glucose 81 (74-106) mg/dL Calcium 8.4 L (8.5-10.1) mg/dL Total Bilirubin 0.4 (0.2-1.0) mg/dL AST 122 H (15-37) U/L ALT 116 H (16-63) U/L Alkaline Phosphatase 70 (46-116) U/L Total Protein 6.2 L (6.4-8.2) g/dl Albumin 3.6 (3.4-5.0) g/dl Globulin 2.6 gm/dL Albumin/Globulin Ratio 1.4 (1-2) Lipase (73-393) U/L Ethyl Alcohol 0.43 (0.00) gm% 01/16/19 Range/Units 01:03 WBC (4.23-9.07) K/mm3 RBC (4.63-6.08) M/mm3 Hgb (13.7-17.5) gm/dl Hct (40.1-51.0) % MCV (79.0-92.2) fl MCH (25.7-32.2) pg MCHC (32.2-35.5) g/dl RDW Std Deviation (35.1-43.9) fL Plt Count (163-337) K/mm3 MPV (9.4-12.3) fl Neutrophils % (Manual) (40-60) % Band Neutrophils % (0-10) % Lymphocytes % (Manual) (20-40) % Atypical Lymphs % % Monocytes % (Manual) (2-10) % Eosinophils % (Manual) (0.8-7.0) % Basophils % (Manual) (0.2-1.2) Myelocytes % Platelet Estimate Plt Morphology Comment RBC Morph Comment PT (9.7-12.0) SECONDS INR Sodium (136-145) mEq/L Potassium (3.5-5.1) mEq/L Chloride (98-107) mEq/L Carbon Dioxide (21-32) mEq/L Anion Gap (5-15) BUN (7-18) mg/dL Creatinine (0.7-1.3) mg/dL Est Cr Clr Drug Dosing mL/min Estimated GFR (MDRD) (>60) mL/min BUN/Creatinine Ratio (14-18) Glucose (74-106) mg/dL Calcium (8.5-10.1) mg/dL Total Bilirubin (0.2-1.0) mg/dL AST (15-37) U/L ALT (16-63) U/L Alkaline Phosphatase (46-116) U/L Total Protein (6.4-8.2) g/dl Albumin (3.4-5.0) g/dl Globulin gm/dL Albumin/Globulin Ratio (1-2) Lipase 476 H (73-393) U/L Ethyl Alcohol (0.00) gm% Medications Generic Name Dose Route Start Last Admin Trade Name Freq PRN Reason Stop Dose Admin Lactated Ringer's 1,000 mls @ 150 mls/hr 01/16/19 01:00 01/16/19 01:59 Ringers, Lactated IV 150 mls/hr ASDIRECTED MARCELA Administration Discontinued Medications Generic Name Dose Route Start Last Admin Trade Name Freq PRN Reason Stop Dose Admin Lactated Ringer's 1,000 mls @ 999 mls/hr 01/16/19 00:51 01/16/19 00:55 Ringers, Lactated IV 01/16/19 01:51 999 mls/hr .BOLUS ONE Administration Discharge vs Psych Eval/Treatment:: 01/16/19 05:30 Patient rested well through the night doesn't seem to have complaints a few times and talked home at this time is resting. Departure - Departure Disposition: Home, Self-Care 01 Clinical Impression: Acute alcoholic intoxication in alcoholism Qualifiers: Complication of substance-induced condition: uncomplicated Qualified Code(s): F10.220 - Alcohol dependence with intoxication, uncomplicated - Discharge Information Instructions: Alcohol Use Disorder, Alcohol Intoxication Referrals: PCP,None [Primary Care Provider] - Additional Instructions: Evaluation in the emergency room overnight in regards to acute alcohol intoxication and chronic alcoholism use. Initial complaint was that of abdominal pain which dissipated shortly after arrival. He were allowed to sleep it off in the ED overnight. Blood alcohol was 0.43 in the ED. We are not able to drive a motor vehicle legally for at least 16 hours. Follow-up [facility] or see your primary Care physician if you have desire to stop trying stop drinking once again. <Mack Aguilera - Last Filed: 01/16/19 08:50> COURSE, BEHAVIORAL HEALTH COMP - Course Discharge vs Psych Eval/Treatment:: 01/16/19 06:45 kilos was assumed from Dr. Enamorado at change of shift. Mr. Urbina is been here many times in the past due to chronic alcoholism. His chief complaint last night was abdominal pain which quickly dissipated after he got here. He's been sleeping ever since he arrived in the ED. Blood alcohol was markedly elevated at 0.43. I noticed that a serum lipase was not carried out last evening he will be ordered at this time. He remains asleep. He almost always wishes to be discharged soon as he wakes up. He still has an IV of LR running at 150 mils per hour. 01/16/19 08:18 Lipase is mildly elevated at 476. This is compatible with a very minimal pancreatitis. It may have been responsible for his initial complaint of abdominal pain last night. 01/16/19 08:49 she is now alert and oriented. He wishes to be discharged. He does have Librium at home to help him get through withdrawal symptoms if he desires to stop drinking. Departure - Departure Time of Disposition: 08:50 Condition: Fair - Discharge Information *PRESCRIPTION DRUG MONITORING PROGRAM REVIEWED*: Not Applicable *COPY OF PRESCRIPTION DRUG MONITORING REPORT IN PATIENT MAYURI: Not Applicable
[2019-01-16] MEDS ORDERED: Lactated Ringers 1,000 ML IV ONE (00:51)
[2019-01-16] MEDS ORDERED: Lactated Ringers 1,000 ML IV SCH (01:00)
== END 2019-01-16 09:00 | disposition home or self-care (01) ==
LOC: JD.ED 23:06
DX: F10.220 Alcohol dependence with intoxication, uncomplicated (principal); Y90.0 Blood alcohol level of less than 20 mg/100 ml; K21.9 Gastro-esophageal reflux disease without esophagitis; Z86.718 Personal history of other venous thrombosis and embolism; F17.210 Nicotine dependence, cigarettes, uncomplicated; Z79.899 Other long term (current) drug therapy
CPT/HCPCS: 36415; 80053; 80320; 83690; 85007; 85027; 85610; 96360; 96361; 99284; J7120; G0480

== ENCOUNTER 2019-02-05 13:46 | Inpatient (IN) | payer MEDICAID ==
[2019-02-05] MEDS ORDERED: Sodium Chloride 0.9% 10 ML Syringe FLUSH PRN (14:23)
[2019-02-05] MEDS ORDERED: Sodium Chloride 0.9% 1,000 ML IV SCH (14:30)
--- NOTE | 2019-02-05 14:34 | EDM.PDOCBH ---
ED HPI GENERAL MEDICAL PROBLEM - General Chief Complaint: Drug or Alcohol Abuse Stated Complaint: ALCOHOL DETOX Time Seen by Provider: 02/05/19 14:13 Source of Information: Reports: Patient, RN Notes Reviewed - History of Present Illness INITIAL COMMENTS - FREE TEXT/NARRATIVE: 33 year old male has been dropped off in the ED by a friend extremely intoxicated. States he wants to detox. It sounds like he does have a bed available for him at [facility] in [place], had been instructed to go to a [place] ED for medical clearance but came here instead. Has been drinking vodka , admits to being very intoxicated at this time. He states he has hx of Dt's and alcohol withdrawal seizures. Complaining of L lower abd pain and states he has been vomiting off and on for the last week. - Related Data Allergies Allergy/AdvReac Type Severity Reaction Status Date / Time No Known Allergies Allergy Verified 02/05/19 14:04 Home Meds: Home Meds Omeprazole 20 mg PO DAILY 04/18/18 [History] raNITIdine HCl [Zantac] 300 mg PO DAILY 08/30/18 [History] Rivaroxaban [Xarelto] 15 mg PO BID 09/25/18 [History] Past Medical History HEENT History: Reports: Other (See Below) Other HEENT History: Maxofacial surgery to repair right socket Cardiovascular History: Reports: None, Blood Clots/VTE/DVT Other Cardiovascular History: seen for chest pains Respiratory History: Reports: Sleep Apnea Gastrointestinal History: Reports: Gastritis, GERD, PUD, Other (See Below) Other Gastrointestinal History: stomach ulcer Genitourinary History: Reports: Prostate Disorder Other Genitourinary History: prostate disease [employer]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 Musculoskeletal History: Reports: Fracture Other Musculoskeletal History: ankle Neurological History: Reports: Migraines Psychiatric History: Reports: Addiction Endocrine/Metabolic History: Reports: None Hematologic History: Reports: None Immunologic History: Reports: None Oncologic (Cancer) History: Reports: None Dermatologic History: Reports: None - Infectious Disease History Infectious Disease History: Reports: Chicken Pox - Past Surgical History Head Surgeries/Procedures: Reports: None HEENT Surgical History: Reports: Tonsillectomy, Other (See Below) Cardiovascular Surgical History: Reports: None GI Surgical History: Reports: EGD, Hernia, Abdominal Endocrine Surgical History: Reports: None Oncologic Surgical History: Reports: None Dermatological Surgical History: Reports: None Social & Family History - Family History Family Medical History: Noncontributory - Tobacco Use Smoking Status *Q: Never Smoker - Caffeine Use Caffeine Use: Reports: Coffee - Recreational Drug Use Recreational Drug Use: No - Living Situation & Occupation Living situation: Reports: , Alone Occupation: Unemployed ED ROS GENERAL - Review of Systems Review Of Systems: See Below Constitutional: Denies: Fever HEENT: Denies: Throat Pain Respiratory: Denies: Shortness of Breath Cardiovascular: Denies: Chest Pain GI/Abdominal: Reports: Abdominal Pain, Nausea, Vomiting Musculoskeletal: Reports: No Symptoms Skin: Reports: No Symptoms Neurological: Reports: Dizziness. Denies: Trouble Speaking, Difficulty Walking ED EXAM, BEHAVIORAL HEALTH - Physical Exam Exam: See Below General Appearance: Alert, No Apparent Distress, Other (intoxicated) Eye Exam: Bilateral Eye: PERRL Throat/Mouth: Normal Inspection Head: Atraumatic. No: Facial Swelling Neck: Supple, Full Range of Motion Respiratory/Chest: No Respiratory Distress, Lungs Clear, Normal Breath Sounds Cardiovascular: Regular Rate, Rhythm GI/Abdominal: Soft, Tender (mild diffuse tenderness) Back Exam: No: CVA Tenderness (L), CVA Tenderness (R) Neurological: Alert, No Motor/Sensory Deficits Psychiatric: Alert, Other (very intoxicated at time of my initial exam) Skin Exam: Warm, Dry COURSE, BEHAVIORAL HEALTH COMP - Course Vital Signs: Last Vital Signs Temp 98.4 F 02/05/19 13:59 Pulse 95 02/05/19 13:59 Resp 18 02/05/19 13:59 BP 139/103 H 02/05/19 13:59 Pulse Ox 93 L 02/05/19 13:59 Orders, Labs, Meds: Active Orders 24 hr Category Date Time Status Peripheral IV Care [RC] . DIRECTED Care 02/05/19 14:24 Active Dextrose 5%-Lactated Ringers 1,000 ml Med 02/05/19 16:15 Active IV ASDIRECTED Sodium Chloride 0.9% [Normal Saline] 1,000 ml Med 02/05/19 14:30 Active IV ONETIME Sodium Chloride 0.9% [Saline Flush] Med 02/05/19 14:23 Active 10 ml FLUSH ASDIRECTED PRN Thiamine [Vitamin B-1] 1,000 mg Med 02/05/19 17:30 Active Magnesium Sulfate [Magnesium Sulfate 50%] 4 gm Folic Acid 1 mg Dextrose 5%-0.9% NaCl [Dextrose 5%-Normal Saline] 1,000 ml IV ASDIRECTED Peripheral IV Insertion Adult [OM.PC] Stat Oth 02/05/19 14:24 Ordered Medication Orders Sodium Chloride (Normal Saline) 1,000 mls @ 999 mls/hr IV ONETIME MARCELA Last Admin: 02/05/19 15:03 Dose: 999 mls/hr Dextrose/Lactated Ringer's (Dextrose 5%-Lactated Ringers) 1,000 mls @ 999 mls/ hr IV ASDIRECTED MARCELA Last Admin: 02/05/19 16:41 Dose: 999 mls/hr Thiamine HCl 1,000 mg/Magnesium Sulfate 4 gm/ Folic Acid 1 mg/ Dextrose/Sodium Chloride 1,018.2 mls @ 125 mls/hr IV ASDIRECTED MARCELA Last Admin: 02/05/19 18:16 Dose: 125 mls/hr Sodium Chloride (Saline Flush) 10 ml FLUSH ASDIRECTED PRN PRN Reason: Keep Vein Open Last Admin: 02/05/19 15:03 Dose: 10 ml Laboratory Tests 02/05/19 02/05/19 02/05/19 Range/Units 14:50 14:50 14:50 WBC 7.81 (4.23-9.07) K/mm3 RBC 4.90 (4.63-6.08) M/mm3 Hgb 16.0 (13.7-17.5) gm/dl Hct 46.5 (40.1-51.0) % MCV 94.9 H (79.0-92.2) fl MCH 32.6 H (25.7-32.2) pg MCHC 34.4 (32.2-35.5) g/dl RDW Std Deviation 43.6 (35.1-43.9) fL Plt Count 92 L D (163-337) K/mm3 MPV 10.6 (9.4-12.3) fl Neut % (Auto) 52.8 (34.0-67.9) % Lymph % (Auto) 28.7 (21.8-53.1) % [place] % (Auto) 16.5 H (5.3-12.2) % Eos % (Auto) 1.0 (0.8-7.0) Baso % (Auto) 1.0 (0.1-1.2) % Neut # (Auto) 4.12 (1.78-5.38) K/mm3 Lymph # (Auto) 2.24 (1.32-3.57) K/mm3 [place] # (Auto) 1.29 H (0.30-0.82) K/mm3 Eos # (Auto) 0.08 (0.04-0.54) K/mm3 Baso # (Auto) 0.08 (0.01-0.08) K/mm3 Manual Slide Review Abnormal smear Sodium 145 (136-145) mEq/L Potassium 3.5 (3.5-5.1) mEq/L Chloride 103 (98-107) mEq/L Carbon Dioxide 29 (21-32) mEq/L Anion Gap 16.5 H (5-15) BUN 6 L (7-18) mg/dL Creatinine 0.8 (0.7-1.3) mg/dL Est Cr Clr Drug Dosing TNP Estimated GFR (MDRD) > 60 (>60) mL/min BUN/Creatinine Ratio 7.5 L (14-18) Glucose 74 (74-106) mg/dL Calcium 9.0 (8.5-10.1) mg/dL Total Bilirubin 1.4 H (0.2-1.0) mg/dL AST 137 H (15-37) U/L ALT 99 H (16-63) U/L Alkaline Phosphatase 104 (46-116) U/L Total Protein 7.3 (6.4-8.2) g/dl Albumin 4.0 (3.4-5.0) g/dl Globulin 3.3 gm/dL Albumin/Globulin Ratio 1.2 (1-2) Lipase 297 (73-393) U/L Ethyl Alcohol 0.42 (0.00) gm% Medications Generic Name Dose Route Start Last Admin Trade Name Freq PRN Reason Stop Dose Admin Sodium Chloride 1,000 mls @ 999 mls/hr 02/05/19 14:30 02/05/19 15:03 Normal Saline IV 999 mls/hr ONETIME MARCELA Administration Dextrose/Lactated Ringer's 1,000 mls @ 999 mls/hr 02/05/19 16:15 02/05/19 16: 41 Dextrose 5%-Lactated Ringers IV 999 mls/hr ASDIRECTED MARCELA Administration Thiamine HCl 1,000 mg/ 1,018.2 mls @ 125 mls/hr 02/05/19 17:30 02/05/19 18:16 Magnesium Sulfate 4 gm/ Folic IV 125 mls/hr Acid 1 mg/ Dextrose/Sodium ASDIRECTED MARCELA Administration Chloride Sodium Chloride 10 ml 02/05/19 14:23 02/05/19 15:03 Saline Flush FLUSH 10 ml ASDIRECTED PRN Administration Keep Vein Open Departure - Departure Time of Disposition: 17:15 Disposition: DC/Tfer to Acute Hospital 02 Condition: Fair Clinical Impression: Alcohol intoxication Qualifiers: Complication of substance-induced condition: uncomplicated Qualified Code(s): F10.920 - Alcohol use, unspecified with intoxication, uncomplicated - Discharge Information Referrals: Nancy Lindo PA-C [Primary Care Provider] - ED Communication - Discussed Case With (1) Discussed Case With (1): Admitting Provider (Dr Wayne, decision to admit at about 17:20.) - My Orders Last 24 Hours: My Active Orders 02/05/19 14:23 Sodium Chloride 0.9% [Saline Flush] 10 ml FLUSH ASDIRECTED PRN 02/05/19 14:24 Peripheral IV Care [RC] . DIRECTED Peripheral IV Insertion Adult [OM.PC] Stat 02/05/19 14:30 Sodium Chloride 0.9% [Normal Saline] 1,000 ml IV ONETIME 02/05/19 16:15 Dextrose 5%-Lactated Ringers 1,000 ml IV ASDIRECTED - Assessment/Plan Last 24 Hours: My Active Orders 02/05/19 14:23 Sodium Chloride 0.9% [Saline Flush] 10 ml FLUSH ASDIRECTED PRN 02/05/19 14:24 Peripheral IV Care [RC] . DIRECTED Peripheral IV Insertion Adult [OM.PC] Stat 02/05/19 14:30 Sodium Chloride 0.9% [Normal Saline] 1,000 ml IV ONETIME 02/05/19 16:15 Dextrose 5%-Lactated Ringers 1,000 ml IV ASDIRECTED
[2019-02-05] MEDS ORDERED: Dextrose 5%-Lactated Ringers 1,000 ML IV SCH (16:15)
[2019-02-05] MEDS ORDERED: Thiamine 1,000 MG, Magnesium Sulfate 4 GM, Folic Acid 1 MG in Dextrose 5%-0.9% NaCl 1,0... IV SCH (17:30)
--- NOTE | 2019-02-05 19:00 | PCM.HP.2 ---
H&P History of Present Illness - General Date of Service: 02/05/19 - Related Data Allergies/Adverse Reactions: Allergies Allergy/AdvReac Type Severity Reaction Status Date / Time No Known Allergies Allergy Verified 02/05/19 14:04 Home Medications: Home Meds Omeprazole 20 mg PO DAILY 04/18/18 [History] raNITIdine HCl [Zantac] 300 mg PO DAILY 08/30/18 [History] Rivaroxaban [Xarelto] 15 mg PO BID 09/25/18 [History] Past Medical History HEENT History: Reports: Other (See Below) Other HEENT History: Maxofacial surgery to repair right socket Cardiovascular History: Reports: None, Blood Clots/VTE/DVT Other Cardiovascular History: seen for chest pains Respiratory History: Reports: Sleep Apnea Gastrointestinal History: Reports: Gastritis, GERD, PUD, Other (See Below) Other Gastrointestinal History: stomach ulcer Genitourinary History: Reports: Prostate Disorder Other Genitourinary History: prostate disease 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 Musculoskeletal History: Reports: Fracture Other Musculoskeletal History: ankle Neurological History: Reports: Migraines Psychiatric History: Reports: Addiction Endocrine/Metabolic History: Reports: None Hematologic History: Reports: None Immunologic History: Reports: None Oncologic (Cancer) History: Reports: None Dermatologic History: Reports: None - Infectious Disease History Infectious Disease History: Reports: Chicken Pox - Past Surgical History Head Surgeries/Procedures: Reports: None HEENT Surgical History: Reports: Tonsillectomy, Other (See Below) Cardiovascular Surgical History: Reports: None GI Surgical History: Reports: EGD, Hernia, Abdominal Endocrine Surgical History: Reports: None Oncologic Surgical History: Reports: None Dermatological Surgical History: Reports: None Social & Family History - Family History Family Medical History: Noncontributory - Tobacco Use Smoking Status *Q: Never Smoker - Caffeine Use Caffeine Use: Reports: Coffee - Recreational Drug Use Recreational Drug Use: No - Living Situation & Occupation Living situation: Reports: , Alone Occupation: Unemployed Exam - Vital Signs Vital Signs: Last Vital Signs Temp 36.9 C 02/05/19 13:59 Pulse 95 02/05/19 13:59 Resp 18 02/05/19 13:59 BP 139/103 H 02/05/19 13:59 Pulse Ox 93 L 02/05/19 13:59 - Patient Data Lab Results Last 24 hrs: Laboratory Results - last 24 hr 02/05/19 02/05/19 02/05/19 Range/Units 14:50 14:50 14:50 WBC 7.81 (4.23-9.07) K/mm3 RBC 4.90 (4.63-6.08) M/mm3 Hgb 16.0 (13.7-17.5) gm/dl Hct 46.5 (40.1-51.0) % MCV 94.9 H (79.0-92.2) fl MCH 32.6 H (25.7-32.2) pg MCHC 34.4 (32.2-35.5) g/dl RDW Std Deviation 43.6 (35.1-43.9) fL Plt Count 92 L D (163-337) K/mm3 MPV 10.6 (9.4-12.3) fl Neut % (Auto) 52.8 (34.0-67.9) % Lymph % (Auto) 28.7 (21.8-53.1) % [place] % (Auto) 16.5 H (5.3-12.2) % Eos % (Auto) 1.0 (0.8-7.0) Baso % (Auto) 1.0 (0.1-1.2) % Neut # (Auto) 4.12 (1.78-5.38) K/mm3 Lymph # (Auto) 2.24 (1.32-3.57) K/mm3 [place] # (Auto) 1.29 H (0.30-0.82) K/mm3 Eos # (Auto) 0.08 (0.04-0.54) K/mm3 Baso # (Auto) 0.08 (0.01-0.08) K/mm3 Manual Slide Review Abnormal smear Sodium 145 (136-145) mEq/L Potassium 3.5 (3.5-5.1) mEq/L Chloride 103 (98-107) mEq/L Carbon Dioxide 29 (21-32) mEq/L Anion Gap 16.5 H (5-15) BUN 6 L (7-18) mg/dL Creatinine 0.8 (0.7-1.3) mg/dL Est Cr Clr Drug Dosing TNP Estimated GFR (MDRD) > 60 (>60) mL/min BUN/Creatinine Ratio 7.5 L (14-18) Glucose 74 (74-106) mg/dL Calcium 9.0 (8.5-10.1) mg/dL Total Bilirubin 1.4 H (0.2-1.0) mg/dL AST 137 H (15-37) U/L ALT 99 H (16-63) U/L Alkaline Phosphatase 104 (46-116) U/L Total Protein 7.3 (6.4-8.2) g/dl Albumin 4.0 (3.4-5.0) g/dl Globulin 3.3 gm/dL Albumin/Globulin Ratio 1.2 (1-2) Lipase 297 (73-393) U/L Ethyl Alcohol 0.42 (0.00) gm% Result Diagrams: 02/05/19 14:50 02/05/19 14:50 Problem List Initiated/Reviewed/Updated: Yes Assessment/Plan Comment:: Acute alcoholic intoxication in the setting of chronic alcohol abuse Patient already decided he wants to fo to rehab in [facility] PLAN - Start alcohol withdrawal protocol - Banana bag today and in the AM - Start thiamine and folic acid - Case management ans social work consult Chronic abdominal pain No previous EGD or other workup Concern for chronic pancreatitis vs h pylori vs celiac disease PLAN - Lipase ordered - Fecal elastase ordered - H pilory antigen in stool - Anti gliadin antibodies PROPHYLAXIS DVT- home xarelto GI- Home omperazole and ranitidine CODE STATUS: FULL CODE DISPOSITION: Admit to the ICU for alcohol withdrawal protocol and discharge once stable o inpatient substance abuse rehab.
[2019-02-05] MEDS: Rivaroxaban 15 MG Tab PO SCH (21:47)
[2019-02-05] MEDS ORDERED: Ibuprofen 200 MG Tab PO ONE (21:50)
[2019-02-06] MEDS ORDERED: Nicotine 21 MG/24 Hr Patch TRDERM ONE (01:07)
[2019-02-06] MEDS ORDERED: Pantoprazole 40 MG Vial IVPUSH ONE (01:08)
[2019-02-06] MEDS: LORazepam 1 MG Tab PO PRN ×2 (04:20→14:55)
[2019-02-06] MEDS ORDERED: Pantoprazole 40 MG Tab.CR PO SCH (07:00)
[2019-02-06] MEDS: Ondansetron 4 MG/2 ML SDV IVPUSH SCH ×3 (07:27→19:21)
[2019-02-06] MEDS ORDERED: Magnesium Sulfate/Water 4 GM in Premix Bag 1 BAG IV ONE (07:30)
[2019-02-06] MEDS: LORazepam 2 MG/ML SDV IVPUSH SCH ×7 (08:21→23:14)
[2019-02-06] MEDS: Rivaroxaban 15 MG Tab PO SCH (08:29)
[2019-02-06] MEDS ORDERED: Famotidine 20 MG Tab PO SCH (09:00)
[2019-02-06] MEDS ORDERED: Nicotine 21 MG/24 Hr Patch TRDERM SCH (09:00)
[2019-02-06] MEDS ORDERED: LORazepam 2 MG/ML SDV IVPUSH PRN (12:01)
[2019-02-06] MEDS ORDERED: Lactated Ringers 1,000 ML IV SCH (15:30)
[2019-02-06] MEDS ORDERED: Thiamine 1,000 MG, Folic Acid 1 MG in Dextrose 5%-0.9% NaCl 1,000 ML IV SCH (18:00)
[2019-02-06] MEDS ORDERED: Folic Acid 50 MG/10 ML MDV ONE (18:19)
[2019-02-06] MEDS ORDERED: Pantoprazole 40 MG Vial IVPUSH SCH (21:00)
[2019-02-06] MEDS ORDERED: Enoxaparin 80 MG/0.8 ML Syringe SUBCUT SCH (21:00)
[2019-02-07] MEDS: Ondansetron 4 MG/2 ML SDV IVPUSH SCH (01:50)
[2019-02-07] MEDS: LORazepam 2 MG/ML SDV IVPUSH SCH (03:13)
[2019-02-07 03:32] VITALS: BP 135/94; PULSE 80
[2019-02-07] MEDS ORDERED: Pantoprazole 40 MG Vial IVPUSH SCH (07:00)
[2019-02-07] MEDS ORDERED: Insulin Lispro 100 Units/ML 3 ML Vial SUBCUT SCH (08:00)
[2019-02-07] MEDS ORDERED: Famotidine 20 MG/2 ML SDV IVPUSH SCH (09:00)
[2019-02-07] MEDS ORDERED: Insulin Glarg,Human.Rec.Analog 100 UNIT/ML ML SUBCUT SCH (21:00)
== END 2019-02-07 06:50 | disposition left against medical advice (07) | DRG 894 ==
LOC: JD.ED 13:46 → JD.ICU 20:20
PROVIDERS: ADMIT Internal Medicine; ATTEND Internal Medicine
DX: F10.129 Alcohol abuse with intoxication, unspecified (principal); G89.29 Other chronic pain; R10.32 Left lower quadrant pain; G47.30 Sleep apnea, unspecified; K21.9 Gastro-esophageal reflux disease without esophagitis; G43.909 Migraine, unspecified, not intractable, without status migrainosus; Z90.89 Acquired absence of other organs; Z79.899 Other long term (current) drug therapy
CPT/HCPCS: 36415; 80048; 80053; 82607; 83516; 83690; 83735; 84100; 85007; 85014; 85018; 85025; 85027; 85045; 85046; 85610; 96360; 96361; 99283; 99285-25; A9270-GY; C9113; G0480; J1650; J2060; J2405; J3411; J3475; J7040; J7042; J7120

== ENCOUNTER 2019-02-09 11:10 | Inpatient (IN) | payer MEDICAID ==
--- NOTE | 2019-02-09 11:35 | EDM.PDOCBH ---
ED HPI GENERAL MEDICAL PROBLEM - General Chief Complaint: Drug or Alcohol Abuse Stated Complaint: [facility] Time Seen by Provider: 02/09/19 11:28 Source of Information: Reports: Patient, RN Notes Reviewed - History of Present Illness INITIAL COMMENTS - FREE TEXT/NARRATIVE: 33 year old male presents sent over to ED from [facility]. He has hx of chronic alcohol abuse and dependency. He was admitted to ICU about 1 week ago wanting detox and treatment and than signed out AMA after a day or 2. He once again wants help for detox and does state he knows he needs to quit drinking alcohol and does realize he schmid do it on his own. He has been drinking hard liquor. Last drink several hrs ago. No chest or abd pain at this time. We have been told by [facility] that he needs to be cleared for possible admision to an [facility] bed. Left Upper Abdomen Pain Score (Numeric/FACES): 9 Right Lower Abdomen Pain Score (Numeric/FACES): 5 - Related Data Allergies Allergy/AdvReac Type Severity Reaction Status Date / Time No Known Allergies Allergy Verified 02/09/19 23:55 Home Meds: Home Meds Hydrochlorothiazide [Microzide] 12.5 mg PO DAILY 02/09/19 [History] Pantoprazole Sodium [Protonix] 40 mg PO ACBREAKFAST 02/09/19 [History] Rivaroxaban [Xarelto] 20 mg PO DAILY 02/09/19 [History] Folic Acid 1 mg PO DAILY #30 tablet 02/12/19 [Rx] Magnesium Oxide 400 mg PO BID #60 tablet 02/12/19 [Rx] Nicotine [Habitrol] 21 mg TRDERM DAILY #30 patch 02/12/19 [Rx] Thiamine [Vitamin B-1] 100 mg PO BEDTIME #30 tablet 02/12/19 [Rx] chlordiazePOXIDE [Librium] 25 mg PO TID #5 cap 02/12/19 [Rx] Past Medical History HEENT History: Reports: Other (See Below) Other HEENT History: Maxofacial surgery to repair right socket Cardiovascular History: Reports: None, Blood Clots/VTE/DVT Other Cardiovascular History: seen for chest pains Respiratory History: Reports: Sleep Apnea Gastrointestinal History: Reports: Gastritis, GERD, PUD, Other (See Below) Other Gastrointestinal History: stomach ulcer Genitourinary History: Reports: Prostate Disorder Other Genitourinary History: prostate disease TOY MAKER History: Reports: None Musculoskeletal History: Reports: Fracture Other Musculoskeletal History: ankle Neurological History: Reports: Migraines Psychiatric History: Reports: Addiction Endocrine/Metabolic History: Reports: None Hematologic History: Reports: None Immunologic History: Reports: None Oncologic (Cancer) History: Reports: None Dermatologic History: Reports: None - Infectious Disease History Infectious Disease History: Reports: Chicken Pox - Past Surgical History Head Surgeries/Procedures: Reports: None HEENT Surgical History: Reports: Tonsillectomy, Other (See Below) Cardiovascular Surgical History: Reports: None GI Surgical History: Reports: EGD, Hernia, Abdominal Endocrine Surgical History: Reports: None Oncologic Surgical History: Reports: None Dermatological Surgical History: Reports: None Social & Family History - Family History Family Medical History: Noncontributory - Tobacco Use Smoking Status *Q: Current Every Day Smoker Years of Tobacco use: 16 Packs/Tins Daily: 0.7 Used Tobacco, but Quit: No - Caffeine Use Caffeine Use: Reports: Coffee - Alcohol Use Days Per Week of Alcohol Use: 7 Number of Drinks Per Day: 15 Total Drinks Per Week: 105 Date of Last Drink: 02/09/19 Time of Last Drink: 08:00 - Recreational Drug Use Recreational Drug Use: No - Living Situation & Occupation Living situation: Reports: , Alone Occupation: Unemployed ED ROS GENERAL - Review of Systems Review Of Systems: See Below Constitutional: Denies: Fever, Chills, Diaphoresis HEENT: Reports: No Symptoms Respiratory: Denies: Shortness of Breath, Pleuritic Chest Pain, Cough Cardiovascular: Denies: Chest Pain GI/Abdominal: Reports: Decreased Appetite, Nausea. Denies: Abdominal Pain, Vomiting Musculoskeletal: Denies: Neck Pain, Back Pain, Joint Pain Skin: Reports: No Symptoms Neurological: Reports: Dizziness. Denies: Trouble Speaking, Difficulty Walking ED EXAM, BEHAVIORAL HEALTH - Physical Exam Exam: See Below General Appearance: Alert, Other (at least moderately intoxicated) Eye Exam: Bilateral Eye: PERRL Throat/Mouth: Normal Inspection, Normal Oropharynx Head: Atraumatic Neck: Supple, Non-Tender Respiratory/Chest: No Respiratory Distress, Lungs Clear, Normal Breath Sounds Cardiovascular: Tachycardia GI/Abdominal: Soft, Non-Tender Extremities: Normal Inspection, Normal Range of Motion Neurological: Alert, No Motor/Sensory Deficits, Other (ambulatory without difficulty upon arrival to ED) Skin Exam: Warm, Dry, Normal color COURSE, BEHAVIORAL HEALTH COMP - Course Vital Signs: Last Vital Signs Temp 97.8 F 02/12/19 12:00 Pulse 73 02/12/19 12:00 Resp 14 02/12/19 12:00 BP 126/91 H 02/12/19 12:00 Pulse Ox 98 02/12/19 12:00 Orders, Labs, Meds: Laboratory Tests 02/09/19 02/09/19 02/09/19 Range/Units 12:15 12:15 17:06 WBC 6.93 (4.23-9.07) K/mm3 RBC 4.88 (4.63-6.08) M/mm3 Hgb 15.6 (13.7-17.5) gm/dl Hct 44.7 (40.1-51.0) % MCV 91.6 (79.0-92.2) fl MCH 32.0 (25.7-32.2) pg MCHC 34.9 (32.2-35.5) g/dl RDW Std Deviation 45.7 H (35.1-43.9) fL Plt Count 124 L (163-337) K/mm3 MPV 10.8 (9.4-12.3) fl Neut % (Auto) 49.8 (34.0-67.9) % Lymph % (Auto) 30.3 (21.8-53.1) % Sunflower % (Auto) 18.3 H (5.3-12.2) % Eos % (Auto) 0.9 (0.8-7.0) Baso % (Auto) 0.6 (0.1-1.2) % Neut # (Auto) 3.45 (1.78-5.38) K/mm3 Lymph # (Auto) 2.10 (1.32-3.57) K/mm3 Sunflower # (Auto) 1.27 H (0.30-0.82) K/mm3 Eos # (Auto) 0.06 (0.04-0.54) K/mm3 Baso # (Auto) 0.04 (0.01-0.08) K/mm3 Manual Slide Review Abnormal smear Sodium 141 (136-145) mEq/L Potassium 2.7 L (3.5-5.1) mEq/L Chloride 104 (98-107) mEq/L Carbon Dioxide 25 (21-32) mEq/L Anion Gap 14.7 (5-15) BUN 10 (7-18) mg/dL Creatinine 0.8 (0.7-1.3) mg/dL Est Cr Clr Drug Dosing 141.91 mL/min Estimated GFR (MDRD) > 60 (>60) mL/min BUN/Creatinine Ratio 12.5 L (14-18) Glucose 125 H (74-106) mg/dL Calcium 8.1 L (8.5-10.1) mg/dL Magnesium 1.3 L (1.8-2.4) mg/dl Total Bilirubin 0.5 (0.2-1.0) mg/dL AST 281 H (15-37) U/L ALT 156 H (16-63) U/L Alkaline Phosphatase 102 (46-116) U/L Total Protein 6.7 (6.4-8.2) g/dl Albumin 3.5 (3.4-5.0) g/dl Globulin 3.2 gm/dL Albumin/Globulin Ratio 1.1 (1-2) Ethyl Alcohol 0.37 (0.00) gm% 02/09/19 Range/Units 17:06 WBC (4.23-9.07) K/mm3 RBC (4.63-6.08) M/mm3 Hgb (13.7-17.5) gm/dl Hct (40.1-51.0) % MCV (79.0-92.2) fl MCH (25.7-32.2) pg MCHC (32.2-35.5) g/dl RDW Std Deviation (35.1-43.9) fL Plt Count (163-337) K/mm3 MPV (9.4-12.3) fl Neut % (Auto) (34.0-67.9) % Lymph % (Auto) (21.8-53.1) % Sunflower % (Auto) (5.3-12.2) % Eos % (Auto) (0.8-7.0) Baso % (Auto) (0.1-1.2) % Neut # (Auto) (1.78-5.38) K/mm3 Lymph # (Auto) (1.32-3.57) K/mm3 Sunflower # (Auto) (0.30-0.82) K/mm3 Eos # (Auto) (0.04-0.54) K/mm3 Baso # (Auto) (0.01-0.08) K/mm3 Manual Slide Review Sodium (136-145) mEq/L Potassium (3.5-5.1) mEq/L Chloride (98-107) mEq/L Carbon Dioxide (21-32) mEq/L Anion Gap (5-15) BUN (7-18) mg/dL Creatinine (0.7-1.3) mg/dL Est Cr Clr Drug Dosing mL/min Estimated GFR (MDRD) (>60) mL/min BUN/Creatinine Ratio (14-18) Glucose (74-106) mg/dL Calcium (8.5-10.1) mg/dL Magnesium (1.8-2.4) mg/dl Total Bilirubin (0.2-1.0) mg/dL AST (15-37) U/L ALT (16-63) U/L Alkaline Phosphatase (46-116) U/L Total Protein (6.4-8.2) g/dl Albumin (3.4-5.0) g/dl Globulin gm/dL Albumin/Globulin Ratio (1-2) Ethyl Alcohol 0.29 (0.00) gm% Medications Discontinued Medications Generic Name Dose Route Start Last Admin Trade Name Freq PRN Reason Stop Dose Admin Acetaminophen 650 mg 02/12/19 13:30 02/12/19 13:35 Tylenol PO 650 mg Q4H PRN Administration Pain (mild 1-3) Chlordiazepoxide HCl 0 mg 02/09/19 21:30 02/10/19 21:29 Librium PO 50 mg Q4H MARCELA Administration Protocol Chlordiazepoxide HCl 25 mg 02/11/19 03:30 02/12/19 11:37 Librium PO 02/14/19 03:29 25 mg Q4H MARCELA Administration Taper Protocol Folic Acid 1 mg 02/09/19 21:30 02/12/19 08:20 Folic Acid PO 1 mg DAILY MARCELA Administration Hydrochlorothiazide 12.5 mg 02/10/19 20:00 02/12/19 08:20 Hydrochlorothiazide PO 12.5 mg DAILY MARCELA Administration Dextrose/Lactated Ringer's 1,000 mls @ 999 mls/hr 02/09/19 11:45 02/09/19 14: 37 Dextrose 5%-Lactated Ringers IV 999 mls/hr ASDIRECTED MARCELA Administration Dextrose/Lactated Ringer's 1,000 mls @ 500 mls/hr 02/09/19 17:00 02/09/19 17: 06 Dextrose 5%-Lactated Ringers IV 500 mls/hr ASDIRECTED MARCELA Administration Potassium Chloride 10 meq/ 100 mls @ 50 mls/hr 02/09/19 16:55 02/09/19 18:12 Premix IV 02/09/19 18:54 50 mls/hr ASDIRECTED ONE Administration Magnesium Sulfate 4 gm/ Premix 50 mls @ 12.5 mls/hr 02/09/19 21:30 02/09/19 21:49 IV 02/10/19 01:29 12.5 mls/hr ONETIME ONE Administration Potassium Chloride/Dextrose/Sod Cl 1,000 mls @ 100 mls/hr 02/09/19 22:00 04/19 08:48 D5 Ns With 20 Meq Kcl IV 100 mls/hr ASDIRECTED MARCELA Administration Magnesium Sulfate 4 gm/ Premix 50 mls @ 12.5 mls/hr 02/10/19 09:24 02/10/19 09:41 IV 02/10/19 13:23 12.5 mls/hr ONETIME ONE Administration Magnesium Sulfate 4 gm/ Premix 100 mls @ 25 mls/hr 02/12/19 08:30 02/12/19 08 :35 IV 02/12/19 12:29 25 mls/hr ONETIME ONE Administration Lorazepam 0 mg 02/09/19 21:20 Ativan PO Q1H PRN Withdrawal Symptoms Protocol Lorazepam 0 mg 02/09/19 21:22 Ativan IVPUSH Q1H PRN Withdrawal Symptoms Protocol Magnesium Oxide 400 mg 02/10/19 09:00 02/12/19 08:19 Magnesium Oxide PO 400 mg BID MARCELA Administration Miscellaneous Information 1 ea 02/10/19 09:00 02/12/19 08:22 Remove Patch TRDERM 1 ea DAILY MARCELA Administration Nicotine 21 mg 02/09/19 21:30 02/12/19 08:20 Habitrol TRDERM 21 mg DAILY MARCELA Administration Ondansetron HCl 4 mg 02/09/19 11:38 02/09/19 12:18 Zofran IVPUSH 02/09/19 11:39 4 mg ONETIME ONE Administration Ondansetron HCl 4 mg 02/09/19 21:14 Zofran IV Q4H PRN Nausea/Vomiting Pantoprazole Sodium 40 mg 02/10/19 06:00 02/12/19 05:49 Protonix PO 40 mg ACBREAKFAST MARCELA Administration Potassium Chloride 40 meq 02/09/19 16:56 02/09/19 18:12 Klor-Con M20 PO 02/09/19 16:57 40 meq ONETIME ONE Administration Potassium Chloride 20 meq 02/09/19 21:30 02/09/19 21:47 Klor-Con M20 PO 02/09/19 21:31 20 meq ONETIME ONE Administration Rivaroxaban 20 mg 02/10/19 09:00 02/12/19 08:20 Xarelto PO 20 mg DAILY MARCELA Administration Sodium Chloride 10 ml 02/09/19 11:37 02/09/19 12:17 Saline Flush FLUSH 10 ml ASDIRECTED PRN Administration Keep Vein Open Thiamine HCl 100 mg 02/09/19 15:09 02/09/19 15:49 Vitamin B-1 PO 02/09/19 15:10 100 mg ONETIME ONE Administration Thiamine HCl 100 mg 02/09/19 21:30 02/12/19 05:49 Vitamin B-1 IVPUSH 100 mg Q8H MARCELA Administration Thiamine HCl 100 mg 02/12/19 21:00 Vitamin B-1 PO BEDTIME MARCELA Re-Assessment/Re-Exam: initial blood alcohol .37. He as was given 1 liter NS and than switched to D5LR. Repeat etoh many hrs later still 0.29. There was some thought of trying to send him to [facility] but we agreed he was not ready for that, high risk of withdrawal complications beyond their staffing and treatment capabilities. I did discuss this with [place] our [employer] social worker and Dr Lott, Hospitalist branch operations specialist. We all agreed to admit to ICU for detox. Consider placing hold once he is over in ICU. Departure - Departure Time of Disposition: 17:30 Disposition: Admitted As Inpatient 65 Condition: Serious Clinical Impression: Alcohol intoxication Qualifiers: Complication of substance-induced condition: uncomplicated Qualified Code(s): F10.920 - Alcohol use, unspecified with intoxication, uncomplicated - Discharge Information ED Communication - Discussed Case With (1) Discussed Case With (1): Admitting Provider (Dr Lott, decision to admit at about 17:30.)
[2019-02-09] MEDS ORDERED: Sodium Chloride 0.9% 10 ML Syringe FLUSH PRN (11:37)
[2019-02-09] MEDS ORDERED: Ondansetron 4 MG/2 ML SDV IVPUSH ONE (11:38)
[2019-02-09] MEDS: Dextrose 5%-Lactated Ringers 1,000 ML IV SCH ×2 (12:17→14:37)
[2019-02-09] MEDS ORDERED: Dextrose 5%-Lactated Ringers 1,000 ML IV SCH ×2 (13:15→17:00)
[2019-02-09] MEDS ORDERED: Thiamine 100 MG Tab PO ONE (15:09)
[2019-02-09] MEDS ORDERED: Potassium Chloride 10 MEQ in Premix Bag 1 BAG IV ONE (16:55)
[2019-02-09] MEDS ORDERED: Potassium Chloride 20 MEQ Tab.ER PO ONE ×2 (16:56→21:30)
[2019-02-09] MEDS ORDERED: Ondansetron 4 MG/2 ML SDV IV PRN (21:14)
[2019-02-09] MEDS ORDERED: LORazepam 1 MG Tab PO PRN (21:20)
[2019-02-09] MEDS ORDERED: LORazepam 2 MG/ML SDV IVPUSH PRN (21:22)
[2019-02-09] MEDS ORDERED: Magnesium Sulfate/Water 4 GM in Premix Bag 1 BAG IV ONE (21:30)
[2019-02-09] MEDS: Nicotine 21 MG/24 Hr Patch TRDERM SCH (21:35)
--- NOTE | 2019-02-09 21:41 | PCM.HP.2 ---
H&P History of Present Illness - General Date of Service: 02/09/19 Admit Problem/Dx: Admission Diagnosis/Problem Admission Diagnosis/Problem Alcohol intoxication - History of Present Illness Initial Comments - Free Text/Narative: 33-year-old male with a long history of heavy alcohol abuse presents to the emergency room intoxicated and asking for help with his alcohol. Patient was admitted earlier this week and left AMA 2 days ago. Patient originally presented to a local alcohol and drug rehabilitation center and he was sent here for medical clearance. When patient arrived he was found to have an alcohol level of 0.37. He states his last drink was early this morning. He drinks 99 proof alcohol shooters approximate 10 per day. He drank 6 this morning. Repeat blood alcohol level dropped down to 0.29 g percent 5 hours later. Patient is well-known in the emergency department and generally when he is seen his alcohol level ranges from 0.31-0.51 over the last 12 months. Since August he has been seen in the emergency room 8 times with alcohol levels greater than 0.31 g percent. In the emergency room patient was found to have a potassium of 2.7 and magnesium of 1.5. He was given 40 mEq of potassium by mouth and 10 mEq IV. At this point patient was felt to not be stable enough to go to residential care for alcohol rehabilitation and he needed to be admitted to the hospital for detox and management of alcohol withdrawal. 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 He has chronic abdominal pain and takes Protonix. He states his pain is moderate in severity, starts in his stomach, radiates down towards his pelvis and then spreads to his left and right lower quadrants. Patient was diagnosed in August with with left-sided lower extremity DVT and started on Xarelto. In the emergency room patient did well and did not require any treatment for withdrawal symptoms. Left Upper Abdomen Pain Score (Numeric/FACES): 9 - Related Data Allergies/Adverse Reactions: Allergies Allergy/AdvReac Type Severity Reaction Status Date / Time No Known Allergies Allergy Verified 02/09/19 11:25 Home Medications: Home Meds Hydrochlorothiazide [Microzide] 12.5 mg PO DAILY 02/09/19 [History] Pantoprazole Sodium [Protonix] 40 mg PO ACBREAKFAST 02/09/19 [History] Rivaroxaban [Xarelto] 20 mg PO DAILY 02/09/19 [History] traMADol [Ultram] 50 mg PO TID PRN 02/09/19 [History] Past Medical History HEENT History: Reports: Other (See Below) Other HEENT History: Maxofacial surgery to repair right socket Cardiovascular History: Reports: None, Blood Clots/VTE/DVT Other Cardiovascular History: seen for chest pains Respiratory History: Reports: Sleep Apnea Gastrointestinal History: Reports: Gastritis, GERD, PUD, Other (See Below) Other Gastrointestinal History: stomach ulcer Genitourinary History: Reports: Prostate Disorder Other Genitourinary History: prostate disease [employer] History: Reports: None Musculoskeletal History: Reports: Fracture Other Musculoskeletal History: ankle Neurological History: Reports: Migraines Psychiatric History: Reports: Addiction Endocrine/Metabolic History: Reports: None Hematologic History: Reports: None Immunologic History: Reports: None Oncologic (Cancer) History: Reports: None Dermatologic History: Reports: None - Infectious Disease History Infectious Disease History: Reports: Chicken Pox - Past Surgical History Head Surgeries/Procedures: Reports: None HEENT Surgical History: Reports: Tonsillectomy, Other (See Below) Cardiovascular Surgical History: Reports: None GI Surgical History: Reports: EGD, Hernia, Abdominal Endocrine Surgical History: Reports: None Oncologic Surgical History: Reports: None Dermatological Surgical History: Reports: None Social & Family History - Family History Family Medical History: Noncontributory - Tobacco Use Smoking Status *Q: Current Every Day Smoker Years of Tobacco use: 16 Packs/Tins Daily: 0.7 Used Tobacco, but Quit: No - Caffeine Use Caffeine Use: Reports: Coffee - Alcohol Use Days Per Week of Alcohol Use: 7 Number of Drinks Per Day: 15 Total Drinks Per Week: 105 Date of Last Drink: 02/09/19 Time of Last Drink: 08:00 - Recreational Drug Use Recreational Drug Use: No - Living Situation & Occupation Living situation: Reports: , Alone Occupation: Unemployed H&P Review of Systems - Review of Systems: Review Of Systems: ROS reveals no pertinent complaints other than HPI. Exam - Exam Exam: See Below - Vital Signs Vital Signs: Last Vital Signs Temp 98.6 F 02/09/19 21:12 Pulse 121 H 02/09/19 11:19 Resp 22 H 02/09/19 21:12 BP 136/90 02/09/19 21:12 Pulse Ox 95 02/09/19 21:12 Weight: 163 lb 8 oz - Exam General: Alert, Oriented, 4 HEENT: Conjunctiva Clear, Hearing Intact, Nares Patent, Normal Nasal Septum, Posterior Pharynx Clear, TMs Clear, PERRLA. No: Mucosa Moist & [place] (dry) Neck: Supple, Trachea Midline, 2 Lungs: Clear to Auscultation, Normal Respiratory Effort Cardiovascular: Regular Rate, Regular Rhythm GI/Abdominal Exam: Normal Bowel Sounds, Soft, Non-Tender, No Organomegaly, No Distention, No Abnormal Bruit, No Mass, Pelvis Stable Back Exam: Normal Inspection, Full Range of Motion, NT Extremities: Normal Inspection, Normal Range of Motion, Non-Tender, No Pedal Edema, Normal Capillary Refill Skin: Warm, Dry, Intact Neuro Extensive - Mental Status: Alert, Oriented x3, Normal Mood/Affect, Normal Cognition Neuro Extensive - Motor, Sensory, Reflexes: CN II-XII Intact, Abnormal Gait Psychiatric: Other (intoxicated) - Patient Data Lab Results Last 24 hrs: Laboratory Results - last 24 hr 02/09/19 02/09/19 02/09/19 Range/Units 12:15 12:15 17:06 WBC 6.93 (4.23-9.07) K/mm3 RBC 4.88 (4.63-6.08) M/mm3 Hgb 15.6 (13.7-17.5) gm/dl Hct 44.7 (40.1-51.0) % MCV 91.6 (79.0-92.2) fl MCH 32.0 (25.7-32.2) pg MCHC 34.9 (32.2-35.5) g/dl RDW Std Deviation 45.7 H (35.1-43.9) fL Plt Count 124 L (163-337) K/mm3 MPV 10.8 (9.4-12.3) fl Neut % (Auto) 49.8 (34.0-67.9) % Lymph % (Auto) 30.3 (21.8-53.1) % [place] % (Auto) 18.3 H (5.3-12.2) % Eos % (Auto) 0.9 (0.8-7.0) Baso % (Auto) 0.6 (0.1-1.2) % Neut # (Auto) 3.45 (1.78-5.38) K/mm3 Lymph # (Auto) 2.10 (1.32-3.57) K/mm3 [place] # (Auto) 1.27 H (0.30-0.82) K/mm3 Eos # (Auto) 0.06 (0.04-0.54) K/mm3 Baso # (Auto) 0.04 (0.01-0.08) K/mm3 Manual Slide Review Abnormal smear Sodium 141 (136-145) mEq/L Potassium 2.7 L (3.5-5.1) mEq/L Chloride 104 (98-107) mEq/L Carbon Dioxide 25 (21-32) mEq/L Anion Gap 14.7 (5-15) BUN 10 (7-18) mg/dL Creatinine 0.8 (0.7-1.3) mg/dL Est Cr Clr Drug Dosing 141.91 mL/min Estimated GFR (MDRD) > 60 (>60) mL/min BUN/Creatinine Ratio 12.5 L (14-18) Glucose 125 H (74-106) mg/dL Calcium 8.1 L (8.5-10.1) mg/dL Magnesium 1.3 L (1.8-2.4) mg/dl Total Bilirubin 0.5 (0.2-1.0) mg/dL AST 281 H (15-37) U/L ALT 156 H (16-63) U/L Alkaline Phosphatase 102 (46-116) U/L Total Protein 6.7 (6.4-8.2) g/dl Albumin 3.5 (3.4-5.0) g/dl Globulin 3.2 gm/dL Albumin/Globulin Ratio 1.1 (1-2) Ethyl Alcohol 0.37 (0.00) gm% 02/09/19 Range/Units 17:06 WBC (4.23-9.07) K/mm3 RBC (4.63-6.08) M/mm3 Hgb (13.7-17.5) gm/dl Hct (40.1-51.0) % MCV (79.0-92.2) fl MCH (25.7-32.2) pg MCHC (32.2-35.5) g/dl RDW Std Deviation (35.1-43.9) fL Plt Count (163-337) K/mm3 MPV (9.4-12.3) fl Neut % (Auto) (34.0-67.9) % Lymph % (Auto) (21.8-53.1) % [place] % (Auto) (5.3-12.2) % Eos % (Auto) (0.8-7.0) Baso % (Auto) (0.1-1.2) % Neut # (Auto) (1.78-5.38) K/mm3 Lymph # (Auto) (1.32-3.57) K/mm3 [place] # (Auto) (0.30-0.82) K/mm3 Eos # (Auto) (0.04-0.54) K/mm3 Baso # (Auto) (0.01-0.08) K/mm3 Manual Slide Review Sodium (136-145) mEq/L Potassium (3.5-5.1) mEq/L Chloride (98-107) mEq/L Carbon Dioxide (21-32) mEq/L Anion Gap (5-15) BUN (7-18) mg/dL Creatinine (0.7-1.3) mg/dL Est Cr Clr Drug Dosing mL/min Estimated GFR (MDRD) (>60) mL/min BUN/Creatinine Ratio (14-18) Glucose (74-106) mg/dL Calcium (8.5-10.1) mg/dL Magnesium (1.8-2.4) mg/dl Total Bilirubin (0.2-1.0) mg/dL AST (15-37) U/L ALT (16-63) U/L Alkaline Phosphatase (46-116) U/L Total Protein (6.4-8.2) g/dl Albumin (3.4-5.0) g/dl Globulin gm/dL Albumin/Globulin Ratio (1-2) Ethyl Alcohol 0.29 (0.00) gm% Result Diagrams: 02/09/19 12:15 02/09/19 12:15 Problem List Initiated/Reviewed/Updated: Yes Orders Last 24hrs: Active Orders 24 hr Category Date Time Status Patient Status [ADT] Routine ADT 02/09/19 20:53 Active CIWAA Assessment [RC] Q1H Care 02/09/19 21:17 Ordered Oxygen Therapy [RC] PRN Care 02/09/19 21:15 Ordered Peripheral IV Care [RC] Q2HR Care 02/09/19 11:38 Active Up ad Brandy [RC] ASDIRECTED Care 02/09/19 21:14 Ordered VTE/DVT Education [RC] PER UNIT ROUTINE Care 02/09/19 21:15 Ordered Vital Signs [RC] Q4H Care 02/09/19 21:15 Ordered Regular Diet [DIET] Diet 02/09/19 Dinner Ordered CBC WITH AUTO DIFF [HEME] AM Lab 02/10/19 05:11 Ordered CBC WITH AUTO DIFF [HEME] AM Lab 02/11/19 05:11 Ordered CBC WITH AUTO DIFF [HEME] AM Lab 02/12/19 05:11 Ordered CBC WITH AUTO DIFF [HEME] AM Lab 02/13/19 05:11 Ordered CBC WITH AUTO DIFF [HEME] AM Lab 02/14/19 05:11 Ordered COMPREHENSIVE METABOLIC PN,CMP [CHEM] AM Lab 02/10/19 05:11 Ordered COMPREHENSIVE METABOLIC PN,CMP [CHEM] AM Lab 02/11/19 05:11 Ordered COMPREHENSIVE METABOLIC PN,CMP [CHEM] AM Lab 02/12/19 05:11 Ordered COMPREHENSIVE METABOLIC PN,CMP [CHEM] AM Lab 02/13/19 05:11 Ordered COMPREHENSIVE METABOLIC PN,CMP [CHEM] AM Lab 02/14/19 05:11 Ordered MAGNESIUM [CHEM] AM Lab 02/10/19 05:11 Ordered MAGNESIUM [CHEM] AM Lab 02/11/19 05:11 Ordered MAGNESIUM [CHEM] AM Lab 02/12/19 05:11 Ordered MAGNESIUM [CHEM] AM Lab 02/13/19 05:11 Ordered MAGNESIUM [CHEM] AM Lab 02/14/19 05:11 Ordered Dextrose 5%-Lactated Ringers 1,000 ml Med 02/09/19 17:00 Active IV ASDIRECTED Folic Acid Med 02/09/19 21:30 Ordered 1 mg PO DAILY LORazepam [Ativan] Med 02/09/19 21:22 Ordered See Protocol IVPUSH Q1H PRN LORazepam [Ativan] Med 02/09/19 21:20 Ordered See Protocol PO Q1H PRN Magnesium Oxide Med 02/10/19 09:00 Ordered 400 mg PO BID Magnesium Sulfate/Water [Magnesium Sulfate in Water Med 02/09/19 21:30 Ordered Premix] 4 gm Premix Bag 1 bag IV ONETIME Nicotine [Habitrol] Med 02/09/19 21:30 Ordered 21 mg TRDERM DAILY Ondansetron [Zofran] Med 02/09/19 21:14 Ordered 4 mg IV Q4H PRN Pantoprazole [ProTONIX] Med 02/10/19 06:00 Ordered 40 mg PO ACBREAKFAST Potassium Chloride [Klor-Con M20] Med 02/09/19 21:30 Once 20 meq PO ONETIME ONE Remove Patch Med 02/10/19 09:00 Active 1 ea TRDERM DAILY Rivaroxaban [Xarelto] Med 02/10/19 09:00 Ordered 20 mg PO DAILY Sodium Chloride 0.9% [Saline Flush] Med 02/09/19 11:37 Active 10 ml FLUSH ASDIRECTED PRN Thiamine [Vitamin B-1] Med 02/09/19 21:30 Ordered 100 mg IVPUSH Q8H chlordiazePOXIDE [Librium] Med 02/09/19 21:30 Ordered See Protocol PO Q4H Peripheral IV Insertion Adult [OM.PC] Stat Oth 02/09/19 11:37 Ordered Resuscitation Status Routine Resus Stat 02/09/19 21:14 Ordered Medication Orders Chlordiazepoxide HCl (Librium) 0 mg PO Q4H MARCELA; Protocol Folic Acid (Folic Acid) 1 mg PO DAILY MARCELA Dextrose/Lactated Ringer's (Dextrose 5%-Lactated Ringers) 1,000 mls @ 500 mls/ hr IV ASDIRECTED MARCELA Last Admin: 02/09/19 17:06 Dose: 500 mls/hr Magnesium Sulfate 4 gm/ Premix 50 mls @ 12.5 mls/hr IV ONETIME ONE Stop: 02/10/19 01:29 Lorazepam (Ativan) 0 mg PO Q1H PRN; Protocol PRN Reason: Withdrawal Symptoms Lorazepam (Ativan) 0 mg IVPUSH Q1H PRN; Protocol PRN Reason: Withdrawal Symptoms Magnesium Oxide (Magnesium Oxide) 400 mg PO BID COUNT INCLUDES THE [facility] Miscellaneous Information (Remove Patch) 1 ea TRDERM DAILY COUNT INCLUDES THE [facility] Nicotine (Habitrol) 21 mg TRDERM DAILY MARCELA Ondansetron HCl (Zofran) 4 mg IV Q4H PRN PRN Reason: Nausea/Vomiting Pantoprazole Sodium (Protonix) 40 mg PO ACBREAKFAST MARCELA Rivaroxaban (Xarelto) 20 mg PO DAILY COUNT INCLUDES THE [facility] Sodium Chloride (Saline Flush) 10 ml FLUSH ASDIRECTED PRN PRN Reason: Keep Vein Open Last Admin: 02/09/19 12:17 Dose: 10 ml Thiamine HCl (Vitamin B-1) 100 mg IVPUSH Q8H COUNT INCLUDES THE [facility] Assessment/Plan Comment:: Assessment * Acute alcoholic intoxication * initial blood alcohol level 0.37 g per * chronic daily alcohol abuse * drinks 99 proof alcohol shots at least 10 per * Anticipate moderate to severe alcohol withdrawal * Chronic abdominal pain * on Protonix at home * History of left lower extremity DVT * on Xarelto * Hypokalemia * initial potassium 2.7 * Hypomagnesemia * initial magnesium 1.3 Plan * Admit to ICU for monitoring * Review old hospitalization * CIWA protocol with Ativan * Librium protocol * Thiamine 100 mg IV every 8 hours * Folic acid 1 mg daily * Replenish Mag and potassium * D5 normal saline with 20 of KCl per liter at 100 mL per hour * Continue Protonix * Continue Xarelto * daily CMP, CBC, and magnesium * Plan discharge to [facility] when medically stable * CODE STATUS: Full - Mortality Measure Prognosis:: Good
[2019-02-09] MEDS: chlordiazePOXIDE 25 MG Cap PO SCH (21:46)
[2019-02-09] MEDS: Thiamine 200 MG/2 ML MDV IVPUSH SCH (21:47)
[2019-02-09] MEDS: Folic Acid 1 MG Tab PO SCH (21:47)
[2019-02-09] MEDS: Dextrose 5%-0.9% NaCl with KCl 1,000 ML IV SCH (22:16)
[2019-02-10] MEDS: chlordiazePOXIDE 25 MG Cap PO SCH ×6 (01:30→21:29)
[2019-02-10] MEDS: Pantoprazole 40 MG Tab.CR PO SCH (05:33)
[2019-02-10] MEDS: Thiamine 200 MG/2 ML MDV IVPUSH SCH ×3 (05:34→20:40)
[2019-02-10] MEDS: Dextrose 5%-0.9% NaCl with KCl 1,000 ML IV SCH (08:48)
[2019-02-10] MEDS: Rivaroxaban 10 MG Tab PO SCH (08:57)
[2019-02-10] MEDS: Folic Acid 1 MG Tab PO SCH (08:59)
[2019-02-10] MEDS: Nicotine 21 MG/24 Hr Patch TRDERM SCH (08:59)
[2019-02-10] MEDS: Magnesium Oxide 400 MG Tab PO SCH ×2 (08:59→20:39)
[2019-02-10] MEDS ORDERED: Magnesium Sulfate/Water 4 GM in Premix Bag 1 BAG IV ONE (09:24)
--- NOTE | 2019-02-10 13:10 | PCM.PN ---
- General Info Date of Service: 02/10/19 Admission Dx/Problem (Free Text): Admission Diagnosis/Problem Admission Diagnosis/Problem Alcohol intoxication Subjective Update: patient complains of some low right flank pain. He states with his bowel movement this morning he did have some bright red blood. This was flushed and nursing was unable to inspect it. Otherwise, patient states he is feeling well and better than normal. His CIWA scores have been below 8. Functional Status: Denies: Pain Controlled - Review of Systems General: Reports: No Symptoms HEENT: Reports: No Symptoms Pulmonary: Reports: No Symptoms Cardiovascular: Reports: No Symptoms Gastrointestinal: Reports: No Symptoms Neurological: Reports: No Symptoms Psychiatric: Reports: No Symptoms - Patient Data Vitals - Most Recent: Last Vital Signs Temp 97.8 F 02/10/19 12:00 Pulse 88 02/10/19 03:01 Resp 18 02/10/19 12:00 BP 154/96 H 02/10/19 12:00 Pulse Ox 100 02/10/19 12:00 Weight - Most Recent: 165 lb I&O - Last 24 Hours: Intake & Output 02/09/19 02/10/19 02/10/19 22:59 06:59 14:59 Intake Total 110 1636 820 Output Total 200 500 Balance 110 1436 320 Lab Results Last 24 Hours: Laboratory Results - last 24 hr 02/09/19 02/09/19 02/09/19 Range/Units 12:15 12:15 17:06 WBC (4.23-9.07) K/mm3 RBC (4.63-6.08) M/mm3 Hgb (13.7-17.5) gm/dl Hct (40.1-51.0) % MCV (79.0-92.2) fl MCH (25.7-32.2) pg MCHC (32.2-35.5) g/dl RDW Std Deviation (35.1-43.9) fL Plt Count (163-337) K/mm3 MPV (9.4-12.3) fl Neut % (Auto) (34.0-67.9) % Lymph % (Auto) (21.8-53.1) % [place] % (Auto) (5.3-12.2) % Eos % (Auto) (0.8-7.0) Baso % (Auto) (0.1-1.2) % Neut # (Auto) (1.78-5.38) K/mm3 Lymph # (Auto) (1.32-3.57) K/mm3 [place] # (Auto) (0.30-0.82) K/mm3 Eos # (Auto) (0.04-0.54) K/mm3 Baso # (Auto) (0.01-0.08) K/mm3 Manual Slide Review Abnormal smear Sodium 141 (136-145) mEq/L Potassium 2.7 L (3.5-5.1) mEq/L Chloride 104 (98-107) mEq/L Carbon Dioxide 25 (21-32) mEq/L Anion Gap 14.7 (5-15) BUN 10 (7-18) mg/dL Creatinine 0.8 (0.7-1.3) mg/dL Est Cr Clr Drug Dosing 141.91 mL/min Estimated GFR (MDRD) > 60 (>60) mL/min BUN/Creatinine Ratio 12.5 L (14-18) Glucose 125 H (74-106) mg/dL Calcium 8.1 L (8.5-10.1) mg/dL Magnesium 1.3 L (1.8-2.4) mg/dl Total Bilirubin 0.5 (0.2-1.0) mg/dL AST 281 H (15-37) U/L ALT 156 H (16-63) U/L Alkaline Phosphatase 102 (46-116) U/L Total Protein 6.7 (6.4-8.2) g/dl Albumin 3.5 (3.4-5.0) g/dl Globulin 3.2 gm/dL Albumin/Globulin Ratio 1.1 (1-2) Ethyl Alcohol 0.37 (0.00) gm% 02/09/19 02/10/19 02/10/19 Range/Units 17:06 04:26 04:26 WBC 6.33 (4.23-9.07) K/mm3 RBC 4.47 L (4.63-6.08) M/mm3 Hgb 14.1 D (13.7-17.5) gm/dl Hct 41.1 (40.1-51.0) % MCV 91.9 (79.0-92.2) fl MCH 31.5 (25.7-32.2) pg MCHC 34.3 (32.2-35.5) g/dl RDW Std Deviation 44.4 H (35.1-43.9) fL Plt Count 127 L (163-337) K/mm3 MPV 10.8 (9.4-12.3) fl Neut % (Auto) 47.4 (34.0-67.9) % Lymph % (Auto) 30.2 (21.8-53.1) % [place] % (Auto) 19.9 H (5.3-12.2) % Eos % (Auto) 1.6 (0.8-7.0) Baso % (Auto) 0.6 (0.1-1.2) % Neut # (Auto) 3.00 (1.78-5.38) K/mm3 Lymph # (Auto) 1.91 (1.32-3.57) K/mm3 [place] # (Auto) 1.26 H (0.30-0.82) K/mm3 Eos # (Auto) 0.10 (0.04-0.54) K/mm3 Baso # (Auto) 0.04 (0.01-0.08) K/mm3 Manual Slide Review Abnormal smear Sodium 138 (136-145) mEq/L Potassium 4.0 (3.5-5.1) mEq/L Chloride 103 (98-107) mEq/L Carbon Dioxide 27 (21-32) mEq/L Anion Gap 12.0 (5-15) BUN 8 (7-18) mg/dL Creatinine 0.7 (0.7-1.3) mg/dL Est Cr Clr Drug Dosing 157.41 mL/min Estimated GFR (MDRD) > 60 (>60) mL/min BUN/Creatinine Ratio 11.4 L (14-18) Glucose 85 (74-106) mg/dL Calcium 8.4 L (8.5-10.1) mg/dL Magnesium 1.5 L (1.8-2.4) mg/dl Total Bilirubin 0.8 (0.2-1.0) mg/dL AST 195 H (15-37) U/L ALT 128 H (16-63) U/L Alkaline Phosphatase 88 (46-116) U/L Total Protein 5.8 L (6.4-8.2) g/dl Albumin 3.2 L (3.4-5.0) g/dl Globulin 2.6 gm/dL Albumin/Globulin Ratio 1.2 (1-2) Ethyl Alcohol 0.29 (0.00) gm% Med Orders - Current: Current Medications Chlordiazepoxide HCl (Librium) 0 mg PO Q4H [facility]; Protocol Last Admin: 02/10/19 12:43 Dose: 50 mg Folic Acid (Folic Acid) 1 mg PO DAILY [facility] Last Admin: 02/10/19 08:59 Dose: 1 mg Dextrose/Lactated Ringer's (Dextrose 5%-Lactated Ringers) 1,000 mls @ 500 mls/ hr IV ASDIRECTED [facility] Last Admin: 02/09/19 17:06 Dose: 500 mls/hr Potassium Chloride/Dextrose/Sod Cl (D5 Ns With 20 Meq Kcl) 1,000 mls @ 100 mls/ hr IV ASDIRECTED [facility] Last Admin: 02/10/19 08:48 Dose: 100 mls/hr Magnesium Sulfate 4 gm/ Premix 50 mls @ 12.5 mls/hr IV ONETIME ONE Stop: 02/10/19 13:23 Last Admin: 02/10/19 09:41 Dose: 12.5 mls/hr Lorazepam (Ativan) 0 mg PO Q1H PRN; Protocol PRN Reason: Withdrawal Symptoms Lorazepam (Ativan) 0 mg IVPUSH Q1H PRN; Protocol PRN Reason: Withdrawal Symptoms Magnesium Oxide (Magnesium Oxide) 400 mg PO BID [facility] Last Admin: 02/10/19 08:59 Dose: 400 mg Miscellaneous Information (Remove Patch) 1 ea TRDERM DAILY [facility] Last Admin: 02/10/19 08:59 Dose: 1 ea Nicotine (Habitrol) 21 mg TRDERM DAILY [facility] Last Admin: 02/10/19 08:59 Dose: 21 mg Ondansetron HCl (Zofran) 4 mg IV Q4H PRN PRN Reason: Nausea/Vomiting Pantoprazole Sodium (Protonix) 40 mg PO ACBREAKFAST [facility] Last Admin: 02/10/19 05:33 Dose: 40 mg Rivaroxaban (Xarelto) 20 mg PO DAILY [facility] Last Admin: 02/10/19 08:57 Dose: 20 mg Sodium Chloride (Saline Flush) 10 ml FLUSH ASDIRECTED PRN PRN Reason: Keep Vein Open Last Admin: 02/09/19 12:17 Dose: 10 ml Thiamine HCl (Vitamin B-1) 100 mg IVPUSH Q8H [facility] Last Admin: 02/10/19 12:43 Dose: 100 mg Discontinued Medications Dextrose/Lactated Ringer's (Dextrose 5%-Lactated Ringers) 1,000 mls @ 999 mls/ hr IV ASDIRECTED [facility] Last Admin: 02/09/19 14:37 Dose: 999 mls/hr Potassium Chloride 10 meq/ (Premix) 100 mls @ 50 mls/hr IV ASDIRECTED ONE Stop: 02/09/19 18:54 Last Admin: 02/09/19 18:12 Dose: 50 mls/hr Magnesium Sulfate 4 gm/ Premix 50 mls @ 12.5 mls/hr IV ONETIME ONE Stop: 02/10/19 01:29 Last Admin: 02/09/19 21:49 Dose: 12.5 mls/hr Ondansetron HCl (Zofran) 4 mg IVPUSH ONETIME ONE Stop: 02/09/19 11:39 Last Admin: 02/09/19 12:18 Dose: 4 mg Potassium Chloride (Klor-Con M20) 40 meq PO ONETIME ONE Stop: 02/09/19 16:57 Last Admin: 02/09/19 18:12 Dose: 40 meq Potassium Chloride (Klor-Con M20) 20 meq PO ONETIME ONE Stop: 02/09/19 21:31 Last Admin: 02/09/19 21:47 Dose: 20 meq Thiamine HCl (Vitamin B-1) 100 mg PO ONETIME ONE Stop: 02/09/19 15:10 Last Admin: 02/09/19 15:49 Dose: 100 mg - Exam General: Alert, Oriented HEENT: Pupils Equal Neck: Supple Lungs: Clear to Auscultation, Normal Respiratory Effort Cardiovascular: Regular Rate, Regular Rhythm GI/Abdominal Exam: Normal Bowel Sounds, Soft, Non-Tender, No Organomegaly, No Distention, No Abnormal Bruit, No Mass, Pelvis Stable Back Exam: Normal Inspection, Full Range of Motion Extremities: Normal Inspection, Non-Tender, No Pedal Edema, Normal Capillary Refill Skin: Warm, Dry, Intact Neurological: No New Focal Deficit Psy/Mental Status: Alert, Normal Affect, Normal Mood - Problem List Review Problem List Initiated/Reviewed/Updated: Yes - My Orders Last 24 Hours: My Active Orders 02/09/19 21:14 Up ad Brandy [RC] ASDIRECTED Ondansetron [Zofran] 4 mg IV Q4H PRN Resuscitation Status Routine 02/09/19 21:15 Oxygen Therapy [RC] PRN VTE/DVT Education [RC] PER UNIT ROUTINE Vital Signs [RC] Q4HR 02/09/19 21:17 CIWAA Assessment [RC] Q1HR 02/09/19 21:20 LORazepam [Ativan] See Protocol PO Q1H PRN 02/09/19 21:22 LORazepam [Ativan] See Protocol IVPUSH Q1H PRN 02/09/19 21:30 Folic Acid 1 mg PO DAILY Nicotine [Habitrol] 21 mg TRDERM DAILY Thiamine [Vitamin B-1] 100 mg IVPUSH Q8H chlordiazePOXIDE [Librium] See Protocol PO Q4H 02/09/19 22:00 Dextrose 5%-0.9% NaCl with KCl [D5 NS with 20 mEq KCl] 1,000 ml IV ASDIRECTED 02/09/19 Dinner Regular Diet [DIET] 02/10/19 06:00 Pantoprazole [ProTONIX] 40 mg PO ACBREAKFAST 02/10/19 09:00 Magnesium Oxide 400 mg PO BID Remove Patch 1 ea TRDERM DAILY Rivaroxaban [Xarelto] 20 mg PO DAILY 02/10/19 09:24 Magnesium Sulfate/Water [Magnesium Sulfate in Water Premix] 4 gm Premix Bag 1 bag IV ONETIME 02/11/19 05:11 CBC WITH AUTO DIFF [HEME] AM COMPREHENSIVE METABOLIC PN,CMP [CHEM] AM MAGNESIUM [CHEM] AM 02/12/19 05:11 CBC WITH AUTO DIFF [HEME] AM COMPREHENSIVE METABOLIC PN,CMP [CHEM] AM MAGNESIUM [CHEM] AM 02/13/19 05:11 CBC WITH AUTO DIFF [HEME] AM COMPREHENSIVE METABOLIC PN,CMP [CHEM] AM MAGNESIUM [CHEM] AM 02/14/19 05:11 CBC WITH AUTO DIFF [HEME] AM COMPREHENSIVE METABOLIC PN,CMP [CHEM] AM MAGNESIUM [CHEM] AM - Plan Plan:: Assessment * Acute alcoholic intoxication * initial blood alcohol level 0.37 g per * chronic daily alcohol abuse * drinks 99 proof alcohol shots at least 10 per * Anticipate moderate to severe alcohol withdrawal * Chronic abdominal pain * on Protonix at home * History of left lower extremity DVT * on Xarelto * Right fland pain * Unable to take opiates or muscle relaxers 2/2 high dose benzodiazepines, unable to take acetaminophen 2/2 to elevated liver enzymes, and now has BRB per rectum and is on Xarelto making NSAIDs contraindicated. * Hypokalemia * initial potassium 2.7-->4.0 * Hypomagnesemia * initial magnesium 1.3-->1.5 * Bright red blood per rectum Plan * Admit to ICU for monitoring * CIWA protocol with Ativan * Librium protocol * Thiamine 100 mg IV every 8 hours * Folic acid 1 mg daily * Replenish Mag and potassium * D5 normal saline with 20 of KCl per liter at 100 mL per hour * Continue Protonix * Continue Xarelto, but if BRB continues may have to stop. * Heating pad for back pain. * daily CMP, CBC, and magnesium * Plan discharge to [facility] when medically stable * CODE STATUS: Full
[2019-02-10] MEDS: Hydrochlorothiazide 12.5 MG Cap PO SCH (20:38)
[2019-02-11] MEDS: chlordiazePOXIDE 25 MG Cap PO SCH ×4 (04:27→21:25)
[2019-02-11] MEDS: Thiamine 200 MG/2 ML MDV IVPUSH SCH ×3 (05:44→21:26)
[2019-02-11] MEDS: Pantoprazole 40 MG Tab.CR PO SCH (05:44)
[2019-02-11] MEDS: Magnesium Oxide 400 MG Tab PO SCH ×2 (09:28→21:24)
[2019-02-11] MEDS: Hydrochlorothiazide 12.5 MG Cap PO SCH (09:29)
[2019-02-11] MEDS: Rivaroxaban 10 MG Tab PO SCH (09:29)
[2019-02-11] MEDS: Folic Acid 1 MG Tab PO SCH (09:29)
[2019-02-11] MEDS: Nicotine 21 MG/24 Hr Patch TRDERM SCH (09:29)
[2019-02-12] MEDS: chlordiazePOXIDE 25 MG Cap PO SCH ×3 (03:44→11:37)
[2019-02-12] MEDS: Pantoprazole 40 MG Tab.CR PO SCH (05:49)
[2019-02-12] MEDS: Thiamine 200 MG/2 ML MDV IVPUSH SCH (05:49)
[2019-02-12] MEDS: Magnesium Oxide 400 MG Tab PO SCH (08:19)
[2019-02-12] MEDS: Hydrochlorothiazide 12.5 MG Cap PO SCH (08:20)
[2019-02-12] MEDS: Folic Acid 1 MG Tab PO SCH (08:20)
[2019-02-12] MEDS: Nicotine 21 MG/24 Hr Patch TRDERM SCH (08:20)
[2019-02-12] MEDS: Rivaroxaban 10 MG Tab PO SCH (08:20)
[2019-02-12] MEDS ORDERED: Magnesium Sulfate/Water 4 GM in Premix Bag 1 BAG IV ONE (08:30)
--- NOTE | 2019-02-12 12:51 | PCM.PN ---
- General Info Date of Service: 02/11/19 Admission Dx/Problem (Free Text): Admission Diagnosis/Problem Admission Diagnosis/Problem Alcohol intoxication Subjective Update: patient is doing well. His CIWA continues to be less than 8. He is eating well. No complaints. Functional Status: Reports: Pain Controlled - Review of Systems General: Reports: No Symptoms HEENT: Reports: No Symptoms Pulmonary: Reports: No Symptoms Cardiovascular: Reports: No Symptoms Gastrointestinal: Reports: No Symptoms - Patient Data Vitals - Most Recent: Last Vital Signs Temp 97.6 F 02/12/19 08:00 Pulse 76 02/12/19 08:00 Resp 16 02/12/19 08:00 BP 125/81 02/12/19 08:00 Pulse Ox 97 02/12/19 08:00 Weight - Most Recent: 159 lb 6.4 oz I&O - Last 24 Hours: Intake & Output 02/11/19 02/12/19 02/12/19 22:59 06:59 14:59 Intake Total 2750 800 240 Output Total 1450 200 Balance 1300 800 40 Lab Results Last 24 Hours: Laboratory Results - last 24 hr 02/12/19 02/12/19 Range/Units 04:34 04:34 WBC 6.17 (4.23-9.07) K/mm3 RBC 5.06 (4.63-6.08) M/mm3 Hgb 16.1 (13.7-17.5) gm/dl Hct 47.0 (40.1-51.0) % MCV 92.9 H (79.0-92.2) fl MCH 31.8 (25.7-32.2) pg MCHC 34.3 (32.2-35.5) g/dl RDW Std Deviation 44.4 H (35.1-43.9) fL Plt Count 159 L (163-337) K/mm3 MPV 11.4 (9.4-12.3) fl Neut % (Auto) 53.5 (34.0-67.9) % Lymph % (Auto) 30.0 (21.8-53.1) % [place] % (Auto) 13.8 H (5.3-12.2) % Eos % (Auto) 1.5 (0.8-7.0) Baso % (Auto) 0.6 (0.1-1.2) % Neut # (Auto) 3.30 (1.78-5.38) K/mm3 Lymph # (Auto) 1.85 (1.32-3.57) K/mm3 [place] # (Auto) 0.85 H (0.30-0.82) K/mm3 Eos # (Auto) 0.09 (0.04-0.54) K/mm3 Baso # (Auto) 0.04 (0.01-0.08) K/mm3 Sodium 139 (136-145) mEq/L Potassium 3.7 (3.5-5.1) mEq/L Chloride 100 (98-107) mEq/L Carbon Dioxide 31 (21-32) mEq/L Anion Gap 11.7 (5-15) BUN 9 (7-18) mg/dL Creatinine 1.2 (0.7-1.3) mg/dL Est Cr Clr Drug Dosing 88.70 mL/min Estimated GFR (MDRD) > 60 (>60) mL/min BUN/Creatinine Ratio 7.5 L (14-18) Glucose 108 H (74-106) mg/dL Calcium 9.7 (8.5-10.1) mg/dL Magnesium 1.5 L (1.8-2.4) mg/dl Total Bilirubin 1.2 H (0.2-1.0) mg/dL AST 72 H (15-37) U/L ALT 89 H (16-63) U/L Alkaline Phosphatase 89 (46-116) U/L Total Protein 6.8 (6.4-8.2) g/dl Albumin 3.6 (3.4-5.0) g/dl Globulin 3.2 gm/dL Albumin/Globulin Ratio 1.1 (1-2) Med Orders - Current: Current Medications Chlordiazepoxide HCl (Librium) 25 mg PO Q4H [facility]ARCELA; Taper; Protocol Stop: 02/14/19 03:29 Last Admin: 02/12/19 11:37 Dose: 25 mg Folic Acid (Folic Acid) 1 mg PO DAILY [facility] Last Admin: 02/12/19 08:20 Dose: 1 mg Hydrochlorothiazide (Hydrochlorothiazide) 12.5 mg PO DAILY [facility] Last Admin: 02/12/19 08:20 Dose: 12.5 mg Lorazepam (Ativan) 0 mg PO Q1H PRN; Protocol PRN Reason: Withdrawal Symptoms Lorazepam (Ativan) 0 mg IVPUSH Q1H PRN; Protocol PRN Reason: Withdrawal Symptoms Magnesium Oxide (Magnesium Oxide) 400 mg PO BID [facility] Last Admin: 02/12/19 08:19 Dose: 400 mg Miscellaneous Information (Remove Patch) 1 ea TRDERM DAILY [facility] Last Admin: 02/12/19 08:22 Dose: 1 ea Nicotine (Habitrol) 21 mg TRDERM DAILY [facility] Last Admin: 02/12/19 08:20 Dose: 21 mg Ondansetron HCl (Zofran) 4 mg IV Q4H PRN PRN Reason: Nausea/Vomiting Pantoprazole Sodium (Protonix) 40 mg PO ACBREAKFAST [facility] Last Admin: 02/12/19 05:49 Dose: 40 mg Rivaroxaban (Xarelto) 20 mg PO DAILY [facility] Last Admin: 02/12/19 08:20 Dose: 20 mg Sodium Chloride (Saline Flush) 10 ml FLUSH ASDIRECTED PRN PRN Reason: Keep Vein Open Last Admin: 02/09/19 12:17 Dose: 10 ml Thiamine HCl (Vitamin B-1) 100 mg PO BEDTIME [facility]A Discontinued Medications Chlordiazepoxide HCl (Librium) 0 mg PO Q4H M[facility]ELA; Protocol Last Admin: 02/10/19 21:29 Dose: 50 mg Dextrose/Lactated Ringer's (Dextrose 5%-Lactated Ringers) 1,000 mls @ 999 mls/ hr IV ASDIRECTED [facility] Last Admin: 02/09/19 14:37 Dose: 999 mls/hr Dextrose/Lactated Ringer's (Dextrose 5%-Lactated Ringers) 1,000 mls @ 500 mls/ hr IV ASDIRECTED [facility] Last Admin: 02/09/19 17:06 Dose: 500 mls/hr Potassium Chloride 10 meq/ (Premix) 100 mls @ 50 mls/hr IV ASDIRECTED ONE Stop: 02/09/19 18:54 Last Admin: 02/09/19 18:12 Dose: 50 mls/hr Magnesium Sulfate 4 gm/ Premix 50 mls @ 12.5 mls/hr IV ONETIME ONE Stop: 02/10/19 01:29 Last Admin: 02/09/19 21:49 Dose: 12.5 mls/hr Potassium Chloride/Dextrose/Sod Cl (D5 Ns With 20 Meq Kcl) 1,000 mls @ 100 mls/ hr IV ASDIRECTED [facility] Last Admin: 02/10/19 08:48 Dose: 100 mls/hr Magnesium Sulfate 4 gm/ Premix 50 mls @ 12.5 mls/hr IV ONETIME ONE Stop: 02/10/19 13:23 Last Admin: 02/10/19 09:41 Dose: 12.5 mls/hr Magnesium Sulfate 4 gm/ Premix 100 mls @ 25 mls/hr IV ONETIME ONE Stop: 02/12/19 12:29 Last Admin: 02/12/19 08:35 Dose: 25 mls/hr Ondansetron HCl (Zofran) 4 mg IVPUSH ONETIME ONE Stop: 02/09/19 11:39 Last Admin: 02/09/19 12:18 Dose: 4 mg Potassium Chloride (Klor-Con M20) 40 meq PO ONETIME ONE Stop: 02/09/19 16:57 Last Admin: 02/09/19 18:12 Dose: 40 meq Potassium Chloride (Klor-Con M20) 20 meq PO ONETIME ONE Stop: 02/09/19 21:31 Last Admin: 02/09/19 21:47 Dose: 20 meq Thiamine HCl (Vitamin B-1) 100 mg PO ONETIME ONE Stop: 02/09/19 15:10 Last Admin: 02/09/19 15:49 Dose: 100 mg Thiamine HCl (Vitamin B-1) 100 mg IVPUSH Q8H [facility] Last Admin: 02/12/19 05:49 Dose: 100 mg - Exam General: Alert, Oriented HEENT: Pupils Equal, Pupils Reactive, EOMI, Mucous Membr. Moist/[place] Neck: Supple Lungs: Clear to Auscultation, Normal Respiratory Effort Cardiovascular: Regular Rate, Regular Rhythm GI/Abdominal Exam: Normal Bowel Sounds, Soft, Non-Tender, No Organomegaly, No Distention, No Abnormal Bruit, No Mass, Pelvis Stable Wound/Incisions: Healing Well Psy/Mental Status: Alert, Normal Affect, Normal Mood - Problem List Review Problem List Initiated/Reviewed/Updated: Yes - My Orders Last 24 Hours: My Active Orders 02/11/19 14:43 Patient Status [ADT] Routine 02/12/19 12:34 Ready for Discharge [RC] PER UNIT ROUTINE 02/12/19 21:00 Thiamine [Vitamin B-1] 100 mg PO BEDTIME 10/15/19 05:11 CBC WITH AUTO DIFF [HEME] AM COMPREHENSIVE METABOLIC PN,CMP [CHEM] AM MAGNESIUM [CHEM] AM 02/14/19 05:11 CBC WITH AUTO DIFF [HEME] AM COMPREHENSIVE METABOLIC PN,CMP [CHEM] AM MAGNESIUM [CHEM] AM - Plan Plan:: Assessment * Acute alcoholic intoxication * initial blood alcohol level 0.37 g per * chronic daily alcohol abuse * drinks 99 proof alcohol shots at least 10 per * Anticipate moderate to severe alcohol withdrawal * Chronic abdominal pain * on Protonix at home * History of left lower extremity DVT * on Xarelto * Right flank pain - Resolved * Unable to take opiates or muscle relaxers 2/2 high dose benzodiazepines, unable to take acetaminophen 2/2 to elevated liver enzymes, and now has BRB per rectum and is on Xarelto making NSAIDs contraindicated. * Hypokalemia * initial potassium 2.7-->4.0-->3.7 * Hypomagnesemia * initial magnesium 1.3-->1.5-->1.7 * Bright red blood per rectum Plan * Admit to ICU for monitoring * CIWA protocol with Ativan * Librium protocol * Thiamine 100 mg IV every 8 hours * Folic acid 1 mg daily * Replenish Mag and potassium * D5 normal saline with 20 of KCl per liter at 100 mL per hour * Continue Protonix * Continue Xarelto, but if BRB continues may have to stop. * Heating pad for back pain. * daily CMP, CBC, and magnesium * Plan discharge to [facility] when medically stable * CODE STATUS: Full
--- NOTE | 2019-02-12 12:53 | PCM.DCSUM1 ---
Discharge Summary - Hospital Course Brief History: 33-year-old male with a long history of heavy alcohol abuse presents to the emergency room intoxicated and asking for help with his alcohol. Patient was admitted earlier this week and left AMA 2 days ago. Patient originally presented to a local alcohol and drug rehabilitation center and he was sent here for medical clearance. When patient arrived he was found to have an alcohol level of 0.37. He states his last drink was early this morning. He drinks 99 proof alcohol shooters approximate 10 per day. He drank 6 this morning. Repeat blood alcohol level dropped down to 0.29 g percent 5 hours later. Patient is well-known in the emergency department and generally when he is seen his alcohol level ranges from 0.31-0.51 over the last 12 months. Since August he has been seen in the emergency room 8 times with alcohol levels greater than 0.31 g percent. In the emergency room patient was found to have a potassium of 2.7 and magnesium of 1.5. He was given 40 mEq of potassium by mouth and 10 mEq IV. At this point patient was felt to not be stable enough to go to residential care for alcohol rehabilitation and he needed to be admitted to the hospital for detox and management of alcohol withdrawal. 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 He has chronic abdominal pain and takes Protonix. He states his pain is moderate in severity, starts in his stomach, radiates down towards his pelvis and then spreads to his left and right lower quadrants. Patient was diagnosed in August with with left-sided lower extremity DVT and started on Xarelto. In the emergency room patient did well and did not require any treatment for withdrawal symptoms. - Discharge Data Discharge Date: 02/12/19 Discharge Disposition: DC/Tfer to In Rehab Fac 62 Condition: Good - Referral to Home Health Primary Care Physician: PCP None - Patient Summary/Data Hospital Course: patient had uneventful hospital course. He was started on Librium and had a tapering protocol. His CIWA scores never were higher than 5. Electrolyte imbalances were treated and patient was treated with IV thiamine. He was discharged to [facility] on Librium 25 mg 3 times a day for total of 5 doses. - Patient Instructions Diet: Usual Diet as Tolerated Activity: As Tolerated Driving: Do Not Drive Showering/Bathing: August Shower - Discharge Plan *PRESCRIPTION DRUG MONITORING PROGRAM REVIEWED*: No *COPY OF PRESCRIPTION DRUG MONITORING REPORT IN PATIENT MAYURI: No Prescriptions/Med Rec: chlordiazePOXIDE [Librium] 25 mg PO TID #5 cap Folic Acid 1 mg PO DAILY #30 tablet Magnesium Oxide 400 mg PO BID #60 tablet Nicotine [Habitrol] 21 mg TRDERM DAILY #30 patch Thiamine [Vitamin B-1] 100 mg PO BEDTIME #30 tablet Home Medications: Home Meds Hydrochlorothiazide [Microzide] 12.5 mg PO DAILY 02/09/19 [History] Pantoprazole Sodium [Protonix] 40 mg PO ACBREAKFAST 02/09/19 [History] Rivaroxaban [Xarelto] 20 mg PO DAILY 02/09/19 [History] Folic Acid 1 mg PO DAILY #30 tablet 02/12/19 [Rx] Magnesium Oxide 400 mg PO BID #60 tablet 02/12/19 [Rx] Nicotine [Habitrol] 21 mg TRDERM DAILY #30 patch 02/12/19 [Rx] Thiamine [Vitamin B-1] 100 mg PO BEDTIME #30 tablet 02/12/19 [Rx] chlordiazePOXIDE [Librium] 25 mg PO TID #5 cap 02/12/19 [Rx] Oxygen Therapy Mode: Room Air Patient Handouts: Alcohol Use Disorder, Steps to Quit Smoking Referrals: PCP,None [Primary Care Provider] - - Discharge Summary/Plan Comment DC Time >30 min.: Yes Discharge Summary/Plan Comment: discharge to our [facility] for alcohol rehabilitation. Follow electrolytes as an outpatient. - General Info Date of Service: 02/12/19 Admission Dx/Problem (Free Text: Admission Diagnosis/Problem Admission Diagnosis/Problem Alcohol intoxication - Review of Systems General: Reports: No Symptoms HEENT: Reports: No Symptoms Pulmonary: Reports: No Symptoms Cardiovascular: Reports: No Symptoms Gastrointestinal: Reports: No Symptoms Neurological: Reports: No Symptoms Psychiatric: Reports: No Symptoms - Patient Data Vitals - Most Recent: Last Vital Signs Temp 97.6 F 02/12/19 08:00 Pulse 76 02/12/19 08:00 Resp 16 02/12/19 08:00 BP 125/81 02/12/19 08:00 Pulse Ox 97 02/12/19 08:00 Weight - Most Recent: 159 lb 6.4 oz I&O - Last 24 hours: Intake & Output 02/11/19 02/12/19 02/12/19 22:59 06:59 14:59 Intake Total 2750 800 240 Output Total 1450 200 Balance 1300 800 40 Lab Results - Last 24 hrs: Laboratory Results - last 24 hr 02/12/19 02/12/19 Range/Units 04:34 04:34 WBC 6.17 (4.23-9.07) K/mm3 RBC 5.06 (4.63-6.08) M/mm3 Hgb 16.1 (13.7-17.5) gm/dl Hct 47.0 (40.1-51.0) % MCV 92.9 H (79.0-92.2) fl MCH 31.8 (25.7-32.2) pg MCHC 34.3 (32.2-35.5) g/dl RDW Std Deviation 44.4 H (35.1-43.9) fL Plt Count 159 L (163-337) K/mm3 MPV 11.4 (9.4-12.3) fl Neut % (Auto) 53.5 (34.0-67.9) % Lymph % (Auto) 30.0 (21.8-53.1) % [place] % (Auto) 13.8 H (5.3-12.2) % Eos % (Auto) 1.5 (0.8-7.0) Baso % (Auto) 0.6 (0.1-1.2) % Neut # (Auto) 3.30 (1.78-5.38) K/mm3 Lymph # (Auto) 1.85 (1.32-3.57) K/mm3 [place] # (Auto) 0.85 H (0.30-0.82) K/mm3 Eos # (Auto) 0.09 (0.04-0.54) K/mm3 Baso # (Auto) 0.04 (0.01-0.08) K/mm3 Sodium 139 (136-145) mEq/L Potassium 3.7 (3.5-5.1) mEq/L Chloride 100 (98-107) mEq/L Carbon Dioxide 31 (21-32) mEq/L Anion Gap 11.7 (5-15) BUN 9 (7-18) mg/dL Creatinine 1.2 (0.7-1.3) mg/dL Est Cr Clr Drug Dosing 88.70 mL/min Estimated GFR (MDRD) > 60 (>60) mL/min BUN/Creatinine Ratio 7.5 L (14-18) Glucose 108 H (74-106) mg/dL Calcium 9.7 (8.5-10.1) mg/dL Magnesium 1.5 L (1.8-2.4) mg/dl Total Bilirubin 1.2 H (0.2-1.0) mg/dL AST 72 H (15-37) U/L ALT 89 H (16-63) U/L Alkaline Phosphatase 89 (46-116) U/L Total Protein 6.8 (6.4-8.2) g/dl Albumin 3.6 (3.4-5.0) g/dl Globulin 3.2 gm/dL Albumin/Globulin Ratio 1.1 (1-2) Med Orders - Current: Current Medications Chlordiazepoxide HCl (Librium) 25 mg PO Q4H MARCELA; Taper; Protocol Stop: 02/14/19 03:29 Last Admin: 02/12/19 11:37 Dose: 25 mg Folic Acid (Folic Acid) 1 mg PO DAILY [facility] Last Admin: 02/12/19 08:20 Dose: 1 mg Hydrochlorothiazide (Hydrochlorothiazide) 12.5 mg PO DAILY [facility] Last Admin: 02/12/19 08:20 Dose: 12.5 mg Lorazepam (Ativan) 0 mg PO Q1H PRN; Protocol PRN Reason: Withdrawal Symptoms Lorazepam (Ativan) 0 mg IVPUSH Q1H PRN; Protocol PRN Reason: Withdrawal Symptoms Magnesium Oxide (Magnesium Oxide) 400 mg PO BID [facility] Last Admin: 02/12/19 08:19 Dose: 400 mg Miscellaneous Information (Remove Patch) 1 ea TRDERM DAILY [facility] Last Admin: 02/12/19 08:22 Dose: 1 ea Nicotine (Habitrol) 21 mg TRDERM DAILY [facility] Last Admin: 02/12/19 08:20 Dose: 21 mg Ondansetron HCl (Zofran) 4 mg IV Q4H PRN PRN Reason: Nausea/Vomiting Pantoprazole Sodium (Protonix) 40 mg PO ACBREAKFAST [facility] Last Admin: 02/12/19 05:49 Dose: 40 mg Rivaroxaban (Xarelto) 20 mg PO DAILY [facility] Last Admin: 02/12/19 08:20 Dose: 20 mg Sodium Chloride (Saline Flush) 10 ml FLUSH ASDIRECTED PRN PRN Reason: Keep Vein Open Last Admin: 02/09/19 12:17 Dose: 10 ml Thiamine HCl (Vitamin B-1) 100 mg PO BEDTIME [facility] Discontinued Medications Chlordiazepoxide HCl (Librium) 0 mg PO Q4H M[facility]ELA; Protocol Last Admin: 02/10/19 21:29 Dose: 50 mg Dextrose/Lactated Ringer's (Dextrose 5%-Lactated Ringers) 1,000 mls @ 999 mls/ hr IV ASDIRECTED [facility] Last Admin: 02/09/19 14:37 Dose: 999 mls/hr Dextrose/Lactated Ringer's (Dextrose 5%-Lactated Ringers) 1,000 mls @ 500 mls/ hr IV ASDIRECTED [facility] Last Admin: 02/09/19 17:06 Dose: 500 mls/hr Potassium Chloride 10 meq/ (Premix) 100 mls @ 50 mls/hr IV ASDIRECTED ONE Stop: 02/09/19 18:54 Last Admin: 02/09/19 18:12 Dose: 50 mls/hr Magnesium Sulfate 4 gm/ Premix 50 mls @ 12.5 mls/hr IV ONETIME ONE Stop: 02/10/19 01:29 Last Admin: 02/09/19 21:49 Dose: 12.5 mls/hr Potassium Chloride/Dextrose/Sod Cl (D5 Ns With 20 Meq Kcl) 1,000 mls @ 100 mls/ hr IV ASDIRECTED [facility] Last Admin: 02/10/19 08:48 Dose: 100 mls/hr Magnesium Sulfate 4 gm/ Premix 50 mls @ 12.5 mls/hr IV ONETIME ONE Stop: 02/10/19 13:23 Last Admin: 02/10/19 09:41 Dose: 12.5 mls/hr Magnesium Sulfate 4 gm/ Premix 100 mls @ 25 mls/hr IV ONETIME ONE Stop: 02/12/19 12:29 Last Admin: 02/12/19 08:35 Dose: 25 mls/hr Ondansetron HCl (Zofran) 4 mg IVPUSH ONETIME ONE Stop: 02/09/19 11:39 Last Admin: 02/09/19 12:18 Dose: 4 mg Potassium Chloride (Klor-Con M20) 40 meq PO ONETIME ONE Stop: 02/09/19 16:57 Last Admin: 02/09/19 18:12 Dose: 40 meq Potassium Chloride (Klor-Con M20) 20 meq PO ONETIME ONE Stop: 02/09/19 21:31 Last Admin: 02/09/19 21:47 Dose: 20 meq Thiamine HCl (Vitamin B-1) 100 mg PO ONETIME ONE Stop: 02/09/19 15:10 Last Admin: 02/09/19 15:49 Dose: 100 mg Thiamine HCl (Vitamin B-1) 100 mg IVPUSH Q8H [facility] Last Admin: 02/12/19 05:49 Dose: 100 mg - Exam Quality Assessment: Denies: Supplemental Oxygen General: Reports: Alert, Oriented HEENT: Reports: Pupils Equal Neck: Reports: Supple Lungs: Reports: Clear to Auscultation, Normal Respiratory Effort Cardiovascular: Reports: Regular Rate, Regular Rhythm GI/Abdominal Exam: Normal Bowel Sounds, Soft, Non-Tender, No Organomegaly, No Distention, No Abnormal Bruit, No Mass Back Exam: Reports: Normal Inspection Extremities: Normal Inspection, Normal Range of Motion, Non-Tender, No Pedal Edema, Normal Capillary Refill Skin: Reports: Warm, Dry, Intact Neurological: Reports: No New Focal Deficit Psy/Mental Status: Reports: Alert, Normal Affect, Normal Mood
[2019-02-12 12:54] VITALS: BP 126/91; PULSE 73
[2019-02-12] MEDS ORDERED: Acetaminophen 325 MG Tab PO PRN (13:30)
[2019-02-12] MEDS ORDERED: Thiamine 100 MG Tab PO SCH (21:00)
== END 2019-02-12 14:27 | DRG 897 ==
LOC: JD.ED 11:10 → JD.ICU 20:53
PROVIDERS: ADMIT Family Medicine; ATTEND Family Medicine
DX: F10.129 Alcohol abuse with intoxication, unspecified (principal); K62.5 Hemorrhage of anus and rectum; G89.29 Other chronic pain; R10.9 Unspecified abdominal pain; G47.30 Sleep apnea, unspecified; K21.9 Gastro-esophageal reflux disease without esophagitis; Y90.8 Blood alcohol level of 240 mg/100 ml or more; G43.909 Migraine, unspecified, not intractable, without status migrainosus; F17.210 Nicotine dependence, cigarettes, uncomplicated; E87.6 Hypokalemia; E83.42 Hypomagnesemia; Z79.899 Other long term (current) drug therapy; Z90.89 Acquired absence of other organs; Z86.718 Personal history of other venous thrombosis and embolism
CPT/HCPCS: 36415; 80053; 83735; 85014; 85018; 85025; 96361; 96374; 99284; 99285-25; A9270-GY; G0480; J2405; J3411; J3475; J3480; J7042

== ENCOUNTER 2019-02-17 02:40 | Emergency (ER) | payer MEDICAID ==
--- NOTE | 2019-02-17 03:06 | EDM.PDOC ---
ED HPI GENERAL MEDICAL PROBLEM - General Chief Complaint: Abdominal Pain Stated Complaint: STOMACH PAIN/BLOOD IN STOOL Time Seen by Provider: 02/17/19 03:06 - History of Present Illness INITIAL COMMENTS - FREE TEXT/NARRATIVE: 32-year-old male presents emergency room with upper abdominal pain and bright red blood with bowel movements. The patient is staying over at [facility] and he is staying clean. He's not had anything to drink. He is scheduled to be discharged early next week at which point he plans to continue outpatient and go back to work. At this point he is taking his Protonix once a day and they have only given him the Zantac once a day. He still having some heartburn and reflux. Has not noticed any black or tarry stools however he has had some bright red blood associated with BMs and blood-streaked stools. He has not had any fevers or chills. Right Abdomen Pain Score (Numeric/FACES): 10 - Related Data Allergies Allergy/AdvReac Type Severity Reaction Status Date / Time No Known Allergies Allergy Verified 02/17/19 03:07 Home Meds: Home Meds Hydrochlorothiazide [Microzide] 12.5 mg PO DAILY 02/09/19 [History] Pantoprazole Sodium [Protonix] 40 mg PO ACBREAKFAST 02/09/19 [History] Rivaroxaban [Xarelto] 20 mg PO DAILY 02/09/19 [History] Magnesium Oxide 400 mg PO BID #60 tablet 02/12/19 [Rx] Hydrocortisone [Anusol-HC] 30 gm RC Q12H #2 cream..g. 02/17/19 [Rx] Ranitidine [Zantac] 300 mg PO BEDTIME 02/17/19 [History] Sucralfate [Carafate] 1 gm PO QIDACANDBED #40 ml 02/17/19 [Rx] Past Medical History HEENT History: Reports: Other (See Below) Other HEENT History: Maxofacial surgery to repair right socket Cardiovascular History: Reports: None, Blood Clots/VTE/DVT Other Cardiovascular History: seen for chest pains Respiratory History: Reports: Sleep Apnea Gastrointestinal History: Reports: Gastritis, GERD, PUD, Other (See Below) Other Gastrointestinal History: stomach ulcer Genitourinary History: Reports: Prostate Disorder Other Genitourinary History: prostate disease 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 Musculoskeletal History: Reports: Fracture Other Musculoskeletal History: ankle Neurological History: Reports: Migraines Psychiatric History: Reports: Addiction Endocrine/Metabolic History: Reports: None Hematologic History: Reports: None Immunologic History: Reports: None Oncologic (Cancer) History: Reports: None Dermatologic History: Reports: None - Infectious Disease History Infectious Disease History: Reports: Chicken Pox - Past Surgical History Head Surgeries/Procedures: Reports: None HEENT Surgical History: Reports: Tonsillectomy, Other (See Below) Cardiovascular Surgical History: Reports: None GI Surgical History: Reports: EGD, Hernia, Abdominal Endocrine Surgical History: Reports: None Oncologic Surgical History: Reports: None Dermatological Surgical History: Reports: None Social & Family History - Family History Family Medical History: Noncontributory - Caffeine Use Caffeine Use: Reports: Coffee - Living Situation & Occupation Living situation: Reports: , Alone Occupation: Unemployed ED ROS GENERAL - Review of Systems Review Of Systems: See Below Constitutional: Reports: No Symptoms HEENT: Reports: No Symptoms Respiratory: Reports: No Symptoms Cardiovascular: Reports: No Symptoms GI/Abdominal: Reports: Abdominal Pain (Upper abdominal), Bloody Stool : Reports: No Symptoms Musculoskeletal: Reports: No Symptoms Neurological: Reports: No Symptoms ED EXAM, GI/ABD - Physical Exam Exam: See Below Exam Limited By: No Limitations General Appearance: Alert, No Apparent Distress, Other (He is sober) Head: Atraumatic, Normocephalic Neck: Normal Inspection, Supple, Non-Tender, Full Range of Motion Respiratory/Chest: No Respiratory Distress, Lungs Clear, Normal Breath Sounds Cardiovascular: Regular Rate, Rhythm, No Edema, No Murmur GI/Abdominal Exam: Normal Bowel Sounds, Soft, Other (He has mild to moderate midepigastric discomfort since with vague right-sided rib pain. No rigidity rebound or guarding noted) Rectal (Males) Exam: Heme + Stool, Other (He has an external hemorrhoid he has bright red stool on the exam glove) Back Exam: Normal Inspection. No: CVA Tenderness (L), CVA Tenderness (R) Skin Exam: Warm, Dry, Intact Course - Vital Signs Last Recorded V/S: Last Vital Signs Temp 36.2 C 02/17/19 03:03 Pulse 79 02/17/19 03:03 Resp 18 02/17/19 03:03 BP 177/119 H 02/17/19 03:03 Pulse Ox 97 02/17/19 03:03 - Orders/Labs/Meds Labs: Laboratory Tests 02/17/19 02/17/19 02/17/19 Range/Units 03:45 03:45 05:25 WBC 11.01 H (4.23-9.07) K/mm3 RBC 4.68 (4.63-6.08) M/mm3 Hgb 14.9 (13.7-17.5) gm/dl Hct 44.5 (40.1-51.0) % MCV 95.1 H (79.0-92.2) fl MCH 31.8 (25.7-32.2) pg MCHC 33.5 (32.2-35.5) g/dl RDW Std Deviation 46.8 H (35.1-43.9) fL Plt Count 305 D (163-337) K/mm3 MPV 10.2 (9.4-12.3) fl Neutrophils % (Manual) 65 H (40-60) % Band Neutrophils % 0 (0-10) % Lymphocytes % (Manual) 23 (20-40) % Atypical Lymphs % 0 % Monocytes % (Manual) 9 (2-10) % Eosinophils % (Manual) 2 (0.8-7.0) % Basophils % (Manual) 1 (0.2-1.2) Platelet Estimate Adequate Plt Morphology Comment Normal Stomatocytes 2+ moderate RBC Morph Comment Not Reportable Sodium 139 (136-145) mEq/L Potassium 4.0 (3.5-5.1) mEq/L Chloride 102 (98-107) mEq/L Carbon Dioxide 32 (21-32) mEq/L Anion Gap 9.0 (5-15) BUN 13 (7-18) mg/dL Creatinine 0.9 (0.7-1.3) mg/dL Est Cr Clr Drug Dosing 126.94 mL/min Estimated GFR (MDRD) > 60 (>60) mL/min BUN/Creatinine Ratio 14.4 (14-18) Glucose 94 (74-106) mg/dL Calcium 9.7 (8.5-10.1) mg/dL Total Bilirubin 0.5 (0.2-1.0) mg/dL AST 40 H (15-37) U/L ALT 90 H (16-63) U/L Alkaline Phosphatase 63 (46-116) U/L Total Protein 6.9 (6.4-8.2) g/dl Albumin 3.9 (3.4-5.0) g/dl Globulin 3.0 gm/dL Albumin/Globulin Ratio 1.3 (1-2) Lipase 416 H (73-393) U/L Urine Color Yellow (Yellow) Urine Appearance Clear (Clear) Urine pH 8.5 H (5.0-8.0) Ur Specific [place] 1.015 (1.005-1.030) Urine Protein Negative (Negative) Urine Glucose (UA) Negative (Negative) Urine Ketones Negative (Negative) Urine Occult Blood Negative (Negative) Urine Nitrite Negative (Negative) Urine Bilirubin Negative (Negative) Urine Urobilinogen 0.2 (0.2-1.0) Ur Leukocyte Esterase Negative (Negative) Urine RBC Not seen (0-5) /hpf Urine WBC Not seen (0-5) /hpf Ur Epithelial Cells Not seen (0-5) /hpf Urine Bacteria Rare (FEW) /hpf Urine Mucus Not seen (FEW) /hpf Ethyl Alcohol 0.00 (0.00) gm% Meds: Medications Discontinued Medications Generic Name Dose Route Start Last Admin Trade Name Freq PRN Reason Stop Dose Admin Al Hydroxide/Mg Hydroxide 30 0 ml 02/17/19 03:35 02/17/19 03:43 ml/ Lidocaine HCl 15 ml PO 02/17/19 03:36 45 ml ONETIME ONE Administration Sucralfate 1 gm 02/17/19 04:29 02/17/19 05:01 Carafate PO 02/17/19 04:30 1 gm ONETIME ONE Administration - Re-Assessments/Exams Free Text/Narrative Re-Assessment/Exam: 02/17/19 06:16 Patient's lipase is mildly elevated alcohol is negative. Patient had some improvement with a GI cocktail even more improvement with Carafate. We will discharge him with Carafate in addition to his a.m. Protonix and p.m. Zantac. Departure - Departure Time of Disposition: 06:16 Disposition: Home, Self-Care 01 Clinical Impression: Dyspepsia, Hemorrhoid - Discharge Information Prescriptions: Hydrocortisone [Anusol-HC] 30 gm RC Q12H #2 cream..g. Sucralfate [Carafate] 1 gm PO QIDACANDBED #40 ml Referrals: Nancy Lindo PA-C [Primary Care Provider] - Forms: ED Department Discharge Additional Instructions: Return to the emergency room with any questions or problems. You have been started on Carafate. Take this 4 times a day with breakfast and lunch supper and at bedtime. Take your other medications at least 1 hour or 2 hours after taking the Carafate. Take your Protonix 1 hour before breakfast take your Zantac in the evening at least 2 hours after supper or an hour before bedtime. Follow-up with your regular provider next week if the Carafate continues to work for you have it refilled. You've been given some cream for hemorrhoid uses twice a day until is all better.
[2019-02-17 03:07] VITALS: BP 177/119; PULSE 79
[2019-02-17] MEDS ORDERED: Alum Hydrox/Mag Hydrox/Simeth 30 ML, Lidocaine 2% 15 ML PO ONE ×2 (03:35)
[2019-02-17] MEDS ORDERED: Sucralfate Suspension 1 GM/10 ML Cup PO ONE (04:29)
== END 2019-02-17 07:00 | disposition home or self-care (01) ==
LOC: JD.ED 02:40
DX: R10.13 Epigastric pain (principal); K64.4 Residual hemorrhoidal skin tags; K21.9 Gastro-esophageal reflux disease without esophagitis; Z86.718 Personal history of other venous thrombosis and embolism; Z79.899 Other long term (current) drug therapy; Z79.01 Long term (current) use of anticoagulants
CPT/HCPCS: 36415; 80053; 80320; 81001; 83690; 85007; 85027; 99284; A9270; G0480

== ENCOUNTER 2019-04-19 13:43 | Emergency (ER) | payer MEDICAID ==
[2019-04-19 13:55] VITALS: BP 137/103
[2019-04-19] MEDS ORDERED: Sodium Chloride 0.9% 10 ML Syringe FLUSH PRN (13:57)
[2019-04-19] MEDS ORDERED: Famotidine 20 MG/2 ML SDV IVPUSH ONE (13:58)
[2019-04-19] MEDS ORDERED: Ondansetron 4 MG/2 ML SDV IVPUSH ONE (13:58)
[2019-04-19] MEDS ORDERED: Sodium Chloride 0.9% 1,000 ML IV SCH (14:00)
[2019-04-19] MEDS ORDERED: Nicotine 21 MG/24 Hr Patch TRDERM ONE (14:40)
--- NOTE | 2019-04-19 14:42 | EDM.PDOCBH ---
ED HPI GENERAL MEDICAL PROBLEM - General Chief Complaint: Drug or Alcohol Abuse Stated Complaint: [facility] Time Seen by Provider: 04/19/19 13:46 Source of Information: Reports: Patient, EMS History Limitations: Reports: Intoxication - History of Present Illness INITIAL COMMENTS - FREE TEXT/NARRATIVE: The patient presents by [facility] for alcohol intoxication. He was here last month and his blood alcohol was 0.55. He says he has been drinking lots today. He had some 99 grapes and 99 bananas with. They were empty and they are 99 proof. He says he hurts all over. He has some nausea. He has not been sober for months. Onset: Gradual Duration: Hour(s): Severity: Severe Improves with: Reports: None Worsens with: Reports: None Associated Symptoms: Reports: Nausea/Vomiting. Denies: Chest Pain, Cough, Fever /Chills, Headaches, Shortness of Breath - Related Data Allergies Allergy/AdvReac Type Severity Reaction Status Date / Time No Known Allergies Allergy Verified 04/19/19 13:46 Home Meds: Home Meds Hydrochlorothiazide [Microzide] 12.5 mg PO DAILY 02/09/19 [History] Pantoprazole Sodium [Protonix] 40 mg PO ACBREAKFAST 02/09/19 [History] Rivaroxaban [Xarelto] 20 mg PO DAILY 02/09/19 [History] Magnesium Oxide 400 mg PO BID #60 tablet 02/12/19 [Rx] Hydrocortisone [Anusol-HC] 30 gm RC Q12H #2 cream..g. 02/17/19 [Rx] Ranitidine [Zantac] 300 mg PO BEDTIME 02/17/19 [History] Sucralfate [Carafate] 1 gm PO QIDACANDBED #40 ml 02/17/19 [Rx] LORazepam [Ativan] 1 mg PO DAILY #18 tablet 04/19/19 [Rx] Ondansetron [Zofran ODT] 4 mg PO Q6H PRN #20 tab.dis 04/19/19 [Rx] Past Medical History HEENT History: Reports: Other (See Below) Other HEENT History: Maxofacial surgery to repair right socket Cardiovascular History: Reports: None, Blood Clots/VTE/DVT Other Cardiovascular History: seen for chest pains Respiratory History: Reports: Sleep Apnea Gastrointestinal History: Reports: Gastritis, GERD, PUD Other Gastrointestinal History: stomach ulcer Genitourinary History: Reports: Prostate Disorder Other Genitourinary History: prostate disease 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 Musculoskeletal History: Reports: Fracture Other Musculoskeletal History: ankle Neurological History: Reports: Migraines Psychiatric History: Reports: Addiction Endocrine/Metabolic History: Reports: None Hematologic History: Reports: None Immunologic History: Reports: None Oncologic (Cancer) History: Reports: None Dermatologic History: Reports: None - Infectious Disease History Infectious Disease History: Reports: Chicken Pox - Past Surgical History Head Surgeries/Procedures: Reports: None HEENT Surgical History: Reports: Tonsillectomy, Other (See Below) Cardiovascular Surgical History: Reports: None GI Surgical History: Reports: EGD, Hernia, Abdominal Endocrine Surgical History: Reports: None Oncologic Surgical History: Reports: None Dermatological Surgical History: Reports: None Social & Family History - Family History Family Medical History: Noncontributory - Tobacco Use Smoking Status *Q: Unknown Ever Smoked - Caffeine Use Caffeine Use: Reports: Coffee - Alcohol Use Days Per Week of Alcohol Use: 7 Number of Drinks Per Day: 10 Total Drinks Per Week: 70 - Recreational Drug Use Recreational Drug Use: Yes - Living Situation & Occupation Living situation: Reports: , Alone Occupation: Unemployed ED ROS GENERAL - Review of Systems Review Of Systems: See Below Constitutional: Reports: No Symptoms HEENT: Reports: No Symptoms Respiratory: Reports: No Symptoms Cardiovascular: Reports: No Symptoms Endocrine: Reports: No Symptoms GI/Abdominal: Reports: Abdominal Pain, Nausea, Vomiting : Reports: No Symptoms Musculoskeletal: Reports: No Symptoms Skin: Reports: No Symptoms Neurological: Reports: No Symptoms Psychiatric: Reports: No Symptoms ED EXAM, BEHAVIORAL HEALTH - Physical Exam Exam: See Below Exam Limited By: Intoxication General Appearance: Alert, No Apparent Distress Ears: Normal External Exam Nose: Normal Inspection Head: Atraumatic, Normocephalic Neck: Normal Inspection Respiratory/Chest: No Respiratory Distress, Lungs Clear, Normal Breath Sounds Cardiovascular: Regular Rate, Rhythm, No Edema, No Murmur GI/Abdominal: Soft, Non-Tender, No Organomegaly, No Mass Back Exam: Normal Inspection Extremities: Normal Inspection Neurological: Alert, Other (Slurred speech) COURSE, BEHAVIORAL HEALTH COMP - Course Vital Signs: Last Vital Signs Temp 98.8 F 04/19/19 13:48 Pulse 114 H 04/19/19 13:48 Resp 18 04/19/19 13:48 BP 137/103 H 04/19/19 13:48 Pulse Ox 94 L 04/19/19 13:48 Orders, Labs, Meds: Active Orders 24 hr Category Date Time Status Cardiac Monitoring [RC] . DIRECTED Care 04/19/19 13:57 Active Peripheral IV Care [RC] . DIRECTED Care 04/19/19 13:58 Active Head wo Cont [CT] Stat Exams 04/19/19 16:59 Taken Sodium Chloride 0.9% [Normal Saline] 1,000 ml Med 04/19/19 14:00 Active IV .BOLUS Sodium Chloride 0.9% [Saline Flush] Med 04/19/19 13:57 Active 10 ml FLUSH ASDIRECTED PRN Peripheral IV Insertion Adult [OM.PC] Stat Oth 04/19/19 13:57 Ordered Medication Orders Sodium Chloride (Normal Saline) 1,000 mls @ 1,000 mls/hr IV .BOLUS MARCELA Last Admin: 04/19/19 14:24 Dose: 1,000 mls/hr Sodium Chloride (Saline Flush) 10 ml FLUSH ASDIRECTED PRN PRN Reason: Keep Vein Open Last Admin: 04/19/19 14:26 Dose: 10 ml Laboratory Tests 04/19/19 04/19/19 04/19/19 Range/Units 14:20 14:20 14:20 WBC 5.49 (4.23-9.07) K/mm3 RBC 5.72 (4.63-6.08) M/mm3 Hgb 18.0 H D (13.7-17.5) gm/dl Hct 52.5 H (40.1-51.0) % MCV 91.8 (79.0-92.2) fl MCH 31.5 (25.7-32.2) pg MCHC 34.3 (32.2-35.5) g/dl RDW Std Deviation 46.0 H (35.1-43.9) fL Plt Count 219 (163-337) K/mm3 MPV 9.8 (9.4-12.3) fl Neut % (Auto) 35.6 (34.0-67.9) % Lymph % (Auto) 40.1 (21.8-53.1) % Butts % (Auto) 21.9 H (5.3-12.2) % Eos % (Auto) 1.3 (0.8-7.0) Baso % (Auto) 0.9 (0.1-1.2) % Neut # (Auto) 1.96 (1.78-5.38) K/mm3 Lymph # (Auto) 2.20 (1.32-3.57) K/mm3 Butts # (Auto) 1.20 H (0.30-0.82) K/mm3 Eos # (Auto) 0.07 (0.04-0.54) K/mm3 Baso # (Auto) 0.05 (0.01-0.08) K/mm3 Manual Slide Review Abnormal smear Sodium 148 H (136-145) mEq/L Potassium 3.5 (3.5-5.1) mEq/L Chloride 108 H (98-107) mEq/L Carbon Dioxide 28 (21-32) mEq/L Anion Gap 15.5 H (5-15) BUN 7 (7-18) mg/dL Creatinine 0.8 (0.7-1.3) mg/dL Est Cr Clr Drug Dosing 141.91 mL/min Estimated GFR (MDRD) > 60 (>60) mL/min BUN/Creatinine Ratio 8.8 L (14-18) Glucose 116 H (74-106) mg/dL Calcium 8.4 L (8.5-10.1) mg/dL Magnesium 1.5 L (1.8-2.4) mg/dl Total Bilirubin 1.0 (0.2-1.0) mg/dL AST 52 H (15-37) U/L ALT 33 (16-63) U/L Alkaline Phosphatase 77 (46-116) U/L Total Protein 7.6 (6.4-8.2) g/dl Albumin 4.2 (3.4-5.0) g/dl Globulin 3.4 gm/dL Albumin/Globulin Ratio 1.2 (1-2) Urine Opiates Screen Negative (OWJAZF=700) Ur Buprenorphine Scrn Negative (CUTOFF=10) Ur Oxycodone Screen Negative (WSX8NM=594) Urine Methadone Screen Negative (LUL0HY=567) Ur Propoxyphene Screen Negative (VELUTE=909) Ur Barbiturates Screen Negative (EHKNKX=405) Ur Tricyclics Screen Negative (EGEJAE=619) Ur Phencyclidine Scrn Negative (CUTOFF=25) Ur Amphetamine Screen Negative (PTWXYU=434) U Methamphetamines Scrn Negative (PQSDTP=852) U Benzodiazepines Scrn Presumptive positive H (RQTUUG=053) U Cocaine Metab Screen Negative (WTIKDT=034) U Marijuana (THC) Screen Negative (CUTOFF=50) Ethyl Alcohol 0.47 (0.00) gm% Medications Generic Name Dose Route Start Last Admin Trade Name Freq PRN Reason Stop Dose Admin Sodium Chloride 1,000 mls @ 1,000 mls/hr 04/19/19 14:00 04/19/19 14:24 Normal Saline IV 1,000 mls/hr .BOLUS MARCELA Administration Sodium Chloride 10 ml 04/19/19 13:57 04/19/19 14:26 Saline Flush FLUSH 10 ml ASDIRECTED PRN Administration Keep Vein Open Discontinued Medications Generic Name Dose Route Start Last Admin Trade Name Freq PRN Reason Stop Dose Admin Famotidine 20 mg 04/19/19 13:58 04/19/19 14:26 Pepcid IVPUSH 04/19/19 13:59 20 mg ONETIME ONE Administration Nicotine 21 mg 04/19/19 14:40 04/19/19 14:47 Habitrol TRDERM 04/19/19 14:41 21 mg ONETIME ONE Administration Ondansetron HCl 4 mg 04/19/19 13:58 04/19/19 14:25 Zofran IVPUSH 04/19/19 13:59 4 mg ONETIME ONE Administration Re-Assessment/Re-Exam: I ordered an IV NS 1L bolus, zofran 4mg IV, pepcid 20mg IV and labs. His WBC was normal. His Hgb was elevated at 18. His Na was elevated at 148. His anion gap was elevated at 15.5. His magnesium was low at 1.5. His AST was elevated at 52. His UDS is positive for benzos. His ETOH was elevated at 0.47. He is talking and he walked to the bathroom. I was going to discharge him home and then he said he had a headache and pain to the left side of his body and that he was numb and weak. He did not have weakness but I did get a CT of his head and there was no acute changes. I will give him a prescription for ativan and zofran. Departure - Departure Time of Disposition: 17:50 Disposition: Home, Self-Care 01 Condition: Good Clinical Impression: Alcohol intoxication Qualifiers: Complication of substance-induced condition: uncomplicated Qualified Code(s): F10.920 - Alcohol use, unspecified with intoxication, uncomplicated - Discharge Information *PRESCRIPTION DRUG MONITORING PROGRAM REVIEWED*: No *COPY OF PRESCRIPTION DRUG MONITORING REPORT IN PATIENT MAYURI: No Prescriptions: LORazepam [Ativan] 1 mg PO DAILY #18 tablet Ondansetron [Zofran ODT] 4 mg PO Q6H PRN #20 tab.dis PRN Reason: Nausea\vomiting Referrals: PCP,None [Primary Care Provider] - Additional Instructions: Stop drinking. Take the ativan 1mg by mouth 3 times per day for 3 days and then 1mg by mouth 2 times per day for 3 days and then 1mg by mouth at night for 3 days. Take the zofran every 6 hours as needed for nausea and vomiting. Call [facility] or go to for help. Please return if you are worse. Sepsis Event Note - Evaluation Sepsis Screening Result: No Definite Risk - Focused Exam Vital Signs: Vital Signs Temp Pulse Resp BP Pulse Ox 04/19/19 13:48 98.8 F 114 H 18 137/103 H 94 L Date Exam was Performed: 04/19/19 Time Exam was Performed: 17:47 - My Orders Last 24 Hours: My Active Orders 04/19/19 13:57 Cardiac Monitoring [RC] . DIRECTED Sodium Chloride 0.9% [Saline Flush] 10 ml FLUSH ASDIRECTED PRN Peripheral IV Insertion Adult [OM.PC] Stat 04/19/19 13:58 Peripheral IV Care [RC] . DIRECTED 04/19/19 14:00 Sodium Chloride 0.9% [Normal Saline] 1,000 ml IV .BOLUS 04/19/19 16:59 Head wo Cont [CT] Stat - Assessment/Plan Last 24 Hours: My Active Orders 04/19/19 13:57 Cardiac Monitoring [RC] . DIRECTED Sodium Chloride 0.9% [Saline Flush] 10 ml FLUSH ASDIRECTED PRN Peripheral IV Insertion Adult [OM.PC] Stat 04/19/19 13:58 Peripheral IV Care [RC] . DIRECTED 04/19/19 14:00 Sodium Chloride 0.9% [Normal Saline] 1,000 ml IV .BOLUS 04/19/19 16:59 Head wo Cont [CT] Stat
--- NOTE | 2019-04-19 17:50 | CT ---
Head CT Technique: Multiple axial sections through the brain were obtained. Intravenous contrast was not utilized. Comparison: Prior head CT study of 04/03/18. Findings: Ventricles along with basal cisterns and sulci over the convexities appear mildly prominent. Findings are similar to previous exam. Small low density finding is noted within the right basal ganglia which is stable and most likely is due to prominent perivascular space. No other abnormal parenchymal densities are seen. No evidence of intracranial hemorrhage. No midline shift or mass effect is seen. Bone window settings were reviewed which shows no acute calvarial abnormality. Mastoid sinuses and paranasal sinuses show nothing acute. Impression: 1. Stable findings from prior head CT study as noted above. 2. Nothing acute is appreciated on noncontrast head CT exam. Note: If patient's symptoms are persistent, MRI study could then be considered. Diagnostic code #2 This report was dictated in [place] Standard Time
[2019-04-19 18:35] VITALS: PULSE 88
== END 2019-04-19 18:33 | disposition home or self-care (01) ==
LOC: JD.ED 13:43
DX: F10.120 Alcohol abuse with intoxication, uncomplicated (principal); Y90.2 Blood alcohol level of 40-59 mg/100 ml; Z79.899 Other long term (current) drug therapy; Z98.890 Other specified postprocedural states
CPT/HCPCS: 36415; 70450; 80053; 80306; 80320; 83735; 85025; 96361; 96374; 96375; 99284; A9270; J2405; J3490; J7030; G0480

== ENCOUNTER 2019-04-20 21:51 | Emergency (ER) | payer MEDICAID ==
[2019-04-20 22:11] VITALS: BP 137/93; PULSE 82
--- NOTE | 2019-04-20 22:36 | EDM.PDOCBH ---
ED HPI GENERAL MEDICAL PROBLEM - General Chief Complaint: Drug or Alcohol Abuse Stated Complaint: DETOX Time Seen by Provider: 04/20/19 21:58 Source of Information: Reports: Patient, Other (Friend) History Limitations: Reports: No Limitations - History of Present Illness INITIAL COMMENTS - FREE TEXT/NARRATIVE: This is a 33-year-old male. He is well-known to the ER with multiple visits mostly related to alcohol intoxication. Apparently he called his sponsor and asked his sponsor to take him to a liquor store but instead the sponsor said no I will take you to the ER instead. Patient states he has been having sharp pain in his chest and his abdomen that comes and goes. In the mornings after eating has a long night of drinking he will vomit. Apparently he went to an AA meeting about 1 month ago and was supposedly sober but as soon as the meeting was over he went out and started drinking again. He has been drinking for the last month nonstop. He states he drinks "99 Bananas." His last drink was about 4 to 5 hours ago. The patient does not appear to be in acute distress presently. He does have a history of delirium tremens as well as seizures during his alcohol withdrawal. States he wants alcohol detox. He has been in this ER multiple times wanting alcohol detox but once he begins to sober up he normally wants to leave. No recent history of illnesses such as cold cough fever chills or diarrhea. Bilateral Flank Pain Score (Numeric/FACES): 5 - Related Data Allergies Allergy/AdvReac Type Severity Reaction Status Date / Time No Known Allergies Allergy Verified 04/19/19 13:46 Home Meds: Home Meds Hydrochlorothiazide [Microzide] 12.5 mg PO DAILY 02/09/19 [History] Pantoprazole Sodium [Protonix] 40 mg PO ACBREAKFAST 02/09/19 [History] Rivaroxaban [Xarelto] 20 mg PO DAILY 02/09/19 [History] Magnesium Oxide 400 mg PO BID #60 tablet 02/12/19 [Rx] Hydrocortisone [Anusol-HC] 30 gm RC Q12H #2 cream..g. 02/17/19 [Rx] Ranitidine [Zantac] 300 mg PO BEDTIME 02/17/19 [History] Sucralfate [Carafate] 1 gm PO QIDACANDBED #40 ml 02/17/19 [Rx] LORazepam [Ativan] 1 mg PO DAILY #18 tablet 04/19/19 [Rx] Ondansetron [Zofran ODT] 4 mg PO Q6H PRN #20 tab.dis 04/19/19 [Rx] LORazepam [Ativan] 1 mg PO Q6H #5 tab 04/21/19 [Rx] Past Medical History HEENT History: Reports: Other (See Below) Other HEENT History: Maxofacial surgery to repair right socket Cardiovascular History: Reports: Blood Clots/VTE/DVT Other Cardiovascular History: seen for chest pains Respiratory History: Reports: Sleep Apnea Gastrointestinal History: Reports: Gastritis, GERD, PUD Other Gastrointestinal History: stomach ulcer Genitourinary History: Reports: Prostate Disorder Other Genitourinary History: prostate disease AIR DRIER History: Reports: None Musculoskeletal History: Reports: Fracture Other Musculoskeletal History: ankle Neurological History: Reports: Migraines Psychiatric History: Reports: Addiction Endocrine/Metabolic History: Reports: None Hematologic History: Reports: None Immunologic History: Reports: None Oncologic (Cancer) History: Reports: None Dermatologic History: Reports: None - Infectious Disease History Infectious Disease History: Reports: Chicken Pox - Past Surgical History Head Surgeries/Procedures: Reports: None HEENT Surgical History: Reports: Tonsillectomy, Other (See Below) GI Surgical History: Reports: EGD, Hernia, Abdominal Endocrine Surgical History: Reports: None Oncologic Surgical History: Reports: None Dermatological Surgical History: Reports: None Social & Family History - Family History Family Medical History: Noncontributory - Tobacco Use Smoking Status *Q: Never Smoker Second Hand Smoke Exposure: No - Caffeine Use Caffeine Use: Reports: Coffee - Alcohol Use Days Per Week of Alcohol Use: 7 Number of Drinks Per Day: 1 Total Drinks Per Week: 7 - Recreational Drug Use Recreational Drug Use: No - Living Situation & Occupation Living situation: Reports: , Alone Occupation: Unemployed ED ROS GENERAL - Review of Systems Review Of Systems: See Below Constitutional: Denies: Fever, Chills HEENT: Reports: No Symptoms Respiratory: Denies: Shortness of Breath, Cough Cardiovascular: Reports: Chest Pain Endocrine: Reports: No Symptoms GI/Abdominal: Reports: Abdominal Pain, Nausea, Vomiting. Denies: Diarrhea : Reports: No Symptoms Musculoskeletal: Reports: No Symptoms Skin: Reports: No Symptoms Neurological: Reports: No Symptoms Psychiatric: Reports: No Symptoms Hematologic/Lymphatic: Reports: No Symptoms ED EXAM, BEHAVIORAL HEALTH - Physical Exam Exam: See Below Exam Limited By: Other (Smells heavily of EtOH and I suspect he is intoxicated but he is acting and talking normal) General Appearance: Alert, WD/WN, No Apparent Distress Eye Exam: Bilateral Eye: Normal Inspection (Bloodshot sclera) Ears: Normal External Exam Nose: Normal Inspection Throat/Mouth: Normal Lips, Normal Voice, No Airway Compromise Head: Normocephalic, Other (Very flushed face) Neck: Supple Respiratory/Chest: No Respiratory Distress, Lungs Clear, Normal Breath Sounds, Other (No rib tenderness on palpation bilaterally no sternal tenderness or costochondral tenderness on palpation) Cardiovascular: Regular Rate, Rhythm, No Edema, No Murmur GI/Abdominal: Soft, Non-Tender, Other (Bowel sounds are positive in all 4 quadrants, there is no rebound or peritoneal symptoms on palpation) Back Exam: Normal Inspection, Full Range of Motion Extremities: Normal Inspection, Normal Range of Motion Neurological: Alert, Normal Mood/Affect, Oriented x 3 Psychiatric: Alert, Normal Affect, Normal Cognition, Oriented Skin Exam: Warm, Dry COURSE, BEHAVIORAL HEALTH COMP - Course Vital Signs: Last Vital Signs Temp 99.6 F 04/20/19 22:08 Pulse 82 04/20/19 22:08 Resp 16 04/20/19 22:08 BP 137/93 H 04/20/19 22:08 Pulse Ox 97 04/20/19 22:08 Orders, Labs, Meds: Active Orders 24 hr Category Date Time Status Abdomen Series w Chest 1V [CR] Stat Exams 04/20/19 22:30 Taken Laboratory Tests 04/20/19 04/20/19 Range/Units 22:40 22:40 WBC 5.55 (4.23-9.07) K/mm3 RBC 5.08 (4.63-6.08) M/mm3 Hgb 16.2 D (13.7-17.5) gm/dl Hct 46.7 (40.1-51.0) % MCV 91.9 (79.0-92.2) fl MCH 31.9 (25.7-32.2) pg MCHC 34.7 (32.2-35.5) g/dl RDW Std Deviation 44.7 H (35.1-43.9) fL Plt Count 172 (163-337) K/mm3 MPV 10.1 (9.4-12.3) fl Neut % (Auto) 47.2 (34.0-67.9) % Lymph % (Auto) 34.8 (21.8-53.1) % [place] % (Auto) 16.6 H (5.3-12.2) % Eos % (Auto) 0.7 L (0.8-7.0) Baso % (Auto) 0.5 (0.1-1.2) % Neut # (Auto) 2.62 (1.78-5.38) K/mm3 Lymph # (Auto) 1.93 (1.32-3.57) K/mm3 [place] # (Auto) 0.92 H (0.30-0.82) K/mm3 Eos # (Auto) 0.04 (0.04-0.54) K/mm3 Baso # (Auto) 0.03 (0.01-0.08) K/mm3 Manual Slide Review Abnormal smear Sodium 143 (136-145) mEq/L Potassium 3.1 L (3.5-5.1) mEq/L Chloride 104 (98-107) mEq/L Carbon Dioxide 31 (21-32) mEq/L Anion Gap 11.1 (5-15) BUN 6 L (7-18) mg/dL Creatinine 0.9 (0.7-1.3) mg/dL Est Cr Clr Drug Dosing 126.14 mL/min Estimated GFR (MDRD) > 60 (>60) mL/min BUN/Creatinine Ratio 6.7 L (14-18) Glucose 116 H (74-106) mg/dL Calcium 8.5 (8.5-10.1) mg/dL Magnesium 1.2 L (1.8-2.4) mg/dl Total Bilirubin 1.1 H (0.2-1.0) mg/dL AST 59 H (15-37) U/L ALT 34 (16-63) U/L Alkaline Phosphatase 74 (46-116) U/L Troponin I < 0.017 (0.00-0.056) ng/mL C-Reactive Protein < 0.2 (<1.0) mg/dL Total Protein 6.9 (6.4-8.2) g/dl Albumin 4.0 (3.4-5.0) g/dl Globulin 2.9 gm/dL Albumin/Globulin Ratio 1.4 (1-2) Lipase 255 (73-393) U/L Ethyl Alcohol 0.29 (0.00) gm% Medications Discontinued Medications Generic Name Dose Route Start Last Admin Trade Name Erica PRN Reason Stop Dose Admin Al Hydroxide/Mg Hydroxide 30 0 ml 04/20/19 23:58 04/21/19 00:03 ml/ Lidocaine HCl 15 ml PO 04/20/19 23:59 45 ml ONETIME ONE Administration Lorazepam 1 mg 04/20/19 23:57 04/21/19 00:02 Ativan PO 04/20/19 23:58 1 mg ONETIME ONE Administration Discharge vs Psych Eval/Treatment:: 04/20/19 23:50 Chest x-ray does not show any acute findings. KUB and upright does not show any acute findings 04/20/19 23:59 Spoke to the patient regarding his x-ray results and his slightly low potassium and magnesium. I also indicated that his alcohol level was 0.29. I am going to provide a 1 mg Ativan and a GI cocktail and he knows that he can come back to the ER when he starts feeling the shakes and at that time we will be able to detox him appropriately. Departure - Departure Time of Disposition: 00:00 Disposition: Home, Self-Care 01 Condition: Fair Clinical Impression: Alcohol use disorder, severe, dependence, Hypokalemia, Hypomagnesemia Acute alcohol intoxication Qualifiers: Complication of substance-induced condition: uncomplicated Qualified Code(s): F10.920 - Alcohol use, unspecified with intoxication, uncomplicated Alcoholic gastritis Qualifiers: Chronicity: acute Gastritis bleeding: presence of bleeding unspecified Qualified Code(s): K29.20 - Alcoholic gastritis without bleeding - Discharge Information *PRESCRIPTION DRUG MONITORING PROGRAM REVIEWED*: Not Applicable *COPY OF PRESCRIPTION DRUG MONITORING REPORT IN PATIENT MAYURI: Not Applicable Prescriptions: LORazepam [Ativan] 1 mg PO Q6H #5 tab Instructions: Alcohol Intoxication, [id number] Referrals: Nancy Lindo PA-C [Primary Care Provider] - Forms: ED Department Discharge Additional Instructions: Please stop drinking because it is going to kill you, once you start to feel the shakes you need to return to the ER for detoxification, follow-up with your family doctor later this week, consider taking some Nexium and Prilosec for the stomach symptoms, return to the ER as needed Sepsis Event Note - Evaluation Sepsis Screening Result: No Definite Risk - Focused Exam Vital Signs: Vital Signs Temp Pulse Resp BP Pulse Ox 04/20/19 22:08 99.6 F 82 16 137/93 H 97 Date Exam was Performed: 04/21/19 Time Exam was Performed: 00:09 - My Orders Last 24 Hours: My Active Orders 04/20/19 22:30 Abdomen Series w Chest 1V [CR] Stat - Assessment/Plan Last 24 Hours: My Active Orders 04/20/19 22:30 Abdomen Series w Chest 1V [CR] Stat
[2019-04-20] MEDS ORDERED: LORazepam 1 MG Tab PO ONE (23:57)
[2019-04-20] MEDS ORDERED: Alum Hydrox/Mag Hydrox/Simeth 30 ML, Lidocaine 2% 15 ML PO ONE ×2 (23:58)
--- NOTE | 2019-04-22 09:29 | CR ---
Abdominal series: Supine and upright views of the abdomen were obtained as well as PA view of the chest. Comparison: Prior abdominal series of 06/13/17. Findings: Heart size and mediastinum are normal. Lungs are clear with no acute parenchymal change. Scattered gas within small bowel and colon is seen. This appears within normal limits at this time. No free air is seen. No soft tissue abnormality is appreciated. Impression: 1. Nothing acute is seen on abdominal series. Diagnostic code #2 This report was dictated in [place] Standard Time
== END 2019-04-21 00:30 | disposition home or self-care (01) ==
LOC: JD.ED 21:51
DX: F10.220 Alcohol dependence with intoxication, uncomplicated (principal); K29.20 Alcoholic gastritis without bleeding; E87.6 Hypokalemia; E83.42 Hypomagnesemia; Z86.718 Personal history of other venous thrombosis and embolism; K21.9 Gastro-esophageal reflux disease without esophagitis; Z79.899 Other long term (current) drug therapy; Z79.01 Long term (current) use of anticoagulants
CPT/HCPCS: 36415; 74022; 80053; 80320; 83690; 83735; 84484; 85025; 86140; 99285; A9270; 99283; G0480

== ENCOUNTER 2019-05-15 20:35 | Emergency (ER) | payer MEDICAID ==
[2019-05-15 20:44] VITALS: BP 159/110; PULSE 110
[2019-05-15] MEDS ORDERED: Lactated Ringers 1,000 ML IV ONE (23:40)
--- NOTE | 2019-05-15 23:45 | EDM.PDOC ---
ED HPI GENERAL MEDICAL PROBLEM - General Chief Complaint: Drug or Alcohol Abuse Stated Complaint: [facility] Time Seen by Provider: 05/15/19 23:31 Source of Information: Reports: Patient, RN Notes Reviewed History Limitations: Reports: Intoxication - History of Present Illness INITIAL COMMENTS - FREE TEXT/NARRATIVE: Mr. Momin is a pleasant 33-year-old man, well-known to this ED, with a history of chronic daily alcoholism. He is brought to the ED by EMS after he slipped on ice while walking to a convenience store to get a hot dog, falling, and striking his head. He was able to relay this to the triage nurse, stating that he remembered everything, however, when I came into the patient's room, he was sleeping, and well I will come up and asked him what brought him to the ED, he stated that he was here because of his drinking. He did not recall anything about slipping, falling, or striking his head. The patient smells strongly of alcohol, and is clinically intoxicated, with slurred speech. There is a small laceration to the medial aspect of his left eyebrow with associated swelling, otherwise, no acute injuries are seen. The patient's PCP is DANA Solo. The patient did not receive an influenza vaccine this season, but is willing to receive one here today. - Related Data Allergies Allergy/AdvReac Type Severity Reaction Status Date / Time No Known Allergies Allergy Verified 05/15/19 20:36 Home Meds: Home Meds Hydrochlorothiazide [Microzide] 12.5 mg PO DAILY 02/09/19 [History] Pantoprazole Sodium [Protonix] 40 mg PO ACBREAKFAST 02/09/19 [History] Rivaroxaban [Xarelto] 20 mg PO DAILY 02/09/19 [History] Magnesium Oxide 400 mg PO BID #60 tablet 02/12/19 [Rx] Hydrocortisone [Anusol-HC] 30 gm RC Q12H #2 cream..g. 02/17/19 [Rx] Ranitidine [Zantac] 300 mg PO BEDTIME 02/17/19 [History] Sucralfate [Carafate] 1 gm PO QIDACANDBED #40 ml 02/17/19 [Rx] LORazepam [Ativan] 1 mg PO DAILY #18 tablet 04/19/19 [Rx] Ondansetron [Zofran ODT] 4 mg PO Q6H PRN #20 tab.dis 04/19/19 [Rx] LORazepam [Ativan] 1 mg PO Q6H #5 tab 04/21/19 [Rx] Past Medical History Gastrointestinal History: Reports: Gastritis, GERD, PUD Genitourinary History: Reports: Prostate Disorder Musculoskeletal History: Reports: Fracture (ankle) Psychiatric History: Reports: Addiction (alcohol) - Infectious Disease History Infectious Disease History: Reports: Chicken Pox - Past Surgical History HEENT Surgical History: Reports: Tonsillectomy, Other (See Below) ( Maxillofacial surgery to repair her right orbit fracture) GI Surgical History: Reports: EGD, Hernia, Abdominal (umbilical) Social & Family History - Family History Family Medical History: Noncontributory - Tobacco Use Smoking Status *Q: Current Every Day Smoker Years of Tobacco use: 18 Packs/Tins Daily: 1 - Caffeine Use Caffeine Use: Reports: Coffee - Alcohol Use Alcohol Use History: Yes Days Per Week of Alcohol Use: 7 Number of Drinks Per Day: 30 Total Drinks Per Week: 210 Alcohol Use Frequency: Daily - Recreational Drug Use Recreational Drug Use: Yes Drug Use in Last 12 Months: Yes Recreational Drug Type: Reports: Marijuana/Hashish (smokes on occasion) - Living Situation & Occupation Living situation: Reports: , Alone Occupation: Unemployed ED ROS GENERAL - Review of Systems Review Of Systems: Comprehensive ROS is negative, except as noted in HPI. ED EXAM, GENERAL - Physical Exam Exam: See Below Exam Limited By: Intoxication (Smells strongly of alcohol) General Appearance: Alert, WD/WN, No Apparent Distress Eye Exam: Bilateral Eye: EOMI, Normal Inspection Ears: Normal External Exam, Normal Canal, Hearing Grossly Normal, Normal TMs Nose: Normal Inspection, Normal Mucosa, No Blood Throat/Mouth: Normal Inspection, Normal Lips, Normal Teeth, Normal Gums, Normal Oropharynx, Normal Voice, No Airway Compromise Head: Normocephalic, Other (Approximately 1 cm linear partial-thickness laceration running tangentially to the medial aspect of the patient's left eyebrow) Neck: Normal Inspection, Supple, Non-Tender, Full Range of Motion Respiratory/Chest: No Respiratory Distress, Lungs Clear, Normal Breath Sounds, No Accessory Muscle Use Cardiovascular: Normal Peripheral Pulses, No Edema, No Gallop, No JVD, No Murmur , No Rub, Tachycardia (regular) Peripheral Pulses: 4+: Radial (L), Radial (R) GI/Abdominal: Normal Bowel Sounds, Soft, Non-Tender, No Organomegaly, No Distention, No Abnormal Bruit, No Mass (Male) Exam: Deferred Rectal (Males) Exam: Deferred Back Exam: Normal Inspection, Full Range of Motion, NT Extremities: Normal Inspection, Normal Range of Motion, No Pedal Edema, Normal Capillary Refill Neurological: Alert, Oriented, CN II-XII Intact (slurred speech), No Motor/ Sensory Deficits Psychiatric: Normal Affect Skin Exam: Warm, Dry, Intact, Normal Color, No Rash Course - Vital Signs Last Recorded V/S: Last Vital Signs Temp 36.8 C 05/15/19 20:36 Pulse 110 H 05/15/19 20:36 Resp 18 05/15/19 20:36 BP 159/110 H 05/15/19 20:36 Pulse Ox 98 05/15/19 20:36 - Orders/Labs/Meds Orders: Active Orders 24 hr Category Date Time Status Influenza Vaccine Charge [RC] .DISCHARGE Care 05/16/19 06:05 Active Labs: Laboratory Tests 05/15/19 05/15/19 05/15/19 Range/Units 20:45 23:45 23:45 WBC 9.60 H (4.23-9.07) K/mm3 RBC 5.77 (4.63-6.08) M/mm3 Hgb 18.1 H D (13.7-17.5) gm/dl Hct 52.5 H (40.1-51.0) % MCV 91.0 (79.0-92.2) fl MCH 31.4 (25.7-32.2) pg MCHC 34.5 (32.2-35.5) g/dl RDW Std Deviation 45.8 H (35.1-43.9) fL Plt Count 204 (163-337) K/mm3 MPV 9.6 (9.4-12.3) fl Neut % (Auto) 63.2 (34.0-67.9) % Lymph % (Auto) 25.1 (21.8-53.1) % [place] % (Auto) 10.7 (5.3-12.2) % Eos % (Auto) 0.4 L (0.8-7.0) Baso % (Auto) 0.4 (0.1-1.2) % Neut # (Auto) 6.06 H (1.78-5.38) K/mm3 Lymph # (Auto) 2.41 (1.32-3.57) K/mm3 [place] # (Auto) 1.03 H (0.30-0.82) K/mm3 Eos # (Auto) 0.04 (0.04-0.54) K/mm3 Baso # (Auto) 0.04 (0.01-0.08) K/mm3 Sodium 150 H (136-145) mEq/L Potassium 3.6 (3.5-5.1) mEq/L Chloride 107 (98-107) mEq/L Carbon Dioxide 31 (21-32) mEq/L Anion Gap 15.6 H (5-15) BUN 6 L (7-18) mg/dL Creatinine 0.8 (0.7-1.3) mg/dL Est Cr Clr Drug Dosing TNP Estimated GFR (MDRD) > 60 (>60) mL/min BUN/Creatinine Ratio 7.5 L (14-18) Glucose 102 (74-106) mg/dL Calcium 8.7 (8.5-10.1) mg/dL Magnesium 1.8 (1.8-2.4) mg/dl Total Bilirubin 0.4 (0.2-1.0) mg/dL AST 37 (15-37) U/L ALT 28 (16-63) U/L Alkaline Phosphatase 87 (46-116) U/L Total Protein 7.8 (6.4-8.2) g/dl Albumin 4.0 (3.4-5.0) g/dl Globulin 3.8 gm/dL Albumin/Globulin Ratio 1.1 (1-2) Urine Opiates Screen Negative (TRYIOM=305) Ur Buprenorphine Scrn Negative (CUTOFF=10) Ur Oxycodone Screen Negative (JHT4ZI=001) Urine Methadone Screen Negative (OGQ9FK=660) Ur Propoxyphene Screen Negative (FVATKH=486) Ur Barbiturates Screen Negative (RMQGJX=301) Ur Tricyclics Screen Negative (OFUPVS=949) Ur Phencyclidine Scrn Negative (CUTOFF=25) Ur Amphetamine Screen Negative (RWTWMF=931) U Methamphetamines Scrn Negative (LOSOTE=576) U Benzodiazepines Scrn Presumptive positive H (XQOYHV=404) U Cocaine Metab Screen Negative (ZMRIJD=799) U Marijuana (THC) Screen Negative (CUTOFF=50) Ethyl Alcohol 0.43 (0.00) gm% Meds: Medications Discontinued Medications Generic Name Dose Route Start Last Admin Trade Name Erica PRN Reason Stop Dose Admin Al Hydroxide/Mg Hydroxide 30 ml 05/16/19 01:14 05/16/19 01:27 Mag-Al Plus PO 05/16/19 01:15 30 ml ONETIME ONE Administration Famotidine 40 mg 05/16/19 01:14 05/16/19 01:25 Pepcid IVPUSH 05/16/19 01:15 40 mg ONETIME STA Administration Lactated Ringer's 1,000 mls @ 999 mls/hr 05/15/19 23:40 05/15/19 23:46 Ringers, Lactated IV 05/16/19 00:40 999 mls/hr .BOLUS ONE Administration Influenza Virus Vaccine 60 mcg 05/16/19 06:15 05/16/19 07:01 Fluzone Quad [id number] Syringe IM 05/16/19 06:16 60 mcg .ONCE ONE Administration Ondansetron HCl 4 mg 05/16/19 01:14 05/16/19 01:23 Zofran IVPUSH 05/16/19 01:15 4 mg ONETIME ONE Administration - Re-Assessments/Exams Free Text/Narrative Re-Assessment/Exam: 05/15/19 23:41 The laceration to the patient's left eyebrow is only about a centimeter long and is a partial-thickness, essentially a deep scratch, and therefore does not require suturing. The patient is amnestic of his fall, and was not able to tell me why he is in the ED, which is likely because he is heavily intoxicated, however, I have ordered a CT of his head to make sure that he does not have an intracranial hemorrhage is the result of his fall. I have also ordered some blood work, urine drug screen, and in the meantime, the patient will receive IV fluid. The patient is asking for something to drink, but given the remote possibility of an intracranial injury, I will keep him NPO until I get the CT results. 05/16/19 00:28 CT of the head without contrast is read by [facility] as: No sign of acute intracranial injury or skull fracture. No significant change. The patient's CBC is remarkable for a WBC count slightly elevated at 9.60, and an H/H elevated at 18.1/52.5, with the remainder of his CBC being unremarkable. His CMP is remarkable for a sodium elevated at 150, and an anion gap slightly elevated at 15.6, but with a bicarbonate normal at 31. The remainder of his CMP is unremarkable. His magnesium level is within normal limits at 1.8. His EtOH level is elevated at 0.43. His urine drug screen is negative. The above lab findings are consistent with dehydration. As above, the patient is receiving IV fluid. My plan would be to keep the patient in the ED overnight to sober up, during which time we will continue to give him IV fluid. He can drink fluids, if he wishes. 05/16/19 06:05 I talked with the patient. He is much more alert and feels much better following IV and oral fluid. He is ready to go home. He agreed to receive an influenza vaccine prior to discharge. Departure - Departure Time of Disposition: 06:06 Disposition: Home, Self-Care 01 Condition: Good Clinical Impression: Alcoholism, Dehydration Alcohol intoxication Qualifiers: Complication of substance-induced condition: uncomplicated Qualified Code(s): F10.920 - Alcohol use, unspecified with intoxication, uncomplicated - Discharge Information *PRESCRIPTION DRUG MONITORING PROGRAM REVIEWED*: Not Applicable *COPY OF PRESCRIPTION DRUG MONITORING REPORT IN PATIENT MAYURI: Not Applicable Instructions: Alcohol Use Disorder Referrals: Nancy Lindo PA-C [Physician [facility]] - Additional Instructions: You were seen in the emergency room after becoming intoxicated, slipping on ice , falling, and hitting your head, sustaining a small laceration to your left eyebrow. Workup in the ER included blood work, a urine drug screen, and a CT scan of your head. Your bloodwork found you to be dehydrated, and your alcohol level was found to be significantly elevated at 0.43. For reference, that is 5.3 times the upper legal limit for driving. You received IV fluid during your ER visit. The laceration did not require suturing. Going forward, we recommend that you seek professional help to stop drinking. We recommend that you go to [facility] Services: [facility] [place] [address] [phone] If any other problems, please do not hesitate to return to the ER. *You received an influenza vaccine during your ER visit.* Sepsis Event Note - Evaluation Sepsis Screening Result: No Definite Risk - Focused Exam Vital Signs: Vital Signs Temp Pulse Resp BP Pulse Ox 05/15/19 20:36 36.8 C 110 H 18 159/110 H 98 Date Exam was Performed: 05/16/19 Time Exam was Performed: 07:25 - My Orders Last 24 Hours: My Active Orders 05/16/19 06:05 Influenza Vaccine Charge [RC] .DISCHARGE - Assessment/Plan Last 24 Hours: My Active Orders 05/16/19 06:05 Influenza Vaccine Charge [RC] .DISCHARGE
[2019-05-16] MEDS ORDERED: Famotidine 20 MG/2 ML SDV IVPUSH STA (01:14)
[2019-05-16] MEDS ORDERED: Ondansetron 4 MG/2 ML SDV IVPUSH ONE (01:14)
[2019-05-16] MEDS ORDERED: Aluminum Hydroxide/Magnesium Hydroxide/Simethicone Susp 30 ML Cup PO ONE (01:14)
[2019-05-16] MEDS ORDERED: FLU Vacc QS2019-20(6MOS+)/PF 60 MCG/0.5 ML SYRINGE IM ONE (06:15)
--- NOTE | 2019-05-16 07:21 | CT ---
Head CT Technique: Multiple axial sections through the brain were obtained. Intravenous contrast was not utilized. Comparison: Prior head CT study of 04/19/19. Findings: Significant motion artifact identified within the base cuts. Ventricles along with basal cisterns and sulci over the convexities are mildly prominent. Small abnormality is noted within the right basal ganglia. No other abnormal parenchymal densities are seen. No evidence of intracranial hemorrhage. No midline shift or mass effect is seen. Bone window settings were reviewed which show the visualized mastoid sinuses to appear clear. Visualized paranasal sinuses show nothing acute. No discrete calvarial abnormality is appreciated. Impression: 1. Significant motion artifact within the base cuts. 2. Mild generalized atrophy. 3. No definite acute intracranial abnormality is appreciated. Diagnostic code #2 This report was dictated in [place] Standard Time I agree with preliminary report from [facility], finalized on , 1:13 AM Central Time
== END 2019-05-16 07:08 | disposition home or self-care (01) ==
LOC: JD.ED 20:35
DX: F10.220 Alcohol dependence with intoxication, uncomplicated (principal); Y90.8 Blood alcohol level of 240 mg/100 ml or more; E86.0 Dehydration; Z23 Encounter for immunization; Z79.899 Other long term (current) drug therapy
CPT/HCPCS: 36415; 70450; 80053; 80306; 80320; 83735; 85025; 90471; 90686; 96361; 96374; 96375; 99284; A9270; J2405; J3490; J7120; 99283; G0008; G0480